=== PATIENT | female | born 1955 | race Caucasian/White ===

== ENCOUNTER 2016-11-05 04:30 | Emergency (ER) | payer OTHER ==
--- NOTE | 2016-11-05 04:35 | ED ---
General Adult HPI - General Stated complaint: Chest pain Time Seen by Provider: 11/05/16 04:30 Source: RN notes reviewed - History of Present Illness Initial comments: This is a 61-year-old female who presents to the emergency department complaining of epigastric abdominal pain. Patient states a week and she didn't feel well yesterday she didn't vomit but she woke up a few hours ago some epigastric abdominal pain. She also noted that she had chest pain when she took a deep breath only. Patient denies any shortness of breath or difficulty breathing. Patient denies any fever chills or cough. Patient states she still is nauseous. Patient denies any diarrhea. Patient denies any palpitations. Patient denies headache patient denies numbness weakness. Patient denies any lightheadedness or dizziness. Patient denies any dysuria hematuria urinary frequency. Patient denies any recent injury or trauma. Patient states she has a little bit of epigastric discomfort and currently no chest pain because she is not taking deep breaths. - Related Data Home Medications Medication Instructions Recorded Confirmed Levothyroxine Sodium [Synthroid] 112 mcg PO DAILY 09/08/15 11/05/16 Baclofen 10 mg PO TID PRN 12/20/15 11/05/16 Meloxicam [Mobic] 7.5 mg PO DAILY 01/18/16 11/05/16 Albuterol Inhaler [Ventolin Hfa 2 puff INHALATION RT-Q6H PRN 08/13/16 11/05/16 Inhaler] Budesonide/Formoterol Fumarate 2 puff INHALATION RT-BID 08/13/16 11/05/16 [Symbicort 80-4.5 Mcg Inhaler] Butalb/Acetaminophen/Caffeine 1 tab PO QID PRN 08/13/16 11/05/16 [Fioricet 50-325-40] Metoprolol Tartrate [Lopressor] 25 mg PO DAILY 08/13/16 11/05/16 Hydrochlorothiazide [Hydrodiuril] 25 mg PO DAILY 10/04/16 11/05/16 Previous Rx's Medication Instructions Recorded Ondansetron Odt [Zofran Odt] 4 mg PO Q8HR PRN #10 tab 08/13/16 Sulfamethox-Tmp 800-160Mg [Bactrim 1 each PO Q12HR #14 tab 11/05/16 DS 800-160 mg] Allergies Allergy/AdvReac Type Severity Reaction Status Date / Time azithromycin [From Zithromax] Allergy Rash/Hives Verified 11/05/16 04:46 levofloxacin [From Levaquin] Allergy caused Verified 11/05/16 04:46 abnormal EKG prochlorperazine edisylate Allergy Rash/Hives Verified 11/05/16 04:46 [From Compazine] prochlorperazine maleate Allergy Rash/Hives Verified 11/05/16 04:46 [From Compazine] sumatriptan [From Imitrex] Allergy redness Verified 11/05/16 04:46 and swelling at injection site sumatriptan succinate Allergy redness Verified 11/05/16 04:46 [From Imitrex] and swelling at injection site ketorolac tromethamine AdvReac headache Verified 11/05/16 04:46 [From Toradol] morphine AdvReac Nausea & Verified 11/05/16 04:46 Vomiting Review of Systems ROS Statement: Those systems with pertinent positive or pertinent negative responses have been documented in the HPI. ROS Other: All systems not noted in ROS Statement are negative. Past Medical History Past Medical History: Asthma, Coronary Artery Disease (CAD), Chest Pain / Angina , Heart Failure, GERD/Reflux, Hypertension, Pneumonia Additional Past Medical History / Comment(s): 2-2-16 c/o rectal bleeding, clinical impression: gi bleed non specific colitis. Other HX: migraines, bronchitis, pneumonias, cervical radiculopathy-compression fx in neck, back pain , ARTHRITIS bilateral shoulders, pancreatis 2008, pud, LBBB, uterine fibroids, post menopausal, fxs of bilateral feet and L hand, numbness tingling L hand, scoliosis, anemia. chf,currently persistent abdominal pain-mid abd to rt side History of Any Multi-Drug Resistant Organisms: None Reported, MRSA Date of last positivie culture/infection: 2008 MDRO Source:: lt axilla Past Surgical History: Appendectomy, Cholecystectomy Additional Past Surgical History / Comment(s): LEFT TEMPORAL ARTERY BIOPSY, colonoscopy, L breast bx benign, EGD. Past Anesthesia/Blood Transfusion Reactions: Motion Sickness Past Psychological History: Anxiety, Depression Additional Psychological History / Comment(s): Pt lives alone. She is independent. She uses no assistive device. She drives.pt stated hx of depression but current medication maintains her-denies deprssion at time of admit. Smoking Status: Never smoker Past Alcohol Use History: None Reported Past Drug Use History: None Reported - Past Family History Father Family Medical History: Cancer Additional Family Medical History / Comment(s): Father of bladder cancer at age 66yrs. Mother Family Medical History: Congestive Heart Failure (CHF), Rheumatoid Arthritis (RA ) Additional Family Medical History / Comment(s): Mother had ASHD and of this at age 68yrs. General Exam - General Exam Comments Initial Comments: GENERAL: Patient is well-developed and well-nourished. Patient is nontoxic and well- hydrated and is in mild distress. ENT: Neck is soft and supple. No significant lymphadenopathy is noted. Oropharynx is clear. Moist mucous membranes. Neck has full range of motion without eliciting any pain. EYES: The sclera were anicteric and conjunctiva were pink and moist. Extraocular movements were intact and pupils were equal round and reactive to light. Eyelids were unremarkable. PULMONARY: Unlabored respirations. Good breath sounds bilaterally. No audible rales rhonchi or wheezing was noted. CARDIOVASCULAR: There is a regular rate and rhythm without any murmurs gallops or rubs. ABDOMEN: Soft and mildly tender in the epigastric region with normal bowel sounds. No palpable organomegaly was noted. There is no palpable pulsatile mass. SKIN: Skin is clear with no lesions or rashes and otherwise unremarkable. NEUROLOGIC: Patient is alert and oriented x3. Cranial nerves II through XII are grossly intact. Motor and sensory are also intact. Normal speech, volume and content. Symmetrical smile. MUSCULOSKELETAL: Normal extremities with adequate strength and full range of motion. No lower extremity swelling or edema. No calf tenderness. LYMPHATICS: No significant lymphadenopathy is noted PSYCHIATRIC: Normal psychiatric evaluation. Normal interpersonal interactions appears functionally intact in deals appropriately with others. Course Vital Signs 11/05/16 04:41 Temperature 97.8 F Pulse Rate 122 H Respiratory 16 Rate Blood Pressure 136/81 O2 Sat by Pulse 98 Oximetry Medical Decision Making - Medical Decision Making EKG shows sinus tachycardia at 110 bpm. It was 170 QRS is 94 QT interval 362 QTC is 489. Patient's EKG shows no ST segment elevation or depression or T- wave abdomen is noted. - Lab Data Result diagrams: 11/05/16 04:48 11/05/16 04:48 Lab Results 11/05/16 11/05/16 11/05/16 Range/Units 04:48 04:48 04:48 WBC 4.9 (3.8-10.6) k/uL RBC 4.07 (3.80-5.40) m/uL Hgb 13.4 (11.4-16.0) gm/dL Hct 39.2 (34.0-46.0) % MCV 96.4 (80.0-100.0) fL MCH 32.9 (25.0-35.0) pg MCHC 34.1 (31.0-37.0) g/dL RDW 12.9 (11.5-15.5) % Plt Count 242 (150-450) k/uL Neutrophils % 51 % Lymphocytes % 32 % Monocytes % 7 % Eosinophils % 8 % Basophils % 1 % Neutrophils # 2.5 (1.3-7.7) k/uL Lymphocytes # 1.6 (1.0-4.8) k/uL Monocytes # 0.3 (0-1.0) k/uL Eosinophils # 0.4 (0-0.7) k/uL Basophils # 0.1 (0-0.2) k/uL Sodium 142 (137-145) mmol/L Potassium 3.7 (3.5-5.1) mmol/L Chloride 106 (98-107) mmol/L Carbon Dioxide 23 (22-30) mmol/L Anion Gap 13 mmol/L BUN 22 H (7-17) mg/dL Creatinine 0.90 (0.52-1.04) mg/dL Est GFR (MDRD) Af Amer >60 (>60 ml/min/1.73 sqM) Est GFR (MDRD) Non-Af >60 (>60 ml/min/1.73 sqM) Glucose 113 H (74-99) mg/dL Plasma Lactic Acid Senthil (0.7-2.0) mmol/L Calcium 9.6 (8.4-10.2) mg/dL Total Bilirubin 0.6 (0.2-1.3) mg/dL AST 25 (14-36) U/L ALT 32 (9-52) U/L Alkaline Phosphatase 109 (38-126) U/L Total Creatine Kinase 48 (30-135) U/L CK-MB (CK-2) 0.3 (0.0-2.4) ng/mL CK-MB (CK-2) Rel Index 0.6 Troponin I <0.012 (0.000-0.034) ng/mL Total Protein 7.0 (6.3-8.2) g/dL Albumin 4.4 (3.5-5.0) g/dL Amylase 55 (30-110) U/L Lipase 53 (23-300) U/L Urine Color Urine Appearance (Clear) Urine pH (5.0-8.0) Ur Specific [place] (1.001-1.035) Urine Protein (Negative) Urine Glucose (UA) (Negative) Urine Ketones (Negative) Urine Blood (Negative) Urine Nitrate (Negative) Urine Bilirubin (Negative) Urine Urobilinogen (<2.0) mg/dL Ur Leukocyte Esterase (Negative) Urine RBC (0-5) /hpf Urine WBC (0-5) /hpf Urine WBC Clumps (None) /hpf Ur Squamous Epith Cells (0-4) /hpf Urine Bacteria (None) /hpf Urine Mucus (None) /hpf 11/05/16 11/05/16 Range/Units 04:48 05:50 WBC (3.8-10.6) k/uL RBC (3.80-5.40) m/uL Hgb (11.4-16.0) gm/dL Hct (34.0-46.0) % MCV (80.0-100.0) fL MCH (25.0-35.0) pg MCHC (31.0-37.0) g/dL RDW (11.5-15.5) % Plt Count (150-450) k/uL Neutrophils % % Lymphocytes % % Monocytes % % Eosinophils % % Basophils % % Neutrophils # (1.3-7.7) k/uL Lymphocytes # (1.0-4.8) k/uL Monocytes # (0-1.0) k/uL Eosinophils # (0-0.7) k/uL Basophils # (0-0.2) k/uL Sodium (137-145) mmol/L Potassium (3.5-5.1) mmol/L Chloride (98-107) mmol/L Carbon Dioxide (22-30) mmol/L Anion Gap mmol/L BUN (7-17) mg/dL Creatinine (0.52-1.04) mg/dL Est GFR (MDRD) Af Amer (>60 ml/min/1.73 sqM) Est GFR (MDRD) Non-Af (>60 ml/min/1.73 sqM) Glucose (74-99) mg/dL Plasma Lactic Acid Senthil 1.2 (0.7-2.0) mmol/L Calcium (8.4-10.2) mg/dL Total Bilirubin (0.2-1.3) mg/dL AST (14-36) U/L ALT (9-52) U/L Alkaline Phosphatase (38-126) U/L Total Creatine Kinase (30-135) U/L CK-MB (CK-2) (0.0-2.4) ng/mL CK-MB (CK-2) Rel Index Troponin I (0.000-0.034) ng/mL Total Protein (6.3-8.2) g/dL Albumin (3.5-5.0) g/dL Amylase (30-110) U/L Lipase (23-300) U/L Urine Color Yellow Urine Appearance Turbid H (Clear) Urine pH 6.5 (5.0-8.0) Ur Specific [place] 1.018 (1.001-1.035) Urine Protein 3+ H (Negative) Urine Glucose (UA) Negative (Negative) Urine Ketones 1+ H (Negative) Urine Blood Small H (Negative) Urine Nitrate Negative (Negative) Urine Bilirubin Negative (Negative) Urine Urobilinogen 2.0 (<2.0) mg/dL Ur Leukocyte Esterase Large H (Negative) Urine RBC 77 H (0-5) /hpf Urine WBC >182 H (0-5) /hpf Urine WBC Clumps Many H (None) /hpf Ur Squamous Epith Cells 24 H (0-4) /hpf Urine Bacteria Occasional H (None) /hpf Urine Mucus Many H (None) /hpf Disposition Clinical Impression: Gastritis, Urinary tract infection Disposition: HOME SELF-CARE Condition: Good Instructions: Urinary Tract Infection in Women (ED) Prescriptions: Sulfamethox-Tmp 800-160Mg [Bactrim DS 800-160 mg] 1 each PO Q12HR #14 tab Referrals: Leonela Marcelino MD [Primary Care Provider] - 1-2 days Time of Disposition: 06:06
[2016-11-05 04:46] VITALS: BP 136/81; PULSE 122; RESP 16; TEMP 97.8
--- NOTE | 2016-11-05 05:04 | XR ---
EXAMINATION TYPE: XR chest 2V DATE OF EXAM: 11/05/2016 4:55 AM COMPARISON: 05/19/2016 HISTORY: Chest and upper abdominal pain and nausea history of CHF TECHNIQUE: Frontal and lateral views of the chest are obtained. FINDINGS: There is no focal air space opacity, pleural effusion, or pneumothorax seen. The cardiac silhouette size is within normal limits. The osseous structures are intact. IMPRESSION: No acute cardiopulmonary process. No significant interval change.
[2016-11-05 05:07] LABS: Basophils # (A) 0.1 k/uL (0-0.2); Basophils % (A) 1 %; CH 34.3; CHCM 35.8; Eosinophils # (A) 0.4 k/uL (0-0.7); Eosinophils % (A) 8 %; HCT 39.2 % (34.0-46.0); HDW 2.91; HGB 13.4 gm/dL (11.4-16.0); Luc # (Auto) 0.07; Luc % (Auto) 2; Lymphocytes # (A) 1.6 k/uL (1.0-4.8); Lymphocytes % (A) 32 %; MCH 32.9 pg (25.0-35.0); MCHC 34.1 g/dL (31.0-37.0); MCV 96.4 fL (80.0-100.0); Mean Platelet Volume 7.3; Monocytes # (A) 0.3 k/uL (0-1.0); Monocytes % (A) 7 %; Neutrophils # (A) 2.5 k/uL (1.3-7.7); Neutrophils % (A) 51 %; RBC 4.07 m/uL (3.80-5.40); RDW 12.9 % (11.5-15.5); WBC 4.9 k/uL (3.8-10.6); WBC (Perox) 4.86
[2016-11-05 05:13] LABS: ALT 32 U/L (9-52); AST 25 U/L (14-36); Alkaline Phosphatase 109 U/L (38-126); Amylase 55 U/L (30-110); Anion Gap 13 mmol/L; Blood Urea Nitrogen 22 mg/dL (7-17); Calcium 9.6 mg/dL (8.4-10.2); Carbon Dioxide 23 mmol/L (22-30); Chloride 106 mmol/L (98-107); Glucose 113 mg/dL (74-99); Non-African American GFR(MDRD) >60 (>60 ml/min/1.73 sqM); Potassium 3.7 mmol/L (3.5-5.1); Sodium 142 mmol/L (137-145); Total Bilirubin 0.6 mg/dL (0.2-1.3)
[2016-11-05 05:24] LABS: Creatine Kinase 48 U/L (30-135)
[2016-11-05 05:36] LABS: Creatine Kinase MB 0.3 ng/mL (0.0-2.4); Troponin I <0.012 ng/mL (0.000-0.034)
[2016-11-05] MEDS ORDERED: MAG HYDROX/AL HYDROX/SIMETH 30 ML, HYOSCYAMINE ELIXIR 10 ML, CIMETIDINE HCL 300 MG PO STA ×3 (05:41)
[2016-11-05] MEDS ORDERED: SODIUM CHLORIDE 0.9% 500 ML IV STA (05:42)
[2016-11-05 06:03] LABS: Appearance,Urine Turbid (Clear); Bacteria,Urine Occasional /hpf; Bilirubin,Urine Negative (Negative); Glucose,Urine (UA) Negative (Negative); Ketones,Urine 1+ (Negative); Leukocyte Esterase,Urine Large (Negative); Mucus,Urine Many /hpf; Nitrite,Urine Negative (Negative); PH, Urine 6.5 (5.0-8.0); Particle Count 121628; Protein,Urine 3+ (Negative); RBC,Urine 77 /hpf (0-5); Specific Gravity,Urine 1.018 (1.001-1.035); Squamous Epithelial Cell,Urine 24 /hpf (0-4); UA Billing (MACRO vs. MICRO) MICRO; WBC,Urine >182 /hpf (0-5)
== END 2016-11-05 06:31 | disposition home or self-care (01) ==
LOC: EC 04:30
DX: K29.70 Gastritis, unspecified, without bleeding (principal); N39.0 Urinary tract infection, site not specified; R00.0 Tachycardia, unspecified; J45.909 Unspecified asthma, uncomplicated; I25.10 Atherosclerotic heart disease of native coronary artery without angina pectoris; I11.0 Hypertensive heart disease with heart failure; I50.9 Heart failure, unspecified; K21.9 Gastro-esophageal reflux disease without esophagitis; M19.012 Primary osteoarthritis, left shoulder; M19.011 Primary osteoarthritis, right shoulder; G43.909 Migraine, unspecified, not intractable, without status migrainosus; D64.9 Anemia, unspecified; M41.9 Scoliosis, unspecified; F41.9 Anxiety disorder, unspecified; F32.9 Major depressive disorder, single episode, unspecified; Z87.01 Personal history of pneumonia (recurrent); Z87.11 Personal history of peptic ulcer disease; Z80.52 Family history of malignant neoplasm of bladder; Z82.49 Family history of ischemic heart disease and other diseases of the circulatory system; Z90.49 Acquired absence of other specified parts of digestive tract; Z88.1 Allergy status to other antibiotic agents; Z88.8 Allergy status to other drugs, medicaments and biological substances; Z88.5 Allergy status to narcotic agent; Z79.899 Other long term (current) drug therapy; Z79.1 Long term (current) use of non-steroidal anti-inflammatories (NSAID)
CPT/HCPCS: 99285 ×2; 96365 ×2; 36415; 93005; 80053; 82150; 82550; 82553; 83605; 83690; 84484; 85025; 81001; 71020; J0696

== ENCOUNTER 2016-12-27 06:35 | Emergency (ER) | payer OTHER ==
[2016-12-27] MEDS ORDERED: METOCLOPRAMIDE 5 MG/ML 2 ML VIAL IM STA (07:45)
[2016-12-27] MEDS ORDERED: ONDANSETRON ODT 4 MG TAB PO STA (07:46)
[2016-12-27] MEDS ORDERED: BUTALB/APAP/CAFF 50-325-40MG TAB PO STA (07:46)
[2016-12-27] MEDS ORDERED: diphenhydrAMINE 50 MG/ML 1 ML VIAL IM STA (07:46)
--- NOTE | 2016-12-27 07:49 | ED ---
General Adult HPI - General Chief complaint: Headache Stated complaint: Headache, Nausea, abd pain Time Seen by Provider: 12/27/16 07:00 Source: patient, RN notes reviewed Mode of arrival: ambulatory Limitations: no limitations - History of Present Illness Initial comments: This is a 61-year-old female who comes into the emergency department with past history significant for migraines. Patient comes in today stating her migraine started early in the morning about 1:00 and she had some nausea and then began vomiting his been unable to keep her meds down. Patient states that she can keep her meds down and she would feel much better. Patient denies any new symptoms with the headache. Patient states this is typical of her migraines she has frontal headache that is diffuse and she becomes nauseated. Patient states she's also sensitive to light however the bright lights are on the room and she does not appear to be bothered by them. Patient denies any fever chills patient denies any neck stiffness. Patient denies any chest pain palpitations difficulty breathing or shortness of breath. Patient denies abdominal pain. - Related Data Home Medications Medication Instructions Recorded Confirmed Levothyroxine Sodium [Synthroid] 112 mcg PO DAILY 09/08/15 12/27/16 Baclofen 10 mg PO TID PRN 12/20/15 12/27/16 Meloxicam [Mobic] 7.5 mg PO DAILY 01/18/16 12/27/16 Albuterol Inhaler [Ventolin Hfa 2 puff INHALATION RT-Q6H PRN 08/13/16 12/27/16 Inhaler] Budesonide/Formoterol Fumarate 2 puff INHALATION RT-BID 08/13/16 12/27/16 [Symbicort 80-4.5 Mcg Inhaler] Butalb/Acetaminophen/Caffeine 1 tab PO QID PRN 08/13/16 12/27/16 [Fioricet 50-325-40] Metoprolol Tartrate [Lopressor] 25 mg PO DAILY 08/13/16 12/27/16 Hydrochlorothiazide [Hydrodiuril] 25 mg PO DAILY 10/04/16 12/27/16 Previous Rx's Medication Instructions Recorded Ondansetron Odt [Zofran Odt] 4 mg PO Q8HR PRN #10 tab 08/13/16 Allergies Allergy/AdvReac Type Severity Reaction Status Date / Time azithromycin [From Zithromax] Allergy Rash/Hives Verified 12/27/16 06:43 levofloxacin [From Levaquin] Allergy caused Verified 12/27/16 06:43 abnormal EKG prochlorperazine edisylate Allergy Rash/Hives Verified 12/27/16 06:43 [From Compazine] prochlorperazine maleate Allergy Rash/Hives Verified 12/27/16 06:43 [From Compazine] sumatriptan [From Imitrex] Allergy redness Verified 12/27/16 06:43 and swelling at injection site sumatriptan succinate Allergy redness Verified 12/27/16 06:43 [From Imitrex] and swelling at injection site ketorolac tromethamine AdvReac headache Verified 12/27/16 06:43 [From Toradol] morphine AdvReac Nausea & Verified 12/27/16 06:43 Vomiting Review of Systems ROS Statement: Those systems with pertinent positive or pertinent negative responses have been documented in the HPI. ROS Other: All systems not noted in ROS Statement are negative. Past Medical History Past Medical History: Asthma, Coronary Artery Disease (CAD), Chest Pain / Angina , Heart Failure, GERD/Reflux, Hypertension, Pneumonia Additional Past Medical History / Comment(s): 2-2-16 c/o rectal bleeding, clinical impression: gi bleed non specific colitis. Other HX: migraines, bronchitis, pneumonias, cervical radiculopathy-compression fx in neck, back pain , ARTHRITIS bilateral shoulders, pancreatis 2008, pud, LBBB, uterine fibroids, post menopausal, fxs of bilateral feet and L hand, numbness tingling L hand, scoliosis, anemia. chf,currently persistent abdominal pain-mid abd to rt side History of Any Multi-Drug Resistant Organisms: None Reported, MRSA Date of last positivie culture/infection: 2008 MDRO Source:: lt axilla Past Surgical History: Appendectomy, Cholecystectomy Additional Past Surgical History / Comment(s): LEFT TEMPORAL ARTERY BIOPSY, colonoscopy, L breast bx benign, EGD. Past Anesthesia/Blood Transfusion Reactions: Motion Sickness Past Psychological History: Anxiety, Depression Additional Psychological History / Comment(s): Pt lives alone. She is independent. She uses no assistive device. She drives.pt stated hx of depression but current medication maintains her-denies deprssion at time of admit. Smoking Status: Never smoker Past Alcohol Use History: None Reported Past Drug Use History: None Reported - Past Family History Father Family Medical History: Cancer Additional Family Medical History / Comment(s): Father of bladder cancer at age 66yrs. Mother Family Medical History: Congestive Heart Failure (CHF), Rheumatoid Arthritis (RA ) Additional Family Medical History / Comment(s): Mother had ASHD and of this at age 68yrs. General Exam - General Exam Comments Initial Comments: GENERAL: Patient is well-developed and well-nourished. Patient is nontoxic and well- hydrated and is in mild distress. ENT: Neck is soft and supple. No significant lymphadenopathy is noted. Oropharynx is clear. Moist mucous membranes. Neck has full range of motion without eliciting any pain. EYES: The sclera were anicteric and conjunctiva were pink and moist. Extraocular movements were intact and pupils were equal round and reactive to light. Eyelids were unremarkable. Patient does not seem to have any photophobia PULMONARY: Unlabored respirations. Good breath sounds bilaterally. No audible rales rhonchi or wheezing was noted. CARDIOVASCULAR: There is a regular rate and rhythm without any murmurs gallops or rubs. ABDOMEN: Soft and nontender with normal bowel sounds. No palpable organomegaly was noted. There is no palpable pulsatile mass. SKIN: Skin is clear with no lesions or rashes and otherwise unremarkable. NEUROLOGIC: Patient is alert and oriented x3. Cranial nerves II through XII are grossly intact. Motor and sensory are also intact. Normal speech, volume and content. Symmetrical smile. MUSCULOSKELETAL: Normal extremities with adequate strength and full range of motion. LYMPHATICS: No significant lymphadenopathy is noted PSYCHIATRIC: Normal psychiatric evaluation. Normal interpersonal interactions appears functionally intact in deals appropriately with others. No signs of depression. No signs of anxiety. Limitations: no limitations Course Vital Signs 12/27/16 06:39 Temperature 97.7 F Pulse Rate 100 Respiratory 20 Rate Blood Pressure 94/51 O2 Sat by Pulse 97 Oximetry Medical Decision Making - Medical Decision Making Patient told me she has never followed up with a neurologist. Disposition Clinical Impression: Migraine, Migraine Disposition: HOME SELF-CARE Condition: Good Instructions: Migraine Headache (ED) Additional Instructions: Patient is to follow-up with a neurologist. Referrals: Leonela Marcelino MD [Primary Care Provider] - 1-2 days Time of Disposition: 07:49
[2016-12-27] MEDS ORDERED: ONDANSETRON 4 MG ODT STARTER PACK 2 TAB BTL PO STA (07:56)
[2016-12-27 08:52] VITALS: BP 90/53; PULSE 84; RESP 16; TEMP 97.5
== END 2016-12-27 08:49 | disposition home or self-care (01) ==
LOC: EC 06:35
DX: G43.909 Migraine, unspecified, not intractable, without status migrainosus (principal); J45.909 Unspecified asthma, uncomplicated; I25.10 Atherosclerotic heart disease of native coronary artery without angina pectoris; I11.0 Hypertensive heart disease with heart failure; I50.9 Heart failure, unspecified; K21.9 Gastro-esophageal reflux disease without esophagitis; M13.812 Other specified arthritis, left shoulder; M13.811 Other specified arthritis, right shoulder; M41.9 Scoliosis, unspecified; Z79.51 Long term (current) use of inhaled steroids; Z79.52 Long term (current) use of systemic steroids; Z79.899 Other long term (current) drug therapy; Z88.1 Allergy status to other antibiotic agents; Z88.5 Allergy status to narcotic agent; Z88.6 Allergy status to analgesic agent; Z88.8 Allergy status to other drugs, medicaments and biological substances
CPT/HCPCS: 99283; 96372 ×2; J1200; J2765; S0119

== ENCOUNTER 2017-02-07 05:15 | Emergency (ER) | payer OTHER ==
[2017-02-07] MEDS ORDERED: SODIUM CHLORIDE 0.9% 500 ML IV STA (05:30)
[2017-02-07 05:40] VITALS: TEMP 98.1
--- NOTE | 2017-02-07 05:43 | ED ---
Abdominal Pain HPI - General Chief Complaint: Abdominal Pain Stated Complaint: nvd, abd pain Time Seen by Provider: 02/07/17 05:29 Source: patient Mode of arrival: ambulatory Limitations: no limitations - History of Present Illness MD Complaint: abdominal pain Onset/Timin -: week(s) Location: LUQ, RUQ, epigastric Radiation: none Severity: moderate Quality: aching Consistency: constant Improves With: nothing Worsens With: nothing Associated Symptoms: nausea, vomiting - Related Data Home Medications Medication Instructions Recorded Confirmed Baclofen 10 mg PO TID 12/20/15 02/07/17 Meloxicam [Mobic] 7.5 mg PO BID 01/18/16 02/07/17 Albuterol Inhaler [Ventolin Hfa 2 puff INHALATION RT-BID 08/13/16 02/07/17 Inhaler] Budesonide/Formoterol Fumarate 1 puff INHALATION RT-DAILY 08/13/16 02/07/17 [Symbicort 80-4.5 Mcg Inhaler] Metoprolol Tartrate [Lopressor] 25 mg PO BID 08/13/16 02/07/17 Hydrochlorothiazide [Hydrodiuril] 25 mg PO DAILY 10/04/16 02/07/17 Butalb/Acetaminophen/Caffeine 1 - 2 cap PO Q4HR PRN 12/27/16 02/07/17 [Fioricet 50-300-40 mg Capsule] Levothyroxine Sodium [Synthroid] 125 mcg PO DAILY 12/27/16 02/07/17 Omeprazole [PriLOSEC] 20 mg PO BID 12/27/16 02/07/17 Desvenlafaxine [Pristiq ER] 100 mg PO DAILY 02/07/17 02/07/17 Previous Rx's Medication Instructions Recorded Famotidine [Pepcid] 20 mg PO BID #14 tablet 02/07/17 Nitrofurantoin Monohyd/M-Cryst 100 mg PO Q12HR #6 cap 02/07/17 [Macrobid] Allergies Allergy/AdvReac Type Severity Reaction Status Date / Time azithromycin [From Zithromax] Allergy Rash/Hives Verified 02/07/17 07:39 prochlorperazine edisylate Allergy Rash/Hives Verified 02/07/17 07:39 [From Compazine] prochlorperazine maleate Allergy Rash/Hives Verified 02/07/17 07:39 [From Compazine] sumatriptan [From Imitrex] Allergy redness Verified 02/07/17 07:39 and swelling at injection site sumatriptan succinate Allergy redness Verified 02/07/17 07:39 [From Imitrex] and swelling at injection site ketorolac tromethamine AdvReac headache Verified 02/07/17 07:39 [From Toradol] levofloxacin [From Levaquin] AdvReac caused Verified 02/07/17 07:39 abnormal EKG morphine AdvReac Nausea & Verified 02/07/17 07:39 Vomiting Review of Systems ROS Statement: Those systems with pertinent positive or pertinent negative responses have been documented in the HPI. ROS Other: All systems not noted in ROS Statement are negative. Constitutional: Denies: fever, chills Respiratory: Denies: cough, dyspnea, wheezes Cardiovascular: Denies: chest pain, palpitations, orthopnea, edema, syncope Gastrointestinal: Reports: abdominal pain, nausea, vomiting. Denies: diarrhea, melena, hematochezia Genitourinary: Denies: dysuria, hematuria Musculoskeletal: Denies: back pain Skin: Denies: rash Neurological: Denies: headache, weakness, numbness Past Medical History Past Medical History: Asthma, Coronary Artery Disease (CAD), Chest Pain / Angina , Heart Failure, GERD/Reflux, Hypertension, Pneumonia Additional Past Medical History / Comment(s): 2-16 c/o rectal bleeding, clinical impression: gi bleed non specific colitis. Other HX: migraines, bronchitis, pneumonias, cervical radiculopathy-compression fx in neck, back pain , ARTHRITIS bilateral shoulders, pancreatis 2008, pud, LBBB, uterine fibroids, post menopausal, fxs of bilateral feet and L hand, numbness tingling L hand, scoliosis, anemia. chf,currently persistent abdominal pain-mid abd to rt side History of Any Multi-Drug Resistant Organisms: None Reported, MRSA Date of last positivie culture/infection: 2008 MDRO Source:: lt axilla Past Surgical History: Appendectomy, Cholecystectomy Additional Past Surgical History / Comment(s): LEFT TEMPORAL ARTERY BIOPSY, colonoscopy, L breast bx benign, EGD. Past Anesthesia/Blood Transfusion Reactions: Motion Sickness Past Psychological History: Anxiety, Depression Additional Psychological History / Comment(s): Pt lives alone. She is independent. She uses no assistive device. She drives.pt stated hx of depression but current medication maintains her-denies deprssion at time of admit. Smoking Status: Never smoker Past Alcohol Use History: None Reported Past Drug Use History: None Reported - Past Family History Father Family Medical History: Cancer Additional Family Medical History / Comment(s): Father of bladder cancer at age 66yrs. Mother Family Medical History: Congestive Heart Failure (CHF), Rheumatoid Arthritis (RA ) Additional Family Medical History / Comment(s): Mother had ASHD and of this at age 68yrs. General Exam Limitations: no limitations General appearance: alert Head exam: Present: atraumatic, normocephalic Eye exam: Present: normal appearance. Absent: scleral icterus, conjunctival injection ENT exam: Present: normal oropharynx Neck exam: Present: normal inspection, full ROM Respiratory exam: Present: normal lung sounds bilaterally. Absent: respiratory distress, wheezes, rales, rhonchi, stridor Cardiovascular Exam: Present: normal rhythm, tachycardia, normal heart sounds. Absent: systolic murmur, diastolic murmur, rubs, gallop GI/Abdominal exam: Present: soft, tenderness (There is mild epigastric tenderness without rebound or guarding), normal bowel sounds. Absent: distended , guarding, rebound, rigid, mass, pulsatile mass, hernia Extremities exam: Present: normal inspection, normal capillary refill. Absent: pedal edema, calf tenderness Back exam: Absent: CVA tenderness (R), CVA tenderness (L) Neurological exam: Present: alert Skin exam: Present: warm, dry, intact, normal color. Absent: rash Course Vital Signs 02/07/17 05:17 Temperature 98.1 F Pulse Rate 115 H Respiratory 20 Rate Blood Pressure 123/58 O2 Sat by Pulse 96 Oximetry Medical Decision Making - Lab Data Result diagrams: 02/07/17 05:58 02/07/17 05:58 Lab Results 02/07/17 02/07/17 02/07/17 Range/Units 05:58 05:58 05:58 WBC 6.3 (3.8-10.6) k/uL RBC 3.53 L (3.80-5.40) m/uL Hgb 11.5 (11.4-16.0) gm/dL Hct 34.1 (34.0-46.0) % MCV 96.6 (80.0-100.0) fL MCH 32.7 (25.0-35.0) pg MCHC 33.8 (31.0-37.0) g/dL RDW 13.7 (11.5-15.5) % Plt Count 250 (150-450) k/uL Neutrophils % 49 % Lymphocytes % 32 % Monocytes % 6 % Eosinophils % 10 % Basophils % 1 % Neutrophils # 3.1 (1.3-7.7) k/uL Lymphocytes # 2.0 (1.0-4.8) k/uL Monocytes # 0.4 (0-1.0) k/uL Eosinophils # 0.6 (0-0.7) k/uL Basophils # 0.1 (0-0.2) k/uL Sodium 139 (137-145) mmol/L Potassium 3.3 L (3.5-5.1) mmol/L Chloride 106 (98-107) mmol/L Carbon Dioxide 23 (22-30) mmol/L Anion Gap 10 mmol/L BUN 27 H (7-17) mg/dL Creatinine 0.98 (0.52-1.04) mg/dL Est GFR (MDRD) Af Amer >60 (>60 ml/min/1.73 sqM) Est GFR (MDRD) Non-Af 58 (>60 ml/min/1.73 sqM) Glucose 99 (74-99) mg/dL Calcium 9.7 (8.4-10.2) mg/dL Total Bilirubin 0.8 (0.2-1.3) mg/dL AST 38 H (14-36) U/L ALT 43 (9-52) U/L Alkaline Phosphatase 92 (38-126) U/L Troponin I <0.012 (0.000-0.034) ng/mL Total Protein 7.0 (6.3-8.2) g/dL Albumin 4.1 (3.5-5.0) g/dL Amylase 81 (30-110) U/L Lipase 172 (23-300) U/L Urine Color Urine Appearance (Clear) Urine pH (5.0-8.0) Ur Specific [place] (1.001-1.035) Urine Protein (Negative) Urine Glucose (UA) (Negative) Urine Ketones (Negative) Urine Blood (Negative) Urine Nitrite (Negative) Urine Bilirubin (Negative) Urine Urobilinogen (<2.0) mg/dL Ur Leukocyte Esterase (Negative) Urine WBC (0-5) /hpf Ur Squamous Epith Cells (0-4) /hpf Hyaline Casts (0-2) /lpf 02/07/17 Range/Units 06:18 WBC (3.8-10.6) k/uL RBC (3.80-5.40) m/uL Hgb (11.4-16.0) gm/dL Hct (34.0-46.0) % MCV (80.0-100.0) fL MCH (25.0-35.0) pg MCHC (31.0-37.0) g/dL RDW (11.5-15.5) % Plt Count (150-450) k/uL Neutrophils % % Lymphocytes % % Monocytes % % Eosinophils % % Basophils % % Neutrophils # (1.3-7.7) k/uL Lymphocytes # (1.0-4.8) k/uL Monocytes # (0-1.0) k/uL Eosinophils # (0-0.7) k/uL Basophils # (0-0.2) k/uL Sodium (137-145) mmol/L Potassium (3.5-5.1) mmol/L Chloride (98-107) mmol/L Carbon Dioxide (22-30) mmol/L Anion Gap mmol/L BUN (7-17) mg/dL Creatinine (0.52-1.04) mg/dL Est GFR (MDRD) Af Amer (>60 ml/min/1.73 sqM) Est GFR (MDRD) Non-Af (>60 ml/min/1.73 sqM) Glucose (74-99) mg/dL Calcium (8.4-10.2) mg/dL Total Bilirubin (0.2-1.3) mg/dL AST (14-36) U/L ALT (9-52) U/L Alkaline Phosphatase (38-126) U/L Troponin I (0.000-0.034) ng/mL Total Protein (6.3-8.2) g/dL Albumin (3.5-5.0) g/dL Amylase (30-110) U/L Lipase (23-300) U/L Urine Color Yellow Urine Appearance Clear (Clear) Urine pH 6.0 (5.0-8.0) Ur Specific [place] 1.018 (1.001-1.035) Urine Protein Negative (Negative) Urine Glucose (UA) Negative (Negative) Urine Ketones Negative (Negative) Urine Blood Negative (Negative) Urine Nitrite Negative (Negative) Urine Bilirubin Negative (Negative) Urine Urobilinogen <2.0 (<2.0) mg/dL Ur Leukocyte Esterase Moderate H (Negative) Urine WBC 11 H (0-5) /hpf Ur Squamous Epith Cells 1 (0-4) /hpf Hyaline Casts 104 H (0-2) /lpf - EKG Data -: EKG Interpreted by [facility] EKG shows normal: sinus rhythm, axis (Normal), intervals (Normal), ST-T waves ( Normal) Rate: tachycardia (Rate 103 bpm) Interpretation: other (Possible old inferior infarct.) Disposition Clinical Impression: Gastroenteritis, Abdominal pain Disposition: HOME SELF-CARE Condition: Fair Instructions: Gastroenteritis (ED) Prescriptions: Famotidine [Pepcid] 20 mg PO BID #14 tablet Nitrofurantoin Monohyd/M-Cryst [Macrobid] 100 mg PO Q12HR #6 cap Referrals: Leonela Marcelino MD [Primary Care Provider] - 1-2 days
[2017-02-07] MEDS ORDERED: ONDANSETRON 4 MG/2 ML VIAL IVP STA (06:07)
[2017-02-07 06:21] LABS: Basophils # (A) 0.1 k/uL (0-0.2); Basophils % (A) 1 %; CH 34.8; CHCM 36.2; Eosinophils # (A) 0.6 k/uL (0-0.7); Eosinophils % (A) 10 %; HCT 34.1 % (34.0-46.0); HDW 2.84; HGB 11.5 gm/dL (11.4-16.0); Luc # (Auto) 0.19; Luc % (Auto) 3; Lymphocytes % (A) 32 %; MCH 32.7 pg (25.0-35.0); MCHC 33.8 g/dL (31.0-37.0); MCV 96.6 fL (80.0-100.0); Mean Platelet Volume 6.4; Monocytes # (A) 0.4 k/uL (0-1.0); Monocytes % (A) 6 %; Neutrophils # (A) 3.1 k/uL (1.3-7.7); Neutrophils % (A) 49 %; RBC 3.53 m/uL (3.80-5.40); RDW 13.7 % (11.5-15.5); WBC 6.3 k/uL (3.8-10.6); WBC (Perox) 6.36
[2017-02-07 06:32] LABS: ALT 43 U/L (9-52); AST 38 U/L (14-36); Alkaline Phosphatase 92 U/L (38-126); Amylase 81 U/L (30-110); Anion Gap 10 mmol/L; Blood Urea Nitrogen 27 mg/dL (7-17); Calcium 9.7 mg/dL (8.4-10.2); Carbon Dioxide 23 mmol/L (22-30); Chloride 106 mmol/L (98-107); Glucose 99 mg/dL (74-99); Non-African American GFR(MDRD) 58 (>60 ml/min/1.73 sqM); Potassium 3.3 mmol/L (3.5-5.1); Sodium 139 mmol/L (137-145); Total Bilirubin 0.8 mg/dL (0.2-1.3)
[2017-02-07 06:41] LABS: Appearance,Urine Clear (Clear); Bilirubin,Urine Negative (Negative); Glucose,Urine (UA) Negative (Negative); Ketones,Urine Negative (Negative); Leukocyte Esterase,Urine Moderate (Negative); Nitrite,Urine Negative (Negative); Particle Count 1122; Protein,Urine Negative (Negative); Specific Gravity,Urine 1.018 (1.001-1.035); Squamous Epithelial Cell,Urine 1 /hpf (0-4); UA Billing (MACRO vs. MICRO) MICRO; Urobilinogen,Urine <2.0 mg/dL (<2.0); WBC,Urine 11 /hpf (0-5)
--- NOTE | 2017-02-07 07:43 | CT ---
EXAM: CT Abdomen and Pelvis Without Intravenous Contrast. CLINICAL HISTORY: Reason: Pain TECHNIQUE: Axial computed tomography images of the abdomen and pelvis without intravenous contrast. CTDI is 12.80 mGy and DLP is 682.00 mGy-cm This CT exam was performed using one or more of the following dose reduction techniques: automated exposure control, adjustment of the mA and/or kV according to patient size, and/or use of iterative reconstruction technique. COMPARISON: CT abdomen pelvis 12/19/15. FINDINGS: Lower thorax: Small right-sided Bochdalek hernia. ABDOMEN: Liver: Unremarkable. Gallbladder and bile ducts: Prior cholecystectomy. No ductal dilation. Pancreas: Unremarkable. No ductal dilation. Spleen: Unremarkable. No splenomegaly. Adrenals: Unremarkable. No mass. Kidneys and ureters: Punctate nonobstructing calyceal calculus at the left lower renal pole. No obstructive uropathy. No other renal abnormalities. Stomach and bowel: Fluid within nondistended stomach and bowel without wall thickening or surrounding inflammation is nonspecific and may be normal but can also be seen with gastroenteritis in the right clinical setting. No bowel obstruction. No appendicitis or other inflammatory changes of bowel. Scattered colonic diverticula. Appendix: See above. PELVIS: Bladder: Unremarkable. No stones. Reproductive: Unremarkable as visualized. ABDOMEN and PELVIS: Intraperitoneal space: Unremarkable. No free air. No significant fluid collection. Bones/joints: No acute fracture. No dislocation. Soft tissues: Unremarkable. Vasculature: Unremarkable. No abdominal aortic aneurysm. Lymph nodes: Unremarkable. No enlarged lymph nodes. IMPRESSION: Fluid within nondistended stomach and bowel without wall thickening or surrounding inflammation is nonspecific and may be normal but can also be seen with gastroenteritis in the right clinical setting. Punctate nonobstructing calyceal calculus at the left lower renal pole. No obstructive uropathy. No other acute or inflammatory disease or bowel obstruction.
[2017-02-07] MEDS ORDERED: HYDROcodone/APAP 5-325MG 1 EACH TAB PO STA (07:56)
[2017-02-07] MEDS ORDERED: POTASSIUM CHLORIDE ER 20 MEQ TAB.ER PO STA (07:59)
[2017-02-07 08:31] VITALS: BP 112/68; PULSE 98; RESP 18
== END 2017-02-07 08:29 | disposition home or self-care (01) ==
LOC: EC 05:15
DX: K52.9 Noninfective gastroenteritis and colitis, unspecified (principal); R11.2 Nausea with vomiting, unspecified; R00.0 Tachycardia, unspecified; J45.909 Unspecified asthma, uncomplicated; I10 Essential (primary) hypertension; K21.9 Gastro-esophageal reflux disease without esophagitis; M19.90 Unspecified osteoarthritis, unspecified site; F32.9 Major depressive disorder, single episode, unspecified; F41.9 Anxiety disorder, unspecified; Z79.1 Long term (current) use of non-steroidal anti-inflammatories (NSAID); Z79.51 Long term (current) use of inhaled steroids; Z79.899 Other long term (current) drug therapy; Z88.1 Allergy status to other antibiotic agents; Z88.5 Allergy status to narcotic agent; Z88.6 Allergy status to analgesic agent; Z88.8 Allergy status to other drugs, medicaments and biological substances; Z87.39 Personal history of other diseases of the musculoskeletal system and connective tissue; Z86.79 Personal history of other diseases of the circulatory system; Z90.49 Acquired absence of other specified parts of digestive tract
CPT/HCPCS: 99284; 96374; 96361; 36415; 93005; 80053; 82150; 83690; 84484; 85025; 81001; 74176; J2405

== ENCOUNTER → 2017-03-22 | Outpatient (CLI) | payer OTHER ==
--- NOTE | 2017-03-26 13:24 | MM ---
Reason for exam: clinical finding. History: Patient is postmenopausal. Benign excisional biopsy of the left breast, 1996. Indicated problem(s): lump or thickening in the left breast. Physical Findings: Nurse did not find any significant physical abnormalities on exam. MG Diagnostic Mammo w CAD LEXI Bilateral CC and MLO view(s) were taken. ML and spot compression MLO with magnification view(s) were taken of the left breast. There are scattered fibroglandular densities. Asymmetric density superior left breast does not persist on spot magnification view. There are some faint punctate calcifications in this area that do not quite form a cluster at this time. These results were verbally communicated with the patient and result sheet given to the patient on 03/22/17. ASSESSMENT: Incomplete: need additional imaging evaluation, BI-RAD 0 RECOMMENDATION: Ultrasound of the left breast. (Targeted to patient palpable. Nurse could not detect any abnormality at 12-4 o'clock)
--- NOTE | 2017-03-26 13:25 | USB ---
Reason for exam: additional evaluation requested from abnormal screening. History: Patient is postmenopausal. Benign excisional biopsy of the left breast, 1996. US Breast Limited LT Left breast ultrasound demonstrates a 2 x 1 x 3mm oval, too small to characterize, probably cystic lesion at 2 o'clock. These results were verbally communicated with the patient and result sheet given to the patient on 03/22/17. ASSESSMENT: Probably benign, BI-RAD 3 RECOMMENDATION: Follow-up diagnostic mammogram of the left breast in 6 months. Manage patient on a clinical basis. (Any suspicious palpable areas).
== END | disposition home or self-care (01) ==
LOC: RADMAMWWP 07:58
PROVIDERS: ATTEND Family Medicine
DX: N64.4 Mastodynia (principal)
CPT/HCPCS: 76642; G0204

== ENCOUNTER 2017-04-03 09:02 | Day surgery (SDC) | payer OTHER ==
[2017-04-02 10:10] VITALS: BMI 28.1
[~2017-04-03 09:02] MED LIST: LACTATED RINGERS 1,000 ML IV SCH; LIDOCAINE 1% 20 ML VIAL (10MG/ML) FOR IV START INTRADERMA PRN
[2017-04-03 09:57] VITALS: RESP 16; TEMP 98.3
[2017-04-03] MEDS ORDERED: PROPOFOL 10 MG/ML 20 ML VIAL IV ONE (10:11)
--- NOTE | 2017-04-03 10:26 | P.PCN ---
Date of Procedure: 04/03/17 Preoperative Diagnosis: Postoperative Diagnosis: Procedure(s) Performed: BRIEF HISTORY: Patient is a 61-year-old, pleasant, white female, scheduled for an upper endoscopy as a part of evaluation of severe epigastric pain for the last several months duration. She does have history of gastroesophageal reflux and has been on Prilosec 20 mg daily for almost 1 year duration. She does take NSAIDs a regular basis for degenerative joint disease. Has prior history of peptic ulcer disease approximately 30 years ago. In view of the symptoms she is scheduled for an upper endoscopy to evaluate further. PROCEDURE PERFORMED: Esophagogastroduodenoscopy with biopsy. PREOPERATIVE DIAGNOSIS: Severe epigastric pain of 2 months duration and chronic GERD. IV sedation per anesthesia. PROCEDURE: After informed consent was obtained, the patient was brought into the endoscopy unit. IV sedation was administered by Anesthesia under continuous monitoring. Initially the Olympus GIF-140 video endoscope was inserted into the mouth. Esophagus intubated without any difficulty. It was gradually advanced into the stomach and duodenum and carefully examined. In the bulb of the duodenum there was a duodenal stricture identified with a superficial ulceration noted but this did not did not impede the passage of the scope. The second part of the duodenum appeared normal. The scope at this time was withdrawn to the stomach, adequately insufflated with air, and upon careful examination, mucosa of the antrum had mild gastritis and biopsies were done from this area. The , body, cardia and the fundus appeared normal. The scope was then withdrawn into the esophagus. small hiatal hernia noted. The GE junction was located at 35 cm from the incisors. there was Finch's esophagus noted in the distal esophagus exceeding from 33-35 cm from the incisors and multiple biopsies were done from this area. The rest of the esophagus appeared normal. There were no erosions or ulcerations seen and the patient tolerated the procedure well. IMPRESSION: 1. Finch's esophagus. 2. Small hiatal hernia 3. Mild antral gastritis 4. 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 RECOMMENDATIONS: The findings of this examination were discussed with the patient as well as her family. She was advised to follow with the biopsy results. She was advised to avoid NSAIDs and the meantime increase the Prilosec to 20 mg twice daily to be taken half hour before breakfast and dinnertime and follow antireflux measures. If the biopsy confirms the presence of Finch's esophagus, she can have a repeat upper endoscopy as a part of surveillance every 2 years. Implants: Indications for Procedure: Operative Findings: Description of Procedure:
[2017-04-03 10:47] VITALS: BP 96/61; PULSE 88
== END 2017-04-03 11:35 | disposition home or self-care (01) ==
LOC: ORWHC2ENDO 09:02
PROVIDERS: ATTEND Internal Medicine Gastroenterology
DX: K22.70 Barrett's esophagus without dysplasia (principal); K29.50 Unspecified chronic gastritis without bleeding; K31.5 Obstruction of duodenum; K26.9 Duodenal ulcer, unspecified as acute or chronic, without hemorrhage or perforation; K44.9 Diaphragmatic hernia without obstruction or gangrene; K21.9 Gastro-esophageal reflux disease without esophagitis; I11.0 Hypertensive heart disease with heart failure; I50.9 Heart failure, unspecified; J45.909 Unspecified asthma, uncomplicated; E07.9 Disorder of thyroid, unspecified; Z79.891 Long term (current) use of opiate analgesic; Z79.51 Long term (current) use of inhaled steroids; Z79.899 Other long term (current) drug therapy; Z88.1 Allergy status to other antibiotic agents; Z88.5 Allergy status to narcotic agent; Z88.8 Allergy status to other drugs, medicaments and biological substances
CPT/HCPCS: 88305; 88342; 43239; J2704

== ENCOUNTER 2017-06-10 14:17 | Inpatient (IN) | payer OTHER ==
[2017-06-10] MEDS ORDERED: ONDANSETRON 4 MG/2 ML VIAL IVP STA (14:50)
[2017-06-10] MEDS ORDERED: SODIUM CHLORIDE 0.9% 500 ML IV STA (14:50)
[2017-06-10] MEDS ORDERED: HYDROmorphone 1 MG/ML 1 ML SYRINGE IVP STA (14:51)
--- NOTE | 2017-06-10 15:11 | ED ---
General Adult HPI - General Chief complaint: Abdominal Pain Stated complaint: Abd Pain Time Seen by Provider: 06/10/17 14:30 Source: patient, RN notes reviewed Mode of arrival: wheelchair Limitations: no limitations - History of Present Illness Initial comments: This is a 62-year-old female presents emergency Department with a past medical history significant for gastritis and duodenal ulcer and she also states she has a history of pancreatitis in the past. Patient's had a cholecystectomy and appendectomy in the past. Patient comes in today because she started having epigastric pain this morning when she woke up and became very nauseated and started vomiting. Patient states last time she vomited was around noon. Patient states remains nauseated continues to have sharp epigastric abdominal pain. Patient states the pain does not radiate anywhere. Patient denies any chest pain or shortness of breath patient denies any palpitations per patient denies any recent fever chills or cough. Patient denies any lower abdominal pain patient denies any nausea. Patient denies dysuria hematuria urinary frequency. - Related Data Home Medications Medication Instructions Recorded Confirmed Baclofen 10 mg PO TID 12/20/15 06/10/17 Meloxicam [Mobic] 7.5 mg PO BID 01/18/16 06/10/17 Albuterol Inhaler [Ventolin Hfa 2 puff INHALATION RT-BID 08/13/16 06/10/17 Inhaler] Budesonide/Formoterol Fumarate 1 puff INHALATION RT-DAILY 08/13/16 06/10/17 [Symbicort 80-4.5 Mcg Inhaler] Metoprolol Tartrate [Lopressor] 25 mg PO BID 08/13/16 06/10/17 Hydrochlorothiazide [Hydrodiuril] 25 mg PO DAILY 10/04/16 06/10/17 Butalb/Acetaminophen/Caffeine 1 - 2 cap PO Q4HR PRN 12/27/16 06/10/17 [Fioricet 50-300-40 mg Capsule] Levothyroxine Sodium [Synthroid] 125 mcg PO QAM 12/27/16 06/10/17 Omeprazole [PriLOSEC] 20 mg PO BID 12/27/16 06/10/17 Desvenlafaxine [Pristiq ER] 100 mg PO QAM 02/07/17 06/10/17 LORazepam [Ativan] 1 - 2 mg PO DAILY PRN 06/10/17 06/10/17 Montelukast [Singulair] 10 mg PO HS 06/10/17 06/10/17 QUEtiapine [SEROquel] 50 mg PO HS 06/10/17 06/10/17 traZODone HCL 50 mg PO BID 06/10/17 06/10/17 Allergies Allergy/AdvReac Type Severity Reaction Status Date / Time azithromycin [From Zithromax] Allergy Rash/Hives Verified 06/10/17 15:46 prochlorperazine edisylate Allergy Rash/Hives Verified 06/10/17 15:46 [From Compazine] prochlorperazine maleate Allergy Rash/Hives Verified 06/10/17 15:46 [From Compazine] sumatriptan [From Imitrex] Allergy redness Verified 06/10/17 15:46 and swelling at injection site sumatriptan succinate Allergy redness Verified 06/10/17 15:46 [From Imitrex] and swelling at injection site ketorolac tromethamine AdvReac headache Verified 06/10/17 15:46 [From Toradol] levofloxacin [From Levaquin] AdvReac caused Verified 06/10/17 15:46 abnormal EKG morphine AdvReac Nausea & Verified 06/10/17 15:46 Vomiting Review of Systems ROS Statement: Those systems with pertinent positive or pertinent negative responses have been documented in the HPI. ROS Other: All systems not noted in ROS Statement are negative. Past Medical History Past Medical History: Asthma, Coronary Artery Disease (CAD), Chest Pain / Angina , Heart Failure, GERD/Reflux, Hypertension, Pneumonia Additional Past Medical History / Comment(s): 2-2-16 c/o rectal bleeding, clinical impression: gi bleed non specific colitis. Other HX: migraines, bronchitis, pneumonias, cervical radiculopathy-compression fx in neck, back pain , ARTHRITIS bilateral shoulders, pancreatis 2008, pud, LBBB, uterine fibroids, post menopausal, fxs of bilateral feet and L hand, numbness tingling L hand, scoliosis, anemia. ,currently persistent abdominal pain-mid abd to rt side History of Any Multi-Drug Resistant Organisms: MRSA Date of last positivie culture/infection: 2008 MDRO Source:: lt axilla Past Surgical History: Appendectomy, Cholecystectomy Additional Past Surgical History / Comment(s): LEFT TEMPORAL ARTERY BIOPSY, colonoscopy, L breast bx benign, EGD. Past Anesthesia/Blood Transfusion Reactions: Motion Sickness Additional Past Anesthesia/Blood Transfusion Reaction / Comment(s): no prior problems with blood transfusion Past Psychological History: Anxiety, Depression Smoking Status: Never smoker Past Alcohol Use History: None Reported Past Drug Use History: None Reported - Past Family History Father Family Medical History: Cancer Additional Family Medical History / Comment(s): Father of bladder cancer at age 66yrs. Mother Family Medical History: Congestive Heart Failure (CHF), Rheumatoid Arthritis (RA ) Additional Family Medical History / Comment(s): Mother had ASHD and of this at age 68yrs. General Exam - General Exam Comments Initial Comments: GENERAL: Patient is well-developed and well-nourished. Patient is nontoxic and well- hydrated and is in mild distress. ENT: Neck is soft and supple. No significant lymphadenopathy is noted. Oropharynx is clear. Moist mucous membranes. Neck has full range of motion without eliciting any pain. EYES: The sclera were anicteric and conjunctiva were pink and moist. Extraocular movements were intact and pupils were equal round and reactive to light. Eyelids were unremarkable. PULMONARY: Unlabored respirations. Good breath sounds bilaterally. No audible rales rhonchi or wheezing was noted. CARDIOVASCULAR: There is a regular rate and rhythm without any murmurs gallops or rubs. ABDOMEN: Epigastric abdominal pain. No palpable organomegaly was noted. There is no palpable pulsatile mass. SKIN: Skin is clear with no lesions or rashes and otherwise unremarkable. NEUROLOGIC: Patient is alert and oriented x3. Cranial nerves II through XII are grossly intact. Motor and sensory are also intact. Normal speech, volume and content. Symmetrical smile. MUSCULOSKELETAL: Normal extremities with adequate strength and full range of motion. No lower extremity swelling or edema. No calf tenderness. LYMPHATICS: No significant lymphadenopathy is noted PSYCHIATRIC: Normal psychiatric evaluation. Normal interpersonal interactions appears functionally intact in deals appropriately with others. No signs of depression. No signs of anxiety. Limitations: no limitations Course Vital Signs 06/10/17 06/10/17 14:32 15:05 Temperature 100.2 F H Pulse Rate 133 H Pulse Rate [ 128 H [place]er ] Respiratory 18 Rate Blood Pressure 124/59 O2 Sat by Pulse 94 L Oximetry Medical Decision Making - Medical Decision Making EKG shows sinus tachycardia 114 bpm GA interval 174 QRS is 84 QT interval 3:30 QTC is 465. Patient's EKG shows no ST segment elevation or depression or T wave abnormalities are noted. Patient appears to be dehydrated and I will give the patient some fluid. - Lab Data Result diagrams: 06/10/17 15:02 06/10/17 15:02 Lab Results 06/10/17 06/10/17 06/10/17 Range/Units 15:02 15:02 15:02 WBC 11.4 H (3.8-10.6) k/uL RBC 3.88 (3.80-5.40) m/uL Hgb 12.7 (11.4-16.0) gm/dL Hct 37.3 (34.0-46.0) % MCV 96.1 (80.0-100.0) fL MCH 32.6 (25.0-35.0) pg MCHC 34.0 (31.0-37.0) g/dL RDW 13.7 (11.5-15.5) % Plt Count 297 (150-450) k/uL Neutrophils % 75 % Lymphocytes % 15 % Monocytes % 5 % Eosinophils % 3 % Basophils % 1 % Neutrophils # 8.6 H (1.3-7.7) k/uL Lymphocytes # 1.7 (1.0-4.8) k/uL Monocytes # 0.6 (0-1.0) k/uL Eosinophils # 0.3 (0-0.7) k/uL Basophils # 0.1 (0-0.2) k/uL Sodium 140 (137-145) mmol/L Potassium 3.3 L (3.5-5.1) mmol/L Chloride 105 (98-107) mmol/L Carbon Dioxide 23 (22-30) mmol/L Anion Gap 12 mmol/L BUN 20 H (7-17) mg/dL Creatinine 0.91 (0.52-1.04) mg/dL Est GFR (MDRD) Af Amer >60 (>60 ml/min/1.73 sqM) Est GFR (MDRD) Non-Af >60 (>60 ml/min/1.73 sqM) Glucose 111 H (74-99) mg/dL Plasma Lactic Acid Senthil (0.7-2.0) mmol/L Calcium 9.0 (8.4-10.2) mg/dL Total Bilirubin 2.6 H (0.2-1.3) mg/dL AST 200 H (14-36) U/L ALT 95 H (9-52) U/L Alkaline Phosphatase 141 H (38-126) U/L Total Creatine Kinase 47 (30-135) U/L Total Protein 7.1 (6.3-8.2) g/dL Albumin 4.1 (3.5-5.0) g/dL Amylase 215 H (30-110) U/L Lipase 1486 H (23-300) U/L 06/10/17 Range/Units 15:24 WBC (3.8-10.6) k/uL RBC (3.80-5.40) m/uL Hgb (11.4-16.0) gm/dL Hct (34.0-46.0) % MCV (80.0-100.0) fL MCH (25.0-35.0) pg MCHC (31.0-37.0) g/dL RDW (11.5-15.5) % Plt Count (150-450) k/uL Neutrophils % % Lymphocytes % % Monocytes % % Eosinophils % % Basophils % % Neutrophils # (1.3-7.7) k/uL Lymphocytes # (1.0-4.8) k/uL Monocytes # (0-1.0) k/uL Eosinophils # (0-0.7) k/uL Basophils # (0-0.2) k/uL Sodium (137-145) mmol/L Potassium (3.5-5.1) mmol/L Chloride (98-107) mmol/L Carbon Dioxide (22-30) mmol/L Anion Gap mmol/L BUN (7-17) mg/dL Creatinine (0.52-1.04) mg/dL Est GFR (MDRD) Af Amer (>60 ml/min/1.73 sqM) Est GFR (MDRD) Non-Af (>60 ml/min/1.73 sqM) Glucose (74-99) mg/dL Plasma Lactic Acid Senthil 2.2 H* (0.7-2.0) mmol/L Calcium (8.4-10.2) mg/dL Total Bilirubin (0.2-1.3) mg/dL AST (14-36) U/L ALT (9-52) U/L Alkaline Phosphatase (38-126) U/L Total Creatine Kinase (30-135) U/L Total Protein (6.3-8.2) g/dL Albumin (3.5-5.0) g/dL Amylase (30-110) U/L Lipase (23-300) U/L Disposition Clinical Impression: Acute pancreatitis, Dehydration Disposition: ADMITTED IP TO THIS [facility] Referrals: Leonela Marcelino MD [Primary Care Provider] - 1-2 days Time of Disposition: 15:51
[2017-06-10] MEDS ORDERED: IBUPROFEN IV 600 MG in SODIUM CHLORIDE 0.9% 250 ML IV ONE (15:13)
[2017-06-10 15:16] LABS: Basophils # (A) 0.1 k/uL (0-0.2); Basophils % (A) 1 %; CH 34.1; CHCM 35.7; Eosinophils # (A) 0.3 k/uL (0-0.7); Eosinophils % (A) 3 %; HCT 37.3 % (34.0-46.0); HDW 2.94; HGB 12.7 gm/dL (11.4-16.0); Luc # (Auto) 0.19; Luc % (Auto) 2; Lymphocytes # (A) 1.7 k/uL (1.0-4.8); Lymphocytes % (A) 15 %; MCH 32.6 pg (25.0-35.0); MCV 96.1 fL (80.0-100.0); Mean Platelet Volume 6.8; Monocytes # (A) 0.6 k/uL (0-1.0); Monocytes % (A) 5 %; Neutrophils # (A) 8.6 k/uL (1.3-7.7); Neutrophils % (A) 75 %; RBC 3.88 m/uL (3.80-5.40); RDW 13.7 % (11.5-15.5); WBC 11.4 k/uL (3.8-10.6); WBC (Perox) 11.86
[2017-06-10] MEDS ORDERED: ACETAMINOPHEN IV (For NPO) 1,000 MG in EMPTY BAG 1 BAG IVPB ONE (15:17)
[2017-06-10 15:27] LABS: ALT 95 U/L (9-52); AST 200 U/L (14-36); Alkaline Phosphatase 141 U/L (38-126); Amylase 215 U/L (30-110); Anion Gap 12 mmol/L; Blood Urea Nitrogen 20 mg/dL (7-17); Carbon Dioxide 23 mmol/L (22-30); Chloride 105 mmol/L (98-107); Glucose 111 mg/dL (74-99); Non-African American GFR(MDRD) >60 (>60 ml/min/1.73 sqM); Potassium 3.3 mmol/L (3.5-5.1); Sodium 140 mmol/L (137-145); Total Bilirubin 2.6 mg/dL (0.2-1.3); Total Protein 7.1 g/dL (6.3-8.2)
[2017-06-10 15:35] LABS: Creatine Kinase 47 U/L (30-135)
[2017-06-10 15:48] LABS: Creatine Kinase MB 0.5 ng/mL (0.0-2.4); Troponin I <0.012 ng/mL (0.000-0.034)
[2017-06-10] MEDS ORDERED: SODIUM CHLORIDE 0.9% 1,000 ML IV ONE ×2 (15:48→15:51)
[2017-06-10 17:02] LABS: Appearance,Urine Clear (Clear); Bacteria,Urine Moderate /hpf; Bilirubin,Urine Negative (Negative); Glucose,Urine (UA) Negative (Negative); Ketones,Urine Negative (Negative); Leukocyte Esterase,Urine Small (Negative); Nitrite,Urine Positive (Negative); PH, Urine 6.5 (5.0-8.0); Particle Count 5776; Protein,Urine 1+ (Negative); Specific Gravity,Urine 1.029 (1.001-1.035); Squamous Epithelial Cell,Urine 1 /hpf (0-4); UA Billing (MACRO vs. MICRO) MICRO; WBC,Urine 2 /hpf (0-5)
--- NOTE | 2017-06-10 17:33 | US ---
EXAMINATION TYPE: US liver DATE OF EXAM: 06/10/2017 COMPARISON: US, CT CLINICAL HISTORY: Pancreatitis. Gallbladder removed; severe epigastric pain; Duodenal ulcer, Finch' s esophagus per patient EXAM MEASUREMENTS: Liver Length: 14.2 cm Gallbladder Wall: surgically removed CBD: 0.5 cm Right Kidney: 9.3 x 6.1 x 4.4 cm Pancreas: hyperechoic Liver: small left lobe; hyperechoic suggests fatty liver Gallbladder: surgically absent Evidence for sonographic Hanson's sign: No CBD: wnl Right Kidney: cortical cyst = 0.6 x 0.6 x 0.5cm lateral mid pole IMPRESSION: Cholecystectomy. No dilated ducts. No focal liver defect.
[2017-06-10] MEDS: HYDROmorphone 1 MG/ML 1 ML SYRINGE IVP PRN ×2 (18:10→22:16)
[2017-06-10] MEDS: LORazepam 2 MG/ML SYRINGE IV PRN (21:31)
[2017-06-11] MEDS: HYDROmorphone 1 MG/ML 1 ML SYRINGE IVP PRN ×6 (02:00→23:15)
[2017-06-11] MEDS: ONDANSETRON 4 MG/2 ML VIAL IVP PRN ×3 (02:05→15:51)
[2017-06-11] MEDS: LORazepam 2 MG/ML SYRINGE IV PRN ×2 (04:26→17:09)
[2017-06-11] MEDS ORDERED: RX INFO: IV CONTRAST WAS GIVEN 1 EACH MISC MISCELLANE PRN (14:03)
--- NOTE | 2017-06-11 14:03 | P.HPIM ---
History of Present Illness H&P Date: 06/11/17 Chief Complaint: abdominal pain Lacie Silva is a 62-year-old female presents emergency Department with a past medical history significant for gastritis and duodenal ulcer and she also states she has a history of pancreatitis in the past. Patient's had a cholecystectomy and appendectomy in the past. Patient presented with epigastric pain this morning when she woke up and became very nauseated and started vomiting. Patient states last time she vomited was around noon. Patient states remains nauseated continues to have sharp epigastric abdominal pain. Patient states the pain does not radiate anywhere. Patient denies any chest pain or shortness of breath patient denies any palpitations per patient denies any recent fever chills or cough. Patient denies any lower abdominal pain patient denies any nausea. Patient denies dysuria hematuria urinary frequency. Patient was evaluated in the emergency room amylase and lipase was significantly elevated she was diagnosed with acute pancreatitis is kept nothing by mouth and was admitted to medical floor, limited abdominal ultrasound did not reveal any significant abnormality. Past Medical History Past Medical History: Asthma, Coronary Artery Disease (CAD), Chest Pain / Angina , Heart Failure, GERD/Reflux, Hypertension, Pneumonia Additional Past Medical History / Comment(s): 216 c/o rectal bleeding, clinical impression: gi bleed non specific colitis. Other HX: migraines, bronchitis, pneumonias, cervical radiculopathy-compression fx in neck, back pain , ARTHRITIS bilateral shoulders, pancreatis 2008, pud, LBBB, uterine fibroids, post menopausal, fxs of bilateral feet and L hand, numbness tingling L hand, scoliosis, anemia. ,currently persistent abdominal pain-mid abd to rt side History of Any Multi-Drug Resistant Organisms: MRSA Date of last positivie culture/infection: 2008 MDRO Source:: lt axilla Past Surgical History: Appendectomy, Cholecystectomy Additional Past Surgical History / Comment(s): LEFT TEMPORAL ARTERY BIOPSY, colonoscopy, L breast bx benign, EGD. Past Anesthesia/Blood Transfusion Reactions: Motion Sickness Additional Past Anesthesia/Blood Transfusion Reaction / Comment(s): no prior problems with blood transfusion Past Psychological History: Anxiety, Depression Additional Psychological History / Comment(s): Pt lives alone. She is independent. She uses no assistive device. She drives.pt stated hx of depression but current medication maintains her-denies deprssion at time of admit. Smoking Status: Never smoker Past Alcohol Use History: None Reported Past Drug Use History: None Reported - Past Family History Father Family Medical History: Cancer Additional Family Medical History / Comment(s): Father of bladder cancer at age 66yrs. Mother Family Medical History: Congestive Heart Failure (CHF), Rheumatoid Arthritis (RA ) Additional Family Medical History / Comment(s): Mother had ASHD and of this at age 68yrs. Medications and Allergies Home Medications Medication Instructions Recorded Confirmed Type Baclofen 10 mg PO TID 12/20/15 06/10/17 History Meloxicam [Mobic] 7.5 mg PO BID 01/18/16 06/10/17 History Albuterol Inhaler [Ventolin Hfa 2 puff INHALATION RT-BID 08/13/16 06/10/17 History Inhaler] Budesonide/Formoterol Fumarate 1 puff INHALATION RT-DAILY 08/13/16 06/10/17 History [Symbicort 80-4.5 Mcg Inhaler] Metoprolol Tartrate [Lopressor] 25 mg PO BID 08/13/16 06/10/17 History Hydrochlorothiazide [Hydrodiuril] 25 mg PO DAILY 10/04/16 06/10/17 History Butalb/Acetaminophen/Caffeine 1 - 2 cap PO Q4HR PRN 12/27/16 06/10/17 History [Fioricet 50-300-40 mg Capsule] Levothyroxine Sodium [Synthroid] 125 mcg PO QAM 12/27/16 06/10/17 History Omeprazole [PriLOSEC] 20 mg PO BID 12/27/16 06/10/17 History Desvenlafaxine [Pristiq ER] 100 mg PO QAM 02/07/17 06/10/17 History LORazepam [Ativan] 1 - 2 mg PO DAILY PRN 06/10/17 06/10/17 History Montelukast [Singulair] 10 mg PO HS 06/10/17 06/10/17 History QUEtiapine [SEROquel] 50 mg PO HS 06/10/17 06/10/17 History traZODone HCL 50 mg PO BID 06/10/17 06/10/17 History Allergies Allergy/AdvReac Type Severity Reaction Status Date / Time azithromycin [From Zithromax] Allergy Rash/Hives Verified 06/10/17 15:46 prochlorperazine edisylate Allergy Rash/Hives Verified 06/10/17 15:46 [From Compazine] prochlorperazine maleate Allergy Rash/Hives Verified 06/10/17 15:46 [From Compazine] sumatriptan [From Imitrex] Allergy redness Verified 06/10/17 15:46 and swelling at injection site sumatriptan succinate Allergy redness Verified 06/10/17 15:46 [From Imitrex] and swelling at injection site ketorolac tromethamine AdvReac headache Verified 06/10/17 15:46 [From Toradol] levofloxacin [From Levaquin] AdvReac caused Verified 06/10/17 15:46 abnormal EKG morphine AdvReac Nausea & Verified 06/10/17 15:46 Vomiting Physical Exam Vitals: Vital Signs Temp Pulse Pulse Pulse Resp BP BP 06/11/17 09:41 94 102/52 06/11/17 07:37 76 81 18 06/11/17 07:00 97.8 F 84 16 89/49 06/11/17 05:21 81 18 114/63 06/11/17 01:59 86 120/62 06/11/17 00:00 76 82 16 06/10/17 22:48 97.6 F 82 16 106/75 06/10/17 22:19 76 110/70 06/10/17 16:21 98.3 F 06/10/17 16:16 124 H 20 112/66 06/10/17 15:05 128 H 06/10/17 14:32 100.2 F H 133 H 18 124/59 Pulse Ox 06/11/17 09:41 06/11/17 07:37 06/11/17 07:00 97 06/11/17 05:21 06/11/17 01:59 06/11/17 00:00 06/10/17 22:48 95 06/10/17 22:19 06/10/17 16:21 06/10/17 16:16 97 06/10/17 15:05 06/10/17 14:32 94 L Intake and Output 06/10/17 06/11/17 06/11/17 22:59 06:59 14:59 Intake Total 590 950 Balance 590 950 Intake: Intake, IV Titration 950 Amount Sodium Chloride 0.9% 1, 950 000 ml @ 150 mls/hr IV . Q6H40M ONE Rx#:[id number] Oral 590 Other: # Voids 2 4 Weight 82.554 kg In general patient is alert and oriented 3 in no apparent distress HEENT head normocephalic and atraumatic Neck is supple no JVD no goiter no lymphadenopathy Chest exam reveals a few scattered crackles no wheezing Cardiac exam reveals regular heart sounds no murmurs Abdomen is soft with moderate tenderness in the epigastric area and the right upper quadrant no organomegaly Extremity exam reveals no edema no cyanosis or clubbing Results CBC & Chem 7: 06/10/17 15:02 06/10/17 15:02 Labs: Abnormal Lab Results - Last 24 Hours (Table) 06/10/17 06/10/17 06/10/17 Range/Units 15:02 15:02 15:24 WBC 11.4 H (3.8-10.6) k/uL Neutrophils # 8.6 H (1.3-7.7) k/uL Potassium 3.3 L (3.5-5.1) mmol/L BUN 20 H (7-17) mg/dL Glucose 111 H (74-99) mg/dL Plasma Lactic Acid Senthil 2.2 H* (0.7-2.0) mmol/L Total Bilirubin 2.6 H (0.2-1.3) mg/dL AST 200 H (14-36) U/L ALT 95 H (9-52) U/L Alkaline Phosphatase 141 H (38-126) U/L Amylase 215 H (30-110) U/L Lipase 1486 H (23-300) U/L Urine Protein (Negative) Urine Nitrite (Negative) Ur Leukocyte Esterase (Negative) Urine Bacteria (None) /hpf Hyaline Casts (0-2) /lpf 06/10/17 Range/Units 16:20 WBC (3.8-10.6) k/uL Neutrophils # (1.3-7.7) k/uL Potassium (3.5-5.1) mmol/L BUN (7-17) mg/dL Glucose (74-99) mg/dL Plasma Lactic Acid Senthil (0.7-2.0) mmol/L Total Bilirubin (0.2-1.3) mg/dL AST (14-36) U/L ALT (9-52) U/L Alkaline Phosphatase (38-126) U/L Amylase (30-110) U/L Lipase (23-300) U/L Urine Protein 1+ H (Negative) Urine Nitrite Positive H (Negative) Ur Leukocyte Esterase Small H (Negative) Urine Bacteria Moderate H (None) /hpf Hyaline Casts 11 H (0-2) /lpf Thrombosis Risk Factor Assmnt - Choose All That Apply Any of the Below Risk Factors Present?: Yes Each Factor Represents 1 point: Obesity (BMI >25) Other Risk Factors: Yes Each Risk Factor Represents 2 Points: Age 61-74 years Thrombosis Risk Factor Assessment Total Risk Factor Score: 3 Thrombosis Risk Factor Assessment Level: Moderate Risk Assessment and Plan Plan: #1 acute pancreatitis, cause is unclear patient denies drinking any alcohol, will check lipid profile will check computed tomography scan of abdomen and pelvis #2 urinary tract infection Will give Rocephin, will check urine culture #3 elevated lactic acid will check blood culture and monitor closely #4 underlying history of gastritis and peptic ulcer disease #5 underlying history of hypothyroidism At this time will check computed tomography scan of abdomen and pelvis will consult gastroenterology would follow in a.m.
[2017-06-11] MEDS: IOHEXOL 350 MG/ML 25 ML BOTTLE (ORAL USE) PO PRN ×2 (14:32→15:06)
[2017-06-11 15:03] LABS: Basophils % (A) 1 %; CH 32.7; CHCM 34.2; Eosinophils # (A) 0.3 k/uL (0-0.7); Eosinophils % (A) 5 %; HCT 30.9 % (34.0-46.0); HDW 3.04; HGB 10.6 gm/dL (11.4-16.0); Luc % (Auto) 2; Lymphocytes # (A) 0.9 k/uL (1.0-4.8); Lymphocytes % (A) 18 %; MCH 33.1 pg (25.0-35.0); MCHC 34.4 g/dL (31.0-37.0); MCV 96.1 fL (80.0-100.0); Mean Platelet Volume 6.7; Monocytes # (A) 0.3 k/uL (0-1.0); Monocytes % (A) 5 %; Neutrophils # (A) 3.7 k/uL (1.3-7.7); Neutrophils % (A) 70 %; RBC 3.21 m/uL (3.80-5.40); RDW 13.5 % (11.5-15.5); WBC 5.3 k/uL (3.8-10.6); WBC (Perox) 5.55
[2017-06-11 15:10] LABS: ALT 160 U/L (9-52); AST 190 U/L (14-36); Alkaline Phosphatase 192 U/L (38-126); Amylase 163 U/L (30-110); Anion Gap 8 mmol/L; Blood Urea Nitrogen 13 mg/dL (7-17); Calcium 8.7 mg/dL (8.4-10.2); Carbon Dioxide 20 mmol/L (22-30); Chloride 113 mmol/L (98-107); Glucose 84 mg/dL (74-99); Non-African American GFR(MDRD) >60 (>60 ml/min/1.73 sqM); Sodium 141 mmol/L (137-145); Total Bilirubin 0.5 mg/dL (0.2-1.3); Total Protein 5.7 g/dL (6.3-8.2)
--- NOTE | 2017-06-11 17:25 | CT ---
EXAMINATION TYPE: CT abdomen pelvis w con DATE OF EXAM: 06/11/2017 COMPARISON: 02/07/2017 HISTORY: Pancreatitis and vomiting. CT DLP: 1113.6 mGycm Automated exposure control for dose reduction was used. TECHNIQUE: Helical acquisition of images was performed from the lung bases through the pelvis. CONTRAST: Performed with Oral Contrast and with IV Contrast, patient injected with 100 mL of Omnipaque 300. FINDINGS: There is some mild atelectasis at the right posterior lung base. There is no pleural effusion. Heart size is normal. There is some dilation of the biliary tree. There are clips from cholecystectomy. There is thickening of the wall of the duodenum. There is fatty infiltration of the pancreas. Spleen appears normal. There is no adrenal mass. Kidneys show satisfactory contrast opacification. There is no hydronephrosi s. Ureters are not dilated. There is no retroperitoneal adenopathy. There is no ascites. Bladder dist ends smoothly. There is no sign of appendicitis. I see no bony destructive process. IMPRESSION: THERE IS A DILATED BILIARY TREE THAT IS ESSENTIALLY NEW COMPARED TO OLD EXAM. THERE IS ALSO PROXIMAL DUODENAL WALL THICKENING AND EDEMA WITH PROBABLE OBSTRUCTION OF THE DISTAL COMMON BILE DUCT. THERE IS SOME FATTY INFILTRATION OF THE PANCREAS. THERE IS NO SPECIFIC SIGN OF PANCREATITIS. INFLAMMATORY MAS S OR TUMOR OF THE PROXIMAL DUODENUM SHOULD BE CONSIDERED. THIS IS A CHANGE COMPARED TO OLD EXAM. THERE IS NEW MILD ATELECTASIS AT THE RIGHT POSTERIOR LUNG BASE COMPARED TO OLD EXAM. THERE IS RIGHT S MALL POSTERIOR DIAPHRAGMATIC HERNIA THAT CONTAINS FAT.
[2017-06-12] MEDS: HYDROmorphone 1 MG/ML 1 ML SYRINGE IVP PRN ×6 (03:29→21:57)
[2017-06-12] MEDS: ONDANSETRON 4 MG/2 ML VIAL IVP PRN ×3 (03:35→17:31)
--- NOTE | 2017-06-12 09:47 | P.CONS ---
History of Present Illness - Reason for Consult Consult date: 06/12/17 pancreatitis Requesting physician: Sophie Phelan - History of Present Illness 62-year-old female patient of Dr. Marcelino with a past medical history of pancreatitis (2007), CAD, colitis (colonoscopy November 2015), GERD, peptic ulcer disease, Finch's esophagus, acalculus cholecystectomy with appendectomy 2001, migraines, cervical radiculopathy. Presents with epigastric pain nausea vomiting without fever chills hematemesis hematochezia melena x 3 days. Ultrasound of the abdomen reported no focal liver defect. No dilation biliary tree. Computed tomography scan abdomen and pelvis reported no evidence of acute pancreatitis however biliary tree was dilated compared to previous exam possible distal common bile duct obstruction. In addition CT reported proximal duodenal wall thickening and edema. No history of EtOH abuse. No changes in medications. Home medications include omeprazole 20 mg twice a day as well as Mobic 7.5 mg twice a day. 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 Admission white count 11.4. Hemoglobin 12.7. Platelet 297. Admission Lipase 1486 decreased to 787. Admission amylase 215 decreased to 163. Total bilirubin 2.6. AST 200. ALT 95. Alkaline phosphatase 141. Repeat liver enzymes yesterday total bilirubin 0.5. AST 190. ALT 160. Alkaline phosphatase 192. Urinalysis positive nitrite small leukocyte esterase moderate bacteria. Review of Systems Constitutional: Denies fever, chills, sweats, weight gain, or loss. HEENT: Negative for migraines, blurred vision or loss, earaches, drainage, tinnitus, oral mucosal lesions, dysphagia, or odynophagia. CARDIAC: CAD. Chest pain. Angina. Hypertension. Negative for chest pain, arrhythmias, or palpitation. RESPIRATORY: Asthma. Pneumonia. Negative for shortness of breath, hemoptysis, cough, or sputum production. GI: See HPI for pertinent findings. : Negative for hematuria, urgency, frequency, polyuria, or dysuria. GYNc: Denies possibility of . Negative vaginal discharge. MUSCULOSKELETAL: Negative for muscle aches, swelling, arthritis, and arthralgias. NEUROLOGIC: Negative for stroke or TIA. ENDOCRINE: Negative for thyroid problems. SKIN: Negative for rash or itching. PSYCHIATRIC: Negative history for depression and anxiety All systems: negative (See HPI) Past Medical History Past Medical History: Asthma, Coronary Artery Disease (CAD), Chest Pain / Angina , Heart Failure, GERD/Reflux, Hypertension, Pneumonia Additional Past Medical History / Comment(s): 2-2-16 c/o rectal bleeding, clinical impression: gi bleed non specific colitis. Other HX: migraines, bronchitis, pneumonias, cervical radiculopathy-compression fx in neck, back pain , ARTHRITIS bilateral shoulders, pancreatis 2008, pud, LBBB, uterine fibroids, post menopausal, fxs of bilateral feet and L hand, numbness tingling L hand, scoliosis, anemia. ,currently persistent abdominal pain-mid abd to rt side History of Any Multi-Drug Resistant Organisms: MRSA Year Discovered:: 2008 MDRO Source:: lt axilla Past Surgical History: Appendectomy, Cholecystectomy Additional Past Surgical History / Comment(s): LEFT TEMPORAL ARTERY BIOPSY, colonoscopy, L breast bx benign, EGD. Past Anesthesia/Blood Transfusion Reactions: Motion Sickness Additional Past Anesthesia/Blood Transfusion Reaction / Comm: no prior problems with blood transfusion Past Psychological History: Anxiety, Depression Additional Psychological History / Comment(s): Pt lives alone. She is independent. She uses no assistive device. She drives.pt stated hx of depression but current medication maintains her-denies deprssion at time of admit. Smoking Status: Never smoker Past Alcohol Use History: None Reported Past Drug Use History: None Reported - Past Family History Father Family Medical History: Cancer Additional Family Medical History / Comment(s): Father of bladder cancer at age 66yrs. Mother Family Medical History: Congestive Heart Failure (CHF), Rheumatoid Arthritis (RA ) Additional Family Medical History / Comment(s): Mother had ASHD and of this at age 68yrs. Medications and Allergies Home Medications Medication Instructions Recorded Confirmed Type Baclofen 10 mg PO TID 12/20/15 06/10/17 History Meloxicam [Mobic] 7.5 mg PO BID 01/18/16 06/10/17 History Albuterol Inhaler [Ventolin Hfa 2 puff INHALATION RT-BID 08/13/16 06/10/17 History Inhaler] Budesonide/Formoterol Fumarate 1 puff INHALATION RT-DAILY 08/13/16 06/10/17 History [Symbicort 80-4.5 Mcg Inhaler] Metoprolol Tartrate [Lopressor] 25 mg PO BID 08/13/16 06/10/17 History Hydrochlorothiazide [Hydrodiuril] 25 mg PO DAILY 10/04/16 06/10/17 History Butalb/Acetaminophen/Caffeine 1 - 2 cap PO Q4HR PRN 12/27/16 06/10/17 History [Fioricet 50-300-40 mg Capsule] Levothyroxine Sodium [Synthroid] 125 mcg PO QAM 12/27/16 06/10/17 History Omeprazole [PriLOSEC] 20 mg PO BID 12/27/16 06/10/17 History Desvenlafaxine [Pristiq ER] 100 mg PO QAM 02/07/17 06/10/17 History LORazepam [Ativan] 1 - 2 mg PO DAILY PRN 06/10/17 06/10/17 History Montelukast [Singulair] 10 mg PO HS 06/10/17 06/10/17 History QUEtiapine [SEROquel] 50 mg PO HS 06/10/17 06/10/17 History traZODone HCL 50 mg PO BID 06/10/17 06/10/17 History Allergies Allergy/AdvReac Type Severity Reaction Status Date / Time azithromycin [From Zithromax] Allergy Rash/Hives Verified 06/10/17 15:46 prochlorperazine edisylate Allergy Rash/Hives Verified 06/10/17 15:46 [From Compazine] prochlorperazine maleate Allergy Rash/Hives Verified 06/10/17 15:46 [From Compazine] sumatriptan [From Imitrex] Allergy redness Verified 06/10/17 15:46 and swelling at injection site sumatriptan succinate Allergy redness Verified 06/10/17 15:46 [From Imitrex] and swelling at injection site ketorolac tromethamine AdvReac headache Verified 06/10/17 15:46 [From Toradol] levofloxacin [From Levaquin] AdvReac caused Verified 06/10/17 15:46 abnormal EKG morphine AdvReac Nausea & Verified 06/10/17 15:46 Vomiting Physical Exam Vitals: Vital Signs Temp Pulse Pulse Resp BP Pulse Ox 06/12/17 07:14 76 101 H 16 06/12/17 00:00 101 H 16 06/11/17 23:13 101 H 16 120/68 96 06/11/17 20:08 96 06/11/17 20:04 98.4 F 100 16 129/67 96 06/11/17 15:14 76 97 18 06/11/17 15:00 97.7 F 97 18 105/64 93 L 06/11/17 09:41 94 102/52 Intake and Output 06/11/17 06/12/17 06/12/17 22:59 06:59 14:59 Other: # Voids 3 3 Weight 82.554 kg 83.2 kg General appearance: The patient is alert, oriented, in no acute distress. HET: Head is normocephalic and atraumatic. Pupils are equal and reactive. Oropharynx is clear without lesions. Neck: Supple without lymphadenopathy. Trachea midline. Heart: S1 S2. Regular rate and rhythm. Lungs: No crackles or wheezes are heard. Abdomen: Soft, epigastric tenderness, nondistended with bowel sounds. No peritoneal signs. No palpable organomegaly or masses. Extremities: Normal skin color and turgor. No cyanosis, rash, ulceration, clubbing, or edema. Radial and pedal pulses are 2/4 bilaterally. Neurological: No focal deficits. Strength and sensation are grossly intact. Results CBC & Chem 7: 06/11/17 14:37 06/11/17 14:37 Labs: Abnormal Lab Results - Last 24 Hours (Table) 06/11/17 06/11/17 Range/Units 14:37 14:37 RBC 3.21 L (3.80-5.40) m/uL Hgb 10.6 L (11.4-16.0) gm/dL Hct 30.9 L (34.0-46.0) % Lymphocytes # 0.9 L (1.0-4.8) k/uL Chloride 113 H (98-107) mmol/L Carbon Dioxide 20 L (22-30) mmol/L Creatinine 0.50 L (0.52-1.04) mg/dL AST 190 H (14-36) U/L ALT 160 H (9-52) U/L Alkaline Phosphatase 192 H (38-126) U/L Total Protein 5.7 L (6.3-8.2) g/dL Albumin 3.4 L (3.5-5.0) g/dL Amylase 163 H (30-110) U/L Lipase 787 H (23-300) U/L Microbiology - Last 24 Hours (Table) 06/10/17 15:24 Blood Culture - Preliminary Blood No Growth after [address] scan - abdomen: report reviewed (Dr. Simmons) US - abdomen: report reviewed (Dr. Simmons) Assessment and Plan (1) Acute pancreatitis Narrative/Plan: 62-year-old female with a history of pancreatitis, acalculus cholecystectomy, peptic ulcer disease with recent EGD March 2017 findings of duodenal stricture without obstruction and small ulceration presents with acute pancreatitis and elevated transaminases hyperbilirubinemia without radiographic evidence to suggest definitive choledocholithiasis. Acute pancreatitis could be secondary to duodenal ulcer from NSAID usage possible choledocholithiasis. Elevated liver enzymes have improved however suspect admission elevation secondary to duodenal edema and external compression on biliary tree but cannot exclude superimposed choledocholithiasis. Status: Acute (2) Elevated liver enzymes Status: Acute Plan: 1. MRCP. Liquid diet to follow. 2. IV Protonix 40 mg daily. Hold NSAIDs. 3. Check hepatitis panel. 4. Upper endoscopy consideration for evaluation of peptic ulcer disease contingent on MRI results, clinical course, and continued improvement of pancreatic enzymes. Will follow closely with you. Thank you for this kind referral and the opportunity to participate in the care of your patient. This consultation was discussed with Dr. Simmons. The impression and plan of care have been directed as dictated.
[2017-06-12] MEDS: PANTOPRAZOLE 40 MG/10 ML VIAL IVP SCH (11:42)
[2017-06-12 15:20] LABS: Hepatitis B Surface Ag Index 0.05
[2017-06-12 15:25] LABS: Hepatitis B Core IgM Index 0.01
[2017-06-12 15:37] LABS: Hepatitis C Virus IgG Ab Negative (Negative); Hepatitis C Virus IgG Index 0.02
--- NOTE | 2017-06-12 17:55 | P.PN ---
Subjective Lacie Silva is a 62-year-old female presents emergency Department with a past medical history significant for gastritis and duodenal ulcer and she also states she has a history of pancreatitis in the past. Patient's had a cholecystectomy and appendectomy in the past. Patient presented with epigastric pain this morning when she woke up and became very nauseated and started vomiting. Patient states last time she vomited was around noon. Patient states remains nauseated continues to have sharp epigastric abdominal pain. Patient states the pain does not radiate anywhere. Patient denies any chest pain or shortness of breath patient denies any palpitations per patient denies any recent fever chills or cough. Patient denies any lower abdominal pain patient denies any nausea. Patient denies dysuria hematuria urinary frequency. Patient was evaluated in the emergency room amylase and lipase was significantly elevated she was diagnosed with acute pancreatitis is kept nothing by mouth and was admitted to medical floor, limited abdominal ultrasound did not reveal any significant abnormality. On 06/12/2017 patient was seen and examined her pain and tenderness in the epigastric area and right upper quadrant has improved somewhat since yesterday she was evaluated by gastroenterology and is scheduled for MRCP tonight Objective - Vital Signs Vital signs: Vital Signs Temp 98.1 F 06/12/17 15:00 Pulse 102 H 06/12/17 15:00 Resp 16 06/12/17 15:00 BP 124/98 06/12/17 15:00 Pulse Ox 95 06/12/17 15:00 Intake & Output 06/11/17 06/12/17 06/12/17 18:59 06:59 18:59 Intake Total 300 0 Balance 300 0 Weight 82.554 kg 83.2 kg Intake: Intake, IV Titration 300 Amount Sodium Chloride 0.9% 1, 300 000 ml @ 150 mls/hr IV . Q6H40M ONE Rx#:[id number] Oral 0 Other: # Voids 4 3 - Exam In general patient is alert and oriented 3 in no apparent distress HEENT head normocephalic and atraumatic Neck is supple no JVD no goiter no lymphadenopathy Chest exam reveals a few scattered crackles no wheezing Cardiac exam reveals regular heart sounds no murmurs Abdomen is soft with moderate tenderness in the epigastric area and the right upper quadrant no organomegaly Extremity exam reveals no edema no cyanosis or clubbing - Labs CBC & Chem 7: 06/11/17 14:37 06/11/17 14:37 Labs: Microbiology - Last 24 Hours (Table) 06/10/17 15:24 Blood Culture - Preliminary Blood No Growth after 48 hours Assessment and Plan Plan: #1 acute pancreatitis, cause is unclear patient denies drinking any alcohol, will check lipid profile will check computed tomography scan of abdomen and pelvis #2 urinary tract infection Will give Rocephin, will check urine culture #3 elevated lactic acid will check blood culture and monitor closely #4 underlying history of gastritis and peptic ulcer disease #5 underlying history of hypothyroidism At this time will check computed tomography scan of abdomen and pelvis Patient was evaluated by gastroenterology Plan is to proceed with MRCP which will be done tonight Will follow in a.m.
[2017-06-12] MEDS: LORazepam 2 MG/ML SYRINGE IV PRN (18:56)
--- NOTE | 2017-06-12 22:08 | MR ---
EXAMINATION TYPE: MR pancreas / mrcp wo/w con DATE OF EXAM: 06/12/2017 COMPARISON: NONE HISTORY: Pancreatitis and vomiting CONTRAST: Standard multiplanar, multisequence MRI departmental protocol utilizing 16 mL intravenous MultiHance gadolinium contrast. FINDINGS: There is mild dilation of the intra and extrahepatic biliary tree. The common hepatic duct and the left and right hepatic duct measure up to 14 mm. The common bile duct measures 8 to 9 mm. The pancreatic duct is not dilated. I see no discrete liver mass. I see no filling defect in the bile du cts. There is annular mild thickening of the wall of the first and second part of the duodenum. This measu res up to 9 mm. There is a small amount of fluid around the marcos hepatis. Kidneys show no hydronephrosis. Spleen appears normal. There is no sign of a pancreatic mass. I see no retroperitoneal adenopathy. I see no definite pathologic enhancement. There is no adrenal ma ss. IMPRESSION: There is generally dilated biliary tree down to the distal common bile duct. There is circumferential wall thickening in the duodenum with involvement of the ampulla. This could relate to extrinsic ton a obstructing the distal common bile duct. Pancreatic duct is not dilated and there is no evidence of pancreatic duct obstruction. No evidence of pancreatic mass. This appearance could relate to some si gnificant duodenitis with secondary bile duct obstruction. I do not see evidence of choledocholithias is. Duodenal tumor is not excluded. There is minimal free fluid in the upper abdomen around the spleen and marcos hepatis.
[2017-06-13] MEDS: HYDROmorphone 1 MG/ML 1 ML SYRINGE IVP PRN ×5 (02:34→22:00)
[2017-06-13] MEDS: ONDANSETRON 4 MG/2 ML VIAL IVP PRN ×3 (05:00→22:14)
[2017-06-13] MEDS: PANTOPRAZOLE 40 MG/10 ML VIAL IVP SCH (07:32)
[2017-06-13 07:53] LABS: Chloride 110 mmol/L (98-107); Glucose 66 mg/dL (74-99); Potassium 3.7 mmol/L (3.5-5.1); Total Protein 6.3 g/dL (6.3-8.2)
[2017-06-13 07:54] LABS: ALT 107 U/L (9-52); AST 70 U/L (14-36); Alkaline Phosphatase 219 U/L (38-126); Anion Gap 13 mmol/L; Blood Urea Nitrogen 10 mg/dL (7-17); Calcium 8.9 mg/dL (8.4-10.2); Carbon Dioxide 16 mmol/L (22-30); Non-African American GFR(MDRD) >60 (>60 ml/min/1.73 sqM); Sodium 139 mmol/L (137-145); Total Bilirubin 0.6 mg/dL (0.2-1.3)
[2017-06-13] MEDS: LORazepam 2 MG/ML SYRINGE IV PRN (10:31)
[2017-06-13] MEDS ORDERED: Magnesium Replacement Protocol 1 EACH MISC MISCELLANE PRN (11:01)
[2017-06-13] MEDS ORDERED: Potassium Replacement Protocol 1 EACH MISC MISCELLANE PRN (11:01)
--- NOTE | 2017-06-13 11:24 | P.PN ---
Subjective Principal diagnosis: Pancreatitis Admitted with acute pancreatitis upper abdominal pain elevated transaminases and bilirubin. MRI pancreas/MRCP reported dilated biliary tree down to the distal common bile duct with circumferential wall thickening of the duodenum with involvement of the ampulla possibly related to extrinsic edema obstructing the distal common bile duct. No evidence of pancreatic duct obstruction or pancreatic mass. Possible significant duodenitis with secondary bile duct obstruction no evidence of choledocholithiasis. Duodenal tumor not excluded. Pancreatic enzymes improved. Transaminases improving. Bilirubin normal. Afebrile. Pain still present slightly improved. Hepatitis panel negative. Objective - Vital Signs Vital signs: Vital Signs Temp 98.7 F 06/13/17 07:00 Pulse 110 H 06/13/17 07:00 Resp 18 06/13/17 07:00 BP 99/75 06/13/17 07:00 Pulse Ox 96 06/13/17 07:00 Intake & Output 06/12/17 06/13/17 06/13/17 18:59 06:59 18:59 Intake Total 0 Balance 0 Intake: Oral 0 Other: # Voids 2 - Exam General appearance: The patient is alert, oriented, in no acute distress. HET: Head is normocephalic and atraumatic. Pupils are equal and reactive. Oropharynx is clear without lesions. Neck: Supple without lymphadenopathy. Trachea midline. Heart: S1 S2. Regular rate and rhythm. Lungs: No crackles or wheezes are heard. Abdomen: Soft, midepigastric tenderness, nondistended with bowel sounds. No peritoneal signs. No palpable organomegaly or masses. Extremities: Normal skin color and turgor. No cyanosis, rash, ulceration, clubbing, or edema. Radial and pedal pulses are 2/4 bilaterally. Neurological: No focal deficits. Strength and sensation are grossly intact. - Labs CBC & Chem 7: 06/11/17 14:37 06/13/17 07:07 Labs: Abnormal Lab Results - Last 24 Hours (Table) 06/13/17 Range/Units 07:07 Chloride 110 H (98-107) mmol/L Carbon Dioxide 16 L (22-30) mmol/L Glucose 66 L (74-99) mg/dL AST 70 H (14-36) U/L ALT 107 H (9-52) U/L Alkaline Phosphatase 219 H (38-126) U/L Microbiology - Last 24 Hours (Table) 06/10/17 15:24 Blood Culture - Preliminary Blood No Growth after 48 hours Assessment and Plan (1) Acute pancreatitis Narrative/Plan: 62-year-old female with a history of pancreatitis, acalculus cholecystectomy, peptic ulcer disease with recent EGD March 2017 findings of duodenal stricture without obstruction and small ulceration presents with acute pancreatitis and elevated transaminases hyperbilirubinemia without radiographic evidence to suggest definitive choledocholithiasis. Acute pancreatitis could be secondary to duodenal ulcer from NSAID usage possible choledocholithiasis. Elevated liver enzymes have improved however suspect admission elevation secondary to duodenal edema and external compression on biliary tree but cannot exclude superimposed choledocholithiasis. MRI pancreas MRCP reviewed consistent with duodenal thickening edema compression without definitive choledocholithiasis. Status: Acute (2) Elevated liver enzymes Status: Acute Plan: 1. EGD evaluation. 2. IV Protonix 40 mg daily. Hold NSAIDs. The claims service adjustor has discussed the risks, benefits and alternative therapies for the above-mentioned procedure and for both sedation/analgesia as well as necessary blood product administration, if indicated, as they pertain to this patient. The patient has indicated understanding and acceptance of the risks and procedures discussed. Assessment and plan a care discussed with Dr. Simmons
[2017-06-13] MEDS ORDERED: LIDOCAINE 1% INJ 10MG/ML (20 ML MDV) ONE (12:14)
[2017-06-13] MEDS ORDERED: PROPOFOL 10 MG/ML 20 ML VIAL IV ONE (12:14)
--- NOTE | 2017-06-13 12:30 | P.PCN ---
Date of Procedure: 06/13/17 Preoperative Diagnosis: Postoperative Diagnosis: Procedure(s) Performed: BRIEF HISTORY: Patient is a 62-year-old, pleasant, white female, scheduled for an upper endoscopy as a part of evaluation of severe epigastric pain for the last several months duration. She was admitted to the hospital with worsening symptoms and was noted to have acute pancreatic titers and elevated amylase and lipase as well as elevated serum transaminases in the range of 200s. CT of abdomen showed thickening of the duodenal wall. Also slightly dilated CBD was noted. She has underwent an MRCP that showed a dilated CBD but no CBD stones. No pancreatic mass seen but there was thickening of the duodenal wall and hence she is scheduled for an EGD to evaluate further. The patient did have an upper endoscopy done in March 2017 as a part of evaluation of epigastric pain and was noted to have a duodenal ulcer along the duodenal stricture. PROCEDURE PERFORMED: Esophagogastroduodenoscopy with biopsy. PREOPERATIVE DIAGNOSIS: Severe epigastric pain and CAT scan showing thickened duodenum. IV sedation per anesthesia. PROCEDURE: After informed consent was obtained, the patient was brought into the endoscopy unit. IV sedation was administered by Anesthesia under continuous monitoring. Initially the Olympus GIF-140 video endoscope was inserted into the mouth. Esophagus intubated without any difficulty. It was gradually advanced into the stomach and duodenum and carefully examined. The bulb appeared inflamed but there was a tight stricture noted in the duodenal sweep along with a circumferential ulceration. With gentle manipulation I was able to advance the scope into the second part of the duodenum that appeared normal. Biopsies were done from the duodenal ulceration. The scope at this time was withdrawn to the stomach, adequately insufflated with air, and upon careful examination, mucosa of the antrum, had mild gastritis and biopsies were done from this area. The body, cardia and the fundus appeared normal. The scope was then withdrawn into the esophagus. The GE junction was located at 32 cm from the incisors. Moderate size hiatal hernia noted. There was long segment of Finch's esophagus extending from 32-34 cm from the incisors. The rest of the esophagus appeared normal. There were no erosions or ulcerations seen and the patient tolerated the procedure well. IMPRESSION: 1. Duodenal stricture with duodenal bulbar ulceration. 2. Moderate size hiatal hernia and Finch's esophagus. 3. Mild antral gastritis RECOMMENDATIONS: The findings of this examination were discussed with the patient as well as her family. She'll be continued on Protonix 40 mg twice daily and at this time will await the biopsy results. She was advised to avoid NSAIDs. If she can days of persistent epigastric pain and progressive weight loss she may benefit from surgical evaluation. Implants: Indications for Procedure: Operative Findings: Description of Procedure:
--- NOTE | 2017-06-13 13:52 | P.PN ---
Subjective Lacie Silva is a 62-year-old female presents emergency Department with a past medical history significant for gastritis and duodenal ulcer and she also states she has a history of pancreatitis in the past. Patient's had a cholecystectomy and appendectomy in the past. Patient presented with epigastric pain this morning when she woke up and became very nauseated and started vomiting. Patient states last time she vomited was around noon. Patient states remains nauseated continues to have sharp epigastric abdominal pain. Patient states the pain does not radiate anywhere. 06/13/2017 patient being treated for an acute pancreatitis. Still having epigastric abdominal pain. Asking for increase in pain medication. GI service is following closely and patient is scheduled for EGD tomorrow. Her nausea is improving. She's had no further episodes of vomiting. Diarrhea resolved. Objective - Vital Signs Vital signs: Vital Signs Temp 99.5 F 06/13/17 12:52 Pulse 101 H 06/13/17 12:52 Resp 18 06/13/17 12:52 BP 128/86 06/13/17 12:52 Pulse Ox 96 06/13/17 12:52 Intake & Output 06/12/17 06/13/17 06/13/17 18:59 06:59 18:59 Intake Total 0 Balance 0 Intake: Oral 0 Other: # Voids 2 2 - Exam Head normocephalic Neck supple Lungs clear to auscultation bilaterally no wheezing or crackles Heart regular rate and rhythm S1-S2, no rub or gallop Abdomen is soft epigastric tenderness Extremities no edema Neuro alert and orientated to 3 - Labs CBC & Chem 7: 06/11/17 14:37 06/13/17 07:07 Labs: Abnormal Lab Results - Last 24 Hours (Table) 06/13/17 Range/Units 07:07 Chloride 110 H (98-107) mmol/L Carbon Dioxide 16 L (22-30) mmol/L Glucose 66 L (74-99) mg/dL AST 70 H (14-36) U/L ALT 107 H (9-52) U/L Alkaline Phosphatase 219 H (38-126) U/L Microbiology - Last 24 Hours (Table) 06/10/17 15:24 Blood Culture - Preliminary Blood No Growth after 48 hours Assessment and Plan Plan: 1. Acute pancreatitis: Patient has had computed tomography scan of the abdomen and MRCP results showing generally dilated biliary tree down to distal common bile duct. There is circumferential wall thickening in the duodenum with involvement of the ampulla. This could relate to extrinsic edema obstructing the distal common bile duct. Pancreatic duct is not dilated is no evidence of pancreatic duct obstruction. No evidence of pancreatic mass. This appearance could relate to some significant duodenitis with secondary bile duct obstruction no evidence of choledocholithiasis. Duodenal tumor is not excluded. GI service is following closely. They have scheduled EGD for tomorrow. We'll increase IV pain medication to 1 mg IV every 4 hours. Lipase has normalized. LFTs are trending down. 2. UTI continue Rocephin. Send urine for culture 3. Elevated lactic acid level on admission now resolved 4. History of peptic ulcer disease and gastritis 5. Hypothyroidism: Due to patient's nothing by mouth status will change her Synthroid to IV 6. Essential hypertension: Patient had lower blood pressures this morning. Afternoon blood pressure is improved at 128/86. Continue to monitor. DVT prophylaxis subcu heparin I performed an examination of the patient and discussed their management with the physician Waste Duster. I have reviewed the Physician Waste Duster's notes and agree with the documented findings and plan of care
[2017-06-13] MEDS: LEVOTHYROXINE IVP 100 MCG/5 ML VIAL IV SCH (16:43)
[2017-06-13] MEDS: SODIUM CHLORIDE 0.9% 1,000 ML IV SCH (16:56)
[2017-06-13] MEDS: HEPARIN SODIUM,PORCINE 5,000 UNIT/ML 1 ML VIAL SQ SCH (22:00)
[2017-06-14] MEDS: LORazepam 2 MG/ML SYRINGE IV PRN (02:34)
[2017-06-14] MEDS: HYDROmorphone 1 MG/ML 1 ML SYRINGE IVP PRN ×3 (04:30→16:33)
[2017-06-14 07:30] LABS: ALT 90 U/L (9-52); AST 45 U/L (14-36); Alkaline Phosphatase 205 U/L (38-126); Anion Gap 12 mmol/L; Blood Urea Nitrogen 10 mg/dL (7-17); Calcium 9.2 mg/dL (8.4-10.2); Carbon Dioxide 18 mmol/L (22-30); Chloride 110 mmol/L (98-107); Glucose 91 mg/dL (74-99); Magnesium 1.8 mg/dL (1.6-2.3); Non-African American GFR(MDRD) >60 (>60 ml/min/1.73 sqM); Potassium 3.6 mmol/L (3.5-5.1); Sodium 140 mmol/L (137-145); Total Bilirubin 0.4 mg/dL (0.2-1.3); Total Protein 6.5 g/dL (6.3-8.2)
[2017-06-14 07:54] LABS: Basophils % (A) 1 %; CH 32.9; CHCM 34.2; Eosinophils # (A) 0.3 k/uL (0-0.7); Eosinophils % (A) 4 %; HCT 36.3 % (34.0-46.0); HDW 2.95; HGB 12.5 gm/dL (11.4-16.0); Luc # (Auto) 0.21; Luc % (Auto) 3; Lymphocytes # (A) 1.9 k/uL (1.0-4.8); Lymphocytes % (A) 25 %; MCH 33.2 pg (25.0-35.0); MCHC 34.4 g/dL (31.0-37.0); MCV 96.7 fL (80.0-100.0); Mean Platelet Volume 6.6; Monocytes # (A) 0.5 k/uL (0-1.0); Monocytes % (A) 7 %; Neutrophils # (A) 4.8 k/uL (1.3-7.7); Neutrophils % (A) 61 %; RBC 3.76 m/uL (3.80-5.40); RDW 13.5 % (11.5-15.5); WBC 7.8 k/uL (3.8-10.6); WBC (Perox) 7.72
[2017-06-14] MEDS: PANTOPRAZOLE 40 MG/10 ML VIAL IVP SCH (08:44)
[2017-06-14] MEDS: HEPARIN SODIUM,PORCINE 5,000 UNIT/ML 1 ML VIAL SQ SCH ×2 (08:44→21:26)
[2017-06-14] MEDS: LEVOTHYROXINE IVP 100 MCG/5 ML VIAL IV SCH (08:44)
[2017-06-14] MEDS ORDERED: LORazepam 1 MG TAB PO PRN (09:57)
[2017-06-14] MEDS ORDERED: BACLOFEN 10 MG TAB PO PRN (09:57)
[2017-06-14] MEDS ORDERED: BUTALB/APAP/CAFF 50-325-40MG TAB PO PRN (09:57)
[2017-06-14] MEDS: ONDANSETRON 4 MG/2 ML VIAL IVP PRN ×2 (10:06→16:29)
[2017-06-14] MEDS: SODIUM CHLORIDE 0.9% 1,000 ML IV SCH (10:08)
--- NOTE | 2017-06-14 10:15 | P.PN ---
Subjective Lacie Silva is a 62-year-old female presents emergency Department with a past medical history significant for gastritis and duodenal ulcer and she also states she has a history of pancreatitis in the past. Patient's had a cholecystectomy and appendectomy in the past. Patient presented with epigastric pain this morning when she woke up and became very nauseated and started vomiting. Patient states last time she vomited was around noon. Patient states remains nauseated continues to have sharp epigastric abdominal pain. Patient states the pain does not radiate anywhere. 06/13/2017 patient being treated for an acute pancreatitis. Still having epigastric abdominal pain. Asking for increase in pain medication. GI service is following closely and patient is scheduled for EGD tomorrow. Her nausea is improving. She's had no further episodes of vomiting. Diarrhea resolved. 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 Biopsies taken. Continue Protonix 40 mg twice a day. Patient still having epigastric tenderness. Still requiring IV Dilaudid. She was started on full liquid diet. Her oral medications will be restarted. Patient denies any chest pain. Has occasional shortness of breath with activity which is new for her. She denies any cough. Denies any nausea or vomiting. Denies any bowel movement changes or urinary symptoms Objective - Vital Signs Vital signs: Vital Signs Temp 98.3 F 06/14/17 07:00 Pulse 90 06/14/17 07:00 Resp 16 06/14/17 07:00 BP 134/68 06/14/17 07:00 Pulse Ox 96 06/14/17 07:00 Intake & Output 06/13/17 06/14/17 06/14/17 18:59 06:59 18:59 Intake Total 1100 Balance 1100 Intake: Intake, IV Titration 600 Amount Sodium Chloride 0.9% 1, 600 000 ml @ 50 mls/hr IV . Q20H [facility], [facility]–1983 Rx#:[id number] Oral 500 Other: Voiding Method Toilet Toilet # Voids 1 2 - Exam Head normocephalic Neck supple Lungs few faint crackles in the right lower lobe Heart regular rate and rhythm S1-S2, no rub or gallop Abdomen is soft epigastric tenderness Extremities no edema Neuro alert and orientated to 3 - Labs CBC & Chem 7: 06/14/17 06:42 06/14/17 06:42 Labs: Abnormal Lab Results - Last 24 Hours (Table) 06/14/17 06/14/17 Range/Units 06:42 06:42 RBC 3.76 L (3.80-5.40) m/uL Chloride 110 H (98-107) mmol/L Carbon Dioxide 18 L (22-30) mmol/L AST 45 H (14-36) U/L ALT 90 H (9-52) U/L Alkaline Phosphatase 205 H (38-126) U/L Microbiology - Last 24 Hours (Table) 06/10/17 15:24 Blood Culture - Preliminary Blood No Growth after 72 hours Assessment and Plan Plan: 1. Acute pancreatitis: Patient has had computed tomography scan of the abdomen and MRCP results showing generally dilated biliary tree down to distal common bile duct. There is circumferential wall thickening in the duodenum with involvement of the ampulla. This could relate to extrinsic edema obstructing the distal common bile duct. Pancreatic duct is not dilated is no evidence of pancreatic duct obstruction. No evidence of pancreatic mass. This appearance could relate to some significant duodenitis with secondary bile duct obstruction no evidence of choledocholithiasis. Duodenal tumor is not excluded. GI service is following closely. Patient is status post EGD showing duodenal stricture with duodenal bulbar ulceration, moderate size hiatal hernia and Finch's esophagus and mild antral gastritis. Continue Protonix 40 mg twice a day. Avoid NSAIDs. If pain is persistent and progressive weight loss GI is recommending a surgical evaluation. We'll increase IV pain medication to 1 mg IV every 4 hours. Lipase has normalized. LFTs are trending down. 2. UTI continue Rocephin. Send urine for culture 3. Elevated lactic acid level on admission now resolved 4. History of peptic ulcer disease and gastritis 5. Hypothyroidism: Resume by mouth Synthroid 6. Essential hypertension: Patient's blood pressures are stable. Start patient home blood pressure medications Patient eating we'll Hep-Lock IV fluids. Encouraged patient to ambulate. DVT prophylaxis subcu heparin I performed an examination of the patient and discussed their management with the physician Informatics Developer. I have reviewed the Physician Informatics Developer's notes and agree with the documented findings and plan of care
--- NOTE | 2017-06-14 10:38 | P.PN ---
Subjective Principal diagnosis: Pancreatitis Status post EGD evaluation yesterday for epigastric pain with known duodenal stricture ulceration from previous endoscopic exam a few months ago as well as acute pancreatitis with elevated liver enzymes. Findings were duodenal bulb stricture with ulceration. This morning patient is still expressing epigastric discomfort. Pancreatic enzymes have normalized. Transaminases and improving slowly. Afebrile. Intermittent nausea. Objective - Vital Signs Vital signs: Vital Signs Temp 98.3 F 06/14/17 07:00 Pulse 90 06/14/17 07:00 Resp 16 06/14/17 07:00 BP 134/68 06/14/17 07:00 Pulse Ox 96 06/14/17 07:00 Intake & Output 06/13/17 06/14/17 06/14/17 18:59 06:59 18:59 Intake Total 1100 Balance 1100 Intake: Intake, IV Titration 600 Amount Sodium Chloride 0.9% 1, 600 000 ml @ 50 mls/hr IV . Q20H [facility] Rx#:[id number] Oral 500 Other: Voiding Method Toilet Toilet # Voids 1 2 - Exam General appearance: The patient is alert, oriented, in no acute distress. HET: Head is normocephalic and atraumatic. Pupils are equal and reactive. Oropharynx is clear without lesions. Neck: Supple without lymphadenopathy. Trachea midline. Heart: S1 S2. Regular rate and rhythm. Lungs: No crackles or wheezes are heard. Abdomen: Soft, midepigastric tenderness, nondistended with bowel sounds. No peritoneal signs. No palpable organomegaly or masses. Extremities: Normal skin color and turgor. No cyanosis, rash, ulceration, clubbing, or edema. Radial and pedal pulses are 2/4 bilaterally. Neurological: No focal deficits. Strength and sensation are grossly intact. - Labs CBC & Chem 7: 06/14/17 06:42 06/14/17 06:42 Labs: Abnormal Lab Results - Last 24 Hours (Table) 06/14/17 06/14/17 Range/Units 06:42 06:42 RBC 3.76 L (3.80-5.40) m/uL Chloride 110 H (98-107) mmol/L Carbon Dioxide 18 L (22-30) mmol/L AST 45 H (14-36) U/L ALT 90 H (9-52) U/L Alkaline Phosphatase 205 H (38-126) U/L Microbiology - Last 24 Hours (Table) 06/10/17 15:24 Blood Culture - Preliminary Blood No Growth after 72 hours Assessment and Plan (1) Acute pancreatitis Narrative/Plan: 62-year-old female with a history of pancreatitis, acalculus cholecystectomy, peptic ulcer disease with recent EGD March 2017 findings of duodenal stricture without obstruction and small ulceration presents with acute pancreatitis and elevated transaminases hyperbilirubinemia without radiographic evidence to suggest definitive choledocholithiasis. Acute pancreatitis suspect secondary to duodenal ulcerations edema from NSAID usage less likely choledocholithiasis. Elevated liver enzymes have improved suspected secondary to duodenal edema and external compression on biliary tree. MRI pancreas MRCP reviewed consistent with duodenal thickening edema compression without definitive choledocholithiasis. Status: Acute (2) Elevated liver enzymes Status: Acute Plan: 1. Light diet as tolerated. Continue with Protonix 40 mg twice daily. 2. Surgical consultation for evaluation of persistent epigastric pain and EGD findings. 3. Return to office in 2-3 weeks. We'll follow as needed. Assessment and plan a care discussed with Dr. Rios
[2017-06-14] MEDS: HYDROcodone/APAP 5-325MG 1 EACH TAB PO PRN ×2 (12:34→21:24)
[2017-06-14] MEDS: PANTOPRAZOLE 40 MG TABLET PO SCH (16:31)
[2017-06-14] MEDS: ALBUTEROL NEBULIZED 2.5 MG/3 ML INHALATION SCH (20:22)
[2017-06-14] MEDS ORDERED: MELOXICAM 7.5 MG TAB PO SCH (21:00)
[2017-06-14] MEDS: QUEtiapine 50 MG TAB PO SCH (21:25)
[2017-06-14] MEDS: traZODone HCL 50 MG TAB PO SCH (21:25)
[2017-06-14] MEDS: MONTELUKAST 10 MG TAB PO SCH (21:25)
[2017-06-14] MEDS: METOPROLOL TARTRATE 25 MG TAB PO SCH (21:26)
[2017-06-15] MEDS: LEVOTHYROXINE 125 MCG TAB PO SCH (05:52)
[2017-06-15] MEDS: HYDROmorphone 1 MG/ML 1 ML SYRINGE IVP PRN ×2 (06:01→14:13)
[2017-06-15 07:31] LABS: Basophils # (A) 0.1 k/uL (0-0.2); Basophils % (A) 1 %; CH 33.2; CHCM 34.8; Eosinophils # (A) 0.5 k/uL (0-0.7); Eosinophils % (A) 8 %; HCT 35.9 % (34.0-46.0); HDW 3.01; HGB 12.2 gm/dL (11.4-16.0); Luc # (Auto) 0.15; Luc % (Auto) 3; Lymphocytes # (A) 1.5 k/uL (1.0-4.8); Lymphocytes % (A) 25 %; MCH 32.7 pg (25.0-35.0); MCV 96.1 fL (80.0-100.0); Mean Platelet Volume 6.5; Monocytes # (A) 0.4 k/uL (0-1.0); Monocytes % (A) 7 %; Neutrophils # (A) 3.3 k/uL (1.3-7.7); Neutrophils % (A) 56 %; RBC 3.73 m/uL (3.80-5.40); RDW 13.7 % (11.5-15.5); WBC 5.9 k/uL (3.8-10.6); WBC (Perox) 6.29
[2017-06-15] MEDS: ALBUTEROL NEBULIZED 2.5 MG/3 ML INHALATION SCH ×2 (07:37→19:44)
[2017-06-15] MEDS: SYMBICORT 80-4.5 MCG INHALER INHALATION SCH (07:37)
[2017-06-15 07:45] LABS: ALT 74 U/L (9-52); AST 32 U/L (14-36); Alkaline Phosphatase 171 U/L (38-126); Anion Gap 8 mmol/L; Blood Urea Nitrogen 7 mg/dL (7-17); Calcium 9.3 mg/dL (8.4-10.2); Carbon Dioxide 25 mmol/L (22-30); Chloride 109 mmol/L (98-107); Glucose 84 mg/dL (74-99); Magnesium 1.9 mg/dL (1.6-2.3); Non-African American GFR(MDRD) >60 (>60 ml/min/1.73 sqM); Potassium 3.8 mmol/L (3.5-5.1); Sodium 142 mmol/L (137-145); Total Bilirubin 0.3 mg/dL (0.2-1.3); Total Protein 6.1 g/dL (6.3-8.2)
[2017-06-15] MEDS: HEPARIN SODIUM,PORCINE 5,000 UNIT/ML 1 ML VIAL SQ SCH ×2 (09:13→20:22)
[2017-06-15] MEDS: PANTOPRAZOLE 40 MG TABLET PO SCH ×2 (09:13→17:04)
[2017-06-15] MEDS: DESVENLAFAXINE SUCCINATE 50 MG TAB.ER.24H PO SCH (09:13)
[2017-06-15] MEDS: traZODone HCL 50 MG TAB PO SCH ×2 (09:13→20:22)
[2017-06-15] MEDS: HYDROCHLOROTHIAZIDE 25 MG TAB PO SCH (09:14)
[2017-06-15] MEDS: METOPROLOL TARTRATE 25 MG TAB PO SCH ×2 (09:14→20:22)
--- NOTE | 2017-06-15 10:48 | P.PN ---
Progress Note - Text The patient is fairly stable. Was found to have evidence of her duodenal stricture. She is tolerating a full liquid diet however. Denies any nausea or vomiting. Minimal abdominal discomfort. . On examination the patient is afebrile. Awake alert and in no distress. Vitals are stable. Abdomen is soft with minimal epigastric right upper quadrant tenderness but no guarding or rebound or rigidity. No mass or organomegaly. Impression stable duodenal stricture. No evidence of complete obstruction. Recommendation continued the full liquid to soft diet the. Nothing surgical for now unless she gets obstructed
[2017-06-15] MEDS: HYDROcodone/APAP 5-325MG 1 EACH TAB PO PRN ×2 (11:02→20:19)
--- NOTE | 2017-06-15 15:00 | P.PN ---
Subjective No issues overnight. Patient is tolerating liquid diet with no difficulty. Objective - Vital Signs Vital signs: Vital Signs Temp 98.6 F 06/15/17 11:07 Pulse 99 06/15/17 11:07 Resp 16 06/15/17 08:00 BP 140/88 06/15/17 07:00 Pulse Ox 97 06/15/17 07:00 Intake & Output 06/14/17 06/15/17 06/15/17 18:59 06:59 18:59 Intake Total 1180 360 Output Total 600 Balance 1180 -600 360 Intake: Intake, IV Titration 300 Amount Sodium Chloride 0.9% 1, 300 000 ml @ 50 mls/hr IV . Q20H [facility] Rx#:[id number] Oral 880 360 Output: Urine 600 Other: Voiding Method Toilet Toilet Toilet # Voids 3 1 3 - Exam General: The patient is awake and alert, in no distress Eye: there is normal conjunctiva bilaterally. Neck: The neck is supple, there is no JVD. Cardiovascular: Normal S1-S2, no S3-S4, no murmurs. Respiratory: Lungs clear to auscultation bilaterally Gastrointestinal: Abdomen is soft, nontender Musculoskeletal: There is no pedal edema. Neurological:. Speech is normal. Skin: Skin is warm and dry - Labs CBC & Chem 7: 06/15/17 07:13 06/15/17 07:13 Labs: Abnormal Lab Results - Last 24 Hours (Table) 06/15/17 06/15/17 Range/Units 07:13 07:13 RBC 3.73 L (3.80-5.40) m/uL Chloride 109 H (98-107) mmol/L ALT 74 H (9-52) U/L Alkaline Phosphatase 171 H (38-126) U/L Total Protein 6.1 L (6.3-8.2) g/dL Microbiology - Last 24 Hours (Table) 06/10/17 15:24 Blood Culture - Preliminary Blood No Growth after 96 hours Assessment and Plan Plan: 1. Acute pancreatitis: Patient has had computed tomography scan of the abdomen and MRCP results showing generally dilated biliary tree down to distal common bile duct. There is circumferential wall thickening in the duodenum with involvement of the ampulla. This could relate to extrinsic edema obstructing the distal common bile duct. Pancreatic duct is not dilated is no evidence of pancreatic duct obstruction. No evidence of pancreatic mass. This appearance could relate to some significant duodenitis with secondary bile duct obstruction no evidence of choledocholithiasis. Duodenal tumor is not excluded. GI service is following closely. Patient is status post EGD showing duodenal stricture with duodenal bulbar ulceration, moderate size hiatal hernia and Finch's esophagus and mild antral gastritis. Continue Protonix 40 mg twice a day. Avoid NSAIDs. Patient was seen and evaluated by general surgery. No intervention at this time. 2. UTI continue Rocephin. Send urine for culture 3. Elevated lactic acid level on admission now resolved 4. History of peptic ulcer disease and gastritis 5. Hypothyroidism: Resume by mouth Synthroid 6. Essential hypertension: Patient's blood pressures are stable. Start patient home blood pressure medications Advance diet as tolerated. Anticipate discharge home tomorrow.
[2017-06-15] MEDS: QUEtiapine 50 MG TAB PO SCH (20:22)
[2017-06-15] MEDS: MONTELUKAST 10 MG TAB PO SCH (20:23)
[2017-06-16] MEDS: LEVOTHYROXINE 125 MCG TAB PO SCH (05:47)
[2017-06-16] MEDS: HYDROmorphone 1 MG/ML 1 ML SYRINGE IVP PRN ×2 (05:57→23:41)
[2017-06-16 07:38] LABS: Basophils # (A) 0.1 k/uL (0-0.2); Basophils % (A) 1 %; CH 34.1; CHCM 34.8; Eosinophils # (A) 0.6 k/uL (0-0.7); Eosinophils % (A) 11 %; HCT 34.9 % (34.0-46.0); HDW 2.96; HGB 11.9 gm/dL (11.4-16.0); Luc # (Auto) 0.14; Luc % (Auto) 3; Lymphocytes # (A) 1.5 k/uL (1.0-4.8); Lymphocytes % (A) 29 %; MCH 33.7 pg (25.0-35.0); MCHC 34.2 g/dL (31.0-37.0); MCV 98.4 fL (80.0-100.0); Monocytes # (A) 0.4 k/uL (0-1.0); Monocytes % (A) 7 %; Neutrophils # (A) 2.7 k/uL (1.3-7.7); Neutrophils % (A) 51 %; RBC 3.55 m/uL (3.80-5.40); RDW 14.6 % (11.5-15.5); WBC 5.4 k/uL (3.8-10.6); WBC (Perox) 5.39
[2017-06-16] MEDS: METOPROLOL TARTRATE 25 MG TAB PO SCH ×2 (07:46→21:55)
[2017-06-16] MEDS: traZODone HCL 50 MG TAB PO SCH ×2 (07:46→21:55)
[2017-06-16] MEDS: HYDROCHLOROTHIAZIDE 25 MG TAB PO SCH (07:46)
[2017-06-16] MEDS: PANTOPRAZOLE 40 MG TABLET PO SCH ×2 (07:46→17:28)
[2017-06-16] MEDS: HEPARIN SODIUM,PORCINE 5,000 UNIT/ML 1 ML VIAL SQ SCH ×2 (07:47→21:55)
[2017-06-16 07:57] LABS: ALT 58 U/L (9-52); AST 26 U/L (14-36); Alkaline Phosphatase 148 U/L (38-126); Anion Gap 10 mmol/L; Blood Urea Nitrogen 8 mg/dL (7-17); Calcium 9.3 mg/dL (8.4-10.2); Carbon Dioxide 23 mmol/L (22-30); Chloride 105 mmol/L (98-107); Glucose 89 mg/dL (74-99); Magnesium 1.6 mg/dL (1.6-2.3); Non-African American GFR(MDRD) >60 (>60 ml/min/1.73 sqM); Potassium 3.5 mmol/L (3.5-5.1); Sodium 138 mmol/L (137-145); Total Bilirubin 0.3 mg/dL (0.2-1.3); Total Protein 5.9 g/dL (6.3-8.2)
[2017-06-16] MEDS: ALBUTEROL NEBULIZED 2.5 MG/3 ML INHALATION SCH ×2 (08:08→20:57)
[2017-06-16] MEDS: SYMBICORT 80-4.5 MCG INHALER INHALATION SCH (08:08)
[2017-06-16] MEDS: HYDROcodone/APAP 5-325MG 1 EACH TAB PO PRN ×2 (12:07→20:16)
--- NOTE | 2017-06-16 15:58 | P.PN ---
Subjective Patient is doing well today. No events overnight. Objective - Vital Signs Vital signs: Vital Signs Temp 98.5 F 06/16/17 15:00 Pulse 68 06/16/17 15:00 Resp 18 06/16/17 15:00 BP 98/57 06/16/17 15:00 Pulse Ox 95 06/16/17 15:00 Intake & Output 06/15/17 06/16/17 06/16/17 18:59 06:59 18:59 Intake Total 360 100 360 Balance 360 100 360 Intake: Oral 360 100 360 Other: Voiding Method Toilet Toilet Toilet # Voids 3 1 4 - Exam General: The patient is awake and alert, in no distress Eye: there is normal conjunctiva bilaterally. Neck: The neck is supple, there is no JVD. Cardiovascular: Normal S1-S2, no S3-S4, no murmurs. Respiratory: Lungs clear to auscultation bilaterally Gastrointestinal: Abdomen is soft, nontender Musculoskeletal: There is no pedal edema. Neurological:. Speech is normal. Skin: Skin is warm and dry - Labs CBC & Chem 7: 06/16/17 07:13 06/16/17 07:13 Labs: Abnormal Lab Results - Last 24 Hours (Table) 06/16/17 06/16/17 Range/Units 07:13 07:13 RBC 3.55 L (3.80-5.40) m/uL ALT 58 H (9-52) U/L Alkaline Phosphatase 148 H (38-126) U/L Total Protein 5.9 L (6.3-8.2) g/dL Microbiology - Last 24 Hours (Table) 06/15/17 06:00 Urine Culture - Preliminary Urine,Voided Gram Neg Bacilli 06/10/17 15:24 Blood Culture - Preliminary Blood No Growth after 120 hours Assessment and Plan Plan: 1. Acute pancreatitis: Patient has had computed tomography scan of the abdomen and MRCP results showing generally dilated biliary tree down to distal common bile duct. There is circumferential wall thickening in the duodenum with involvement of the ampulla. This could relate to extrinsic edema obstructing the distal common bile duct. Pancreatic duct is not dilated is no evidence of pancreatic duct obstruction. No evidence of pancreatic mass. This appearance could relate to some significant duodenitis with secondary bile duct obstruction no evidence of choledocholithiasis. Duodenal tumor is not excluded. GI service is following closely. Patient is status post EGD showing duodenal stricture with duodenal bulbar ulceration, moderate size hiatal hernia and Finch's esophagus and mild antral gastritis. Continue Protonix 40 mg twice a day. Avoid NSAIDs. Patient was seen and evaluated by general surgery. No intervention at this time. 2. UTI continue Rocephin. Send urine for culture 3. Elevated lactic acid level on admission now resolved 4. History of peptic ulcer disease and gastritis 5. Hypothyroidism: Resume by mouth Synthroid 6. Essential hypertension: Patient's blood pressures are stable. Start patient home blood pressure medications Advance diet as tolerated. Anticipate discharge home tomorrow.
[2017-06-16 21:37] VITALS: RESP 16
[2017-06-16] MEDS: QUEtiapine 50 MG TAB PO SCH (21:55)
[2017-06-16] MEDS: MONTELUKAST 10 MG TAB PO SCH (21:55)
[2017-06-17] MEDS: LEVOTHYROXINE 125 MCG TAB PO SCH (06:09)
[2017-06-17 07:33] LABS: Basophils # (A) 0.1 k/uL (0-0.2); Basophils % (A) 1 %; CHCM 35.1; Eosinophils # (A) 0.5 k/uL (0-0.7); Eosinophils % (A) 9 %; HCT 36.3 % (34.0-46.0); HDW 2.97; HGB 12.5 gm/dL (11.4-16.0); Luc % (Auto) 3; Lymphocytes % (A) 34 %; MCH 33.6 pg (25.0-35.0); MCHC 34.4 g/dL (31.0-37.0); MCV 97.5 fL (80.0-100.0); Mean Platelet Volume 6.8; Monocytes # (A) 0.4 k/uL (0-1.0); Monocytes % (A) 7 %; Neutrophils # (A) 2.8 k/uL (1.3-7.7); Neutrophils % (A) 46 %; RBC 3.72 m/uL (3.80-5.40); RDW 14.4 % (11.5-15.5); WBC 5.9 k/uL (3.8-10.6); WBC (Perox) 6.18
[2017-06-17 07:40] VITALS: TEMP 98.3
[2017-06-17] MEDS: HYDROCHLOROTHIAZIDE 25 MG TAB PO SCH (07:48)
[2017-06-17] MEDS: METOPROLOL TARTRATE 25 MG TAB PO SCH (07:48)
[2017-06-17] MEDS: DESVENLAFAXINE SUCCINATE 50 MG TAB.ER.24H PO SCH (07:48)
[2017-06-17] MEDS: PANTOPRAZOLE 40 MG TABLET PO SCH (07:48)
[2017-06-17] MEDS: traZODone HCL 50 MG TAB PO SCH (07:48)
[2017-06-17] MEDS: HYDROmorphone 1 MG/ML 1 ML SYRINGE IVP PRN (07:49)
[2017-06-17] MEDS: HEPARIN SODIUM,PORCINE 5,000 UNIT/ML 1 ML VIAL SQ SCH (07:49)
[2017-06-17 08:05] LABS: ALT 50 U/L (9-52); AST 25 U/L (14-36); Alkaline Phosphatase 135 U/L (38-126); Anion Gap 9 mmol/L; Blood Urea Nitrogen 12 mg/dL (7-17); Calcium 9.5 mg/dL (8.4-10.2); Carbon Dioxide 26 mmol/L (22-30); Chloride 104 mmol/L (98-107); Glucose 82 mg/dL (74-99); Magnesium 1.7 mg/dL (1.6-2.3); Non-African American GFR(MDRD) >60 (>60 ml/min/1.73 sqM); Potassium 3.9 mmol/L (3.5-5.1); Sodium 139 mmol/L (137-145); Total Bilirubin 0.4 mg/dL (0.2-1.3); Total Protein 6.1 g/dL (6.3-8.2)
[2017-06-17] MEDS: ALBUTEROL NEBULIZED 2.5 MG/3 ML INHALATION SCH (08:20)
[2017-06-17] MEDS: SYMBICORT 80-4.5 MCG INHALER INHALATION SCH (08:21)
[2017-06-17 11:02] VITALS: BP 92/56; PULSE 84
[2017-06-17] MEDS: HYDROcodone/APAP 5-325MG 1 EACH TAB PO PRN (12:40)
[2017-06-17] MEDS ORDERED: CEFUROXIME 250 MG TAB PO SCH (13:00)
--- NOTE | 2017-06-17 13:55 | P.DS ---
Providers Date of admission: 06/10/17 15:51 Expected date of discharge: 06/17/17 Attending physician: Sophie Phelan Consults: 06/14/17 11:15 Consult Physician Routine Consulting Provider: Enrique Baldwin Consult Reason/Comments: duodenal stricture and duodenal bulb ulceration Do you want consulting provider notified?: Yes Dr. Igancio Simmons [facility] Course: Discharge diagnosis 1. Acute pancreatitis: Secondary to duodenal ulceration and edema from NSAID use. Elevated liver enzymes have improved suspected secondary to duodenal edema and external compression on biliary tree. Patient has had computed tomography scan of the abdomen and MRCP results showing generally dilated biliary tree down to distal common bile duct. There is circumferential wall thickening in the duodenum with involvement of the ampulla. This could relate to extrinsic edema obstructing the distal common bile duct. Pancreatic duct is not dilated is no evidence of pancreatic duct obstruction. No evidence of pancreatic mass. This appearance could relate to some significant duodenitis with secondary bile duct obstruction no evidence of choledocholithiasis. Duodenal tumor is not excluded. GI service is following closely. Patient is status post EGD showing duodenal stricture with duodenal bulbar ulceration, moderate size hiatal hernia and Finch's esophagus and mild antral gastritis. Continue Protonix 40 mg twice a day. Avoid NSAIDs. Patient was seen and evaluated by general surgery. No intervention at this time. 2. UTI with urine culture growing Citrobacter fundi. Continue Ceftin 500 mg twice a day for 7 days 3. Elevated lactic acid level on admission now resolved 4. History of peptic ulcer disease and gastritis 5. Hypothyroidism: Resume by mouth Synthroid 6. Essential hypertension: Patient's blood pressures are stable. Start patient home blood pressure medications Hospital course Lacie Silva is a 62-year-old female presents emergency Department with a past medical history significant for gastritis and duodenal ulcer and she also states she has a history of pancreatitis in the past. Patient's had a cholecystectomy and appendectomy in the past. Patient presented to the hospital with epigastric pain with nausea and vomiting. She was found have evidence of acute pancreatitis with elevation in her amylase and lipase. Computed tomography scan of the abdomen and pelvis completed showing dilated biliary tree that is essentially new compared to old exam. There is also proximal duodenal wall thickening and edema with probable obstruction of the distal common bile duct. There is some fatty infiltration of the pancreas. There is no specific sign of pancreatitis. Inflammatory mass or tumor of the proximal duodenal should be considered. Therefore, GI service ordered an MRCP. It showed generally add dilated biliary tree down to the distal common bile duct. Patient then underwent EGD showing a duodenal stricture with duodenal bulbar ulceration, moderate size hiatal hernia and Finch's esophagus and mild antral gastritis. GI recommends to Continue Protonix 40 mg twice a day. Avoid NSAIDs. Patient was seen and evaluated by general surgery. And they recommended no surgical intervention. Patient's symptoms are tolerable. She is tolerating a soft diet. GI service and surgical service has cleared her. Surgery recommends intervention only if patient gets obstructed. Patient is eager for discharge home. She'll be discharged home with [place] 7.5 every 4 hours as needed for pain. Blood pressures have also been a little lower during this admission. Could be related to the IV Dilaudid as well as a muscle relaxer. Muscle relaxer dose was decreased and changed to as needed. IV Dilaudid will has been discontinued. And the hydrochlorothiazide will be discontinued. Recommend that patient follows up with her PCP in 3 days. Reevaluate blood pressures. She'll following up with GI service in 3 weeks. Patient is medical stable for discharge please refer to chart for any further details. Patient Condition at Discharge: Stable Plan - Discharge Summary New Discharge Prescriptions: New Cefuroxime [Ceftin] 500 mg PO BID #14 tab HYDROcodone/APAP 7.5-325MG [[place] 7.5-325] 1 tab PO Q4H PRN #40 tab PRN Reason: Pain Pantoprazole [Protonix] 40 mg PO AC-BID #60 tab Continue Metoprolol Tartrate [Lopressor] 25 mg PO BID Albuterol Inhaler [Ventolin Hfa Inhaler] 2 puff INHALATION RT-BID Budesonide/Formoterol Fumarate [Symbicort 80-4.5 Mcg Inhaler] 1 puff INHALATION RT-DAILY Levothyroxine Sodium [Synthroid] 125 mcg PO QAM Butalb/Acetaminophen/Caffeine [Fioricet 50-300-40 mg Capsule] 1 - 2 cap PO Q4HR PRN PRN Reason: Migraine Headache Desvenlafaxine [Pristiq ER] 100 mg PO QAM traZODone HCL 50 mg PO BID QUEtiapine [SEROquel] 50 mg PO HS Montelukast [Singulair] 10 mg PO HS LORazepam [Ativan] 1 - 2 mg PO DAILY PRN PRN Reason: Anxiety Changed Baclofen 10 mg PO BID PRN #0 PRN Reason: Muscle Spasm Discontinued Meloxicam [Mobic] 7.5 mg PO BID Hydrochlorothiazide [Hydrodiuril] 25 mg PO DAILY Omeprazole [PriLOSEC] 20 mg PO BID Discharge Medication List Albuterol Inhaler [Ventolin Hfa Inhaler] 2 puff INHALATION RT-BID 08/13/16 [ History] Budesonide/Formoterol Fumarate [Symbicort 80-4.5 Mcg Inhaler] 1 puff INHALATION RT-DAILY 08/13/16 [History] Metoprolol Tartrate [Lopressor] 25 mg PO BID 08/13/16 [History] Butalb/Acetaminophen/Caffeine [Fioricet 50-300-40 mg Capsule] 1 - 2 cap PO Q4HR PRN 12/27/16 [History] Levothyroxine Sodium [Synthroid] 125 mcg PO QAM 12/27/16 [History] Desvenlafaxine [Pristiq ER] 100 mg PO QAM 02/07/17 [History] LORazepam [Ativan] 1 - 2 mg PO DAILY PRN 06/10/17 [History] Montelukast [Singulair] 10 mg PO HS 06/10/17 [History] QUEtiapine [SEROquel] 50 mg PO HS 06/10/17 [History] traZODone HCL 50 mg PO BID 06/10/17 [History] Baclofen 10 mg PO BID PRN #0 06/17/17 [Rx] Cefuroxime [Ceftin] 500 mg PO BID #14 tab 06/17/17 [Rx] HYDROcodone/APAP 7.5-325MG [[place] 7.5-325] 1 tab PO Q4H PRN #40 tab 06/17/17 [Rx ] Pantoprazole [Protonix] 40 mg PO AC-BID #60 tab 06/17/17 [Rx] Follow up Appointment(s)/Referral(s): Tammi Simmons MD [STAFF PHYSICIAN] - 3 Weeks Leonela Marcelino MD [Primary Care Provider] - 3 Days Activity/Diet/Wound Care/Special Instructions: Diet: soft Activity: as tolerated Discharge Disposition: HOME SELF-CARE
[2017-06-17 15:49] VITALS: BMI 28.7
== END 2017-06-17 15:55 | disposition home or self-care (01) | DRG 439 ==
LOC: EC 14:17 → 5MS5E 15:51
PROVIDERS: ADMIT Internal Medicine; ATTEND Internal Medicine
PROC: 0DB78ZX Excision of Stomach, Pylorus, Via Natural or Artificial Opening Endoscopic, Diagnostic (ICD-10-PCS; 2017-06-13)
PROC: 0DB98ZX Excision of Duodenum, Via Natural or Artificial Opening Endoscopic, Diagnostic (ICD-10-PCS; principal; 2017-06-13 07:30)
DX: K85.30 Drug induced acute pancreatitis without necrosis or infection (principal); K31.5 Obstruction of duodenum; I11.0 Hypertensive heart disease with heart failure; I50.9 Heart failure, unspecified; K26.9 Duodenal ulcer, unspecified as acute or chronic, without hemorrhage or perforation; M41.9 Scoliosis, unspecified; N39.0 Urinary tract infection, site not specified; K22.70 Barrett's esophagus without dysplasia; K29.60 Other gastritis without bleeding; K44.9 Diaphragmatic hernia without obstruction or gangrene; K29.80 Duodenitis without bleeding; T39.395A Adverse effect of other nonsteroidal anti-inflammatory drugs [NSAID], initial encounter; E86.0 Dehydration; B96.89 Other specified bacterial agents as the cause of diseases classified elsewhere; K21.9 Gastro-esophageal reflux disease without esophagitis; I25.10 Atherosclerotic heart disease of native coronary artery without angina pectoris; R74.0 Nonspecific elevation of levels of transaminase and lactic acid dehydrogenase [LDH]; M19.011 Primary osteoarthritis, right shoulder; M54.12 Radiculopathy, cervical region; M19.012 Primary osteoarthritis, left shoulder; E03.9 Hypothyroidism, unspecified; F41.9 Anxiety disorder, unspecified; R00.0 Tachycardia, unspecified; G43.909 Migraine, unspecified, not intractable, without status migrainosus; J45.909 Unspecified asthma, uncomplicated; R74.8 Abnormal levels of other serum enzymes; F32.9 Major depressive disorder, single episode, unspecified; Z87.19 Personal history of other diseases of the digestive system; Z78.0 Asymptomatic menopausal state; Z87.11 Personal history of peptic ulcer disease; Z79.899 Other long term (current) drug therapy; Z82.49 Family history of ischemic heart disease and other diseases of the circulatory system; Z80.52 Family history of malignant neoplasm of bladder; Z71.3 Dietary counseling and surveillance; Z86.14 Personal history of Methicillin resistant Staphylococcus aureus infection; Z87.01 Personal history of pneumonia (recurrent); Z88.1 Allergy status to other antibiotic agents; Z88.5 Allergy status to narcotic agent; Z88.8 Allergy status to other drugs, medicaments and biological substances; Z87.81 Personal history of (healed) traumatic fracture; Z86.19 Personal history of other infectious and parasitic diseases; Z90.49 Acquired absence of other specified parts of digestive tract; Z87.42 Personal history of other diseases of the female genital tract; Z87.09 Personal history of other diseases of the respiratory system; Z79.1 Long term (current) use of non-steroidal anti-inflammatories (NSAID); Z79.891 Long term (current) use of opiate analgesic; Z79.51 Long term (current) use of inhaled steroids; Z86.79 Personal history of other diseases of the circulatory system
CPT/HCPCS: 36415; 43239; 74177; 74183; 76705; 80053; 80074; 81001; 82150; 82550; 82553; 83605; 83690; 83735; 84484; 85025; 87040; 87077; 87086; 87186; 88305; 88342; 93005; 94640; 94760; 96374; 96375; 99285

== ENCOUNTER 2018-04-12 05:20 | Emergency (ER) | payer OTHER ==
[2018-04-12 05:36] VITALS: TEMP 99.3
[2018-04-12] MEDS ORDERED: SODIUM CHLORIDE 0.9% 500 ML IV STA (05:44)
[2018-04-12] MEDS ORDERED: ONDANSETRON 4 MG/2 ML VIAL IVP STA (05:47)
--- NOTE | 2018-04-12 05:47 | ED ---
General Adult HPI - General Source: patient, RN notes reviewed Mode of arrival: wheelchair Limitations: no limitations <Foster Burks - Last Filed: 04/12/18 06:57> <Rupert Rea - Last Filed: 04/12/18 09:35> - General Chief complaint: Headache Stated complaint: headache Time Seen by Provider: 04/12/18 05:30 - History of Present Illness Initial comments: This is a 62-year-old female who presents emergency department with past medical history significant for headaches. Patient states she's had a headache for the last 8 hours. Patient states is more the right than the left. Patient also complains of bilateral blurred vision. Patient states she has been little bit nauseated has vomited times one. Patient denies any numbness or weakness. Patient denies any discoordination. Patient denies any chest pain palpitations difficulty breathing shortness of breath. Patient denies any abdominal pain. Patient denies any recent fever chills or cough. (Foster Burks) - Related Data Home Medications Medication Instructions Recorded Confirmed Albuterol Inhaler [Ventolin Hfa 2 puff INHALATION RT-BID 08/13/16 11/23/17 Inhaler] Budesonide/Formoterol Fumarate 1 puff INHALATION RT-DAILY 08/13/16 11/23/17 [Symbicort 80-4.5 Mcg Inhaler] Metoprolol Tartrate [Lopressor] 25 mg PO BID 08/13/16 11/23/17 Butalb/Acetaminophen/Caffeine 1 - 2 cap PO Q4HR PRN 12/27/16 11/23/17 [Fioricet 50-300-40 mg Capsule] Levothyroxine Sodium [Synthroid] 125 mcg PO QAM 12/27/16 11/23/17 Desvenlafaxine [Pristiq ER] 100 mg PO DAILY 02/07/17 11/23/17 Montelukast [Singulair] 10 mg PO HS 06/10/17 11/23/17 QUEtiapine [SEROquel] 50 mg PO HS 06/10/17 11/23/17 traZODone HCL 50 mg PO HS 06/10/17 11/23/17 Baclofen 10 mg PO TID PRN 10/03/17 11/23/17 Lisinopril [Zestril] 2.5 mg PO HS 10/03/17 11/23/17 Pantoprazole [Protonix] 40 mg PO DAILY 10/03/17 11/23/17 Previous Rx's Medication Instructions Recorded ALPRAZolam [Xanax] 0.25 mg PO Q6HR tab 11/27/17 Sucralfate [Carafate] 1 gm PO AC-TID tab 11/27/17 Allergies Allergy/AdvReac Type Severity Reaction Status Date / Time azithromycin [From Zithromax] Allergy Rash/Hives Verified 04/12/18 05:36 prochlorperazine edisylate Allergy Rash/Hives Verified 04/12/18 05:36 [From Compazine] prochlorperazine maleate Allergy Rash/Hives Verified 04/12/18 05:36 [From Compazine] sumatriptan [From Imitrex] Allergy redness Verified 04/12/18 05:36 and swelling at injection site sumatriptan succinate Allergy redness Verified 04/12/18 05:36 [From Imitrex] and swelling at injection site ketorolac tromethamine AdvReac headache Verified 04/12/18 05:36 [From Toradol] levofloxacin [From Levaquin] AdvReac caused Verified 04/12/18 05:36 abnormal EKG morphine AdvReac Nausea & Verified 04/12/18 05:36 Vomiting Review of Systems ROS Other: All systems not noted in ROS Statement are negative. <Foster Burks - Last Filed: 04/12/18 06:57> ROS Other: All systems not noted in ROS Statement are negative. <Rupert Rea - Last Filed: 04/12/18 09:35> ROS Statement: Those systems with pertinent positive or pertinent negative responses have been documented in the HPI. Past Medical History Past Medical History: Asthma, Blood Disorder, Coronary Artery Disease (CAD), Chest Pain / Angina, Heart Failure, GERD/Reflux, Hypertension, Osteoarthritis ( OA), Pneumonia Additional Past Medical History / Comment(s): rectal bleeding, migraines, bronchitis, cervical radiculopathy-compression fx in neck, back pain, pancreatitis , pud, LBBB, uterine fibroids, fxs of bilateral feet and L hand, scoliosis, anemia, hiatal hernia, acute gastritis History of Any Multi-Drug Resistant Organisms: MRSA Date of last positivie culture/infection: 2008 MDRO Source:: lt axilla Past Surgical History: Appendectomy, Cholecystectomy Additional Past Surgical History / Comment(s): LEFT TEMPORAL ARTERY BIOPSY, colonoscopy, L breast bx benign, EGD. Past Anesthesia/Blood Transfusion Reactions: Motion Sickness Additional Past Anesthesia/Blood Transfusion Reaction / Comment(s): no prior problems with blood transfusion Past Psychological History: Anxiety, Depression Smoking Status: Never smoker Past Alcohol Use History: None Reported Past Drug Use History: None Reported - Past Family History Father Family Medical History: Cancer Additional Family Medical History / Comment(s): Father of bladder cancer at age 66yrs. Mother Family Medical History: Congestive Heart Failure (CHF), Rheumatoid Arthritis (RA ) Additional Family Medical History / Comment(s): Mother had ASHD and of this at age 68yrs. <Foster Burks - Last Filed: 04/12/18 06:57> General Exam Limitations: no limitations <Foster Burks - Last Filed: 04/12/18 06:57> <Rupert Rea - Last Filed: 04/12/18 09:35> - General Exam Comments Initial Comments: GENERAL: Patient is well-developed and well-nourished. Patient is nontoxic and well- hydrated and is in no acute distress. ENT: Neck is soft and supple. No significant lymphadenopathy is noted. Oropharynx is clear. Moist mucous membranes. Neck has full range of motion without eliciting any pain. EYES: The sclera were anicteric and conjunctiva were pink and moist. Extraocular movements were intact and pupils were equal round and reactive to light. Eyelids were unremarkable. PULMONARY: Unlabored respirations. Good breath sounds bilaterally. No audible rales rhonchi or wheezing was noted. CARDIOVASCULAR: There is a regular rate and rhythm without any murmurs gallops or rubs. ABDOMEN: Soft and nontender with normal bowel sounds. No palpable organomegaly was noted. There is no palpable pulsatile mass. SKIN: Skin is clear with no lesions or rashes and otherwise unremarkable. NEUROLOGIC: Patient is alert and oriented x3. Cranial nerves II through XII are grossly intact. Motor and sensory are also intact. Normal speech, volume and content. Symmetrical smile. Cerebellar exam grossly intact. MUSCULOSKELETAL: Normal extremities with adequate strength and full range of motion. No lower extremity swelling or edema. No calf tenderness. LYMPHATICS: No significant lymphadenopathy is noted PSYCHIATRIC: Normal psychiatric evaluation. (Foster Burks) Course <Foster Burks - Last Filed: 04/12/18 06:57> <Rueprt Rea - Last Filed: 04/12/18 09:35> Vital Signs 04/12/18 04/12/18 04/12/18 05:31 06:56 07:33 Temperature 99.3 F Pulse Rate 110 H 90 85 Respiratory 20 18 18 Rate Blood Pressure 96/63 109/56 109/56 O2 Sat by Pulse 97 98 96 Oximetry 04/12/18 09:28 Temperature Pulse Rate 61 Respiratory 18 Rate Blood Pressure 115/68 O2 Sat by Pulse 96 Oximetry - Reevaluation(s) Reevaluation #1: 04/12/18 09:31 On reevaluation, patient is feeling better, headache significantly improved, no vomiting while in the emergency department. (Rupert Rea) Medical Decision Making <Foster Burks - Last Filed: 04/12/18 06:57> - Lab Data Result diagrams: 04/12/18 06:15 04/12/18 06:15 <Rupert Rea - Last Filed: 04/12/18 09:35> - Medical Decision Making EKG shows normal sinus rhythm at 89 bpm MN interval is 160 QRS is 82 QT interval 358 QTC is 435. Patient's EKG shows no ST segment elevation or depression or T wave abnormalities are noted. Dr. Rea be taking over the care of this patient at 7 AM (Foster Burks) Patient's care is signed out at shift change awaiting symptomatic treatment of headache. Patient has history of migraine headache, states that this headache is similar in character to her typical headache although more severe in nature. She had some associated nausea and blurry vision. Workup was obtained prior to sign out including head CT, chest x-ray, and laboratory studies. Laboratory studies reveal normal white blood cell count, stable hemoglobin, normal electrolytes. Head CT shows no acute findings, chest x-ray is negative for any acute pathology. Patient was given Zofran, Reglan, [place] and Benadryl, on reevaluation she still had some headache. She did have a morphine ALLERGY although she stated this was localized reaction and she is ALLERGIC to Toradol, morphine was given IV with no reaction. On reevaluation patient was feeling better. 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 Reevaluation patient's neuro exam was nonfocal, pupils were equal round reactive to light. No corneal clouding, globes are soft bilaterally. Extraocular motions intact. Patient will be discharged home with outpatient follow-up. (Rupert Rea) - Lab Data Lab Results 04/12/18 04/12/18 04/12/18 Range/Units 06:15 06:15 06:15 WBC 5.4 (3.8-10.6) k/uL RBC 3.72 L (3.80-5.40) m/uL Hgb 11.6 (11.4-16.0) gm/dL Hct 34.9 (34.0-46.0) % MCV 93.8 (80.0-100.0) fL MCH 31.2 (25.0-35.0) pg MCHC 33.2 (31.0-37.0) g/dL RDW 13.6 (11.5-15.5) % Plt Count 233 (150-450) k/uL Neutrophils % 40 % Lymphocytes % 35 % Monocytes % 9 % Eosinophils % 12 % Basophils % 1 % Neutrophils # 2.2 (1.3-7.7) k/uL Lymphocytes # 1.9 (1.0-4.8) k/uL Monocytes # 0.5 (0-1.0) k/uL Eosinophils # 0.7 (0-0.7) k/uL Basophils # 0.1 (0-0.2) k/uL PT (9.0-12.0) sec INR (<1.2) APTT (22.0-30.0) sec Sodium 140 (137-145) mmol/L Potassium 4.4 (3.5-5.1) mmol/L Chloride 109 H (98-107) mmol/L Carbon Dioxide 23 (22-30) mmol/L Anion Gap 8 mmol/L BUN 31 H (7-17) mg/dL Creatinine 0.81 (0.52-1.04) mg/dL Est GFR (CKD-EPI)AfAm >90 (>60 ml/min/1.73 sqM) Est GFR (CKD-EPI)NonAf 79 (>60 ml/min/1.73 sqM) Glucose 89 (74-99) mg/dL Calcium 9.1 (8.4-10.2) mg/dL Total Bilirubin 0.1 L (0.2-1.3) mg/dL AST 42 H (14-36) U/L ALT 39 (9-52) U/L Alkaline Phosphatase 71 (38-126) U/L Total Creatine Kinase 39 (30-135) U/L CK-MB (CK-2) 0.2 (0.0-2.4) ng/mL CK-MB (CK-2) Rel Index 0.5 Troponin I <0.012 (0.000-0.034) ng/mL Total Protein 5.9 L (6.3-8.2) g/dL Albumin 3.7 (3.5-5.0) g/dL 04/12/18 Range/Units 06:15 WBC (3.8-10.6) k/uL RBC (3.80-5.40) m/uL Hgb (11.4-16.0) gm/dL Hct (34.0-46.0) % MCV (80.0-100.0) fL MCH (25.0-35.0) pg MCHC (31.0-37.0) g/dL RDW (11.5-15.5) % Plt Count (150-450) k/uL Neutrophils % % Lymphocytes % % Monocytes % % Eosinophils % % Basophils % % Neutrophils # (1.3-7.7) k/uL Lymphocytes # (1.0-4.8) k/uL Monocytes # (0-1.0) k/uL Eosinophils # (0-0.7) k/uL Basophils # (0-0.2) k/uL PT 9.3 (9.0-12.0) sec INR 0.9 (<1.2) APTT 21.9 L (22.0-30.0) sec Sodium (137-145) mmol/L Potassium (3.5-5.1) mmol/L Chloride (98-107) mmol/L Carbon Dioxide (22-30) mmol/L Anion Gap mmol/L BUN (7-17) mg/dL Creatinine (0.52-1.04) mg/dL Est GFR (CKD-EPI)AfAm (>60 ml/min/1.73 sqM) Est GFR (CKD-EPI)NonAf (>60 ml/min/1.73 sqM) Glucose (74-99) mg/dL Calcium (8.4-10.2) mg/dL Total Bilirubin (0.2-1.3) mg/dL AST (14-36) U/L ALT (9-52) U/L Alkaline Phosphatase (38-126) U/L Total Creatine Kinase (30-135) U/L CK-MB (CK-2) (0.0-2.4) ng/mL CK-MB (CK-2) Rel Index Troponin I (0.000-0.034) ng/mL Total Protein (6.3-8.2) g/dL Albumin (3.5-5.0) g/dL Disposition <Foster Burks - Last Filed: 04/12/18 06:57> Is patient prescribed a controlled substance at d/c from ED?: No Time of Disposition: 09:34 <Rupert Rea - Last Filed: 04/12/18 09:35> Clinical Impression: Migraine Disposition: HOME SELF-CARE Condition: Fair Instructions: Acute Headache (ED), Migraine Headache (ED) Additional Instructions: Please follow up with her primary care physician and ophthalmology. Referrals: Leonela Marcelino MD [Primary Care Provider] - 1-2 days
--- NOTE | 2018-04-12 06:50 | CT ---
EXAMINATION: CT brain wo con DATE AND TIME: 04/12/2018 6:43 AM ORDERING PROVIDER: Foster Burks MD CLINICAL INDICATION: Neuro Deficits, headache TECHNIQUE: Standard departmental protocol. DLP 995.50 mGy-cm. COMPARISON: 08/13/2016 DESCRIPTION: The calvarium is intact. There is no intracranial hemorrhage. There is no mass or mass e ffect. There is no definite new attenuation defect. However there is bilateral scattered and some low attenuation within the adam radiata and centrum semiovale, a subtle and nonspecific finding which usually reflect small vessel change. Remainder of the intra-axial and extra-axial compartment examina tion is unremarkable. The paranasal sinuses, middle ear cavities, and mastoid sinus air cells are jesus ar. The orbits are intact. IMPRESSION: NO DEFINITE ACUTE PROCESS.
[2018-04-12 06:52] LABS: ALT 39 U/L (9-52); AST 42 U/L (14-36); Albumin 3.7 g/dL (3.5-5.0); Alkaline Phosphatase 71 U/L (38-126); Anion Gap 8 mmol/L; Blood Urea Nitrogen 31 mg/dL (7-17); Calcium 9.1 mg/dL (8.4-10.2); Carbon Dioxide 23 mmol/L (22-30); Chloride 109 mmol/L (98-107); Glucose 89 mg/dL (74-99); Potassium 4.4 mmol/L (3.5-5.1); Sodium 140 mmol/L (137-145); Total Bilirubin 0.1 mg/dL (0.2-1.3); Total Protein 5.9 g/dL (6.3-8.2)
[2018-04-12 06:57] VITALS: RESP 18
--- NOTE | 2018-04-12 07:02 | XR ---
EXAMINATION: XR chest 2V DATE AND TIME: 04/12/2018 6:52 AM ORDERING PROVIDER: Foster Burks CLINICAL INDICATION: altered mental status TECHNIQUE: PA and lateral COMPARISON: 10/03/2017 DESCRIPTION: The lungs are clear. The pleural spaces are negative. The cardiac silhouette is not enlarged. The mediastinal and pleural silhouettes are unremarkable. The skeletal structures are stable, without acute findings. The soft tissues are unremarkable. IMPRESSION: NO ACUTE PROCESS.
[2018-04-12 07:03] LABS: INR 0.9 (<1.2); Prothrombin Time 9.3 sec (9.0-12.0)
[2018-04-12 07:07] LABS: Basophils # (A) 0.1 k/uL (0-0.2); Basophils % (A) 1 %; Eosinophils # (A) 0.7 k/uL (0-0.7); Eosinophils % (A) 12 %; HCT 34.9 % (34.0-46.0); HGB 11.6 gm/dL (11.4-16.0); Lymphocytes # (A) 1.9 k/uL (1.0-4.8); Lymphocytes % (A) 35 %; MCH 31.2 pg (25.0-35.0); MCHC 33.2 g/dL (31.0-37.0); MCV 93.8 fL (80.0-100.0); Mean Platelet Volume 6.3; Monocytes # (A) 0.5 k/uL (0-1.0); Monocytes % (A) 9 %; Neutrophils # (A) 2.2 k/uL (1.3-7.7); Neutrophils % (A) 40 %; Platelet Count 233 k/uL (150-450); RBC 3.72 m/uL (3.80-5.40); RDW 13.6 % (11.5-15.5); WBC 5.4 k/uL (3.8-10.6)
[2018-04-12 07:15] LABS: Creatine Kinase 39 U/L (30-135)
[2018-04-12 07:16] LABS: Partial Thromboplastin Time 21.9 sec (22.0-30.0)
[2018-04-12 07:28] LABS: Creatine Kinase MB 0.2 ng/mL (0.0-2.4); Troponin I <0.012 ng/mL (0.000-0.034)
[2018-04-12] MEDS ORDERED: METOCLOPRAMIDE 5 MG/ML 2 ML VIAL IVP STA (07:34)
[2018-04-12] MEDS ORDERED: diphenhydrAMINE 50 MG/ML 1 ML VIAL IVP STA (07:34)
[2018-04-12] MEDS ORDERED: HYDROcodone/APAP 5-325MG 1 EACH TAB PO STA (07:40)
[2018-04-12] MEDS ORDERED: MORPHINE SULFATE 2 MG/ML SYRINGE IVP STA (09:09)
[2018-04-12 09:29] VITALS: BP 115/68; PULSE 61
== END 2018-04-12 09:47 | disposition home or self-care (01) ==
LOC: EC 05:20
DX: G43.909 Migraine, unspecified, not intractable, without status migrainosus (principal); I25.10 Atherosclerotic heart disease of native coronary artery without angina pectoris; I11.0 Hypertensive heart disease with heart failure; I50.9 Heart failure, unspecified; K21.9 Gastro-esophageal reflux disease without esophagitis; J45.909 Unspecified asthma, uncomplicated; F41.9 Anxiety disorder, unspecified; F32.9 Major depressive disorder, single episode, unspecified; Z86.14 Personal history of Methicillin resistant Staphylococcus aureus infection; Z79.51 Long term (current) use of inhaled steroids; Z79.899 Other long term (current) drug therapy; Z88.1 Allergy status to other antibiotic agents; Z88.8 Allergy status to other drugs, medicaments and biological substances; Z88.6 Allergy status to analgesic agent; Z88.5 Allergy status to narcotic agent
CPT/HCPCS: 36415; 93005; 80053; 82550; 82553; 84484; 85025; 85610; 85730; 71046; 70450; 99284; 96374; 96375 ×3; 96361; J1200; J2765; J2405; J2270

== ENCOUNTER 2018-10-31 05:56 | Inpatient (IN) | payer OTHER ==
[2018-10-31] MEDS ORDERED: SODIUM CHLORIDE 0.9% 2,000 ML IV STA (05:59)
[2018-10-31] MEDS ORDERED: ONDANSETRON 4 MG/2 ML VIAL IVP STA (05:59)
--- NOTE | 2018-10-31 06:03 | ED ---
Abdominal Pain HPI - General Stated Complaint: abd pain,SOB Source: patient Mode of arrival: EMS Limitations: no limitations - History of Present Illness Initial Comments: 30 is a 63-year-old female who presents to the emergency department today via EMS for evaluation of epigastric abdominal pain. Patient reports she has a history of chronic gastritis as well as intermittent pancreatitis. Patient reports she's been having burning epigastric abdominal pain associated with decreased appetite, decreased by mouth intake and nausea for approximately a week. She reports that today the pain became unbearable and she became concerned she may have a recurrent episode of pancreatitis that she call 911 bring her to the hospital. Patient describes the pain as a burning epigastric discomfort is been constant in nature, not improved with her oral medications at home including Carafate and Protonix. Patient reports she's had pancreatitis multiple times in the past with no known cause. She has no history of gallstones or gallbladder pathology. She had her gallbladder taken out during an exploratory laparoscopy muscle years ago. She does not drink alcohol. Patient reports she follows with Dr. Simmons gastroenterology for her chronic gastritis. - Related Data Home Medications Medication Instructions Recorded Confirmed Albuterol Inhaler [Ventolin Hfa 2 puff INHALATION RT-BID 08/13/16 11/23/17 Inhaler] Budesonide/Formoterol Fumarate 1 puff INHALATION RT-DAILY 08/13/16 11/23/17 [Symbicort 80-4.5 Mcg Inhaler] Metoprolol Tartrate [Lopressor] 25 mg PO BID 08/13/16 11/23/17 Butalb/Acetaminophen/Caffeine 1 - 2 cap PO Q4HR PRN 12/27/16 11/23/17 [Fioricet 50-300-40 mg Capsule] Levothyroxine Sodium [Synthroid] 125 mcg PO QAM 12/27/16 11/23/17 Desvenlafaxine [Pristiq ER] 100 mg PO DAILY 02/07/17 11/23/17 Montelukast [Singulair] 10 mg PO HS 06/10/17 11/23/17 QUEtiapine [SEROquel] 50 mg PO HS 06/10/17 11/23/17 traZODone HCL 50 mg PO HS 06/10/17 11/23/17 Baclofen 10 mg PO TID PRN 10/03/17 11/23/17 Lisinopril [Zestril] 2.5 mg PO HS 10/03/17 11/23/17 Pantoprazole [Protonix] 40 mg PO DAILY 10/03/17 11/23/17 Previous Rx's Medication Instructions Recorded ALPRAZolam [Xanax] 0.25 mg PO Q6HR tab 11/27/17 Sucralfate [Carafate] 1 gm PO AC-TID tab 11/27/17 Allergies Allergy/AdvReac Type Severity Reaction Status Date / Time azithromycin [From Zithromax] Allergy Rash/Hives Verified 10/31/18 06:03 prochlorperazine edisylate Allergy Rash/Hives Verified 10/31/18 06:03 [From Compazine] prochlorperazine maleate Allergy Rash/Hives Verified 10/31/18 06:03 [From Compazine] sumatriptan [From Imitrex] Allergy redness Verified 10/31/18 06:03 and swelling at injection site sumatriptan succinate Allergy redness Verified 10/31/18 06:03 [From Imitrex] and swelling at injection site ketorolac tromethamine AdvReac headache Verified 10/31/18 06:03 [From Toradol] levofloxacin [From Levaquin] AdvReac caused Verified 10/31/18 06:03 abnormal EKG morphine AdvReac Nausea & Verified 10/31/18 06:03 Vomiting Review of Systems ROS Statement: Those systems with pertinent positive or pertinent negative responses have been documented in the HPI. ROS Other: All systems not noted in ROS Statement are negative. Past Medical History Past Medical History: Asthma, Blood Disorder, Coronary Artery Disease (CAD), Chest Pain / Angina, Heart Failure, GERD/Reflux, Hypertension, Osteoarthritis ( OA), Pneumonia Additional Past Medical History / Comment(s): rectal bleeding, migraines, bronchitis, cervical radiculopathy-compression fx in neck, back pain, pancreatitis , pud, LBBB, uterine fibroids, fxs of bilateral feet and L hand, scoliosis, anemia, hiatal hernia, acute gastritis History of Any Multi-Drug Resistant Organisms: MRSA Date of last positivie culture/infection: 2008 MDRO Source:: lt axilla Past Surgical History: Appendectomy, Cholecystectomy Additional Past Surgical History / Comment(s): LEFT TEMPORAL ARTERY BIOPSY, colonoscopy, L breast bx benign, EGD. Past Anesthesia/Blood Transfusion Reactions: Motion Sickness Additional Past Anesthesia/Blood Transfusion Reaction / Comment(s): no prior problems with blood transfusion Past Psychological History: Anxiety, Depression Smoking Status: Never smoker Past Alcohol Use History: None Reported Past Drug Use History: None Reported - Past Family History Father Family Medical History: Cancer Additional Family Medical History / Comment(s): Father of bladder cancer at age 66yrs. Mother Family Medical History: Congestive Heart Failure (CHF), Rheumatoid Arthritis (RA ) Additional Family Medical History / Comment(s): Mother had ASHD and of this at age 68yrs. General Exam - General Exam Comments Initial Comments: Physical Exam GENERAL: Patient is well-developed and well-nourished. Dehydrated appearance HENT: Normocephalic, Atraumatic. EYES: PERRL, EOMI PULMONARY: Unlabored respirations. No audible rales rhonchi or wheezing was noted. CARDIOVASCULAR: Tachycardic, regular ABDOMEN: Tenderness to palpation in the epigastrium Soft, nondistended, normal active bowel sounds SKIN: Skin is clear with no lesions or rashes and otherwise unremarkable. : Deferred NEUROLOGIC: Patient is alert and oriented x3. Moving all extremities spontaneously MUSCULOSKELETAL: Normal extremities with adequate strength and full range of motion. No lower extremity swelling or edema. No calf tenderness. PSYCHIATRIC: Normal psychiatric evaluation. Limitations: no limitations Limitations: no limitations Course Vital Signs 10/31/18 10/31/18 05:59 06:13 Temperature 98.2 F Pulse Rate 114 H Pulse Rate [ 117 H Agency Service Representative ] Respiratory 24 Rate Blood Pressure 147/72 O2 Sat by Pulse 94 L Oximetry Medical Decision Making - Medical Decision Making The patient was seen and evaluated, history is obtained from the patient, review of medical records Labs and imaging were ordered, IV fluids were ordered As a no significant abnormalities x-ray suggestive of the small bowel obstruction Pain medication, NG tube and computed tomography scan were ordered patient was updated on findings Patient care was discussed with Dr. Phelan who accepts the admission with a consult to general surgery Dr. Mantilla. Admission and consult orders were placed. - Lab Data Result diagrams: 10/31/18 06:08 10/31/18 06:08 Lab Results 10/31/18 10/31/18 10/31/18 Range/Units 06:08 06:08 06:08 WBC 7.0 (3.8-10.6) k/uL RBC 3.90 (3.80-5.40) m/uL Hgb 12.1 (11.4-16.0) gm/dL Hct 36.9 (34.0-46.0) % MCV 94.5 (80.0-100.0) fL MCH 31.0 (25.0-35.0) pg MCHC 32.8 (31.0-37.0) g/dL RDW 13.5 (11.5-15.5) % Plt Count 234 (150-450) k/uL Neutrophils % 52 % Lymphocytes % 32 % Monocytes % 5 % Eosinophils % 8 % Basophils % 1 % Neutrophils # 3.6 (1.3-7.7) k/uL Lymphocytes # 2.2 (1.0-4.8) k/uL Monocytes # 0.3 (0-1.0) k/uL Eosinophils # 0.5 (0-0.7) k/uL Basophils # 0.1 (0-0.2) k/uL Sodium 138 (137-145) mmol/L Potassium 3.5 (3.5-5.1) mmol/L Chloride 107 (98-107) mmol/L Carbon Dioxide 22 (22-30) mmol/L Anion Gap 9 mmol/L BUN 22 H (7-17) mg/dL Creatinine 0.92 (0.52-1.04) mg/dL Est GFR (CKD-EPI)AfAm 77 (>60 ml/min/1.73 sqM) Est GFR (CKD-EPI)NonAf 67 (>60 ml/min/1.73 sqM) Glucose 131 H (74-99) mg/dL Plasma Lactic Acid Senthil (0.7-2.0) mmol/L Calcium 9.5 (8.4-10.2) mg/dL Total Bilirubin 0.4 (0.2-1.3) mg/dL AST 30 (14-36) U/L ALT 23 (9-52) U/L Alkaline Phosphatase 80 (38-126) U/L Total Creatine Kinase 59 (30-135) U/L CK-MB (CK-2) 0.5 (0.0-2.4) ng/mL CK-MB (CK-2) Rel Index 0.8 Troponin I <0.012 (0.000-0.034) ng/mL Total Protein 6.9 (6.3-8.2) g/dL Albumin 4.1 (3.5-5.0) g/dL Amylase 62 (30-110) U/L Lipase 69 (23-300) U/L Urine Color Urine Appearance (Clear) Urine pH (5.0-8.0) Ur Specific Bishop (1.001-1.035) Urine Protein (Negative) Urine Glucose (UA) (Negative) Urine Ketones (Negative) Urine Blood (Negative) Urine Nitrite (Negative) Urine Bilirubin (Negative) Urine Urobilinogen (<2.0) mg/dL Ur Leukocyte Esterase (Negative) Urine RBC (0-5) /hpf Urine WBC (0-5) /hpf Ur Squamous Epith Cells (0-4) /hpf Hyaline Casts (0-2) /lpf Urine Mucus (None) /hpf 10/31/18 10/31/18 Range/Units 06:08 06:44 WBC (3.8-10.6) k/uL RBC (3.80-5.40) m/uL Hgb (11.4-16.0) gm/dL Hct (34.0-46.0) % MCV (80.0-100.0) fL MCH (25.0-35.0) pg MCHC (31.0-37.0) g/dL RDW (11.5-15.5) % Plt Count (150-450) k/uL Neutrophils % % Lymphocytes % % Monocytes % % Eosinophils % % Basophils % % Neutrophils # (1.3-7.7) k/uL Lymphocytes # (1.0-4.8) k/uL Monocytes # (0-1.0) k/uL Eosinophils # (0-0.7) k/uL Basophils # (0-0.2) k/uL Sodium (137-145) mmol/L Potassium (3.5-5.1) mmol/L Chloride (98-107) mmol/L Carbon Dioxide (22-30) mmol/L Anion Gap mmol/L BUN (7-17) mg/dL Creatinine (0.52-1.04) mg/dL Est GFR (CKD-EPI)AfAm (>60 ml/min/1.73 sqM) Est GFR (CKD-EPI)NonAf (>60 ml/min/1.73 sqM) Glucose (74-99) mg/dL Plasma Lactic Acid Senthil 2.0 (0.7-2.0) mmol/L Calcium (8.4-10.2) mg/dL Total Bilirubin (0.2-1.3) mg/dL AST (14-36) U/L ALT (9-52) U/L Alkaline Phosphatase (38-126) U/L Total Creatine Kinase (30-135) U/L CK-MB (CK-2) (0.0-2.4) ng/mL CK-MB (CK-2) Rel Index Troponin I (0.000-0.034) ng/mL Total Protein (6.3-8.2) g/dL Albumin (3.5-5.0) g/dL Amylase (30-110) U/L Lipase (23-300) U/L Urine Color Yellow Urine Appearance Clear (Clear) Urine pH 6.5 (5.0-8.0) Ur Specific Bishop 1.018 (1.001-1.035) Urine Protein Negative (Negative) Urine Glucose (UA) Negative (Negative) Urine Ketones Negative (Negative) Urine Blood Negative (Negative) Urine Nitrite Negative (Negative) Urine Bilirubin Negative (Negative) Urine Urobilinogen <2.0 (<2.0) mg/dL Ur Leukocyte Esterase Moderate H (Negative) Urine RBC 1 (0-5) /hpf Urine WBC 27 H (0-5) /hpf Ur Squamous Epith Cells <1 (0-4) /hpf Hyaline Casts 13 H (0-2) /lpf Urine Mucus Rare H (None) /hpf Disposition Clinical Impression: Small bowel obstruction Disposition: ADMITTED IP TO THIS HOSP Referrals: Leonela Marcelino MD [Primary Care Provider] - 1-2 days
[2018-10-31 06:25] LABS: Basophils # (A) 0.1 k/uL (0-0.2); Basophils % (A) 1 %; Eosinophils # (A) 0.5 k/uL (0-0.7); Eosinophils % (A) 8 %; HCT 36.9 % (34.0-46.0); HGB 12.1 gm/dL (11.4-16.0); Lymphocytes # (A) 2.2 k/uL (1.0-4.8); Lymphocytes % (A) 32 %; MCHC 32.8 g/dL (31.0-37.0); MCV 94.5 fL (80.0-100.0); Mean Platelet Volume 6.2; Monocytes # (A) 0.3 k/uL (0-1.0); Monocytes % (A) 5 %; Neutrophils # (A) 3.6 k/uL (1.3-7.7); Neutrophils % (A) 52 %; Platelet Count 234 k/uL (150-450); RDW 13.5 % (11.5-15.5)
[2018-10-31 06:35] LABS: Albumin 4.1 g/dL (3.5-5.0); Calcium 9.5 mg/dL (8.4-10.2); Potassium 3.5 mmol/L (3.5-5.1); Total Bilirubin 0.4 mg/dL (0.2-1.3); Total Protein 6.9 g/dL (6.3-8.2)
[2018-10-31 06:45] LABS: Creatine Kinase 59 U/L (30-135)
[2018-10-31] MEDS ORDERED: MAG HYDROX/AL HYDROX/SIMETH 30 ML, HYOSCYAMINE ELIXIR 10 ML, CIMETIDINE HCL 300 MG, LID... PO STA ×4 (06:52)
[2018-10-31 06:58] LABS: Creatine Kinase MB 0.5 ng/mL (0.0-2.4); Troponin I <0.012 ng/mL (0.000-0.034)
--- NOTE | 2018-10-31 06:58 | XR ---
EXAM: XR Abdomen, 1 View CLINICAL HISTORY: ITS.REASON XR Reason: abdominal pain TECHNIQUE: Frontal supine view of the abdomen/pelvis. COMPARISON: No relevant prior studies available. FINDINGS: Intraperitoneal space: No free air. Gastrointestinal tract: Fluid levels in the small bowel with possible dilatation. Large amount of stool in the right lower quadrant/right hemipelvis. Bones/joints: Unremarkable. IMPRESSION: 1. Large amount of stool in the right lower quadrant/right hemipelvis. 2. Fluid levels in the small bowel with possible dilatation. Cannot exclude obstruction.
[2018-10-31 07:01] LABS: Appearance,Urine Clear (Clear); Bilirubin,Urine Negative (Negative); Blood,Urine Negative (Negative); Color,Urine Yellow; Glucose,Urine (UA) Negative (Negative); Hyaline Casts,Urine 13 /lpf (0-2); Ketones,Urine Negative (Negative); Leukocyte Esterase,Urine Moderate (Negative); Mucus,Urine Rare /hpf; Nitrite,Urine Negative (Negative); PH, Urine 6.5 (5.0-8.0); Protein,Urine Negative (Negative); RBC,Urine 1 /hpf (0-5); Specific Gravity,Urine 1.018 (1.001-1.035); Squamous Epithelial Cell,Urine <1 /hpf (0-4); Urobilinogen,Urine <2.0 mg/dL (<2.0); WBC,Urine 27 /hpf (0-5)
[2018-10-31] MEDS ORDERED: NITROFURANTOIN MONOHYD/M-CRYST 100 MG CAP PO STA (07:12)
[2018-10-31] MEDS ORDERED: HYDROmorphone 1 MG/ML 1 ML SYRINGE IVP STA (07:38)
[2018-10-31] MEDS ORDERED: NALOXONE 0.4 MG/ML 1 ML VIAL IV PRN (07:44)
[2018-10-31] MEDS ORDERED: HYDROmorphone 0.5 MG/0.5 ML SYRINGE IVP STA (07:57)
--- NOTE | 2018-10-31 08:54 | CT ---
EXAMINATION TYPE: CT abdomen pelvis w con DATE OF EXAM: 10/31/2018 COMPARISON: 06/11/2017 INDICATION: SBO on KUB DLP: 849.2 mGycm, Automated exposure control for dose reduction was used. CONTRAST: 100 ml mL of Isovue 300. Study performed without Oral Contrast TECHNIQUE: Axial images were obtained from above the diaphragm to the pubic rami in the axial plane a t 5 mm thick sections. Reconstructed images are reviewed on the computer in the coronal plane. FINDINGS: Limited CT sections are obtained the lung bases. The lung bases are clear. CT ABDOMEN: Liver: Normal Spleen: Normal Pancreas: Normal Adrenal glands: The adrenal glands are normal. Gallbladder: Surgically absent. Kidneys: No masses are evident. No hydronephrosis is present. No cysts are present. Delayed images were obtained through the kidneys, which remain unremarkable. Aorta: Vascular calcification is within the aorta. Inferior vena cava: Normal. CT PELVIS: There are multiple dilated proximal small bowel loops. Scattered air-fluid levels are present. There appears to be a zone of transition within the mid pelvis. Series 201 image 60. Distal ileum has a nor mal caliber. Air and fecal debris is within the colon. The descending colon is decompressed. There ar e scattered diverticuli within the distal sigmoid colon. Appendix: Not identified. No suspicious tubular structures or inflammatory changes are evident. Urinary bladder: Normal as visualized. Genitourinary structures: Vaginal cuff region appears normal. Uterus is not identified. Adnexal regio ns appear within normal limits. Osseous structures: No suspicious lytic or sclerotic lesions. IMPRESSIONS: 1. Findings compatible with partial small bowel obstruction. The transition appears to be within the mid pelvis. Etiology for obstruction is not identified. 2. Diverticulosis without acute diverticulitis.
[2018-10-31] MEDS: HYDROmorphone 0.5 MG/0.5 ML SYRINGE IVP PRN ×4 (10:00→20:05)
[2018-10-31] MEDS: SODIUM CHLORIDE 0.9% 1,000 ML IV SCH ×2 (10:00→15:27)
[2018-10-31] MEDS ORDERED: BUTALB PO PRN (11:06)
[2018-10-31] MEDS ORDERED: ALPRAZolam 0.25 MG TAB PO PRN (11:06)
[2018-10-31] MEDS ORDERED: [UNRECOGNIZED DRUG - OTHER] PO PRN (11:06)
[2018-10-31] MEDS ORDERED: CAFFEINE PO PRN (11:06)
[2018-10-31] MEDS ORDERED: ALBUTEROL NEBULIZED 2.5 MG/3 ML INHALATION PRN (11:06)
[2018-10-31] MEDS ORDERED: ACETAMINOPHEN PO PRN (11:06)
[2018-10-31] MEDS ORDERED: BACLOFEN 10 MG TAB PO PRN (11:06)
[2018-10-31] MEDS ORDERED: METOPROLOL TARTRATE 25 MG TAB PO STA (11:42)
[2018-10-31] MEDS: ONDANSETRON 4 MG/2 ML VIAL IVP PRN ×2 (11:43→20:05)
--- NOTE | 2018-10-31 12:28 | P.HPIM ---
History of Present Illness H&P Date: 10/31/18 This is a 62-year-old female patient of Dr. Marcelino. Patient presented with complaints of abdominal pain. Patient states that for the past week she's had increased abdominal pain with nausea and decreased appetite. Patient does have a known past medical history of chronic gastritis as well as intermittent pancreatitis. Additional medical history includes asthma, coronary artery disease, chest pain, heart failure, GERD, hypertension, osteoarthritis, pneumonia, rectal bleeding, migraines, bronchitis, cervical radiculopathy, back pain, pancreatitis, peptic ulcer disease, uterine fibroids and cholecystectomy. Abdominal x-ray completed showing large amount of stool in the right lower quadrant right hemipelvis. Fluid levels in the small bowel with possible dilation cannot exclude obstruction. CT of abdomen and pelvis completed showing findings compatible with partial small bowel obstruction. The transition appears to be within the mid pelvis. Etiology for obstruction is not identified. Diverticulosis without acute diverticulitis. Dr. Baldwin has been consulted for surgical services. EKG completed showing sinus tachycardia with possible left atrial enlargement, axis deviation, inferior infarct age undetermined possible anterior lateral infarct. Patient does take metoprolol. Discussed with nursing staff will check a surgical services okay for patient to have pills. Will resume home meds. At this time patient is still complaining of some abdominal discomfort. Patient did report small round BMs a.m. patient denies chest pain or shortness of breath. Awaiting surgical consult Review of Systems please refer to HPI otherwise unremarkable Past Medical History Past Medical History: Asthma, Blood Disorder, Coronary Artery Disease (CAD), Chest Pain / Angina, Heart Failure, GERD/Reflux, Hypertension, Osteoarthritis ( OA), Pneumonia, Thyroid Disorder Additional Past Medical History / Comment(s): Chronic gastritis, intermittent recurrent pancreatisi, duodenal stricture, short segment of Finch's esophagus , PUD, hiatal hernia, colitis, lower GI bleed, anemia, bronchitis, seasonal allergies, LBBB, arthritis multiple joints, cervical radiculopathy/cervical compression fractures, chronic back pain, scoliosis, past bilateral foot fractures and L hand fracures, uterine fibroids, UTI, hypothyroid History of Any Multi-Drug Resistant Organisms: MRSA Date of last positivie culture/infection: 2008 MDRO Source:: lt axilla Past Surgical History: Appendectomy, Breast Surgery, Cholecystectomy, Tonsillectomy Additional Past Surgical History / Comment(s): Exploratory lap with cholecystectomy, LEFT TEMPORAL ARTERY BIOPSY, EGD/colonoscopy, L breast bx benign, Past Anesthesia/Blood Transfusion Reactions: Motion Sickness Additional Past Anesthesia/Blood Transfusion Reaction / Comment(s): no prior problems with blood transfusion Smoking Status: Never smoker - Past Family History Father Family Medical History: Cancer Additional Family Medical History / Comment(s): Father of bladder cancer at age 66yrs. Mother Family Medical History: Congestive Heart Failure (CHF), Rheumatoid Arthritis (RA ) Additional Family Medical History / Comment(s): Mother had ASHD and of this at age 68yrs. Medications and Allergies Home Medications Medication Instructions Recorded Confirmed Type Albuterol Inhaler [Ventolin Hfa 2 puff INHALATION RT-QID PRN 08/13/16 10/31/18 History Inhaler] Budesonide/Formoterol Fumarate 1 puff INHALATION RT-DAILY PRN 08/13/16 10/31/18 History [Symbicort 80-4.5 Mcg Inhaler] Metoprolol Tartrate [Lopressor] 25 mg PO BID 08/13/16 10/31/18 History Butalb/Acetaminophen/Caffeine 1 - 2 cap PO Q4HR PRN 12/27/16 10/31/18 History [Fioricet 50-300-40 mg Capsule] Levothyroxine Sodium [Synthroid] 125 mcg PO QAM 12/27/16 10/31/18 History Montelukast [Singulair] 10 mg PO HS 06/10/17 10/31/18 History traZODone HCL 100 mg PO HS 06/10/17 10/31/18 History Baclofen 10 mg PO TID PRN 10/03/17 10/31/18 History Lisinopril [Zestril] 2.5 mg PO HS 10/03/17 10/31/18 History Pantoprazole [Protonix] 40 mg PO DAILY 10/03/17 10/31/18 History ALPRAZolam [Xanax] 0.25 mg PO Q6HR PRN 10/31/18 10/31/18 History DULoxetine HCL [Cymbalta] 20 mg PO DAILY 10/31/18 10/31/18 History Hydrochlorothiazide [Hydrodiuril] 25 mg PO DAILY 10/31/18 10/31/18 History Meloxicam [Mobic] 7.5 mg PO DAILY 10/31/18 10/31/18 History Allergies Allergy/AdvReac Type Severity Reaction Status Date / Time azithromycin [From Zithromax] Allergy Rash/Hives Verified 10/31/18 07:56 prochlorperazine edisylate Allergy Rash/Hives Verified 10/31/18 07:56 [From Compazine] prochlorperazine maleate Allergy Rash/Hives Verified 10/31/18 07:56 [From Compazine] sumatriptan [From Imitrex] Allergy redness Verified 10/31/18 07:56 and swelling at injection site sumatriptan succinate Allergy redness Verified 10/31/18 07:56 [From Imitrex] and swelling at injection site ketorolac tromethamine AdvReac headache Verified 10/31/18 07:56 [From Toradol] levofloxacin [From Levaquin] AdvReac caused Verified 10/31/18 07:56 abnormal EKG morphine AdvReac Nausea & Verified 10/31/18 07:56 Vomiting Physical Exam Vitals: Vital Signs Temp Pulse Pulse Resp BP Pulse Ox 10/31/18 09:00 98.0 F 107 H 20 132/86 98 10/31/18 08:30 107 H 18 120/78 98 10/31/18 08:00 110 H 20 118/62 98 10/31/18 07:30 108 H 20 101/45 97 10/31/18 07:00 118 H 20 108/92 10/31/18 06:13 117 H 10/31/18 06:00 96 10/31/18 05:59 98.2 F 114 H 24 147/72 94 L Intake and Output 10/30/18 10/31/18 10/31/18 22:59 06:59 14:59 Other: Voiding Method Toilet # Voids 0 Weight 78.471 kg Head normocephalic Neck supple Lungs clear to auscultation bilaterally no wheezing or crackles Heart regular rate and rhythm S1-S2, no rub or gallop Abdomen is soft slightly tender to palpation to lower abdomen Extremities no edema Neuro alert and orientated to 3 Results CBC & Chem 7: 10/31/18 06:08 10/31/18 06:08 Labs: Abnormal Lab Results - Last 24 Hours (Table) 10/31/18 10/31/18 Range/Units 06:08 06:44 BUN 22 H (7-17) mg/dL Glucose 131 H (74-99) mg/dL Ur Leukocyte Esterase Moderate H (Negative) Urine WBC 27 H (0-5) /hpf Hyaline Casts 13 H (0-2) /lpf Urine Mucus Rare H (None) /hpf Thrombosis Risk Factor Assmnt - Choose All That Apply Any of the Below Risk Factors Present?: Yes Each Factor Represents 1 point: Obesity (BMI >25) Other Risk Factors: Yes Each Risk Factor Represents 2 Points: Age 61-74 years Other congenital or acquired thrombophilia - If yes, enter type in comment: No Thrombosis Risk Factor Assessment Total Risk Factor Score: 3 Thrombosis Risk Factor Assessment Level: Moderate Risk Assessment and Plan Assessment: 1. Abdominal pain with Small bowel obstruction. KUB x-ray completed showing large amount of stool in the right lower quadrant/right hemipelvis. Fluid levels in small bowel with possible dilation. Cannot exclude obstruction. CT of abdomen and pelvis completed showing findings compatible with partial small bowel obstruction. The transition appears to be within the mid pelvis. Etiology for obstruction is not identified. Diverticulosis without acute diverticulitis. Surgical services have been consulted. NG was placed but did get pulled out accidentally. Per nursing staff discussed with surgical services Dr. Seals. Okay for NG tube to be DC'd. Also okay for patient to take by mouth pills 2. Urinary tract infection. Culture ordered. Patient started on Rocephin 3. Sinus Tachycardia. EKG completed showing sinus tachycardia. Possible left atrial enlargement. Left axis deviation. Inferior infarct, age undetermined. Possible anterior lateral infarct, age undetermined. Lopressor resumed 4. Hypothyroidism. Synthroid resumed TSH ordered 5. History of pancreatitis 6. Chronic gastritis 7. Peptic ulcer disease 8. History of colitis 9. History of anxiety and depression 10. History of asthma. Home meds resumed 11. History of essential hypertension. home Meds resumed DVT prophylaxis SCDs until seen by surgery. GI prophylaxis Protonix Time with Patient: Greater than 30 (Greater than 60% of the total time spent in counseling and coordination of care. I performed an examination of the patient and discussed their management with the Nurse Practitioner. I have reviewed the Nurse Practitioner's notes and agree with the documented findings and plan of care)
[2018-10-31 15:14] VITALS: BMI 27.1
--- NOTE | 2018-10-31 18:42 | P.GSCN ---
History of Present Illness Consult date: 10/31/18 Reason for Consult: Small bowel obstruction History of present illness: This is a 63-year-old female who was admitted through the emergency room. Patient complaints of abdominal pain she is worked up found have evidence of a partial small bowel structure. Per the nursing staff patient had her NG tube removed this afternoon. She denies any nausea or abdominal pain. She had limited output through her NG tube. Past Medical History Past Medical History: Asthma, Blood Disorder, Coronary Artery Disease (CAD), Chest Pain / Angina, Heart Failure, GERD/Reflux, Hypertension, Osteoarthritis ( OA), Pneumonia, Thyroid Disorder Additional Past Medical History / Comment(s): Chronic gastritis, intermittent recurrent pancreatisi, duodenal stricture, short segment of Finch's esophagus , PUD, hiatal hernia, colitis, lower GI bleed, anemia, bronchitis, seasonal allergies, LBBB, arthritis multiple joints, cervical radiculopathy/cervical compression fractures, chronic back pain, scoliosis, past bilateral foot fractures and L hand fracures, uterine fibroids, UTI, hypothyroid History of Any Multi-Drug Resistant Organisms: MRSA Year Discovered:: 2008 MDRO Source:: lt axilla Past Surgical History: Appendectomy, Breast Surgery, Cholecystectomy, Tonsillectomy Additional Past Surgical History / Comment(s): Exploratory lap with cholecystectomy, LEFT TEMPORAL ARTERY BIOPSY, EGD/colonoscopy, L breast bx benign, Past Anesthesia/Blood Transfusion Reactions: Motion Sickness Additional Past Anesthesia/Blood Transfusion Reaction / Comm: no prior problems with blood transfusion Smoking Status: Never smoker - Past Family History Father Family Medical History: Cancer Additional Family Medical History / Comment(s): Father of bladder cancer at age 66yrs. Mother Family Medical History: Congestive Heart Failure (CHF), Rheumatoid Arthritis (RA ) Additional Family Medical History / Comment(s): Mother had ASHD and of this at age 68yrs. Medications and Allergies Home Medications Medication Instructions Recorded Confirmed Type Albuterol Inhaler [Ventolin Hfa 2 puff INHALATION RT-QID PRN 08/13/16 10/31/18 History Inhaler] Budesonide/Formoterol Fumarate 1 puff INHALATION RT-DAILY PRN 08/13/16 10/31/18 History [Symbicort 80-4.5 Mcg Inhaler] Metoprolol Tartrate [Lopressor] 25 mg PO BID 08/13/16 10/31/18 History Butalb/Acetaminophen/Caffeine 1 - 2 cap PO Q4HR PRN 12/27/16 10/31/18 History [Fioricet 50-300-40 mg Capsule] Levothyroxine Sodium [Synthroid] 125 mcg PO QAM 12/27/16 10/31/18 History Montelukast [Singulair] 10 mg PO HS 06/10/17 10/31/18 History traZODone HCL 100 mg PO HS 06/10/17 10/31/18 History Baclofen 10 mg PO TID PRN 10/03/17 10/31/18 History Lisinopril [Zestril] 2.5 mg PO HS 10/03/17 10/31/18 History Pantoprazole [Protonix] 40 mg PO DAILY 10/03/17 10/31/18 History ALPRAZolam [Xanax] 0.25 mg PO Q6HR PRN 10/31/18 10/31/18 History DULoxetine HCL [Cymbalta] 20 mg PO DAILY 10/31/18 10/31/18 History Hydrochlorothiazide [Hydrodiuril] 25 mg PO DAILY 10/31/18 10/31/18 History Meloxicam [Mobic] 7.5 mg PO DAILY 10/31/18 10/31/18 History Allergies Allergy/AdvReac Type Severity Reaction Status Date / Time azithromycin [From Zithromax] Allergy Rash/Hives Verified 10/31/18 07:56 prochlorperazine edisylate Allergy Rash/Hives Verified 10/31/18 07:56 [From Compazine] prochlorperazine maleate Allergy Rash/Hives Verified 10/31/18 07:56 [From Compazine] sumatriptan [From Imitrex] Allergy redness Verified 10/31/18 07:56 and swelling at injection site sumatriptan succinate Allergy redness Verified 10/31/18 07:56 [From Imitrex] and swelling at injection site ketorolac tromethamine AdvReac headache Verified 10/31/18 07:56 [From Toradol] levofloxacin [From Levaquin] AdvReac caused Verified 10/31/18 07:56 abnormal EKG morphine AdvReac Nausea & Verified 10/31/18 07:56 Vomiting Surgical - Exam Vital Signs Temp Pulse Resp BP Pulse Ox 98.2 F 114 H 24 147/72 94 L 10/31/18 05:59 10/31/18 05:59 10/31/18 05:59 10/31/18 05:59 10/31/18 05:59 - General well developed, no distress - Eyes PERRL - ENT normal pinna - Neck no masses - Respiratory normal expansion - Cardiovascular Rhythm: regular - Abdomen Abdomen: soft, non tender Results - Labs 10/31/18 06:08 10/31/18 06:08 Abnormal Lab Results - Last 24 Hours (Table) 10/31/18 10/31/18 Range/Units 06:08 06:44 BUN 22 H (7-17) mg/dL Glucose 131 H (74-99) mg/dL Ur Leukocyte Esterase Moderate H (Negative) Urine WBC 27 H (0-5) /hpf Hyaline Casts 13 H (0-2) /lpf Urine Mucus Rare H (None) /hpf Microbiology - Last 24 Hours (Table) 10/31/18 06:44 Urine Culture - Preliminary Urine,Clean Catch Diabetes panel 10/31/18 Range/Units 06:08 Sodium 138 (137-145) mmol/L Potassium 3.5 (3.5-5.1) mmol/L Chloride 107 (98-107) mmol/L Carbon Dioxide 22 (22-30) mmol/L BUN 22 H (7-17) mg/dL Creatinine 0.92 (0.52-1.04) mg/dL Glucose 131 H (74-99) mg/dL Calcium 9.5 (8.4-10.2) mg/dL AST 30 (14-36) U/L ALT 23 (9-52) U/L Alkaline Phosphatase 80 (38-126) U/L Total Protein 6.9 (6.3-8.2) g/dL Albumin 4.1 (3.5-5.0) g/dL Calcium panel 10/31/18 Range/Units 06:08 Calcium 9.5 (8.4-10.2) mg/dL Albumin 4.1 (3.5-5.0) g/dL Pituitary panel 10/31/18 Range/Units 06:08 Sodium 138 (137-145) mmol/L Potassium 3.5 (3.5-5.1) mmol/L Chloride 107 (98-107) mmol/L Carbon Dioxide 22 (22-30) mmol/L BUN 22 H (7-17) mg/dL Creatinine 0.92 (0.52-1.04) mg/dL Glucose 131 H (74-99) mg/dL Calcium 9.5 (8.4-10.2) mg/dL Adrenal panel 10/31/18 Range/Units 06:08 Sodium 138 (137-145) mmol/L Potassium 3.5 (3.5-5.1) mmol/L Chloride 107 (98-107) mmol/L Carbon Dioxide 22 (22-30) mmol/L BUN 22 H (7-17) mg/dL Creatinine 0.92 (0.52-1.04) mg/dL Glucose 131 H (74-99) mg/dL Calcium 9.5 (8.4-10.2) mg/dL Total Bilirubin 0.4 (0.2-1.3) mg/dL AST 30 (14-36) U/L ALT 23 (9-52) U/L Alkaline Phosphatase 80 (38-126) U/L Total Protein 6.9 (6.3-8.2) g/dL Albumin 4.1 (3.5-5.0) g/dL Assessment and Plan Assessment: The patient appears to be asymptomatic. Her abdomen is soft. We will start her on clear liquid diet.
[2018-10-31] MEDS: MONTELUKAST 10 MG TAB PO SCH (21:47)
[2018-10-31] MEDS: LISINOPRIL 2.5 MG TAB PO SCH (21:47)
[2018-10-31] MEDS: METOPROLOL TARTRATE 25 MG TAB PO SCH (21:47)
[2018-10-31] MEDS: traZODone HCL 100 MG TAB PO SCH (21:47)
[2018-11-01] MEDS: HYDROmorphone 0.5 MG/0.5 ML SYRINGE IVP PRN ×7 (00:43→21:49)
[2018-11-01] MEDS: SODIUM CHLORIDE 0.9% 1,000 ML IV SCH ×2 (06:36→12:35)
[2018-11-01] MEDS: LEVOTHYROXINE 125 MCG TAB PO SCH (06:37)
[2018-11-01] MEDS: SYMBICORT 80-4.5 MCG INHALER INHALATION SCH (07:23)
[2018-11-01] MEDS: HYDROCHLOROTHIAZIDE 25 MG TAB PO SCH (08:13)
[2018-11-01] MEDS: METOPROLOL TARTRATE 25 MG TAB PO SCH ×2 (08:13→21:43)
[2018-11-01] MEDS: DULoxetine HCL 20 MG CAPSULE.DR PO SCH (08:13)
[2018-11-01] MEDS: PANTOPRAZOLE 40 MG TABLET PO SCH (08:13)
[2018-11-01 12:04] LABS: Basophils # (A) 0.1 k/uL (0-0.2); Basophils % (A) 1 %; Eosinophils # (A) 0.4 k/uL (0-0.7); Eosinophils % (A) 7 %; HCT 32.6 % (34.0-46.0); HGB 10.6 gm/dL (11.4-16.0); Lymphocytes # (A) 0.9 k/uL (1.0-4.8); Lymphocytes % (A) 16 %; MCHC 32.6 g/dL (31.0-37.0); MCV 98.2 fL (80.0-100.0); Mean Platelet Volume 6.5; Monocytes # (A) 0.4 k/uL (0-1.0); Monocytes % (A) 7 %; Neutrophils # (A) 3.7 k/uL (1.3-7.7); Neutrophils % (A) 68 %; Platelet Count 189 k/uL (150-450); RBC 3.32 m/uL (3.80-5.40); RDW 13.7 % (11.5-15.5); WBC 5.5 k/uL (3.8-10.6)
[2018-11-01 12:18] LABS: ALT 32 U/L (9-52); AST 39 U/L (14-36); Albumin 3.5 g/dL (3.5-5.0); Alkaline Phosphatase 79 U/L (38-126); Anion Gap 7 mmol/L; Blood Urea Nitrogen 20 mg/dL (7-17); Calcium 8.8 mg/dL (8.4-10.2); Carbon Dioxide 21 mmol/L (22-30); Chloride 114 mmol/L (98-107); Glucose 86 mg/dL (74-99); Potassium 3.9 mmol/L (3.5-5.1); Sodium 142 mmol/L (137-145); Total Bilirubin 0.5 mg/dL (0.2-1.3); Total Protein 5.9 g/dL (6.3-8.2)
--- NOTE | 2018-11-01 12:47 | P.PN ---
Progress Note - Text Progress Note Date: 11/01/18 The patient's complaints of nausea. She had some pain with clear liquids. On exam her vital signs are stable. Her abdomen soft. Patient will continue clear liquids. If she has continued nausea and abdominal pain we'll repeat her CAT scan.
--- NOTE | 2018-11-01 12:51 | P.PN ---
Subjective Progress Note Date: 11/01/18 This is a 62-year-old female patient of Dr. Marcelino. Patient presented with complaints of abdominal pain. Patient states that for the past week she's had increased abdominal pain with nausea and decreased appetite. Patient does have a known past medical history of chronic gastritis as well as intermittent pancreatitis. Additional medical history includes asthma, coronary artery disease, chest pain, heart failure, GERD, hypertension, osteoarthritis, pneumonia, rectal bleeding, migraines, bronchitis, cervical radiculopathy, back pain, pancreatitis, peptic ulcer disease, uterine fibroids and cholecystectomy. Abdominal x-ray completed showing large amount of stool in the right lower quadrant right hemipelvis. Fluid levels in the small bowel with possible dilation cannot exclude obstruction. CT of abdomen and pelvis completed showing findings compatible with partial small bowel obstruction. The transition appears to be within the mid pelvis. Etiology for obstruction is not identified. Diverticulosis without acute diverticulitis. Dr. Baldwin has been consulted for surgical services. EKG completed showing sinus tachycardia with possible left atrial enlargement, axis deviation, inferior infarct age undetermined possible anterior lateral infarct. Patient does take metoprolol. Discussed with nursing staff will check a surgical services okay for patient to have pills. Will resume home meds. At this time patient is still complaining of some abdominal discomfort. Patient did report small round BMs a.m. patient denies chest pain or shortness of breath. Awaiting surgical consult On 11/01/2018 patient was seen and examined on the medical floor she is still complaining of severe pain in the epigastric area otherwise she denies any complaints there is no fever or chills no headache or dizziness no chest pain no shortness of breath no cough no nausea or vomiting no diarrhea .and no urinary symptoms Objective - Vital Signs Vital signs: Vital Signs Temp 98.3 F 11/01/18 06:16 Pulse 79 11/01/18 06:16 Resp 17 11/01/18 06:16 BP 94/55 11/01/18 06:16 Pulse Ox 97 11/01/18 06:16 Intake & Output 10/31/18 11/01/18 11/01/18 18:59 06:59 18:59 Intake Total 850 Balance 850 Weight 78.471 kg Intake: IV 850 Sodium Chloride 0.9% 1, 800 000 ml @ 100 mls/hr IV . Q10H HAILY Rx#:[id number] cefTRIAXone 1,000 mg In 50 Sodium Chloride 0.9% 50 ml @ 100 mls/hr IVPB Q24H HAILY Rx#:[id number] Other: Voiding Method Toilet Toilet # Voids 0 1 1 - Exam Head normocephalic and atraumatic Neck supple no JVD no goiter Lungs clear to auscultation bilaterally no wheezing or crackles Heart regular rate and rhythm S1-S2, no rub or gallop Abdomen is soft slightly tender to palpation to lower abdomen Extremities no edema no cyanosis or clubbing Neuro alert and orientated to 3 - Labs CBC & Chem 7: 11/01/18 11:15 11/01/18 11:15 Labs: Abnormal Lab Results - Last 24 Hours (Table) 11/01/18 11/01/18 Range/Units 11:15 11:15 RBC 3.32 L (3.80-5.40) m/uL Hgb 10.6 L (11.4-16.0) gm/dL Hct 32.6 L (34.0-46.0) % Lymphocytes # 0.9 L (1.0-4.8) k/uL Chloride 114 H (98-107) mmol/L Carbon Dioxide 21 L (22-30) mmol/L BUN 20 H (7-17) mg/dL AST 39 H (14-36) U/L Total Protein 5.9 L (6.3-8.2) g/dL TSH 19.100 H (0.465-4.680) mIU/L Microbiology - Last 24 Hours (Table) 10/31/18 06:44 Urine Culture - Preliminary Urine,Clean Catch Assessment and Plan Plan: 1. Abdominal pain with Small bowel obstruction. KUB x-ray completed showing large amount of stool in the right lower quadrant/right hemipelvis. Fluid levels in small bowel with possible dilation. Cannot exclude obstruction. CT of abdomen and pelvis completed showing findings compatible with partial small bowel obstruction. The transition appears to be within the mid pelvis. Etiology for obstruction is not identified. Diverticulosis without acute diverticulitis. Surgical services have been consulted. NG was placed but did get pulled out accidentally. Per nursing staff discussed with surgical services Dr. Seals. [place] for NG tube to be DC'd. Also okay for patient to take by mouth pills 2. Urinary tract infection. Culture ordered. Patient started on Rocephin 3. Sinus Tachycardia. EKG completed showing sinus tachycardia. Possible left atrial enlargement. Left axis deviation. Inferior infarct, age undetermined. Possible anterior lateral infarct, age undetermined. Lopressor resumed 4. Hypothyroidism. Synthroid resumed TSH ordered 5. History of pancreatitis 6. Chronic gastritis 7. Peptic ulcer disease 8. History of colitis 9. History of anxiety and depression 10. History of asthma. Home meds resumed 11. History of essential hypertension. home Meds resumed DVT prophylaxis SCDs until seen by surgery. GI prophylaxis Protonix Patient was evaluated by surgery again on 11/01/2018 plan is to repeat computed tomography scan of the abdomen and pelvis to reassess possible need for surgery
[2018-11-01] MEDS: MONTELUKAST 10 MG TAB PO SCH (21:43)
[2018-11-01] MEDS: traZODone HCL 100 MG TAB PO SCH (21:43)
[2018-11-01] MEDS: LISINOPRIL 2.5 MG TAB PO SCH (21:43)
[2018-11-02] MEDS: SODIUM CHLORIDE 0.9% 1,000 ML IV SCH ×3 (02:52→20:44)
[2018-11-02] MEDS: HYDROmorphone 0.5 MG/0.5 ML SYRINGE IVP PRN ×5 (02:53→19:30)
[2018-11-02] MEDS: LEVOTHYROXINE 125 MCG TAB PO SCH (06:50)
[2018-11-02] MEDS: SYMBICORT 80-4.5 MCG INHALER INHALATION SCH ×2 (06:59→07:00)
[2018-11-02] MEDS: METOPROLOL TARTRATE 25 MG TAB PO SCH ×2 (07:21→20:44)
[2018-11-02] MEDS: DULoxetine HCL 20 MG CAPSULE.DR PO SCH (07:53)
[2018-11-02] MEDS: PANTOPRAZOLE 40 MG TABLET PO SCH (07:53)
[2018-11-02] MEDS: HYDROCHLOROTHIAZIDE 25 MG TAB PO SCH (07:53)
[2018-11-02] MEDS: ONDANSETRON 4 MG/2 ML VIAL IVP PRN ×2 (07:57→15:30)
[2018-11-02 11:25] LABS: Basophils % (A) 1 %; Eosinophils # (A) 0.3 k/uL (0-0.7); Eosinophils % (A) 7 %; HCT 31.8 % (34.0-46.0); HGB 10.8 gm/dL (11.4-16.0); Lymphocytes # (A) 1.1 k/uL (1.0-4.8); Lymphocytes % (A) 23 %; MCH 32.7 pg (25.0-35.0); MCHC 34.2 g/dL (31.0-37.0); MCV 95.7 fL (80.0-100.0); Mean Platelet Volume 6.4; Monocytes # (A) 0.3 k/uL (0-1.0); Monocytes % (A) 6 %; Neutrophils # (A) 2.9 k/uL (1.3-7.7); Neutrophils % (A) 61 %; Platelet Count 179 k/uL (150-450); RBC 3.32 m/uL (3.80-5.40); RDW 13.6 % (11.5-15.5); WBC 4.7 k/uL (3.8-10.6)
--- NOTE | 2018-11-02 11:25 | P.PN ---
Subjective Progress Note Date: 11/02/18 This is a 62-year-old female patient of Dr. Marcelino. Patient presented with complaints of abdominal pain. Patient states that for the past week she's had increased abdominal pain with nausea and decreased appetite. Patient does have a known past medical history of chronic gastritis as well as intermittent pancreatitis. Additional medical history includes asthma, coronary artery disease, chest pain, heart failure, GERD, hypertension, osteoarthritis, pneumonia, rectal bleeding, migraines, bronchitis, cervical radiculopathy, back pain, pancreatitis, peptic ulcer disease, uterine fibroids and cholecystectomy. Abdominal x-ray completed showing large amount of stool in the right lower quadrant right hemipelvis. Fluid levels in the small bowel with possible dilation cannot exclude obstruction. CT of abdomen and pelvis completed showing findings compatible with partial small bowel obstruction. The transition appears to be within the mid pelvis. Etiology for obstruction is not identified. Diverticulosis without acute diverticulitis. Dr. Baldwin has been consulted for surgical services. EKG completed showing sinus tachycardia with possible left atrial enlargement, axis deviation, inferior infarct age undetermined possible anterior lateral infarct. Patient does take metoprolol. Discussed with nursing staff will check a surgical services okay for patient to have pills. Will resume home meds. At this time patient is still complaining of some abdominal discomfort. Patient did report small round BMs a.m. patient denies chest pain or shortness of breath. Awaiting surgical consult On 11/01/2018 patient was seen and examined on the medical floor she is still complaining of severe pain in the epigastric area otherwise she denies any complaints there is no fever or chills no headache or dizziness no chest pain no shortness of breath no cough no nausea or vomiting no diarrhea .and no urinary symptoms. On 11/02/2018 patient was seen and examined on the medical floor she is still complaining of abdominal pain in the periumbilical area and epigastric area and complaining of nausea there is no fever or chills no headache or dizziness no chest pain no shortness of breath no cough no vomiting no diarrhea and no urinary symptoms. TSH level was elevated at 19.1 hemoglobin is down to 10.6 Objective - Vital Signs Vital signs: Vital Signs Temp 98.3 F 11/02/18 06:05 Pulse 73 11/02/18 06:05 Resp 17 11/02/18 06:05 BP 97/59 11/02/18 06:05 Pulse Ox 92 L 11/02/18 06:05 Intake & Output 11/01/18 11/02/18 11/02/18 18:59 06:59 18:59 Intake Total 850 Balance 850 Intake: IV 850 Sodium Chloride 0.9% 1, 800 000 ml @ 100 mls/hr IV . Q10H [facility] Rx#:[id number] cefTRIAXone 1,000 mg In 50 Sodium Chloride 0.9% 50 ml @ 100 mls/hr IVPB Q24H [facility] Rx#:[id number] Other: Voiding Method Toilet # Voids 1 1 1 - Exam Head normocephalic and atraumatic Neck supple no JVD no goiter Lungs clear to auscultation bilaterally no wheezing or crackles Heart regular rate and rhythm S1-S2, no rub or gallop Abdomen is soft slightly tender to palpation to lower abdomen Extremities no edema no cyanosis or clubbing Neuro alert and orientated to 3 - Labs CBC & Chem 7: 11/01/18 11:15 11/01/18 11:15 Labs: Abnormal Lab Results - Last 24 Hours (Table) 11/01/18 11/01/18 Range/Units 11:15 11:15 RBC 3.32 L (3.80-5.40) m/uL Hgb 10.6 L (11.4-16.0) gm/dL Hct 32.6 L (34.0-46.0) % Lymphocytes # 0.9 L (1.0-4.8) k/uL Chloride 114 H (98-107) mmol/L Carbon Dioxide 21 L (22-30) mmol/L BUN 20 H (7-17) mg/dL AST 39 H (14-36) U/L Total Protein 5.9 L (6.3-8.2) g/dL TSH 19.100 H (0.465-4.680) mIU/L Microbiology - Last 24 Hours (Table) 10/31/18 06:44 Urine Culture - Final Urine,Clean Catch Staphylococcus aureus Assessment and Plan Plan: 1. Abdominal pain with Small bowel obstruction. KUB x-ray completed showing large amount of stool in the right lower quadrant/right hemipelvis. Fluid levels in small bowel with possible dilation. Cannot exclude obstruction. CT of abdomen and pelvis completed showing findings compatible with partial small bowel obstruction. The transition appears to be within the mid pelvis. Etiology for obstruction is not identified. Diverticulosis without acute diverticulitis. Surgical services have been consulted. NG was placed but did get pulled out accidentally. Per nursing staff discussed with surgical services Dr. Seals. Anders for NG tube to be DC'd. Also okay for patient to take by mouth pills 2. Urinary tract infection. Culture ordered. Patient started on Rocephin 3. Sinus Tachycardia. EKG completed showing sinus tachycardia. Possible left atrial enlargement. Left axis deviation. Inferior infarct, age undetermined. Possible anterior lateral infarct, age undetermined. Lopressor resumed 4. Hypothyroidism. Synthroid resumed TSH elevated at 19.1 will increase Synthroid dose to 150 mcg daily 5. History of pancreatitis 6. Chronic gastritis 7. Peptic ulcer disease 8. History of colitis 9. History of anxiety and depression 10. History of asthma. Home meds resumed 11. History of essential hypertension. home Meds resumed DVT prophylaxis SCDs until seen by surgery. GI prophylaxis Protonix Patient was evaluated by surgery again on 11/01/2018 plan is to repeat computed tomography scan of the abdomen and pelvis to reassess possible need for surgery
[2018-11-02 11:47] LABS: ALT 33 U/L (9-52); AST 51 U/L (14-36); Albumin 3.1 g/dL (3.5-5.0); Alkaline Phosphatase 86 U/L (38-126); Anion Gap 5 mmol/L; Blood Urea Nitrogen 9 mg/dL (7-17); Calcium 8.4 mg/dL (8.4-10.2); Carbon Dioxide 23 mmol/L (22-30); Chloride 106 mmol/L (98-107); Glucose 97 mg/dL (74-99); Potassium 3.5 mmol/L (3.5-5.1); Sodium 134 mmol/L (137-145); Total Bilirubin 0.3 mg/dL (0.2-1.3); Total Protein 5.5 g/dL (6.3-8.2)
--- NOTE | 2018-11-02 12:58 | P.PN ---
Progress Note - Text Progress Note Date: 11/02/18 The patient has complaints of crampy abdominal pain. She also has nausea. She has been on clear liquids. On exam her vital signs appear stable. Her abdomen soft. There is some minimal distention. Patient will undergo computed tomography scan of the abdomen pelvis to evaluate her partial small bowel obstruction.
[2018-11-02] MEDS: IOPAMIDOL-300 CONTRAST 30 ML VIAL (ORAL USE) PO PRN ×2 (13:17→14:17)
--- NOTE | 2018-11-02 15:13 | CT ---
EXAMINATION TYPE: CT abdomen pelvis wo con DATE OF EXAM: 11/02/2018 COMPARISON: 10/31/2018 HISTORY: Small bowel obstruction abdominal pain CT DLP: 623.4 mGycm Automated exposure control for dose reduction was used. TECHNIQUE: Helical acquisition of images was performed from the lung bases through the pelvis. FINDINGS: There is some patchy atelectasis at the lung bases. Heart size is normal. There is no pericardial eff usion. The stomach is large. There is oral contrast in the small bowel and also in the transverse col on and right colon. I see no evidence of a small bowel obstruction. Liver shows no focal defect. Ther e is mild ectasia of the biliary tree. Spleen appears normal. There is no evidence of pancreatic mass . There are clips from cholecystectomy. There is no adrenal mass. Kidneys have normal size and contou r. There is no hydronephrosis. There is no retroperitoneal adenopathy. There are diverticula in the descending colon and sigmoid colon. Bladder distends smoothly. There is no inguinal hernia. There is no free fluid in the pelvis. I see no intestinal wall thickening. There is some fatty infiltration of the pancreas. There is very minimal fat stranding around the pancreas. Appendix is not seen. There is no sign of appendicitis. Lumbar spine is intact. There is anterior wed ging of T10 and T9 vertebra up to 40%. IMPRESSION: COMPARED TO RECENT EXAM OF 10/31/2018 THERE IS CLEARING OF THE DILATED MULTIPLE LOOPS OF FLUID-FILLED S MALL BOWEL. I DO NOT SEE EVIDENCE OF A SMALL BOWEL OBSTRUCTION. MILD COLONIC DIVERTICULOSIS. STABLE M INIMAL ATELECTASIS AT THE LUNG BASES. There is new mild fat stranding around the pancreas compared to recent exam that is suggestive of acu te pancreatitis. There is stable mild ectasia of the biliary tree.
[2018-11-02] MEDS: LISINOPRIL 2.5 MG TAB PO SCH (20:44)
[2018-11-02] MEDS: traZODone HCL 100 MG TAB PO SCH (20:44)
[2018-11-02] MEDS: MONTELUKAST 10 MG TAB PO SCH (20:44)
[2018-11-03] MEDS: HYDROmorphone 0.5 MG/0.5 ML SYRINGE IVP PRN ×6 (00:37→21:54)
[2018-11-03] MEDS: ONDANSETRON 4 MG/2 ML VIAL IVP PRN ×3 (00:38→21:54)
[2018-11-03] MEDS: SODIUM CHLORIDE 0.9% 1,000 ML IV SCH ×2 (05:46→11:14)
[2018-11-03] MEDS: LEVOTHYROXINE 75 MCG TAB PO SCH (05:47)
[2018-11-03] MEDS: SYMBICORT 80-4.5 MCG INHALER INHALATION SCH (07:04)
[2018-11-03] MEDS: DULoxetine HCL 20 MG CAPSULE.DR PO SCH (07:41)
[2018-11-03] MEDS: HYDROCHLOROTHIAZIDE 25 MG TAB PO SCH (07:41)
[2018-11-03] MEDS: METOPROLOL TARTRATE 25 MG TAB PO SCH ×2 (07:41→20:13)
[2018-11-03] MEDS: PANTOPRAZOLE 40 MG TABLET PO SCH (07:41)
[2018-11-03 10:18] LABS: Basophils % (A) 1 %; Eosinophils # (A) 0.2 k/uL (0-0.7); Eosinophils % (A) 4 %; HCT 33.2 % (34.0-46.0); HGB 10.4 gm/dL (11.4-16.0); Lymphocytes # (A) 0.8 k/uL (1.0-4.8); Lymphocytes % (A) 18 %; MCH 30.2 pg (25.0-35.0); MCHC 31.5 g/dL (31.0-37.0); Mean Platelet Volume 6.4; Monocytes # (A) 0.3 k/uL (0-1.0); Monocytes % (A) 6 %; Neutrophils # (A) 3.2 k/uL (1.3-7.7); Neutrophils % (A) 70 %; Platelet Count 194 k/uL (150-450); RBC 3.45 m/uL (3.80-5.40); RDW 13.7 % (11.5-15.5); WBC 4.6 k/uL (3.8-10.6)
[2018-11-03 10:19] LABS: ALT 31 U/L (9-52); AST 40 U/L (14-36); Albumin 3.4 g/dL (3.5-5.0); Alkaline Phosphatase 86 U/L (38-126); Anion Gap 5 mmol/L; Blood Urea Nitrogen 6 mg/dL (7-17); Calcium 8.7 mg/dL (8.4-10.2); Carbon Dioxide 27 mmol/L (22-30); Chloride 106 mmol/L (98-107); Glucose 95 mg/dL (74-99); Potassium 3.7 mmol/L (3.5-5.1); Sodium 138 mmol/L (137-145); Total Bilirubin 0.5 mg/dL (0.2-1.3); Total Protein 5.8 g/dL (6.3-8.2)
--- NOTE | 2018-11-03 10:32 | CONS ---
CONSULTATION Mrs. Silva is a 63-year-old female who is seen for cardiac evaluation. The patient has abnormal EKG. This patient is primarily admitted with abdominal pain with some nausea. The patient denied any fever or chills. This patient has a past history of coronary artery disease, history of asthma, hypertension, pneumonia, migraines. The patient's abdominal x-ray was suggestive of possible ileus or small bowel obstruction. EKG showed evidence of sinus tachycardia with possible old inferior wall myocardial infarction. The patient denies any history suggestive of prior myocardial infarction. At present he is not having any chest pain. PAST MEDICAL HISTORY: Includes appendicectomy, breast surgery, cholecystectomy, tonsillectomy and left temporal artery biopsy. HOME MEDICATIONS: Include Singulair, Celexa, Protonix, Zantac, Cymbalta, Mobic and Toprol. PHYSICAL EXAMINATION: At present reveals a 63-year-old female who does not appear to be in any acute distress. She is having mild epigastric discomfort. The heart rate is 100 per minute, blood pressure is 140/70. HEENT exam is negative. Neck is supple. There is no increase in jugular venous pressure. Both the carotid pulses are felt. There is no bruit. Chest is symmetrical. Heart, the PMI is not felt. First and second heart sounds are heard. Lungs are clinically clear to auscultation and percussion. Abdomen is soft and it is mildly distended. Bowel sounds are hypoactive. Extremities: Peripheral pulses are 2+. EKG shows sinus tachycardia with old inferior wall myocardial infarction cannot be entirely excluded. The patient's first troponin is normal. FINAL IMPRESSION: This patient is primarily admitted with abdominal pain, possibly secondary to small bowel ileus, rule out mechanical obstruction. The patient clinically at present is comfortable and overall picture is not suggestive of acute coronary syndrome. Echo and Doppler study will be obtained to rule out any significant wall motion abnormality. MMODL / IJN: [id number] /
--- NOTE | 2018-11-03 12:36 | P.PN ---
Subjective Progress Note Date: 11/03/18 This is a 62-year-old female patient of Dr. Mareclino. Patient presented with complaints of abdominal pain. Patient states that for the past week she's had increased abdominal pain with nausea and decreased appetite. Patient does have a known past medical history of chronic gastritis as well as intermittent pancreatitis. Additional medical history includes asthma, coronary artery disease, chest pain, heart failure, GERD, hypertension, osteoarthritis, pneumonia, rectal bleeding, migraines, bronchitis, cervical radiculopathy, back pain, pancreatitis, peptic ulcer disease, uterine fibroids and cholecystectomy. Abdominal x-ray completed showing large amount of stool in the right lower quadrant right hemipelvis. Fluid levels in the small bowel with possible dilation cannot exclude obstruction. CT of abdomen and pelvis completed showing findings compatible with partial small bowel obstruction. The transition appears to be within the mid pelvis. Etiology for obstruction is not identified. Diverticulosis without acute diverticulitis. Dr. Baldwin has been consulted for surgical services. EKG completed showing sinus tachycardia with possible left atrial enlargement, axis deviation, inferior infarct age undetermined possible anterior lateral infarct. Patient does take metoprolol. Discussed with nursing staff will check a surgical services okay for patient to have pills. Will resume home meds. At this time patient is still complaining of some abdominal discomfort. Patient did report small round BMs a.m. patient denies chest pain or shortness of breath. Awaiting surgical consult On 11/01/2018 patient was seen and examined on the medical floor she is still complaining of severe pain in the epigastric area otherwise she denies any complaints there is no fever or chills no headache or dizziness no chest pain no shortness of breath no cough no nausea or vomiting no diarrhea .and no urinary symptoms. On 11/02/2018 patient was seen and examined on the medical floor she is still complaining of abdominal pain in the periumbilical area and epigastric area and complaining of nausea there is no fever or chills no headache or dizziness no chest pain no shortness of breath no cough no vomiting no diarrhea and no urinary symptoms. TSH level was elevated at 19.1 hemoglobin is down to 10.6 On 11/03/2018 patient still complaining of some abdominal discomfort and nausea post eating. Will order repeat amylase and lipase. At this time patient denies chest pain or shortness of breath. Patient denies any urinary burning or frequency. Objective - Vital Signs Vital signs: Vital Signs Temp 97.4 F L 11/03/18 07:00 Pulse 79 11/03/18 07:00 Resp 16 11/03/18 07:00 BP 114/63 11/03/18 07:00 Pulse Ox 91 L 11/03/18 07:00 Intake & Output 11/02/18 11/03/18 11/03/18 18:59 06:59 18:59 Intake Total 50 Balance 50 Weight 78.471 kg Intake: IV 50 cefTRIAXone 1,000 mg In 50 Sodium Chloride 0.9% 50 ml @ 100 mls/hr IVPB Q24H [facility] TO [facility] Rx#:[id number] Other: Voiding Method Toilet # Voids 1 1 2 - Exam Head normocephalic Neck supple Lungs clear to auscultation bilaterally no wheezing or crackles Heart regular rate and rhythm S1-S2, no rub or gallop Abdomen is soft nontender nondistended positive bowel sounds no hepatosplenomegaly Extremities no edema Neuro alert and orientated to 3 - Labs CBC & Chem 7: 11/03/18 09:09 11/03/18 09:09 Labs: Abnormal Lab Results - Last 24 Hours (Table) 11/03/18 11/03/18 Range/Units 09:09 09:09 RBC 3.45 L (3.80-5.40) m/uL Hgb 10.4 L (11.4-16.0) gm/dL Hct 33.2 L (34.0-46.0) % Lymphocytes # 0.8 L (1.0-4.8) k/uL BUN 6 L (7-17) mg/dL AST 40 H (14-36) U/L Total Protein 5.8 L (6.3-8.2) g/dL Albumin 3.4 L (3.5-5.0) g/dL Microbiology - Last 24 Hours (Table) 10/31/18 06:44 Urine Culture - Final Urine,Clean Catch Staphylococcus aureus Assessment and Plan Assessment: 1. Abdominal pain with Small bowel obstruction. KUB x-ray completed showing large amount of stool in the right lower quadrant/right hemipelvis. Fluid levels in small bowel with possible dilation. Cannot exclude obstruction. CT of abdomen and pelvis completed showing findings compatible with partial small bowel obstruction. The transition appears to be within the mid pelvis. Etiology for obstruction is not identified. Diverticulosis without acute diverticulitis. Repeat CT of abdomen and pelvis completed showing compared to recent exam there is clearing of the dilated multiple loops of fluid-filled small bowel. I do not see evidence of a small bowel obstruction. Mild colonic diverticulosis. Stable minimal atelectasis at the lung bases. Patient remains a clear liquid diet. Will reorder amylase and lipase due to continued nausea 2. Urinary tract infection. Patient started on Rocephin. Urine culture currently going Staphylococcus aureus. 3. Sinus Tachycardia. EKG completed showing sinus tachycardia. Possible left atrial enlargement. Left axis deviation. Inferior infarct, age undetermined. Possible anterior lateral infarct, age undetermined. Lopressor resumed. 2-D echo ordered 4. Hypothyroidism. TSH elevated at 19.1 and 30 increased to 150 5. History of pancreatitis 6. Chronic gastritis 7. Peptic ulcer disease 8. History of colitis 9. History of anxiety and depression 10. History of asthma. Home meds resumed 11. History of essential hypertension. home Meds resumed DVT prophylaxis Lovenox. GI prophylaxis Protonix I performed an examination of the patient and discussed their management with the Nurse Practitioner. I have reviewed the Nurse Practitioner's notes and agree with the documented findings and plan of care
[2018-11-03 13:05] LABS: Amylase 76 U/L (30-110); Lipase 403 U/L (23-300)
--- NOTE | 2018-11-03 15:10 | P.PN ---
Progress Note - Text Progress Note Date: 11/03/18 The patient feels slightly better today. She is tolerating clear liquid diet. Her CAT scan from yesterday shows resolution of her partial small bowel obstruction. There is no signs of any inflammatory or infectious bowel disease. On exam her vital signs are stable. Her abdomen soft. Resolved partial small bowel charge. Patient will have her diet advanced
[2018-11-03] MEDS: MONTELUKAST 10 MG TAB PO SCH (20:13)
[2018-11-03] MEDS: LISINOPRIL 2.5 MG TAB PO SCH (20:13)
[2018-11-03] MEDS: traZODone HCL 100 MG TAB PO SCH (20:14)
[2018-11-04] MEDS: HYDROmorphone 0.5 MG/0.5 ML SYRINGE IVP PRN ×7 (01:14→22:01)
[2018-11-04] MEDS: SODIUM CHLORIDE 0.9% 1,000 ML IV SCH ×3 (04:53→20:51)
[2018-11-04] MEDS: LEVOTHYROXINE 75 MCG TAB PO SCH (06:30)
[2018-11-04] MEDS: SYMBICORT 80-4.5 MCG INHALER INHALATION SCH (07:13)
[2018-11-04] MEDS: PANTOPRAZOLE 40 MG TABLET PO SCH ×2 (08:05→20:48)
[2018-11-04] MEDS: DULoxetine HCL 20 MG CAPSULE.DR PO SCH (08:05)
[2018-11-04] MEDS: HYDROCHLOROTHIAZIDE 25 MG TAB PO SCH (08:05)
[2018-11-04] MEDS: METOPROLOL TARTRATE 25 MG TAB PO SCH ×2 (08:05→20:48)
[2018-11-04] MEDS: ENOXAPARIN 40 MG/0.4 ML SYRINGE SQ SCH (08:05)
[2018-11-04 09:55] LABS: Basophils % (A) 1 %; Eosinophils # (A) 0.5 k/uL (0-0.7); Eosinophils % (A) 8 %; HCT 32.8 % (34.0-46.0); Lymphocytes # (A) 1.3 k/uL (1.0-4.8); Lymphocytes % (A) 22 %; MCH 32.3 pg (25.0-35.0); MCHC 33.5 g/dL (31.0-37.0); MCV 96.5 fL (80.0-100.0); Mean Platelet Volume 6.8; Monocytes # (A) 0.3 k/uL (0-1.0); Monocytes % (A) 6 %; Neutrophils # (A) 3.6 k/uL (1.3-7.7); Neutrophils % (A) 62 %; Platelet Count 191 k/uL (150-450); RDW 13.7 % (11.5-15.5); WBC 5.8 k/uL (3.8-10.6)
[2018-11-04 10:17] LABS: ALT 33 U/L (9-52); AST 36 U/L (14-36); Albumin 3.3 g/dL (3.5-5.0); Alkaline Phosphatase 92 U/L (38-126); Amylase 79 U/L (30-110); Anion Gap 5 mmol/L; Blood Urea Nitrogen 9 mg/dL (7-17); Calcium 8.5 mg/dL (8.4-10.2); Carbon Dioxide 28 mmol/L (22-30); Chloride 105 mmol/L (98-107); Glucose 104 mg/dL (74-99); Lipase 359 U/L (23-300); Potassium 3.1 mmol/L (3.5-5.1); Sodium 138 mmol/L (137-145); Total Bilirubin 0.4 mg/dL (0.2-1.3); Total Protein 5.6 g/dL (6.3-8.2)
[2018-11-04] MEDS: ONDANSETRON 4 MG/2 ML VIAL IVP PRN (11:28)
[2018-11-04] MEDS: POTASSIUM CHLORIDE ER 20 MEQ TAB.ER PO SCH ×2 (11:43→13:08)
[2018-11-04] MEDS ORDERED: Potassium Replacement Protocol 1 EACH MISC MISCELLANE PRN (12:00)
[2018-11-04] MEDS ORDERED: POTASSIUM CHLORIDE ER 20 MEQ TAB.ER PO SCH (12:00)
--- NOTE | 2018-11-04 12:03 | P.PN ---
Subjective Progress Note Date: 11/04/18 This is a 62-year-old female patient of Dr. Marcelino. Patient presented with complaints of abdominal pain. Patient states that for the past week she's had increased abdominal pain with nausea and decreased appetite. Patient does have a known past medical history of chronic gastritis as well as intermittent pancreatitis. Additional medical history includes asthma, coronary artery disease, chest pain, heart failure, GERD, hypertension, osteoarthritis, pneumonia, rectal bleeding, migraines, bronchitis, cervical radiculopathy, back pain, pancreatitis, peptic ulcer disease, uterine fibroids and cholecystectomy. Abdominal x-ray completed showing large amount of stool in the right lower quadrant right hemipelvis. Fluid levels in the small bowel with possible dilation cannot exclude obstruction. CT of abdomen and pelvis completed showing findings compatible with partial small bowel obstruction. The transition appears to be within the mid pelvis. Etiology for obstruction is not identified. Diverticulosis without acute diverticulitis. Dr. Baldwin has been consulted for surgical services. EKG completed showing sinus tachycardia with possible left atrial enlargement, axis deviation, inferior infarct age undetermined possible anterior lateral infarct. Patient does take metoprolol. Discussed with nursing staff will check a surgical services okay for patient to have pills. Will resume home meds. At this time patient is still complaining of some abdominal discomfort. Patient did report small round BMs a.m. patient denies chest pain or shortness of breath. Awaiting surgical consult On 11/01/2018 patient was seen and examined on the medical floor she is still complaining of severe pain in the epigastric area otherwise she denies any complaints there is no fever or chills no headache or dizziness no chest pain no shortness of breath no cough no nausea or vomiting no diarrhea .and no urinary symptoms. On 11/02/2018 patient was seen and examined on the medical floor she is still complaining of abdominal pain in the periumbilical area and epigastric area and complaining of nausea there is no fever or chills no headache or dizziness no chest pain no shortness of breath no cough no vomiting no diarrhea and no urinary symptoms. TSH level was elevated at 19.1 hemoglobin is down to 10.6 On 11/03/2018 patient still complaining of some abdominal discomfort and nausea post eating. Will order repeat amylase and lipase. At this time patient denies chest pain or shortness of breath. Patient denies any urinary burning or frequency. On 11/04/2018 patient is alert and oriented 3 resting in bed. Patient still complaining of epigastric pain that she feels like is similar to the pain she dances when she has her acute pancreatitis flareups. GI services were consulted yesterday. Lipase is trending down to 359 and amylase 79. At this time patient denies chest pain or shortness of breath. Patient denies nausea vomiting or diarrhea. Potassium low at 3.1. Will order replacement per protocol. Objective - Vital Signs Vital signs: Vital Signs Temp 97.9 F 11/04/18 07:20 Pulse 16 L 11/04/18 07:20 Resp 16 11/04/18 08:05 BP 85/45 11/04/18 07:20 Pulse Ox 90 L 11/04/18 07:20 Intake & Output 11/03/18 11/04/18 11/04/18 18:59 06:59 18:59 Intake Total 100 Balance 100 Weight 78.471 kg Intake: Oral 100 Other: Voiding Method Toilet Toilet # Voids 2 1 # Bowel Movements 1 - Exam Head normocephalic Neck supple Lungs clear to auscultation bilaterally no wheezing or crackles Heart regular rate and rhythm S1-S2, no rub or gallop Abdomen is soft nontender nondistended positive bowel sounds no hepatosplenomegaly Extremities no edema Neuro alert and orientated to 3 - Labs CBC & Chem 7: 11/04/18 08:26 11/04/18 08:26 Labs: Abnormal Lab Results - Last 24 Hours (Table) 11/03/18 11/04/18 11/04/18 Range/Units 09:09 08:26 08:26 RBC 3.40 L (3.80-5.40) m/uL Hgb 11.0 L (11.4-16.0) gm/dL Hct 32.8 L (34.0-46.0) % Potassium 3.1 L (3.5-5.1) mmol/L Glucose 104 H (74-99) mg/dL Total Protein 5.6 L (6.3-8.2) g/dL Albumin 3.3 L (3.5-5.0) g/dL Lipase 403 H 359 H (23-300) U/L Assessment and Plan Assessment: 1. Abdominal pain with Small bowel obstruction. KUB x-ray completed showing large amount of stool in the right lower quadrant/right hemipelvis. Fluid levels in small bowel with possible dilation. Cannot exclude obstruction. CT of abdomen and pelvis completed showing findings compatible with partial small bowel obstruction. The transition appears to be within the mid pelvis. Etiology for obstruction is not identified. Diverticulosis without acute diverticulitis. Repeat CT of abdomen and pelvis completed showing compared to recent exam there is clearing of the dilated multiple loops of fluid-filled small bowel. I do not see evidence of a small bowel obstruction. Mild colonic diverticulosis. Stable minimal atelectasis at the lung bases. Patient remains a clear liquid diet. Lipase 359 and amylase 79. GI services have been consulted. 2. Urinary tract infection. Patient started on Rocephin. Urine culture currently going Staphylococcus aureus. 3. Sinus Tachycardia. EKG completed showing sinus tachycardia. Possible left atrial enlargement. Left axis deviation. Inferior infarct, age undetermined. Possible anterior lateral infarct, age undetermined. Lopressor resumed. 2-D echo ordered 4. Hypothyroidism. TSH elevated at 19.1 and 30 increased to 150 5. History of pancreatitis 6. Chronic gastritis 7. Peptic ulcer disease 8. History of colitis 9. History of anxiety and depression 10. History of asthma. Home meds resumed 11. History of essential hypertension. home Meds resumed 12. Hypokalemia. Potassium 3.1 will order additional replacement DVT prophylaxis Lovenox. GI prophylaxis Protonix I performed an examination of the patient and discussed their management with the Nurse Practitioner. I have reviewed the Nurse Practitioner's notes and agree with the documented findings and plan of care
--- NOTE | 2018-11-04 13:22 | P.CONS ---
History of Present Illness - Reason for Consult Consult date: 11/04/18 abdominal pain Requesting physician: Sophie Phelan - Chief Complaint abdominal pain - History of Present Illness 63-year-old female with a history of idiopathic pancreatitis 2017 and 2016, hiatal hernia, GERD, Finch's esophagus, duodenal stricture, presents with acute abdominal pain CT imaging compatible with partial small bowel obstruction. Patient is now passing flatus and stool obstruction has resolved. She is tolerating small amounts of her diet. Consultation requested for chronic pain and mild elevation of lipase. Pancreatic enzymes normal on admission. Yesterday lipase increased to 403. Amylase normal. Today lipase is improved 359. Amylase 79. LFTs within normal limits. Reports a nagging dull discomfort in the midepigastrium without emesis fever chills or hematemesis hematochezia or melena. EGD October 2017 identified short segment of Finch's and duodenal stricture along the sweep. Review of Systems Constitutional: Denies fever, chills, sweats, weight gain, or loss. HEENT: Negative for migraines, blurred vision or loss, earaches, drainage, tinnitus, oral mucosal lesions, dysphagia, or odynophagia. CARDIAC: Negative for chest pain, arrhythmias, or palpitation. RESPIRATORY: Negative for shortness of breath, hemoptysis, cough, or sputum production. GI: See HPI for pertinent findings. : Negative for hematuria, urgency, frequency, polyuria, or dysuria. GYNc: Denies possibility of . Negative vaginal discharge. MUSCULOSKELETAL: Negative for muscle aches, swelling, arthritis, and arthralgias. NEUROLOGIC: Negative for stroke or TIA. ENDOCRINE: Negative for thyroid problems. SKIN: Negative for rash or itching. PSYCHIATRIC: Negative history for depression and anxiety Past Medical History Past Medical History: Asthma, Blood Disorder, Coronary Artery Disease (CAD), Chest Pain / Angina, Heart Failure, GERD/Reflux, Hypertension, Osteoarthritis ( OA), Pneumonia, Thyroid Disorder Additional Past Medical History / Comment(s): Chronic gastritis, intermittent recurrent pancreatisi, duodenal stricture, short segment of Finch's esophagus , PUD, hiatal hernia, colitis, lower GI bleed, anemia, bronchitis, seasonal allergies, LBBB, arthritis multiple joints, cervical radiculopathy/cervical compression fractures, chronic back pain, scoliosis, past bilateral foot fractures and L hand fracures, uterine fibroids, UTI, hypothyroid History of Any Multi-Drug Resistant Organisms: MRSA Year Discovered:: 2008 MDRO Source:: lt axilla Past Surgical History: Appendectomy, Breast Surgery, Cholecystectomy, Tonsillectomy Additional Past Surgical History / Comment(s): Exploratory lap with cholecystectomy, LEFT TEMPORAL ARTERY BIOPSY, EGD/colonoscopy, L breast bx benign, Past Anesthesia/Blood Transfusion Reactions: Motion Sickness Additional Past Anesthesia/Blood Transfusion Reaction / Comm: no prior problems with blood transfusion Smoking Status: Never smoker - Past Family History Father Family Medical History: Cancer Additional Family Medical History / Comment(s): Father of bladder cancer at age 66yrs. Mother Family Medical History: Congestive Heart Failure (CHF), Rheumatoid Arthritis (RA ) Additional Family Medical History / Comment(s): Mother had ASHD and of this at age 68yrs. Medications and Allergies Home Medications Medication Instructions Recorded Confirmed Type Albuterol Inhaler [Ventolin Hfa 2 puff INHALATION RT-QID PRN 08/13/16 10/31/18 History Inhaler] Budesonide/Formoterol Fumarate 1 puff INHALATION RT-DAILY PRN 08/13/16 10/31/18 History [Symbicort 80-4.5 Mcg Inhaler] Metoprolol Tartrate [Lopressor] 25 mg PO BID 08/13/16 10/31/18 History Butalb/Acetaminophen/Caffeine 1 - 2 cap PO Q4HR PRN 12/27/16 10/31/18 History [Fioricet 50-300-40 mg Capsule] Levothyroxine Sodium [Synthroid] 125 mcg PO QAM 12/27/16 10/31/18 History Montelukast [Singulair] 10 mg PO HS 06/10/17 10/31/18 History traZODone HCL 100 mg PO HS 06/10/17 10/31/18 History Baclofen 10 mg PO TID PRN 10/03/17 10/31/18 History Lisinopril [Zestril] 2.5 mg PO HS 10/03/17 10/31/18 History Pantoprazole [Protonix] 40 mg PO DAILY 10/03/17 10/31/18 History ALPRAZolam [Xanax] 0.25 mg PO Q6HR PRN 10/31/18 10/31/18 History DULoxetine HCL [Cymbalta] 20 mg PO DAILY 10/31/18 10/31/18 History Hydrochlorothiazide [Hydrodiuril] 25 mg PO DAILY 10/31/18 10/31/18 History Meloxicam [Mobic] 7.5 mg PO DAILY 10/31/18 10/31/18 History Allergies Allergy/AdvReac Type Severity Reaction Status Date / Time azithromycin [From Zithromax] Allergy Rash/Hives Verified 10/31/18 07:56 prochlorperazine edisylate Allergy Rash/Hives Verified 10/31/18 07:56 [From Compazine] prochlorperazine maleate Allergy Rash/Hives Verified 10/31/18 07:56 [From Compazine] sumatriptan [From Imitrex] Allergy redness Verified 10/31/18 07:56 and swelling at injection site sumatriptan succinate Allergy redness Verified 10/31/18 07:56 [From Imitrex] and swelling at injection site ketorolac tromethamine AdvReac headache Verified 10/31/18 07:56 [From Toradol] levofloxacin [From Levaquin] AdvReac caused Verified 10/31/18 07:56 abnormal EKG morphine AdvReac Nausea & Verified 10/31/18 07:56 Vomiting Physical Exam Vitals: Vital Signs Temp Pulse Resp BP Pulse Ox 11/04/18 08:05 16 11/04/18 07:20 97.9 F 16 L 16 85/45 90 L 11/03/18 22:21 98.2 F 71 17 90/49 99 11/03/18 14:37 97.7 F 61 16 91/48 93 L Intake and Output 11/03/18 11/04/18 11/04/18 22:59 06:59 14:59 Intake Total 100 Balance 100 Intake: Oral 100 Other: Voiding Method Toilet Toilet # Voids 2 1 # Bowel Movements 1 General appearance: The patient is alert, oriented, in no acute distress. HET: Head is normocephalic and atraumatic. Pupils are equal and reactive. Oropharynx is clear without lesions. Neck: Supple without lymphadenopathy. Trachea midline. Heart: S1 S2. Regular rate and rhythm. Lungs: No crackles or wheezes are heard. Abdomen: Soft, mild tenderness soreness in the midepigastrium, nondistended with bowel sounds. No peritoneal signs. No palpable organomegaly or masses. Extremities: Normal skin color and turgor. No cyanosis, rash, ulceration, clubbing, or edema. Radial and pedal pulses are 2/4 bilaterally. Neurological: No focal deficits. Strength and sensation are grossly intact. Results CBC & Chem 7: 11/04/18 08:26 11/04/18 08:26 Labs: Abnormal Lab Results - Last 24 Hours (Table) 11/04/18 11/04/18 Range/Units 08:26 08:26 RBC 3.40 L (3.80-5.40) m/uL Hgb 11.0 L (11.4-16.0) gm/dL Hct 32.8 L (34.0-46.0) % Potassium 3.1 L (3.5-5.1) mmol/L Glucose 104 H (74-99) mg/dL Total Protein 5.6 L (6.3-8.2) g/dL Albumin 3.3 L (3.5-5.0) g/dL Lipase 359 H (23-300) U/L CT scan - abdomen: report reviewed (Dr. Davis) Assessment and Plan (1) Abdominal pain Narrative/Plan: 63-year-old female with a history of Finch's duodenal stricture idiopathic pancreatitis admitted with a partial small bowel obstruction resolved with conservative measures. Continues to have persistent midepigastric discomfort without fever chills vomiting hematemesis hematochezia melena. Suspect underlying GERD exacerbation. Nonspecific elevation of lipase with normal amylase could be physiologically reflective of partial small bowel obstruction with biochemical improvement. No clinical evidence at this time to suggest acute pancreatitis. . Current Visit: No Status: Acute Code(s): R10.9 - UNSPECIFIED ABDOMINAL PAIN SNOMED Code(s): 87941467 (2) Small bowel obstruction Current Visit: Yes Status: Acute Code(s): K56.609 - UNSP INTESTNL OBST, UNSP TO PARTIAL VERSUS COMPLETE OBST SNOMED Code(s): 314919509 Plan: 1. Protonix 40 mg times twice daily recommend this dosage on discharge. Return to office in 7-[address] Simmons for reevaluation and resurveillance of Finch's esophagus with outpatient EGD recommendations. 2. Diet as tolerate. We'll follow with you. Thank you for this kind referral and the opportunity to participate in the care of your patient. This consultation was discussed with Dr. Davis. The impression and plan of care have been directed as dictated.
--- NOTE | 2018-11-04 13:24 | ECHOF ---
Referral Reason:abnormal ekg MEASUREMENTS -------- HEIGHT: 170.2 cm WEIGHT: 78.5 kg BP: 113/71 RVIDd: 3.0 cm (< 3.3) IVSd: 1.3 cm (0.6 - 1.1) LVIDd: 4.1 cm (3.9 - 5.3) LVPWd: 1.3 cm (0.6 - 1.1) IVSs: 1.4 cm LVIDs: 2.6 cm LVPWs: 1.4 cm LAESV Index (A-L): 18.41 ml/m Ao Diam: 3.4 cm (2.0 - 3.7) AV Cusp: 2.1 cm (1.5 - 2.6) LA Diam: 4.1 cm (2.7 - 3.8) MV E Say: 0.98 m/s MV DecT: 225 ms MV A Say: 0.78 m/s MV E/A Ratio: 1.25 RAP: 5.00 mmHg RVSP: 23.43 mmHg FINDINGS -------- Sinus rhythm. This was a technically adequate study. The left ventricular size is normal. There is mild concentric left ventricular hypertrophy. Overa ll left ventricular systolic function is normal with, an EF between 55 - 60 %. The right ventricle is normal in size and function. Normal LA size by volume 22+/-6 ml/m2. The right atrium is normal in size. Aortic valve is trileaflet and is mildly thickened. There is no evidence of aortic regurgitation. There is no evidence of aortic stenosis. The mitral valve leaflets are mildly thickened. There is trace to mild mitral regurgitation. Trace tricuspid regurgitation present. Right ventricular systolic pressure is normal at < 35 mmHg. There is no evidence of pulmonary hypertension. Trace/mild (physiologic) pulmonic regurgitation. The aortic root size is normal. Normal inferior vena cava with normal inspiratory collapse consistent with estimated right atrial pre ssure of 5 mmHg. There is no pericardial effusion. CONCLUSIONS -------- 1. Sinus rhythm. 2. This was a technically adequate study. 3. The left ventricular size is normal. 4. There is mild concentric left ventricular hypertrophy. 5. Overall left ventricular systolic function is normal with, an EF between 55 - 60 %. 6. Normal LA size by volume 22+/-6 ml/m2. 7. Aortic valve is trileaflet and is mildly thickened. 8. The mitral valve leaflets are mildly thickened. 9. There is trace to mild mitral regurgitation. 10. Trace tricuspid regurgitation present. 11. Right ventricular systolic pressure is normal at < 35 mmHg. 12. There is no evidence of pulmonary hypertension. 13. Trace/mild (physiologic) pulmonic regurgitation. 14. The aortic root size is normal. 15. There is no pericardial effusion. [employer] DRAFTSPERSON: Walter Draper RDCS
[2018-11-04] MEDS: LISINOPRIL 2.5 MG TAB PO SCH (20:48)
[2018-11-04] MEDS: MONTELUKAST 10 MG TAB PO SCH (20:48)
[2018-11-04] MEDS: traZODone HCL 100 MG TAB PO SCH (20:48)
[2018-11-05] MEDS ORDERED: HYDROmorphone 0.5 MG/0.5 ML SYRINGE ONE (02:40)
[2018-11-05] MEDS ORDERED: ONDANSETRON 4 MG/2 ML VIAL ONE (02:40)
[2018-11-05] MEDS: LEVOTHYROXINE 75 MCG TAB PO SCH (06:07)
[2018-11-05] MEDS: SYMBICORT 80-4.5 MCG INHALER INHALATION SCH (07:32)
[2018-11-05] MEDS: HYDROmorphone 0.5 MG/0.5 ML SYRINGE IVP PRN ×2 (08:37→12:29)
[2018-11-05] MEDS: SODIUM CHLORIDE 0.9% 1,000 ML IV SCH (08:38)
[2018-11-05] MEDS ORDERED: PROPOFOL 10 MG/ML 20 ML VIAL IV ONE (10:54)
[2018-11-05] MEDS ORDERED: IV FLUID CONTINUATION 1,000 ML IV ONE (10:54)
[2018-11-05] MEDS: DULoxetine HCL 20 MG CAPSULE.DR PO SCH (12:20)
[2018-11-05] MEDS: ENOXAPARIN 40 MG/0.4 ML SYRINGE SQ SCH (12:20)
[2018-11-05] MEDS: METOPROLOL TARTRATE 25 MG TAB PO SCH (12:21)
[2018-11-05] MEDS: PANTOPRAZOLE 40 MG TABLET PO SCH (12:21)
[2018-11-05] MEDS: HYDROCHLOROTHIAZIDE 25 MG TAB PO SCH (12:21)
[2018-11-05 14:07] LABS: Basophils % (A) 1 %; Eosinophils # (A) 0.5 k/uL (0-0.7); Eosinophils % (A) 10 %; HGB 11.4 gm/dL (11.4-16.0); Lymphocytes # (A) 1.3 k/uL (1.0-4.8); Lymphocytes % (A) 25 %; MCH 32.7 pg (25.0-35.0); MCHC 33.6 g/dL (31.0-37.0); MCV 97.3 fL (80.0-100.0); Mean Platelet Volume 6.6; Monocytes # (A) 0.3 k/uL (0-1.0); Monocytes % (A) 6 %; Neutrophils % (A) 57 %; Platelet Count 191 k/uL (150-450); RDW 13.9 % (11.5-15.5); WBC 5.4 k/uL (3.8-10.6)
[2018-11-05 14:20] LABS: ALT 30 U/L (9-52); AST 28 U/L (14-36); Albumin 3.6 g/dL (3.5-5.0); Alkaline Phosphatase 78 U/L (38-126); Amylase 95 U/L (30-110); Anion Gap 4 mmol/L; Blood Urea Nitrogen 7 mg/dL (7-17); Carbon Dioxide 29 mmol/L (22-30); Chloride 105 mmol/L (98-107); Glucose 99 mg/dL (74-99); Lipase 555 U/L (23-300); Potassium 3.5 mmol/L (3.5-5.1); Sodium 138 mmol/L (137-145); Total Bilirubin 0.4 mg/dL (0.2-1.3)
--- NOTE | 2018-11-05 14:38 | P.PCN ---
Date of Procedure: 11/05/18 Description of Procedure: BRIEF HISTORY: 63-year-old female with a history of idiopathic pancreatitis 2018 and 2016, hiatal hernia, GERD, Finch's esophagus, duodenal stricture, presents with acute abdominal pain CT imaging compatible with partial small bowel obstruction. Patient is now passing flatus and stool obstruction has resolved. She is tolerating small amounts of her diet. Consultation requested for chronic pain and mild elevation of lipase. Pancreatic enzymes normal on admission. Yesterday lipase increased to 403. Amylase normal. Today lipase is improved 359. Amylase 79. LFTs within normal limits. Reports a nagging dull discomfort in the midepigastrium without emesis fever chills or hematemesis hematochezia or melena. EGD October 2017 identified short segment of Finch's and duodenal stricture along the sweep.. PROCEDURE PERFORMED: Esophagogastroduodenoscopy with biopsy. PREOPERATIVE DIAGNOSIS: Abdominal pain, history of Finch's. ESTIMATED BLOOD LOSS: Minimal. IV sedation per anesthesia. PROCEDURE: After informed consent was obtained, the patient was brought into the endoscopy unit. IV sedation was administered by Anesthesia under continuous monitoring. Initially the Olympus GIF-190 video endoscope was inserted into the mouth. Esophagus intubated without any difficulty. It was gradually advanced into the stomach and duodenum and carefully examined. The bulb and the second part of the duodenum appeared normal. The scope at this time was withdrawn to the stomach, adequately insufflated with air, and upon careful examination, mucosa of the antrum, body, cardia and the fundus appeared normal, except for mild scattered erythema in the antrum and body which was biopsied. The scope was then withdrawn into the esophagus. The GE junction was located at 37 cm from the incisors. Long segment Finch's was noted, consistent with the patient's prior history, with multiple biopsies taken of the Finch's in the distal esophagus. IMPRESSION: 1. Mild gastritis, biopsied. 2. Long segment Finch's in the distal esophagus, biopsied. RECOMMENDATIONS: The findings of this examination were discussed with the patient. Okay to resume diet. Patient should continue on PPI therapy. Await pathology from pathology. Follow up with Dr. Simmons in the outpatient setting as previously scheduled.
[2018-11-05 14:53] VITALS: BP 115/70; PULSE 85; TEMP 98.7
--- NOTE | 2018-11-05 15:47 | P.DS ---
Providers Date of admission: 10/31/18 07:44 Expected date of discharge: 11/05/18 Attending physician: Sophie Phelan Consults: 10/31/18 07:45 Consult Physician Urgent Consulting Provider: Enrique Baldwin Consult Reason/Comments: sbo Do you want consulting provider notified?: Yes 10/31/18 15:19 Consult Physician Routine Consulting Provider: Lenora Tian Consult Reason/Comments: Abnormal EKG and sinus tachycardia Do you want consulting provider notified?: Yes [facility]: Discharge diagnosis 1. Abdominal pain with Small bowel obstruction. KUB x-ray completed showing large amount of stool in the right lower quadrant/right hemipelvis. Fluid levels in small bowel with possible dilation. Cannot exclude obstruction. CT of abdomen and pelvis completed showing findings compatible with partial small bowel obstruction. The transition appears to be within the mid pelvis. Etiology for obstruction is not identified. Diverticulosis without acute diverticulitis. Repeat CT of abdomen and pelvis completed showing compared to recent exam there is clearing of the dilated multiple loops of fluid-filled small bowel. I do not see evidence of a small bowel obstruction. Mild colonic diverticulosis. Stable minimal atelectasis at the lung bases. EGD completed showing mild gastritis and long segment Finch's in the distal esophagus biopsies obtained. Amylase level 555. Will order repeat in 2 days outpatient. Symptoms have resolved. Patient will follow-up closely with PCP and GI services. PPI increased to twice a day 2. Urinary tract infection. Patient started on Rocephin. Urine culture currently going Staphylococcus aureus. Patient will be DC'd on Ceftin for 5 more days 3. Sinus Tachycardia. EKG completed showing sinus tachycardia. Possible left atrial enlargement. Left axis deviation. Inferior infarct, age undetermined. Possible anterior lateral infarct, age undetermined. Lopressor resumed. 2-D echo completed showing an EF of 55-60%. Per cardiology services Faiza is no evidence of acute coronary syndrome. 4. Hypothyroidism. TSH elevated at 19.1. synthroid increased to 150 5. History of pancreatitis 6. Chronic gastritis 7. Peptic ulcer disease 8. History of colitis 9. History of anxiety and depression 10. History of asthma. Home meds resumed 11. History of essential hypertension. home Meds resumed 12. Hypokalemia. Potassium 3.1 will order additional replacement. Resolved. Repeat CMP ordered for 2 days Hospital course This is a 62-year-old female patient of Dr. Marcelino. Patient presented with complaints of abdominal pain. Patient states that for the past week she's had increased abdominal pain with nausea and decreased appetite. Patient does have a known past medical history of chronic gastritis as well as intermittent pancreatitis. Additional medical history includes asthma, coronary artery disease, chest pain, heart failure, GERD, hypertension, osteoarthritis, pneumonia, rectal bleeding, migraines, bronchitis, cervical radiculopathy, back pain, pancreatitis, peptic ulcer disease, uterine fibroids and cholecystectomy. Abdominal x-ray completed showing large amount of stool in the right lower quadrant right hemipelvis. Fluid levels in the small bowel with possible dilation cannot exclude obstruction. CT of abdomen and pelvis completed showing findings compatible with partial small bowel obstruction. The transition appears to be within the mid pelvis. Etiology for obstruction is not identified. Diverticulosis without acute diverticulitis. Dr. Baldwin has been consulted for surgical services. EKG completed showing sinus tachycardia with possible left atrial enlargement, axis deviation, inferior infarct age undetermined possible anterior lateral infarct. Patient does take metoprolol. Discussed with nursing staff will check a surgical services okay for patient to have pills. Will resume home meds. At this time patient is still complaining of some abdominal discomfort. Patient did report small round BMs a.m. patient denies chest pain or shortness of breath. Awaiting surgical consult On 11/01/2018 patient was seen and examined on the medical floor she is still complaining of severe pain in the epigastric area otherwise she denies any complaints there is no fever or chills no headache or dizziness no chest pain no shortness of breath no cough no nausea or vomiting no diarrhea .and no urinary symptoms. On 11/02/2018 patient was seen and examined on the medical floor she is still complaining of abdominal pain in the periumbilical area and epigastric area and complaining of nausea there is no fever or chills no headache or dizziness no chest pain no shortness of breath no cough no vomiting no diarrhea and no urinary symptoms. TSH level was elevated at 19.1 hemoglobin is down to 10.6 On 11/03/2018 patient still complaining of some abdominal discomfort and nausea post eating. Will order repeat amylase and lipase. At this time patient denies chest pain or shortness of breath. Patient denies any urinary burning or frequency. On 11/04/2018 patient is alert and oriented 3 resting in bed. Patient still complaining of epigastric pain that she feels like is similar to the pain she dances when she has her acute pancreatitis flareups. GI services were consulted yesterday. Lipase is trending down to 359 and amylase 79. At this time patient denies chest pain or shortness of breath. Patient denies nausea vomiting or diarrhea. Potassium low at 3.1. Will order replacement per protocol. On 11/05/2018 patient is alert and oriented 3. Patient does state improvement with nausea and abdominal pain. Patient is currently status post EGD with Dr. Davis per GI services. EKG completed showing mild gastritis and long segment Finch's in the distal esophagus biopsies obtained. Discussed case with GI services. Will increase PPI to twice a day and patient to follow-up outpatient with GI services. Also made aware that amylase level did increase. Will order repeat in 2 days and follow up with PCP and GI services. At this time patient denies nausea or vomiting. Patient denies chest pain or shortness of breath. Patient will also be discharged on Ceftin for 5 more days to treat UTI I performed an examination of the patient and discussed their management with the Nurse Practitioner. I have reviewed the Nurse Practitioner's notes and agree with the documented findings and plan of care Patient Condition at Discharge: Stable Plan - Discharge Summary Discharge Rx Participant: No New Discharge Prescriptions: New Cefuroxime Axetil [Ceftin] 500 mg PO BID 5 Days #10 tab Levothyroxine Sodium [Synthroid] 150 mcg PO DAILY@0630 #30 tab Pantoprazole [Protonix] 40 mg PO BID 30 Days #60 tablet. Continue Metoprolol Tartrate [Lopressor] 25 mg PO BID Albuterol Inhaler [Ventolin Hfa Inhaler] 2 puff INHALATION RT-QID PRN PRN Reason: Shortness Of Breath Budesonide/Formoterol Fumarate [Symbicort 80-4.5 Mcg Inhaler] 1 puff INHALATION RT-DAILY PRN PRN Reason: COPD Butalb/Acetaminophen/Caffeine [Fioricet 50-300-40 mg Capsule] 1 - 2 cap PO Q4HR PRN PRN Reason: Migraine Headache traZODone HCL 100 mg PO HS Montelukast [Singulair] 10 mg PO HS Lisinopril [Zestril] 2.5 mg PO HS Baclofen 10 mg PO TID PRN PRN Reason: Muscle Spasm Meloxicam [Mobic] 7.5 mg PO DAILY Hydrochlorothiazide [Hydrodiuril] 25 mg PO DAILY DULoxetine HCL [Cymbalta] 20 mg PO DAILY ALPRAZolam [Xanax] 0.25 mg PO Q6HR PRN PRN Reason: Anxiety Discontinued Levothyroxine Sodium [Synthroid] 125 mcg PO QAM Pantoprazole [Protonix] 40 mg PO DAILY Discharge Medication List Albuterol Inhaler [Ventolin Hfa Inhaler] 2 puff INHALATION RT-QID PRN 08/13/16 [ History] Budesonide/Formoterol Fumarate [Symbicort 80-4.5 Mcg Inhaler] 1 puff INHALATION RT-DAILY PRN 08/13/16 [History] Metoprolol Tartrate [Lopressor] 25 mg PO BID 08/13/16 [History] Butalb/Acetaminophen/Caffeine [Fioricet 50-300-40 mg Capsule] 1 - 2 cap PO Q4HR PRN 12/27/16 [History] Montelukast [Singulair] 10 mg PO HS 06/10/17 [History] traZODone HCL 100 mg PO HS 06/10/17 [History] Baclofen 10 mg PO TID PRN 10/03/17 [History] Lisinopril [Zestril] 2.5 mg PO HS 10/03/17 [History] ALPRAZolam [Xanax] 0.25 mg PO Q6HR PRN 10/31/18 [History] DULoxetine HCL [Cymbalta] 20 mg PO DAILY 10/31/18 [History] Hydrochlorothiazide [Hydrodiuril] 25 mg PO DAILY 10/31/18 [History] Meloxicam [Mobic] 7.5 mg PO DAILY 10/31/18 [History] Cefuroxime Axetil [Ceftin] 500 mg PO BID 5 Days #10 tab 11/05/18 [Rx] Levothyroxine Sodium [Synthroid] 150 mcg PO DAILY@0630 #30 tab 11/05/18 [Rx] Pantoprazole [Protonix] 40 mg PO BID 30 Days #60 tablet. 11/05/18 [Rx] Follow up Appointment(s)/Referral(s): Tammi Simmons MD [STAFF PHYSICIAN] - 11/12/18 3:15 pm Leonela Marcelino MD [Primary Care Provider] - 1-2 days Ambulatory/Diagnostic Orders: Amylase [LAB.AMB] Time Frame: 2 Days, Location: None Selected Comprehensive Metabolic Panel [LAB.AMB] Time Frame: 2 Days, Location: None Selected Lipase [LAB.AMB] Time Frame: 2 Days, Location: None Selected Patient Instructions/Handouts: Acute Abdominal Pain (DC) Activity/Diet/Wound Care/Special Instructions: Activity as tolerated Diet regular Repeat labs have been ordered. Patient to follow up closely with GI services and PCP Discharge Disposition: HOME SELF-CARE
[2018-11-05 17:16] VITALS: RESP 16
== END 2018-11-05 17:00 | disposition home or self-care (01) | DRG 389 ==
LOC: EC 05:56 → 4MS4W 07:44
PROVIDERS: ADMIT Internal Medicine; ATTEND Internal Medicine
PROC: 0DB78ZX Excision of Stomach, Pylorus, Via Natural or Artificial Opening Endoscopic, Diagnostic (ICD-10-PCS; 2018-11-05)
PROC: 0DB58ZX Excision of Esophagus, Via Natural or Artificial Opening Endoscopic, Diagnostic (ICD-10-PCS; principal; 2018-11-05 07:30)
DX: K56.609 Unspecified intestinal obstruction, unspecified as to partial versus complete obstruction (principal); N39.0 Urinary tract infection, site not specified; E03.9 Hypothyroidism, unspecified; E87.6 Hypokalemia; G89.29 Other chronic pain; I11.0 Hypertensive heart disease with heart failure; I25.10 Atherosclerotic heart disease of native coronary artery without angina pectoris; I25.2 Old myocardial infarction; I50.9 Heart failure, unspecified; J45.909 Unspecified asthma, uncomplicated; K21.9 Gastro-esophageal reflux disease without esophagitis; K22.70 Barrett's esophagus without dysplasia; Z87.11 Personal history of peptic ulcer disease; K29.50 Unspecified chronic gastritis without bleeding; K57.30 Diverticulosis of large intestine without perforation or abscess without bleeding; M41.9 Scoliosis, unspecified; Z79.51 Long term (current) use of inhaled steroids; Z79.890 Hormone replacement therapy; Z79.899 Other long term (current) drug therapy; Z80.52 Family history of malignant neoplasm of bladder; Z82.49 Family history of ischemic heart disease and other diseases of the circulatory system; M15.9 Polyosteoarthritis, unspecified; M54.12 Radiculopathy, cervical region; Z87.01 Personal history of pneumonia (recurrent); Z87.440 Personal history of urinary (tract) infections; R00.0 Tachycardia, unspecified; F32.9 Major depressive disorder, single episode, unspecified; Z86.14 Personal history of Methicillin resistant Staphylococcus aureus infection
CPT/HCPCS: 36415; 43239; 74018; 74176; 74177; 80053; 81001; 82150; 82550; 82553; 83605; 83690; 83735; 84132; 84439; 84443; 84484; 85025; 87077; 87086; 87186; 88305; 93005; 93306; 94640; 96361; 96374; 96375; 99285

== ENCOUNTER 2021-05-14 21:38 | Emergency (ER) | payer MEDICARE, OTHER ==
[2021-05-14] MEDS ORDERED: SODIUM CHLORIDE 0.9% 1,000 ML IV STA (21:50)
--- NOTE | 2021-05-14 21:51 | ED ---
Abdominal Pain HPI - General Stated Complaint: Abdominal Pain Time Seen by Provider: 05/14/21 21:39 Source: RN notes reviewed, old records reviewed Mode of arrival: ambulatory Limitations: no limitations - History of Present Illness Initial Comments: This is a 66-year-old female DF for evaluation patient presented today for evaluation regards to abdominal pain severe anterior epigastric abdominal pain with nausea and vomiting. Patient states she has history of similar pain in the past which she relates to pancreatitis. Patient states she is unsure of cause of pancreatitis. But does have history of chronic pancreatitis as well as been 2 years since she had a prior attack. No active vomiting patient currently feels nauseous. No recent fevers or other complaints MD Complaint: abdominal pain -: days(s) Location: diffuse, epigastric Radiation: epigastric, back Migration to: bilateral flank Severity: severe Severity scale (1-10): 9 Quality: stabbing Consistency: constant Improves With: nothing Worsens With: nothing Context: other (History of prior pancreatitis) Associated Symptoms: nausea, vomiting Treatments Prior to Arrival: other (none) - Related Data Home Medications Medication Instructions Recorded Confirmed Albuterol Inhaler (Mhu) [Ventolin 2 puff INHALATION RT-DAILY 08/13/16 01/16/19 Hfa Inhaler (Mhu)] Budesonide/Formoterol Fumarate 1 puff INHALATION RT-DAILY PRN 08/13/16 01/16/19 [Symbicort 80-4.5 Mcg Inhaler] Metoprolol Tartrate [Lopressor] 25 mg PO BID 08/13/16 01/16/19 Montelukast [Singulair] 10 mg PO HS 06/10/17 01/16/19 traZODone HCL 100 mg PO HS 06/10/17 01/16/19 Baclofen 10 mg PO TID PRN 10/03/17 01/16/19 ALPRAZolam [Xanax] 0.25 mg PO Q6HR PRN 10/31/18 01/16/19 DULoxetine HCL [Cymbalta] 20 mg PO DAILY 10/31/18 01/16/19 Meloxicam [Mobic] 7.5 mg PO DAILY 10/31/18 01/16/19 Melatonin 20 mg PO HS 01/16/19 01/16/19 Valerian Root 100 mg PO HS 01/16/19 01/16/19 Previous Rx's Medication Instructions Recorded Pantoprazole [Protonix] 40 mg PO BID 30 Days #60 tablet. 11/05/18 Docusate [Colace] 100 mg PO BID #60 cap 01/19/19 Levothyroxine Sodium [Synthroid] 176 mcg PO DAILY@0630 #30 tab 01/19/19 oxyCODONE-APAP 5-325MG [Percocet 1 each PO Q4HR PRN #18 tab 01/19/19 5-325 mg] polyethylene glycoL 3350 [Miralax] 17 gm PO HS #30 powd.pack 01/19/19 Sulfamethox-Tmp 800-160Mg [Bactrim 1 tab PO Q12HR #10 tab 05/15/21 DS 800-160 mg] Allergies Allergy/AdvReac Type Severity Reaction Status Date / Time azithromycin [From Zithromax] Allergy Rash/Hives Verified 01/16/19 08:02 prochlorperazine edisylate Allergy Rash/Hives Verified 01/16/19 08:02 [From Compazine] prochlorperazine maleate Allergy Rash/Hives Verified 01/16/19 08:02 [From Compazine] sumatriptan [From Imitrex] Allergy redness Verified 01/16/19 08:02 and swelling at injection site sumatriptan succinate Allergy redness Verified 01/16/19 08:02 [From Imitrex] and swelling at injection site ketorolac tromethamine AdvReac headache Verified 01/16/19 08:02 [From Toradol] levofloxacin [From Levaquin] AdvReac caused Verified 01/16/19 08:02 abnormal EKG morphine AdvReac Nausea & Verified 01/16/19 08:02 Vomiting Review of Systems ROS Statement: Those systems with pertinent positive or pertinent negative responses have been documented in the HPI. ROS Other: All systems not noted in ROS Statement are negative. Past Medical History Past Medical History: Asthma, Blood Disorder, Coronary Artery Disease (CAD), Chest Pain / Angina, Heart Failure, GERD/Reflux, Hypertension, Osteoarthritis (OA), Pneumonia, Thyroid Disorder Additional Past Medical History / Comment(s): Chronic gastritis, intermittent recurrent pancreatisi, duodenal stricture, short segment of Finch's esophagus, PUD, hiatal hernia, colitis, lower GI bleed, anemia, bronchitis, seasonal allergies, LBBB, arthritis multiple joints, cervical radiculopathy/cervical comp ression fractures, chronic back pain, scoliosis, past bilateral foot fractures and L hand fracures, uterine fibroids, UTI, hypothyroid History of Any Multi-Drug Resistant Organisms: MRSA Date of last positivie culture/infection: 2008 MDRO Source:: lt axilla Past Surgical History: Appendectomy, Breast Surgery, Cholecystectomy, Tonsillectomy Additional Past Surgical History / Comment(s): Exploratory lap with cholecystectomy, LEFT TEMPORAL ARTERY BIOPSY, EGD/colonoscopy, L breast bx benign, Past Anesthesia/Blood Transfusion Reactions: Motion Sickness Additional Past Anesthesia/Blood Transfusion Reaction / Comment(s): no prior problems with blood transfusion Past Psychological History: Anxiety, Depression Additional Psychological History / Comment(s): Pt lives alone. She is independent. She uses no assistive device. She drives but does no own a car. Pt stated hx of depression but current medication maintains her-denies depression at time of admit. States she has had 12 suicide attempts in the years past with OD and once cut her L wrist while hospitalized at [facility]. Pt denies any current or recent thoughts/plans of suicide. Past Alcohol Use History: None Reported Past Drug Use History: Marijuana Additional Drug Use History / Comment(s): Pt states she smoked alittle marijuana in the 1970s. She denies any hx of PDA - Past Family History Father Family Medical History: Cancer Additional Family Medical History / Comment(s): Father of bladder cancer at age 66yrs. Mother Family Medical History: Congestive Heart Failure (CHF), Rheumatoid Arthritis (RA) Additional Family Medical History / Comment(s): Mother had ASHD and of this at age 68yrs. General Exam General appearance: alert, in no apparent distress, anxious Head exam: Present: atraumatic, normocephalic, normal inspection Eye exam: Present: normal appearance, PERRL, EOMI. Absent: scleral icterus, conjunctival injection, periorbital swelling ENT exam: Present: normal exam, mucous membranes moist Neck exam: Present: normal inspection. Absent: tenderness, meningismus, lymphadenopathy Respiratory exam: Present: normal lung sounds bilaterally. Absent: respiratory distress, wheezes, rales, rhonchi, stridor Cardiovascular Exam: Present: normal rhythm, tachycardia, normal heart sounds. Absent: systolic murmur, diastolic murmur, rubs, gallop, clicks GI/Abdominal exam: Present: soft, normal bowel sounds. Absent: distended, tenderness, guarding, rebound, rigid Extremities exam: Present: normal inspection, full ROM, normal capillary refill. Absent: tenderness, pedal edema, joint swelling, calf tenderness Back exam: Present: normal inspection Neurological exam: Present: alert, oriented X3, CN II-XII intact Psychiatric exam: Present: normal affect, normal mood Skin exam: Present: warm, dry, intact, normal color. Absent: rash Course Vital Signs 05/14/21 05/14/21 05/15/21 21:40 23:30 00:53 Temperature 98 F Pulse Rate 102 H 116 H 116 H Respiratory 20 18 70 H Rate Blood Pressure 113/78 103/98 90/87 O2 Sat by Pulse 95 99 99 Oximetry 05/15/21 01:25 Temperature 98.2 F Pulse Rate 67 Respiratory 18 Rate Blood Pressure 117/62 O2 Sat by Pulse 97 Oximetry - Reevaluation(s) Reevaluation #1: 05/14/21 Medical record is reviewed Patient symptoms are improved here in the emergency department Patient informed of results and questions answered Patient is in no acute distress patient feels good for discharge home Medical Decision Making - Medical Decision Making 66 female for ER of recurrent pancreatitis. Pain is well-controlled here in the ER she is able tolerate oral intake, patient will be also treated for urinary tract infection can be discharged home - Lab Data Result diagrams: 05/14/21 22:18 05/14/21 22:18 Lab Results 05/14/21 05/14/21 05/14/21 Range/Units 22:18 22:18 22:18 WBC 7.9 (3.8-10.6) k/uL RBC 4.12 (3.80-5.40) m/uL Hgb 13.5 (11.4-16.0) gm/dL Hct 38.7 (34.0-46.0) % MCV 93.8 (80.0-100.0) fL MCH 32.7 (25.0-35.0) pg MCHC 34.9 (31.0-37.0) g/dL RDW 13.4 (11.5-15.5) % Plt Count 359 (150-450) k/uL MPV 6.5 Neutrophils % 66 % Lymphocytes % 20 % Monocytes % 5 % Eosinophils % 6 % Basophils % 1 % Neutrophils # 5.3 (1.3-7.7) k/uL Lymphocytes # 1.6 (1.0-4.8) k/uL Monocytes # 0.4 (0-1.0) k/uL Eosinophils # 0.5 (0-0.7) k/uL Basophils # 0.1 (0-0.2) k/uL Sodium 138 (137-145) mmol/L Potassium 4.3 (3.5-5.1) mmol/L Chloride 108 H (98-107) mmol/L Carbon Dioxide 21 L (22-30) mmol/L Anion Gap 9 mmol/L BUN 13 (7-17) mg/dL Creatinine 0.77 (0.52-1.04) mg/dL Est GFR (CKD-EPI)AfAm >90 (>60 ml/min/1.73 sqM) Est GFR (CKD-EPI)NonAf 81 (>60 ml/min/1.73 sqM) Glucose 102 H (74-99) mg/dL Plasma Lactic Acid Senthil (0.7-2.0) mmol/L Calcium 9.5 (8.4-10.2) mg/dL Total Bilirubin 0.3 (0.2-1.3) mg/dL AST 28 (14-36) U/L ALT 14 (4-34) U/L Alkaline Phosphatase 113 (38-126) U/L Creatine Kinase 70 (30-135) U/L Troponin I (0.000-0.034) ng/mL Total Protein 7.1 (6.3-8.2) g/dL Albumin 4.5 (3.5-5.0) g/dL Amylase 70 (30-110) U/L Lipase 39 (23-300) U/L Urine Color Yellow Urine Appearance Cloudy H (Clear) Urine pH 6.0 (5.0-8.0) Ur Specific [place] 1.022 (1.001-1.035) Urine Protein Trace H (Negative) Urine Glucose (UA) Negative (Negative) Urine Ketones Negative (Negative) Urine Blood Negative (Negative) Urine Nitrite Positive H (Negative) Urine Bilirubin Negative (Negative) Urine Urobilinogen <2.0 (<2.0) mg/dL Ur Leukocyte Esterase Large H (Negative) Urine RBC 2 (0-5) /hpf Urine WBC 60 H (0-5) /hpf Ur Squamous Epith Cells 1 (0-4) /hpf Urine Bacteria Many H (None) /hpf Urine Mucus Rare H (None) /hpf 05/14/21 05/14/21 Range/Units 22:18 22:18 WBC (3.8-10.6) k/uL RBC (3.80-5.40) m/uL Hgb (11.4-16.0) gm/dL Hct (34.0-46.0) % MCV (80.0-100.0) fL MCH (25.0-35.0) pg MCHC (31.0-37.0) g/dL RDW (11.5-15.5) % Plt Count (150-450) k/uL MPV Neutrophils % % Lymphocytes % % Monocytes % % Eosinophils % % Basophils % % Neutrophils # (1.3-7.7) k/uL Lymphocytes # (1.0-4.8) k/uL Monocytes # (0-1.0) k/uL Eosinophils # (0-0.7) k/uL Basophils # (0-0.2) k/uL Sodium (137-145) mmol/L Potassium (3.5-5.1) mmol/L Chloride (98-107) mmol/L Carbon Dioxide (22-30) mmol/L Anion Gap mmol/L BUN (7-17) mg/dL Creatinine (0.52-1.04) mg/dL Est GFR (CKD-EPI)AfAm (>60 ml/min/1.73 sqM) Est GFR (CKD-EPI)NonAf (>60 ml/min/1.73 sqM) Glucose (74-99) mg/dL Plasma Lactic Acid Senthil 1.1 (0.7-2.0) mmol/L Calcium (8.4-10.2) mg/dL Total Bilirubin (0.2-1.3) mg/dL AST (14-36) U/L ALT (4-34) U/L Alkaline Phosphatase (38-126) U/L Creatine Kinase (30-135) U/L Troponin I <0.012 (0.000-0.034) ng/mL Total Protein (6.3-8.2) g/dL Albumin (3.5-5.0) g/dL Amylase (30-110) U/L Lipase (23-300) U/L Urine Color Urine Appearance (Clear) Urine pH (5.0-8.0) Ur Specific [place] (1.001-1.035) Urine Protein (Negative) Urine Glucose (UA) (Negative) Urine Ketones (Negative) Urine Blood (Negative) Urine Nitrite (Negative) Urine Bilirubin (Negative) Urine Urobilinogen (<2.0) mg/dL Ur Leukocyte Esterase (Negative) Urine RBC (0-5) /hpf Urine WBC (0-5) /hpf Ur Squamous Epith Cells (0-4) /hpf Urine Bacteria (None) /hpf Urine Mucus (None) /hpf Disposition Clinical Impression: UTI (urinary tract infection), Chronic pancreatitis Disposition: HOME SELF-CARE Condition: Good Prescriptions: Sulfamethox-Tmp 800-160Mg [Bactrim DS 800-160 mg] 1 tab PO Q12HR #10 tab Is patient prescribed a controlled substance at d/c from ED?: No Referrals: Leonela Marcelino MD [Primary Care Provider] - 1-2 days
[2021-05-14 22:39] LABS: Basophils # (A) 0.1 k/uL (0-0.2); Basophils % (A) 1 %; Eosinophils # (A) 0.5 k/uL (0-0.7); Eosinophils % (A) 6 %; HCT 38.7 % (34.0-46.0); HGB 13.5 gm/dL (11.4-16.0); Lymphocytes # (A) 1.6 k/uL (1.0-4.8); Lymphocytes % (A) 20 %; MCH 32.7 pg (25.0-35.0); MCHC 34.9 g/dL (31.0-37.0); MCV 93.8 fL (80.0-100.0); Mean Platelet Volume 6.5; Monocytes # (A) 0.4 k/uL (0-1.0); Monocytes % (A) 5 %; Neutrophils # (A) 5.3 k/uL (1.3-7.7); Neutrophils % (A) 66 %; Platelet Count 359 k/uL (150-450); RBC 4.12 m/uL (3.80-5.40); RDW 13.4 % (11.5-15.5); WBC 7.9 k/uL (3.8-10.6)
[2021-05-14 22:52] LABS: ALT 14 U/L (4-34); AST 28 U/L (14-36); African American GFR (CKD) >90 (>60 ml/min/1.73 sqM); Albumin 4.5 g/dL (3.5-5.0); Alkaline Phosphatase 113 U/L (38-126); Amylase 70 U/L (30-110); Anion Gap 9 mmol/L; Blood Urea Nitrogen 13 mg/dL (7-17); Calcium 9.5 mg/dL (8.4-10.2); Carbon Dioxide 21 mmol/L (22-30); Chloride 108 mmol/L (98-107); Creatine Kinase 70 U/L (30-135); Glucose 102 mg/dL (74-99); Lipase 39 U/L (23-300); Non-African American GFR(CKD) 81 (>60 ml/min/1.73 sqM); Potassium 4.3 mmol/L (3.5-5.1); Sodium 138 mmol/L (137-145); Total Bilirubin 0.3 mg/dL (0.2-1.3); Total Protein 7.1 g/dL (6.3-8.2)
[2021-05-14 22:53] LABS: Appearance,Urine Cloudy (Clear); Bacteria,Urine Many /hpf; Bilirubin,Urine Negative (Negative); Blood,Urine Negative (Negative); Color,Urine Yellow; Glucose,Urine (UA) Negative (Negative); Ketones,Urine Negative (Negative); Leukocyte Esterase,Urine Large (Negative); Mucus,Urine Rare /hpf; Nitrite,Urine Positive (Negative); Protein,Urine Trace (Negative); RBC,Urine 2 /hpf (0-5); Specific Gravity,Urine 1.022 (1.001-1.035); Squamous Epithelial Cell,Urine 1 /hpf (0-4); Urobilinogen,Urine <2.0 mg/dL (<2.0); WBC,Urine 60 /hpf (0-5)
[2021-05-14] MEDS ORDERED: ONDANSETRON 4 MG/2 ML VIAL IVP STA (23:40)
[2021-05-14] MEDS ORDERED: diphenhydrAMINE 50 MG/ML 1 ML VIAL IVP STA (23:40)
[2021-05-14] MEDS ORDERED: HYDROmorphone 1 MG/ML 1 ML SYRINGE IVP STA (23:40)
[2021-05-14] MEDS ORDERED: ONDANSETRON 4 MG/2 ML VIAL IVP PRN (23:40)
[2021-05-14] MEDS ORDERED: diphenhydrAMINE 50 MG/ML 1 ML VIAL IVP PRN (23:40)
[2021-05-14] MEDS ORDERED: HYDROmorphone 1 MG/ML 1 ML SYRINGE IVP PRN (23:40)
[2021-05-15] MEDS ORDERED: ACET/COD 300 MG/30 MG STARTER PACK 6 TAB BTL PO STA (00:26)
[2021-05-15] MEDS ORDERED: cefTRIAXone IN SWFI 1,000 MG/10 ML SYRINGE IVP STA (00:26)
[2021-05-15 01:42] VITALS: BP 117/62; PULSE 67; RESP 18; TEMP 98.2
== END 2021-05-15 01:25 | disposition home or self-care (01) ==
LOC: EC 21:38
DX: K86.1 Other chronic pancreatitis (principal); N39.0 Urinary tract infection, site not specified; I11.0 Hypertensive heart disease with heart failure; I50.9 Heart failure, unspecified; I25.10 Atherosclerotic heart disease of native coronary artery without angina pectoris; J45.909 Unspecified asthma, uncomplicated; K21.9 Gastro-esophageal reflux disease without esophagitis; F32.9 Major depressive disorder, single episode, unspecified; F41.9 Anxiety disorder, unspecified; E03.9 Hypothyroidism, unspecified; M19.90 Unspecified osteoarthritis, unspecified site; F12.90 Cannabis use, unspecified, uncomplicated; Z79.1 Long term (current) use of non-steroidal anti-inflammatories (NSAID); Z79.51 Long term (current) use of inhaled steroids; Z79.890 Hormone replacement therapy; Z79.899 Other long term (current) drug therapy; Z82.49 Family history of ischemic heart disease and other diseases of the circulatory system; Z87.19 Personal history of other diseases of the digestive system; Z87.11 Personal history of peptic ulcer disease; Z88.1 Allergy status to other antibiotic agents; Z88.5 Allergy status to narcotic agent; Z88.8 Allergy status to other drugs, medicaments and biological substances; Z90.49 Acquired absence of other specified parts of digestive tract
CPT/HCPCS: 36415; 80053; 82150; 82550; 83605; 83690; 84484; 85025; 81001; 87086; 96374; 96375 ×3; 96361; 99284; J1200; J2405; J0696; J1170

== ENCOUNTER 2021-07-04 16:12 | Emergency (ER) | payer MEDICARE, OTHER ==
[2021-07-04 17:13] VITALS: BP 139/84; PULSE 99; RESP 18; TEMP 98.6
[2021-07-04] MEDS ORDERED: HYDROmorphone 0.5 MG/0.5 ML SYRINGE IM STA (17:52)
--- NOTE | 2021-07-04 18:21 | ED ---
Back Pain HPI - General Chief Complaint: Back Pain/Injury Stated Complaint: Back Pain Time Seen by Provider: 07/04/21 17:38 Source: patient Limitations: no limitations - History of Present Illness Initial Comments: Patient is a 66-year-old female presenting to the emergency Department with complaints of left-sided low back pain increasing over the past 3 days. Patient states she has a history of a compression fracture of L1 back in 2019 after she fell. She states at their initial few days she has been recovering very well, very limited pain. She occasionally takes Aleve for her discomfort. She states on Saturday she lifted a heavy bag of keaton litter in her house and felt a sharp muscle spasm and pain in the left lower back. She states the pain has been getting worse over the past year he days. The Aleve is not helping. She describes some different sensation feeling of her right upper leg that is not normally there. She is able to ambulate. She denies any saddle paresthesia, no bowel or bladder incontinence. She denies any fevers or chills, no abdominal pain, no nausea or vomiting. She denies any chest pain or shortness of breath. She has no further complaints at this time. - Related Data Home Medications Medication Instructions Recorded Confirmed Albuterol Inhaler (Mhu) [Ventolin 2 puff INHALATION RT-DAILY 08/13/16 01/16/19 Hfa Inhaler (Mhu)] Budesonide/Formoterol Fumarate 1 puff INHALATION RT-DAILY PRN 08/13/16 01/16/19 [Symbicort 80-4.5 Mcg Inhaler] Metoprolol Tartrate [Lopressor] 25 mg PO BID 08/13/16 01/16/19 Montelukast [Singulair] 10 mg PO HS 06/10/17 01/16/19 traZODone HCL 100 mg PO HS 06/10/17 01/16/19 Baclofen 10 mg PO TID PRN 10/03/17 01/16/19 ALPRAZolam [Xanax] 0.25 mg PO Q6HR PRN 10/31/18 01/16/19 DULoxetine HCL [Cymbalta] 20 mg PO DAILY 10/31/18 01/16/19 Meloxicam [Mobic] 7.5 mg PO DAILY 01/04/19 03/22/19 Melatonin 20 mg PO HS 01/16/19 01/16/19 Valerian Root 100 mg PO HS 01/16/19 01/16/19 Previous Rx's Medication Instructions Recorded Pantoprazole [Protonix] 40 mg PO BID 30 Days #60 tablet. 11/05/18 Docusate [Colace] 100 mg PO BID #60 cap 01/19/19 Levothyroxine Sodium [Synthroid] 176 mcg PO DAILY@0630 #30 tab 01/19/19 oxyCODONE-APAP 5-325MG [Percocet 1 each PO Q4HR PRN #18 tab 01/19/19 5-325 mg] polyethylene glycoL 3350 [Miralax] 17 gm PO HS #30 powd.pack 01/19/19 Sulfamethox-Tmp 800-160Mg [Bactrim 1 tab PO Q12HR #10 tab 05/15/21 DS 800-160 mg] Cyclobenzaprine [Flexeril] 5 mg PO TID PRN #15 tablet 07/04/21 HYDROcodone/APAP 5-325MG [[place] 1 tab PO Q6HR PRN 3 Days #12 tab 07/04/21 5-325] Ondansetron Odt [Zofran Odt] 4 mg PO Q8HR PRN #10 tab 07/04/21 Allergies Allergy/AdvReac Type Severity Reaction Status Date / Time azithromycin [From Zithromax] Allergy Rash/Hives Verified 07/04/21 17:12 prochlorperazine edisylate Allergy Rash/Hives Verified 07/04/21 17:12 [From Compazine] prochlorperazine maleate Allergy Rash/Hives Verified 07/04/21 17:12 [From Compazine] sumatriptan [From Imitrex] Allergy redness Verified 07/04/21 17:12 and swelling at injection site sumatriptan succinate Allergy redness Verified 07/04/21 17:12 [From Imitrex] and swelling at injection site ketorolac tromethamine AdvReac headache Verified 07/04/21 17:12 [From Toradol] levofloxacin [From Levaquin] AdvReac caused Verified 07/04/21 17:12 abnormal EKG morphine AdvReac Nausea & Verified 07/04/21 17:12 Vomiting Review of Systems ROS Statement: Those systems with pertinent positive or pertinent negative responses have been documented in the HPI. ROS Other: All systems not noted in ROS Statement are negative. Past Medical History Past Medical History: Asthma, Blood Disorder, Coronary Artery Disease (CAD), Chest Pain / Angina, Heart Failure, GERD/Reflux, Hypertension, Osteoarthritis (OA), Pneumonia, Thyroid Disorder Additional Past Medical History / Comment(s): Chronic gastritis, intermittent recurrent pancreatisi, duodenal stricture, short segment of Finch's esophagus, PUD, hiatal hernia, colitis, lower GI bleed, anemia, bronchitis, seasonal allergies, LBBB, arthritis multiple joints, cervical radiculopathy/cervical compression fractures, chronic back pain, scoliosis, past bilateral foot fractures and L hand fracures, uterine fibroids, UTI, hypothyroid History of Any Multi-Drug Resistant Organisms: MRSA Date of last positivie culture/infection: 2008 MDRO Source:: lt axilla Past Surgical History: Appendectomy, Breast Surgery, Cholecystectomy, Tonsillectomy Additional Past Surgical History / Comment(s): Exploratory lap with cholecystectomy, LEFT TEMPORAL ARTERY BIOPSY, EGD/colonoscopy, L breast bx benign, Past Anesthesia/Blood Transfusion Reactions: Motion Sickness Additional Past Anesthesia/Blood Transfusion Reaction / Comment(s): no prior problems with blood transfusion Past Psychological History: Anxiety, Depression Smoking Status: Never smoker Past Alcohol Use History: None Reported Past Drug Use History: Marijuana - Past Family History Father Family Medical History: Cancer Additional Family Medical History / Comment(s): Father of bladder cancer at age 66yrs. Mother Family Medical History: Congestive Heart Failure (CHF), Rheumatoid Arthritis (RA) Additional Family Medical History / Comment(s): Mother had ASHD and of this at age 68yrs. General Exam - General Exam Comments Initial Comments: GENERAL: Patient is well-developed and well-nourished. Patient is nontoxic and in mild distress. HEAD: Atraumatic, normocephalic. EYES: Pupils equal round and reactive to light, extraocular movements intact, sclera anicteric, conjunctiva are normal. Eyelids were unremarkable. ENT: Moist mucous membranes. NECK: Normal range of motion, supple without lymphadenopathy or JVD. LUNGS: Unlabored respirations. Breath sounds clear to auscultation bilaterally and equal. No wheezes rales or rhonchi. HEART: Regular rate and rhythm without murmurs, rubs or gallops. ABDOMEN: Soft, nontender, normoactive bowel sounds. No guarding, no rebound. No masses appreciated. : Deferred MUSCULOSKELETAL: Normal extremities with adequate strength and normal range of motion, no pitting or edema. No clubbing or cyanosis. Patient has some mild pain with palpation of the left low back, paraspinal region. Full trunk range of motion. Neurovascular intact bilateral lower extremities, sensation is equal and bilateral as well. NEUROLOGICAL: Patient is alert and oriented x 3. Motor and sensory are also intact. Cranial nerves II through XII grossly intact. Symmetrical smile. Normal speech, normal gait. PSYCH: Normal mood, normal affect. SKIN: Warm, Dry, normal turgor, no rashes or lesions noted. Limitations: no limitations Course Vital Signs 07/04/21 17:07 Temperature 98.6 F Pulse Rate 99 Respiratory 18 Rate Blood Pressure 139/84 O2 Sat by Pulse 95 Oximetry Medical Decision Making - Medical Decision Making Patient is a 66-year-old female, with history of L1 compression fracture in 2019, presenting with severe muscle spasm and pain of the left lower back after lifting a heavy bag of keaton litter 3 days ago. No saddle paresthesia, no bowel or bladder incontinence, no alarming findings on exam. No deficits. X-ray of the lumbar spine today shows a chronic L1 compression fracture with interval moderate height loss, also chronic appearing mild L2 compression fracture, this is new compared to the prior study. I discussed these findings with the patient. Patient did receive a shot of Dilaudid today for pain, she does report improvement in her symptoms. I will have her follow-up with Dr. Jackman, as she has seen him in the past for her back. I will send her home with a few days of a muscle relaxer, pain reliever and Zofran. She will follow up with orthopedics. She is agreeable to this plan of care and is stable for discharge. Case discussed with Dr. Rea. Disposition Clinical Impression: Low back pain Disposition: HOME SELF-CARE Condition: Stable Instructions (If sedation given, give patient instructions): Acute Low Back Pain (ED) Additional Instructions: Please return to the Emergency Department if symptoms worsen or any other concerns. Take medications as prescribed, as needed for pain. Continue with heat and/or ice to the low back. Recommend following up with Dr. Jackman as discussed. Prescriptions: Cyclobenzaprine [Flexeril] 5 mg PO TID PRN #15 tablet PRN Reason: Muscle Spasm HYDROcodone/APAP 5-325MG [[place] 5-325] 1 tab PO Q6HR PRN 3 Days #12 tab PRN Reason: Pain Ondansetron Odt [Zofran Odt] 4 mg PO Q8HR PRN #10 tab PRN Reason: Nausea Is patient prescribed a controlled substance at d/c from ED?: Yes When asked, does pt state using other controlled substances?: No If prescribed controlled substance>3 days was MAPS reviewed?: Prescribed <3 Days If opioid is for acute pain is fill amount 7 days or less?: Yes If Rx opioid, was Start Talking consent form obtained?: Yes Referrals: Leonela Marcelino MD [Primary Care Provider] - 1-2 days Wander Jackman DO [Doctor of Osteopathic Medicine] - 1-2 days Time of Disposition: 18:41
--- NOTE | 2021-07-04 18:28 | XR ---
Result: History: Pain. Comparison: 01/16/2019. Technique: 3 views of the lumbar spine. Findings: The bone mineralization is osteopenic. Images of the lumbar spine demonstrate 5 lumbar-type vertebrae. There is no acute fracture. There is L1 vertebral plana, progressed compared to the prior study. There is also mild L2 compression deform ity. There is resulting mild kyphosis. There is moderate disc height narrowing at L3-L4. Impression: Chronic L1 compression fracture/vertebral plana with interval moderate height loss. Also chronic appearing mild L2 compression fracture, new compared to the prior study. Resultant mild kyphosis.
== END 2021-07-04 18:54 | disposition home or self-care (01) ==
LOC: EC 16:12
DX: M54.5 Low back pain (principal); J45.909 Unspecified asthma, uncomplicated; I25.10 Atherosclerotic heart disease of native coronary artery without angina pectoris; I50.9 Heart failure, unspecified; I11.0 Hypertensive heart disease with heart failure; M19.90 Unspecified osteoarthritis, unspecified site; E07.9 Disorder of thyroid, unspecified; F41.9 Anxiety disorder, unspecified; F32.9 Major depressive disorder, single episode, unspecified; F12.90 Cannabis use, unspecified, uncomplicated; Z87.440 Personal history of urinary (tract) infections; Z88.1 Allergy status to other antibiotic agents; Z88.5 Allergy status to narcotic agent; Z90.49 Acquired absence of other specified parts of digestive tract; Z90.89 Acquired absence of other organs
CPT/HCPCS: 99283; 96372; 72100; J1170

== ENCOUNTER 2021-10-17 06:49 | Emergency (ER) | payer MEDICARE, OTHER ==
[2021-10-17] MEDS ORDERED: SODIUM CHLORIDE 0.9% 1,000 ML IV STA (07:10)
[2021-10-17 07:29] VITALS: TEMP 98.9
--- NOTE | 2021-10-17 07:29 | ED ---
General Adult HPI - General Chief complaint: Abdominal Pain Stated complaint: Chest Pain, Abdominal Pain Time Seen by Provider: 10/17/21 06:54 Source: patient, EMS, RN notes reviewed Mode of arrival: EMS Limitations: no limitations - History of Present Illness Initial comments: 66-year-old female with a complicated past medical history presents to the e mergency room for a chief complaint of abdominal pain. Patient has a history of pancreatitis. States that for the past few days it feels like her pancreas is flaring. The epigastric area. States she has also had some nausea vomiting. Patient also feels as though her heart is fluttering. She denies chest pain. She was given aspirin and Zofran in transport.Patient has no other complaints at this time including shortness of breath, chest pain, abdominal pain, nausea or vomiting, headache, or visual changes. - Related Data Home Medications Medication Instructions Recorded Confirmed Cyclobenzaprine [Flexeril] 10 mg PO HS PRN 10/17/21 10/17/21 DULoxetine HCL [Cymbalta] 60 mg PO DAILY 10/17/21 10/17/21 Ergocalciferol [Vitamin D2 (1250 1,250 mcg PO MO 10/17/21 10/17/21 Mcg = 34661 Iu)] Levothyroxine Sodium [Synthroid] 112 mcg PO DAILY 10/17/21 10/17/21 Meloxicam [Mobic] 7.5 mg PO DAILY PRN 10/17/21 10/17/21 Metoprolol Tartrate [Lopressor] 25 mg PO BID 10/17/21 10/17/21 Montelukast [Singulair] 10 mg PO HS 10/17/21 10/17/21 Ondansetron Odt [Zofran Odt] 4 mg PO Q8HR PRN 10/17/21 10/17/21 QUEtiapine [SEROquel] 50 mg PO HS 10/17/21 10/17/21 hydroCHLOROthiazide [Hydrodiuril] 25 mg PO DAILY PRN 10/17/21 10/17/21 Previous Rx's Medication Instructions Recorded Cephalexin [Keflex] 500 mg PO Q8HR 7 Days #21 cap 10/17/21 Allergies Allergy/AdvReac Type Severity Reaction Status Date / Time azithromycin [From Zithromax] Allergy Rash/Hives Verified 10/17/21 10:57 ketorolac tromethamine Allergy Rash/Hives Verified 10/17/21 10:57 [From Toradol] morphine Allergy Rash/Hives Verified 10/17/21 10:57 prochlorperazine edisylate Allergy Rash/Hives Verified 10/17/21 10:57 [From Compazine] prochlorperazine maleate Allergy Rash/Hives Verified 10/17/21 10:57 [From Compazine] sumatriptan [From Imitrex] Allergy Rash/Hives Verified 10/17/21 10:57 sumatriptan succinate Allergy Rash/Hives Verified 10/17/21 10:57 [From Imitrex] levofloxacin [From Levaquin] AdvReac caused Verified 10/17/21 10:57 abnormal EKG Review of Systems ROS Statement: Those systems with pertinent positive or pertinent negative responses have been documented in the HPI. ROS Other: All systems not noted in ROS Statement are negative. Past Medical History Past Medical History: Asthma, Blood Disorder, Coronary Artery Disease (CAD), Chest Pain / Angina, Heart Failure, GERD/Reflux, Hypertension, Osteoarthritis (OA), Pneumonia, Thyroid Disorder Additional Past Medical History / Comment(s): Chronic gastritis, intermittent recurrent pancreatisi, duodenal stricture, short segment of Finch's esophagus, PUD, hiatal hernia, colitis, lower GI bleed, anemia, bronchitis, seasonal allergies, LBBB, arthritis multiple joints, cervical radiculopathy/cervical compression fractures, chronic back pain, scoliosis, past bilateral foot fractures and L hand fracures, uterine fibroids, UTI, hypothyroid History of Any Multi-Drug Resistant Organisms: MRSA Date of last positivie culture/infection: 2008 MDRO Source:: lt axilla Past Surgical History: Appendectomy, Breast Surgery, Cholecystectomy, Tonsillectomy Additional Past Surgical History / Comment(s): Exploratory lap with cholecystectomy, LEFT TEMPORAL ARTERY BIOPSY, EGD/colonoscopy, L breast bx benign, Past Anesthesia/Blood Transfusion Reactions: Motion Sickness Additional Past Anesthesia/Blood Transfusion Reaction / Comment(s): no prior problems with blood transfusion Past Psychological History: Anxiety, Depression Smoking Status: Never smoker Past Alcohol Use History: None Reported Past Drug Use History: Marijuana - Past Family History Father Family Medical History: Cancer Additional Family Medical History / Comment(s): Father of bladder cancer at age 66yrs. Mother Family Medical History: Congestive Heart Failure (CHF), Rheumatoid Arthritis (RA) Additional Family Medical History / Comment(s): Mother had ASHD and of this at age 68yrs. General Exam Limitations: no limitations General appearance: alert, in no apparent distress Head exam: Present: atraumatic Eye exam: Present: normal appearance, PERRL, EOMI. Absent: scleral icterus, conjunctival injection ENT exam: Present: normal exam, mucous membranes moist Neck exam: Present: normal inspection, full ROM. Absent: tenderness Respiratory exam: Present: normal lung sounds bilaterally. Absent: respiratory distress, wheezes Cardiovascular Exam: Present: regular rate, normal rhythm, normal heart sounds GI/Abdominal exam: Present: soft, tenderness (minimal epigastric tenderness), normal bowel sounds. Absent: distended, guarding, rebound, rigid Course Vital Signs 10/17/21 10/17/21 10/17/21 06:53 08:03 10:18 Temperature 98.9 F Pulse Rate 109 H 94 96 Respiratory 18 16 15 Rate Blood Pressure 132/81 131/92 131/80 O2 Sat by Pulse 97 97 97 Oximetry EKG Findings - EKG Comments: EKG Findings:: Normal sinus rhythm, ventricular rate 99, MS interval 158, QTC 469 Medical Decision Making - Medical Decision Making Other stable. CBC and CMP are unremarkable. Urinalysis does reveal evidence of infection. Patient given IV Rocephin. EKG reveals a normal sinus rhythm. Troponin is negative. D-dimer however was elevated. CTA shows no DVT. We did obtain a CT abdomen and pelvis with contrast as well. This revealed a cystitis as well as a severe compression fracture. I discussed this with patient and she states this happened 2 years ago and she is aware. She is not having any bladder or bowel changes, saddle anesthesia, weakness of the legs. At this time we can treat patient for urinary tract infection and have her follow-up with orthopedics. She will return here for any worsening symptoms. - Lab Data Result diagrams: 10/17/21 08:03 10/17/21 08:03 Lab Results 10/17/21 10/17/21 10/17/21 Range/Units 08:03 08:03 08:03 WBC 8.2 (3.8-10.6) k/uL RBC 3.72 L (3.80-5.40) m/uL Hgb 12.6 (11.4-16.0) gm/dL Hct 37.4 (34.0-46.0) % MCV 100.6 H (80.0-100.0) fL MCH 33.8 (25.0-35.0) pg MCHC 33.6 (31.0-37.0) g/dL RDW 12.8 (11.5-15.5) % Plt Count 350 (150-450) k/uL MPV 6.9 Neutrophils % 69 % Lymphocytes % 16 % Monocytes % 4 % Eosinophils % 8 % Basophils % 1 % Neutrophils # 5.7 (1.3-7.7) k/uL Lymphocytes # 1.3 (1.0-4.8) k/uL Monocytes # 0.4 (0-1.0) k/uL Eosinophils # 0.7 (0-0.7) k/uL Basophils # 0.1 (0-0.2) k/uL PT 9.7 (9.0-12.0) sec INR 0.9 (<1.2) APTT 23.0 (22.0-30.0) sec D-Dimer 1.11 H (<0.60) mg/L FEU Sodium 139 (137-145) mmol/L Potassium 4.1 (3.5-5.1) mmol/L Chloride 110 H (98-107) mmol/L Carbon Dioxide 20 L (22-30) mmol/L Anion Gap 9 mmol/L BUN 15 (7-17) mg/dL Creatinine 0.83 (0.52-1.04) mg/dL Est GFR (CKD-EPI)AfAm 85 (>60 ml/min/1.73 sqM) Est GFR (CKD-EPI)NonAf 74 (>60 ml/min/1.73 sqM) Glucose 111 H (74-99) mg/dL Calcium 9.0 (8.4-10.2) mg/dL Total Bilirubin 0.4 (0.2-1.3) mg/dL AST 39 H (14-36) U/L ALT 23 (4-34) U/L Alkaline Phosphatase 109 (38-126) U/L Troponin I (0.000-0.034) ng/mL Total Protein 7.2 (6.3-8.2) g/dL Albumin 4.2 (3.5-5.0) g/dL Amylase 76 (30-110) U/L Lipase 61 (23-300) U/L Urine Color Urine Appearance (Clear) Urine pH (5.0-8.0) Ur Specific [place] (1.001-1.035) Urine Protein (Negative) Urine Glucose (UA) (Negative) Urine Ketones (Negative) Urine Blood (Negative) Urine Nitrite (Negative) Urine Bilirubin (Negative) Urine Urobilinogen (<2.0) mg/dL Ur Leukocyte Esterase (Negative) Urine RBC (0-5) /hpf Urine WBC (0-5) /hpf Ur Squamous Epith Cells (0-4) /hpf Urine Bacteria (None) /hpf Hyaline Casts (0-2) /lpf Urine Mucus (None) /hpf 10/17/21 10/17/21 Range/Units 08:03 09:01 WBC (3.8-10.6) k/uL RBC (3.80-5.40) m/uL Hgb (11.4-16.0) gm/dL Hct (34.0-46.0) % MCV (80.0-100.0) fL MCH (25.0-35.0) pg MCHC (31.0-37.0) g/dL RDW (11.5-15.5) % Plt Count (150-450) k/uL MPV Neutrophils % % Lymphocytes % % Monocytes % % Eosinophils % % Basophils % % Neutrophils # (1.3-7.7) k/uL Lymphocytes # (1.0-4.8) k/uL Monocytes # (0-1.0) k/uL Eosinophils # (0-0.7) k/uL Basophils # (0-0.2) k/uL PT (9.0-12.0) sec INR (<1.2) APTT (22.0-30.0) sec D-Dimer (<0.60) mg/L FEU Sodium (137-145) mmol/L Potassium (3.5-5.1) mmol/L Chloride (98-107) mmol/L Carbon Dioxide (22-30) mmol/L Anion Gap mmol/L BUN (7-17) mg/dL Creatinine (0.52-1.04) mg/dL Est GFR (CKD-EPI)AfAm (>60 ml/min/1.73 sqM) Est GFR (CKD-EPI)NonAf (>60 ml/min/1.73 sqM) Glucose (74-99) mg/dL Calcium (8.4-10.2) mg/dL Total Bilirubin (0.2-1.3) mg/dL AST (14-36) U/L ALT (4-34) U/L Alkaline Phosphatase (38-126) U/L Troponin I <0.012 (0.000-0.034) ng/mL Total Protein (6.3-8.2) g/dL Albumin (3.5-5.0) g/dL Amylase (30-110) U/L Lipase (23-300) U/L Urine Color Yellow Urine Appearance Cloudy H (Clear) Urine pH 6.5 (5.0-8.0) Ur Specific [place] 1.022 (1.001-1.035) Urine Protein 1+ H (Negative) Urine Glucose (UA) Negative (Negative) Urine Ketones Trace H (Negative) Urine Blood Negative (Negative) Urine Nitrite Positive H (Negative) Urine Bilirubin Negative (Negative) Urine Urobilinogen <2.0 (<2.0) mg/dL Ur Leukocyte Esterase Large H (Negative) Urine RBC 2 (0-5) /hpf Urine WBC 79 H (0-5) /hpf Ur Squamous Epith Cells 1 (0-4) /hpf Urine Bacteria Moderate H (None) /hpf Hyaline Casts 1 (0-2) /lpf Urine Mucus Many H (None) /hpf Disposition Clinical Impression: UTI (urinary tract infection), Compression fracture Disposition: HOME SELF-CARE Condition: Good Instructions (If sedation given, give patient instructions): Urinary Tract Infection in Women (ED) Additional Instructions: Take antibiotic as directed. Follow-up with your doctor in one to 2 days as well as orthopedics for compression fracture. Return to the emergency room for any worsening symptoms. Prescriptions: Cephalexin [Keflex] 500 mg PO Q8HR 7 Days #21 cap Is patient prescribed a controlled substance at d/c from ED?: No Referrals: Leonela Marcelino MD [Primary Care Provider] - 1-2 days Wander Jackman DO [Doctor of Osteopathic Medicine] - 1-2 days Time of Disposition: 11:25
[2021-10-17 08:10] LABS: Basophils # (A) 0.1 k/uL (0-0.2); Basophils % (A) 1 %; Eosinophils # (A) 0.7 k/uL (0-0.7); Eosinophils % (A) 8 %; HCT 37.4 % (34.0-46.0); HGB 12.6 gm/dL (11.4-16.0); Lymphocytes # (A) 1.3 k/uL (1.0-4.8); Lymphocytes % (A) 16 %; MCH 33.8 pg (25.0-35.0); MCHC 33.6 g/dL (31.0-37.0); MCV 100.6 fL (80.0-100.0); Mean Platelet Volume 6.9; Monocytes # (A) 0.4 k/uL (0-1.0); Monocytes % (A) 4 %; Neutrophils # (A) 5.7 k/uL (1.3-7.7); Neutrophils % (A) 69 %; Platelet Count 350 k/uL (150-450); RBC 3.72 m/uL (3.80-5.40); RDW 12.8 % (11.5-15.5); WBC 8.2 k/uL (3.8-10.6)
[2021-10-17] MEDS ORDERED: HYDROmorphone 0.5 MG/0.5 ML SYRINGE IVP STA ×2 (08:12→11:24)
--- NOTE | 2021-10-17 08:12 | XR ---
EXAMINATION TYPE: XR chest 2V DATE OF EXAM: 10/17/2021 COMPARISON: Chest x-ray January 16, 2019 HISTORY: CHF. TECHNIQUE: Frontal and lateral views of the chest are obtained. FINDINGS: There is no suspicious new focal air space opacity, pleural effusion, or pneumothorax seen . The cardiac silhouette size is stable and within normal limits. The osseous structures are demin eralized. Cholecystectomy clips are noted. Overlying EKG leads are seen. IMPRESSION: No acute cardiopulmonary process.
[2021-10-17 08:26] LABS: Albumin 4.2 g/dL (3.5-5.0); Potassium 4.1 mmol/L (3.5-5.1); Total Bilirubin 0.4 mg/dL (0.2-1.3); Total Protein 7.2 g/dL (6.3-8.2)
[2021-10-17 08:30] LABS: INR 0.9 (<1.2); Prothrombin Time 9.7 sec (9.0-12.0)
--- NOTE | 2021-10-17 09:48 | CT ---
EXAMINATION TYPE: CT chest angio for PE DATE OF EXAM: 10/17/2021 COMPARISON: NONE HISTORY: Tachycardia, shortness of breath. CT DLP: 297.8 mGycm. Automated Exposure Control for Dose Reduction was Utilized. CONTRAST: CTA scan of the thorax is performed with IV Contrast, patient injected with 100 mL of Isovue 370, tac hycardia and shortness of breath. MIP Images are created on CT scanner and reviewed. FINDINGS: LUNGS: There is small posterior fat-containing basilar right-sided diaphragmatic hernia seen best on coronal image 137. No pleural effusion or pneumothorax seen bilaterally. No suspicious focal consolid ation. MEDIASTINUM: There is satisfactory enhancement of the pulmonary artery and its branches, there is no CT evidence for pulmonary embolism. Satisfactory enhancement of the thoracic aorta without aneurysm o r dissection. There are no greater than 1 cm hilar or mediastinal lymph nodes. No cardiomegaly or pericardial effusion is seen. OTHER: Moderate to severe chronic compression fracture deformities at T7 and T9 level identified. No linear lucency to suggest acute fracture. Osseous structures are demineralized. Overlying right-sided metallic nipple ornament. Please refer to same day CT abdomen and pelvis were performed for complete details on the upper abdom en. IMPRESSION: No CT evidence for acute pulmonary embolism. No suspicious acute pulmonary process.
[2021-10-17 09:57] LABS: Appearance,Urine Cloudy (Clear); Bacteria,Urine Moderate /hpf; Bilirubin,Urine Negative (Negative); Blood,Urine Negative (Negative); Color,Urine Yellow; Glucose,Urine (UA) Negative (Negative); Hyaline Casts,Urine 1 /lpf (0-2); Ketones,Urine Trace (Negative); Leukocyte Esterase,Urine Large (Negative); Mucus,Urine Many /hpf; Nitrite,Urine Positive (Negative); PH, Urine 6.5 (5.0-8.0); Protein,Urine 1+ (Negative); RBC,Urine 2 /hpf (0-5); Specific Gravity,Urine 1.022 (1.001-1.035); Squamous Epithelial Cell,Urine 1 /hpf (0-4); Urobilinogen,Urine <2.0 mg/dL (<2.0); WBC,Urine 79 /hpf (0-5)
--- NOTE | 2021-10-17 10:00 | CT ---
EXAMINATION TYPE: CT abdomen pelvis w con DATE OF EXAM: 10/17/2021 HISTORY: Pelvic cramping and upper abdominal pain. CT DLP: 987.9mGycm Automated Exposure Control for Dose Reduction was Utilized. CONTRAST: CT scan of the abdomen and pelvis is performed without oral but with IV Contrast, patient injected wi th 100 mL of Isovue 300. COMPARISON: CT abdomen and pelvis November 02, 2018 and October 31, 2018 and older studies. FINDINGS: LUNG BASES: Please refer to same-day CTA thorax report for complete details. LIVER/GB: Cholecystectomy clips are redemonstrated. Slightly more prominent mild central intrahepatic and extrahepatic biliary prominence up to 10 mm which is upper limits of normal. No obstructing dist al mass or calculus is clearly seen PANCREAS: Mild fat replaced atrophy redemonstrated. No ductal dilatation. No new surrounding fat stra nding SPLEEN: Subcentimeter low dense lesion axial image 14 stable presumed benign. ADRENALS: No significant abnormality is seen. KIDNEYS: Symmetric cortical uptake and excretion without hydronephrosis seen bilaterally. Bladder is poorly distended without intraluminal mass. Moderate concentric wall thickening and wall irregularity on current study. BOWEL: Suboptimal evaluation without enteric contrast. No suspicious small or large bowel dilatation. There is [id number] wall thickening throughout colonic loops with some diverticula in the left colon. No CT evidence for acute diverticulitis. UTERUS/ADNEXA: Anteverted uterus projects to right of midline. Normal-size ovaries in the bilateral a dnexa. LYMPH NODES: No greater than 1cm abdominal or pelvic lymph nodes are appreciated. OSSEOUS STRUCTURES: Osseous structures are demineralized. Moderate height loss involving L2 vertebra is new from prior study. Severe height loss with sclerosis and some adjacent lucency at the L1 verteb ra. Cannot exclude a subacute injury at this level. Slight posterior retropulsion superior L1 level a nd to lesser degree inferior L2 level at the anterior sagittal image 70 for reference. [id number] disc space narrowing L3-L4 and L5-S1 levels redemonstrated. OTHER: Mild calcified plaque of the aorta extends into branch vessels. Dystrophic calcifications in the posterior subcutaneous gluteal tissue are redemonstrated. IMPRESSION: 1. New moderate concentric wall thickening and wall irregularities and poorly distended bladder. Live elate clinically and with lab values for acute bladder infection or cystitis. 2. Demineralization with several compression type fracture deformity throughout the thoracolumbar spi ne. Subacute severe compression fracture at L1 level may be present. Slight posterior retropulsion in to the anterior spinal canal noted. 3. Slightly more prominent central intrahepatic and extra hepatic biliary prominence perhaps minimall y dilated. Correlate clinically and with liver lab values to determine if follow-up is needed.
[2021-10-17] MEDS ORDERED: cefTRIAXone IN SWFI 1,000 MG/10 ML SYRINGE IVP STA (11:05)
[2021-10-17 11:39] VITALS: BP 122/77; PULSE 103; RESP 16
== END 2021-10-17 11:52 | disposition home or self-care (01) ==
LOC: EC 06:49
DX: N39.0 Urinary tract infection, site not specified (principal); M48.52XA Collapsed vertebra, not elsewhere classified, cervical region, initial encounter for fracture; I11.0 Hypertensive heart disease with heart failure; I50.9 Heart failure, unspecified; I25.10 Atherosclerotic heart disease of native coronary artery without angina pectoris; K21.9 Gastro-esophageal reflux disease without esophagitis; J45.909 Unspecified asthma, uncomplicated; M19.90 Unspecified osteoarthritis, unspecified site; E07.9 Disorder of thyroid, unspecified; F41.9 Anxiety disorder, unspecified; F32.A Depression, unspecified; F12.90 Cannabis use, unspecified, uncomplicated; Z88.1 Allergy status to other antibiotic agents; Z88.2 Allergy status to sulfonamides; Z87.440 Personal history of urinary (tract) infections; Z90.49 Acquired absence of other specified parts of digestive tract
CPT/HCPCS: 99285; 96374; 96375; 96376; 96361; 36415; 85379; 80053; 82150; 83690; 84484; 85025; 85610; 85730; 81001; 87086; 71046; 71275; 74177; J0696; J1170; Q9967; 87077; 87186; 93005

== ENCOUNTER 2021-12-21 12:13 | Emergency (ER) | payer MEDICARE, OTHER ==
[2021-12-21] MEDS ORDERED: HYDROmorphone 1 MG/ML 1 ML SYRINGE IVP STA (12:22)
--- NOTE | 2021-12-21 12:24 | ED ---
General Adult HPI - General Chief complaint: Fall Stated complaint: Fall Time Seen by Provider: 12/21/21 12:15 Source: patient, EMS, RN notes reviewed Mode of arrival: EMS Limitations: no limitations - History of Present Illness Initial comments: Patient is a pleasant 66-year-old female presenting to the emergency department with complaints of lower back discomfort. Patient went to the restroom around [address] back to bed she fell sitting down on the side of the bed. Patient struck her lower back. Patient has discomfort in that area since that time. Discomfort has been persistent. Discomfort is somewhat near previous L1 compression fracture. No incontinence or retention of bowel or bladder. No weakness. Patient is able to get up and move. Patient denies any other area of injury or concern. No head injury or loss of consciousness. - Related Data Home Medications Medication Instructions Recorded Confirmed Cyclobenzaprine [Flexeril] 10 mg PO HS PRN 10/17/21 10/17/21 DULoxetine HCL [Cymbalta] 60 mg PO DAILY 10/17/21 10/17/21 Ergocalciferol [Vitamin D2 (1250 1,250 mcg PO MO 10/17/21 10/17/21 Mcg = 99156 Iu)] Levothyroxine Sodium [Synthroid] 112 mcg PO DAILY 10/17/21 10/17/21 Meloxicam [Mobic] 7.5 mg PO DAILY PRN 10/17/21 10/17/21 Metoprolol Tartrate [Lopressor] 25 mg PO BID 10/17/21 10/17/21 Montelukast [Singulair] 10 mg PO HS 10/17/21 10/17/21 Ondansetron Odt [Zofran Odt] 4 mg PO Q8HR PRN 10/17/21 10/17/21 QUEtiapine [SEROquel] 50 mg PO HS 10/17/21 10/17/21 hydroCHLOROthiazide [Hydrodiuril] 25 mg PO DAILY PRN 10/17/21 10/17/21 Previous Rx's Medication Instructions Recorded Cephalexin [Keflex] 500 mg PO Q8HR 7 Days #21 cap 10/17/21 Allergies Allergy/AdvReac Type Severity Reaction Status Date / Time azithromycin [From Zithromax] Allergy Rash/Hives Verified 10/17/21 10:57 ketorolac tromethamine Allergy Rash/Hives Verified 10/17/21 10:57 [From Toradol] morphine Allergy Rash/Hives Verified 10/17/21 10:57 prochlorperazine edisylate Allergy Rash/Hives Verified 10/17/21 10:57 [From Compazine] prochlorperazine maleate Allergy Rash/Hives Verified 10/17/21 10:57 [From Compazine] sumatriptan [From Imitrex] Allergy Rash/Hives Verified 10/17/21 10:57 sumatriptan succinate Allergy Rash/Hives Verified 10/17/21 10:57 [From Imitrex] levofloxacin [From Levaquin] AdvReac caused Verified 10/17/21 10:57 abnormal EKG Review of Systems ROS Statement: Those systems with pertinent positive or pertinent negative responses have been documented in the HPI. ROS Other: All systems not noted in ROS Statement are negative. Constitutional: Denies: fever Eyes: Denies: eye pain ENT: Denies: ear pain Respiratory: Denies: cough, dyspnea Cardiovascular: Denies: chest pain Endocrine: Denies: fatigue Gastrointestinal: Denies: abdominal pain Genitourinary: Denies: dysuria Musculoskeletal: Reports: as per HPI, back pain Skin: Denies: rash Neurological: Denies: weakness, numbness, paresthesias Past Medical History Past Medical History: Asthma, Blood Disorder, Coronary Artery Disease (CAD), Chest Pain / Angina, Heart Failure, GERD/Reflux, Hypertension, Osteoarthritis (OA), Pneumonia, Thyroid Disorder Additional Past Medical History / Comment(s): Chronic gastritis, intermittent recurrent pancreatisi, duodenal stricture, short segment of Finch's esophagus, PUD, hiatal hernia, colitis, lower GI bleed, anemia, bronchitis, seasonal allergies, LBBB, arthritis multiple joints, cervical radiculopathy/cervical compression fractures, chronic back pain, scoliosis, past bilateral foot fractures and L hand fracures, uterine fibroids, UTI, hypothyroid History of Any Multi-Drug Resistant Organisms: MRSA Date of last positivie culture/infection: 2008 MDRO Source:: lt axilla Past Surgical History: Appendectomy, Breast Surgery, Cholecystectomy, Tonsillectomy Additional Past Surgical History / Comment(s): Exploratory lap with cholecystectomy, LEFT TEMPORAL ARTERY BIOPSY, EGD/colonoscopy, L breast bx benign, Past Anesthesia/Blood Transfusion Reactions: Motion Sickness Additional Past Anesthesia/Blood Transfusion Reaction / Comment(s): no prior problems with blood transfusion Past Psychological History: Anxiety, Depression Smoking Status: Never smoker Past Alcohol Use History: None Reported Past Drug Use History: Marijuana - Past Family History Father Family Medical History: Cancer Additional Family Medical History / Comment(s): Father of bladder cancer at age 66yrs. Mother Family Medical History: Congestive Heart Failure (CHF), Rheumatoid Arthritis (RA) Additional Family Medical History / Comment(s): Mother had ASHD and of this at age 68yrs. General Exam Limitations: no limitations General appearance: alert, in no apparent distress Head exam: Present: normocephalic Eye exam: Present: normal appearance Neck exam: Present: normal inspection. Absent: tenderness Respiratory exam: Absent: normal lung sounds bilaterally Cardiovascular Exam: Present: regular rate, normal rhythm GI/Abdominal exam: Present: soft. Absent: tenderness, pulsatile mass Extremities exam: Present: normal inspection, full ROM. Absent: tenderness Back exam: Present: tenderness (Mild tenderness L2-L3 region) Neurological exam: Absent: motor sensory deficit Expanded Sensory exam: Lower Extremity Light Touch: Normal Motor strength exam: RLE: 5, LLE: 5 Psychiatric exam: Present: normal affect, normal mood Skin exam: Present: normal color Course Vital Signs 12/21/21 12/21/21 12:16 12:48 Temperature 98.3 F Pulse Rate 102 H Pulse Rate [ 68 Pulse Oximetery ] Respiratory 16 Rate Blood Pressure 109/69 O2 Sat by Pulse 96 Oximetry Medical Decision Making - Medical Decision Making Patient reevaluated and updated - Radiology Data Radiology results: image reviewed (reDemonstrate compression fracture) Disposition Clinical Impression: Fall, Back contusion Disposition: HOME SELF-CARE Condition: Stable Instructions (If sedation given, give patient instructions): Fall Prevention (ED), Back Pain (ED) Additional Instructions: Please do follow-up with primary care physician in the next day or 2 for recheck. Return for increased pain, weakness, loss of control of bowel or bladder, worsening symptoms or other concerns. Is patient prescribed a controlled substance at d/c from ED?: No Referrals: Leonela Marcelino MD [Primary Care Provider] - 1-2 days Time of Disposition: 13:21
--- NOTE | 2021-12-21 12:46 | XR ---
EXAMINATION TYPE: XR lumbosacral spine 5 views DATE OF EXAM: 12/21/2021 Comparison: 07/04/2021 Clinical History: 66-year-old female fall Findings: Median sternotomy wires. Osteopenia. Leftward truncal shift likely positional. Facet arthropathy thro ughout. Moderate degenerative disc disease L3-L4 and mild throughout the remainder of the lumbar spin e. Redemonstrated vertebral compression collapse of L1 with mild retropulsion into the ventral spinal canal. Moderate vertebral compression collapse of L2 appears relatively similar compared to 10/17/20 21. Suspect some superimposition artifact relating to the density projecting over the anterior aspect of L4. T9 endplate deformities appears to have been present on 10/17/2021 as well. Impression: 1. Previous L1 vertebral compression collapse with mild retropulsion into the ventral spinal canal, u nchanged from 07/04/2021. 2. Moderate vertebral compression deformity of L2 is unchanged from 10/17/2021. 3. T9 endplate deformities present on 10/17/2021 as well. 4. Facet arthropathy throughout. Moderate degenerative disc disease L3-L4.
[2021-12-21] MEDS ORDERED: HYDROmorphone 0.5 MG/0.5 ML SYRINGE IM STA (13:17)
[2021-12-21] MEDS ORDERED: ACET/COD 300 MG/30 MG STARTER PACK 6 TAB BTL PO STA (13:18)
[2021-12-21 13:52] VITALS: BP 108/59; PULSE 92; RESP 18; TEMP 97.9
== END 2021-12-21 13:45 | disposition home or self-care (01) ==
LOC: EC 12:13
DX: S30.0XXA Contusion of lower back and pelvis, initial encounter (principal); I11.0 Hypertensive heart disease with heart failure; I50.9 Heart failure, unspecified; K21.9 Gastro-esophageal reflux disease without esophagitis; M19.90 Unspecified osteoarthritis, unspecified site; J45.909 Unspecified asthma, uncomplicated; I25.10 Atherosclerotic heart disease of native coronary artery without angina pectoris; E07.9 Disorder of thyroid, unspecified; F41.9 Anxiety disorder, unspecified; F32.A Depression, unspecified; F12.90 Cannabis use, unspecified, uncomplicated; Z88.1 Allergy status to other antibiotic agents; Z88.5 Allergy status to narcotic agent; Z87.440 Personal history of urinary (tract) infections; Z90.49 Acquired absence of other specified parts of digestive tract; W18.30XA Fall on same level, unspecified, initial encounter
CPT/HCPCS: 99283; 96372; 72110; J1170

== ENCOUNTER 2022-01-07 12:16 | Emergency (ER) | payer MEDICARE, OTHER ==
[2022-01-07 12:40] VITALS: RESP 16; TEMP 98.2
[2022-01-07] MEDS ORDERED: ONDANSETRON 4 MG/2 ML VIAL IVP STA (12:49)
[2022-01-07] MEDS ORDERED: SODIUM CHLORIDE 0.9% 500 ML 500 ML IV STA (12:49)
[2022-01-07] MEDS ORDERED: HYDROmorphone 0.5 MG/0.5 ML SYRINGE IVP STA (12:49)
[2022-01-07] MEDS ORDERED: SODIUM CHLORIDE 0.9% 1,000 ML IV STA (12:49)
--- NOTE | 2022-01-07 13:09 | ED ---
Nausea/Vomiting/Diarrhea HPI - General Chief complaint: Nausea/Vomiting/Diarrhea Stated complaint: Weakness Source: patient, EMS Mode of arrival: EMS - History of Present Illness Initial comments: This 66-year-old female presents with the complaint of a fall. She states that she vomited yesterday approximately 4 times. She was feeling somewhat weak and fell to the ground upon walking today. She states that she is had problems with falling once 3 years ago and once again this past fall. She states that she obtained a compression fracture and both times. She does complain of some mild paresthesias to her left lower extremity. She denies any other injuries. She denies any diarrhea or fever. She has some mild generalized weakness which seems worse in her legs. She was able to ambulate slightly afterwards with a walker but states that it was more difficult than normal. She denies any abd ominal pain. No head trauma or upper back pain. No other modifying factors. - Related Data Home Medications Medication Instructions Recorded Confirmed Cyclobenzaprine [Flexeril] 10 mg PO HS PRN 10/17/21 10/17/21 DULoxetine HCL [Cymbalta] 60 mg PO DAILY 10/17/21 10/17/21 Ergocalciferol [Vitamin D2 (1250 1,250 mcg PO MO 10/17/21 10/17/21 Mcg = 52143 Iu)] Levothyroxine Sodium [Synthroid] 112 mcg PO DAILY 10/17/21 10/17/21 Meloxicam [Mobic] 7.5 mg PO DAILY PRN 10/17/21 10/17/21 Metoprolol Tartrate [Lopressor] 25 mg PO BID 10/17/21 10/17/21 Montelukast [Singulair] 10 mg PO HS 10/17/21 10/17/21 Ondansetron Odt [Zofran Odt] 4 mg PO Q8HR PRN 10/17/21 10/17/21 QUEtiapine [SEROquel] 50 mg PO HS 10/17/21 10/17/21 hydroCHLOROthiazide [Hydrodiuril] 25 mg PO DAILY PRN 10/17/21 10/17/21 Previous Rx's Medication Instructions Recorded Cephalexin [Keflex] 500 mg PO Q8HR 7 Days #21 cap 10/17/21 HYDROcodone/APAP 5-325MG [[place] 1 - 2 tab PO Q6HR PRN 3 Days #15 01/07/22 5-325] tab Ondansetron [Zofran] 8 mg PO Q8HR PRN #12 tab 01/07/22 Allergies Allergy/AdvReac Type Severity Reaction Status Date / Time azithromycin [From Zithromax] Allergy Rash/Hives Verified 01/07/22 12:40 ketorolac tromethamine Allergy Rash/Hives Verified 01/07/22 12:40 [From Toradol] morphine Allergy Rash/Hives Verified 01/07/22 12:40 prochlorperazine edisylate Allergy Rash/Hives Verified 01/07/22 12:40 [From Compazine] prochlorperazine maleate Allergy Rash/Hives Verified 01/07/22 12:40 [From Compazine] sumatriptan [From Imitrex] Allergy Rash/Hives Verified 01/07/22 12:40 sumatriptan succinate Allergy Rash/Hives Verified 01/07/22 12:40 [From Imitrex] levofloxacin [From Levaquin] AdvReac caused Verified 01/07/22 12:40 abnormal EKG Review of Systems ROS Statement: Those systems with pertinent positive or pertinent negative responses have been documented in the HPI. ROS Other: All systems not noted in ROS Statement are negative. Past Medical History Past Medical History: Asthma, Blood Disorder, Coronary Artery Disease (CAD), Chest Pain / Angina, Heart Failure, GERD/Reflux, Hypertension, Osteoarthritis (OA), Pneumonia, Thyroid Disorder Additional Past Medical History / Comment(s): Chronic gastritis, intermittent recurrent pancreatitis, duodenal stricture, short segment of Finch's esopha merlin, PUD, hiatal hernia, colitis, lower GI bleed, anemia, bronchitis, seasonal allergies, LBBB, arthritis multiple joints, cervical radiculopathy/cervical compression fractures, chronic back pain, scoliosis, past bilateral foot fractures and L hand fracures, uterine fibroids, UTI, hypothyroid History of Any Multi-Drug Resistant Organisms: MRSA Date of last positivie culture/infection: 2008 MDRO Source:: lt axilla Past Surgical History: Appendectomy, Breast Surgery, Cholecystectomy, Tonsillectomy Additional Past Surgical History / Comment(s): Exploratory lap with cholec ystectomy, LEFT TEMPORAL ARTERY BIOPSY, EGD/colonoscopy, L breast bx benign, Past Anesthesia/Blood Transfusion Reactions: Motion Sickness Additional Past Anesthesia/Blood Transfusion Reaction / Comment(s): no prior problems with blood transfusion Past Psychological History: Anxiety, Depression Smoking Status: Never smoker Past Alcohol Use History: None Reported Past Drug Use History: Marijuana - Past Family History Father Family Medical History: Cancer Additional Family Medical History / Comment(s): Father of bladder cancer at age 66yrs. Mother Family Medical History: Congestive Heart Failure (CHF), Rheumatoid Arthritis (RA) Additional Family Medical History / Comment(s): Mother had ASHD and of this at age 68yrs. General Exam - General Exam Comments Initial Comments: GENERAL: The patient is well nourished and well hydrated. VITAL SIGNS: Heart rate, blood pressure, respiratory rate reviewed as recorded i n nurse's notes. EYES: Pupils are round and reactive. Extraocular movements are intact. No conjunctival / lid redness or swelling. ENT: No external evidence of injury, swelling, or ecchymosis. Airway is patent. Throat is clear. NECK: Nontender. No swelling or evidence of injury. No subcutaneous emphysema. Trachea is midline. No thyroid mass. HEART: Regular rate and rhythm. Good peripheral pulses. LUNGS/CHEST: Breath sounds clear and equal bilaterally. No rales, rhonchi, or wheezes. No ecchymosis, subcutaneous emphysema, or tenderness. ABDOMEN: Abdomen soft without tenderness. No palpable masses or organomegaly. No peritoneal signs. No abdominal wall swelling or ecchymosis. EXTREMITIES: No extremity tenderness. Normal muscle tone and function. Strength is intact to upper and lower extremities. Back: There is tenderness noted to the lumbar spine diffusely. NEUROLOGIC: Sensation is grossly intact. Cranial nerve exam reveals face is symmetrical, tongue is midline, speech is clear. SKIN: No abrasions or ecchymosis is noted. No induration or masses noted. PSYCHIATRIC: Alert and oriented. Appropriate behavior and judgment. Course Vital Signs 01/07/22 01/07/22 12:31 15:01 Temperature 98.2 F Pulse Rate 90 90 Respiratory 16 16 Rate Blood Pressure 105/65 109/88 O2 Sat by Pulse 95 96 Oximetry Medical Decision Making - Medical Decision Making The patient is seen and examined. All diagnostics are reviewed. An IV is established and patient is hydrated. She also received 0.5 mg of Dilaudid IV and 4 mg of Zofran. The laboratories reviewed and overall is fairly unremarkable. The CO2 is down to 20 indicating possible mild dehydration. The patient also had a x-ray of the lumbar spine which is consistent with x-ray done 1 month ago. It shows a severe compression fracture with retropulsion of L1. There is also moderate compression fracture of L2. She still states that her pain is fairly significant and is given 1 mg of Dilaudid IV. Morphine and Toradol is avoided due to ALLERGIES. She relates that she has followed up with Dr. Jackman from orthopedic spine surgery in the past but apparently cannot go to him anymore due to insurance reasons and is looking for another orthopedic spine surgeon. Ambulation trial was completed and patient is able to and relate to the bathroom without any significant difficulties. It is felt as though she stable for discharge and will be referred to Dr. Forman. [place] and Zofran prescriptions will be provided. - Lab Data Result diagrams: 01/07/22 13:14 01/07/22 13:14 Lab Results 01/07/22 01/07/22 Range/Units 13:14 13:14 WBC 7.5 (3.8-10.6) k/uL RBC 3.93 (3.80-5.40) m/uL Hgb 12.6 (11.4-16.0) gm/dL Hct 38.0 (34.0-46.0) % MCV 96.5 (80.0-100.0) fL MCH 31.9 (25.0-35.0) pg MCHC 33.1 (31.0-37.0) g/dL RDW 13.8 (11.5-15.5) % Plt Count 273 (150-450) k/uL MPV 6.5 Neutrophils % 70 % Lymphocytes % 15 % Monocytes % 6 % Eosinophils % 8 % Basophils % 1 % Neutrophils # 5.2 (1.3-7.7) k/uL Lymphocytes # 1.1 (1.0-4.8) k/uL Monocytes # 0.4 (0-1.0) k/uL Eosinophils # 0.6 (0-0.7) k/uL Basophils # 0.1 (0-0.2) k/uL Sodium 136 L (137-145) mmol/L Potassium 4.1 (3.5-5.1) mmol/L Chloride 105 (98-107) mmol/L Carbon Dioxide 26 (22-30) mmol/L Anion Gap 5 mmol/L BUN 20 H (7-17) mg/dL Creatinine 0.83 (0.52-1.04) mg/dL Est GFR (CKD-EPI)AfAm 85 (>60 ml/min/1.73 sqM) Est GFR (CKD-EPI)NonAf 74 (>60 ml/min/1.73 sqM) Glucose 106 H (74-99) mg/dL Calcium 8.8 (8.4-10.2) mg/dL Total Bilirubin 0.3 (0.2-1.3) mg/dL AST 27 (14-36) U/L ALT 12 (4-34) U/L Alkaline Phosphatase 83 (38-126) U/L Total Protein 6.8 (6.3-8.2) g/dL Albumin 4.0 (3.5-5.0) g/dL Lipase 80 (23-300) U/L Disposition Clinical Impression: Fall, Acute low back pain, Nausea and vomiting, History of compression fracture of spine, Chronic back pain Disposition: HOME SELF-CARE Condition: Good Instructions (If sedation given, give patient instructions): Acute Nausea and Vomiting (ED), Low Back Strain (ED) Prescriptions: HYDROcodone/APAP 5-325MG [[place] 5-325] 1 - 2 tab PO Q6HR PRN 3 Days #15 tab PRN Reason: Pain Ondansetron [Zofran] 8 mg PO Q8HR PRN #12 tab PRN Reason: Nausea And Vomiting Is patient prescribed a controlled substance at d/c from ED?: Yes When asked, does pt state using other controlled substances?: No If prescribed controlled substance>3 days was MAPS reviewed?: Prescribed <3 Days Referrals: Leonela Marcelino MD [Primary Care Provider] - 1-2 days Seven Forman DO [Doctor of Osteopathic Medicine] - 01/12/22 Time of Disposition: 16:08
[2022-01-07 13:37] LABS: Basophils # (A) 0.1 k/uL (0-0.2); Basophils % (A) 1 %; Eosinophils # (A) 0.6 k/uL (0-0.7); Eosinophils % (A) 8 %; HGB 12.6 gm/dL (11.4-16.0); Lymphocytes # (A) 1.1 k/uL (1.0-4.8); Lymphocytes % (A) 15 %; MCH 31.9 pg (25.0-35.0); MCHC 33.1 g/dL (31.0-37.0); MCV 96.5 fL (80.0-100.0); Mean Platelet Volume 6.5; Monocytes # (A) 0.4 k/uL (0-1.0); Monocytes % (A) 6 %; Neutrophils # (A) 5.2 k/uL (1.3-7.7); Neutrophils % (A) 70 %; Platelet Count 273 k/uL (150-450); RBC 3.93 m/uL (3.80-5.40); RDW 13.8 % (11.5-15.5); WBC 7.5 k/uL (3.8-10.6)
[2022-01-07 13:45] LABS: Calcium 8.8 mg/dL (8.4-10.2); Potassium 4.1 mmol/L (3.5-5.1); Total Bilirubin 0.3 mg/dL (0.2-1.3); Total Protein 6.8 g/dL (6.3-8.2)
--- NOTE | 2022-01-07 14:01 | XR ---
Lumbar spine HISTORY: Fracture. COMPARISON: 12/21/2021 and 01/16/2019 TECHNIQUE: 3 views lumbar spine were obtained. There is a moderate compression fracture of L2 which was present on the prior study dated 01/16/2019 a nd the prior study dated 12/21/2021. There is a severe compression fracture of L1 which was present on 12/21/2021 but not present on the study of 01/16/2019. There is mild to moderate retropulsion secondary to the L1 fracture. There is moderate to marked degenerative disease at the L3-4 level. The sacrum and SI joints appear normal. IMPRESSION: 1. Severe compression fracture of L1 with mild to moderate retropulsion and moderate compression frac ture of L2 both unchanged compared to the prior study dated 12/21/2021.
[2022-01-07] MEDS ORDERED: HYDROmorphone 1 MG/ML 1 ML SYRINGE IVP STA (14:37)
[2022-01-07 16:33] VITALS: BP 124/62; PULSE 83
== END 2022-01-07 16:44 | disposition home or self-care (01) ==
LOC: EC 12:16
DX: R11.2 Nausea with vomiting, unspecified (principal); M54.59 Other low back pain; G89.29 Other chronic pain; I25.10 Atherosclerotic heart disease of native coronary artery without angina pectoris; I11.0 Hypertensive heart disease with heart failure; I50.9 Heart failure, unspecified; K21.9 Gastro-esophageal reflux disease without esophagitis; J45.909 Unspecified asthma, uncomplicated; M19.90 Unspecified osteoarthritis, unspecified site; E07.9 Disorder of thyroid, unspecified; F41.9 Anxiety disorder, unspecified; F32.A Depression, unspecified; F12.90 Cannabis use, unspecified, uncomplicated; Z87.81 Personal history of (healed) traumatic fracture; Z88.1 Allergy status to other antibiotic agents; Z88.5 Allergy status to narcotic agent; Z87.440 Personal history of urinary (tract) infections; Z90.49 Acquired absence of other specified parts of digestive tract
CPT/HCPCS: 99285; 96374; 96375; 96376; 96361 ×3; 36415; 80053; 83690; 85025; 72100; J2405; J1170 ×2

== ENCOUNTER 2022-02-10 13:34 | Emergency (ER) | payer MEDICARE, OTHER ==
[2022-02-10 13:44] VITALS: RESP 18; TEMP 97.9
[2022-02-10] MEDS ORDERED: ORPHENADRINE 30 MG/ML 2 ML VIAL IM STA (13:44)
[2022-02-10] MEDS ORDERED: traMADol 50 MG TAB PO STA (13:44)
--- NOTE | 2022-02-10 13:47 | ED ---
General Adult HPI - General Chief complaint: Fall Stated complaint: Fall Time Seen by Provider: 02/10/22 13:34 Source: patient, EMS, RN notes reviewed, old records reviewed Mode of arrival: EMS - History of Present Illness Initial comments: This is a 66-year-old female who comes in stating she fell backwards and her buttocks and she has soreness on the lower back and mid back she describes on both sides of her spine but not in the center of his spine. Patient denies any numbness or weakness. Patient denies any head trauma or neck pain. Patient denies any other problems at this time. - Related Data Home Medications Medication Instructions Recorded Confirmed Cyclobenzaprine [Flexeril] 10 mg PO DAILY 10/17/21 02/10/22 DULoxetine HCL [Cymbalta] 60 mg PO DAILY 10/17/21 02/10/22 Levothyroxine Sodium [Synthroid] 112 mcg PO DAILY 10/17/21 02/10/22 QUEtiapine [SEROquel] 50 mg PO HS 10/17/21 02/10/22 hydroCHLOROthiazide [Hydrodiuril] 25 mg PO DAILY 10/17/21 02/10/22 Butalb/APAP/Caff 50-325-40Mg 1 tab PO Q4H PRN 02/10/22 02/10/22 [Fioricet 50-325-40] Metoprolol Tartrate [Lopressor] 25 mg PO BID 02/10/22 02/10/22 diphenhydrAMINE [Benadryl] 50 mg PO HS PRN 02/10/22 02/10/22 traZODone HCL [Desyrel] 50 mg PO HS 02/10/22 02/10/22 Allergies Allergy/AdvReac Type Severity Reaction Status Date / Time azithromycin [From Zithromax] Allergy Rash/Hives Verified 02/10/22 14:24 ketorolac tromethamine Allergy Rash/Hives Verified 02/10/22 14:24 [From Toradol] morphine Allergy Rash/Hives Verified 02/10/22 14:24 prochlorperazine edisylate Allergy Rash/Hives Verified 02/10/22 14:24 [From Compazine] prochlorperazine maleate Allergy Rash/Hives Verified 02/10/22 14:24 [From Compazine] sumatriptan [From Imitrex] Allergy Rash/Hives Verified 02/10/22 14:24 sumatriptan succinate Allergy Rash/Hives Verified 02/10/22 14:24 [From Imitrex] levofloxacin [From Levaquin] AdvReac caused Verified 02/10/22 14:24 abnormal EKG Review of Systems ROS Statement: Those systems with pertinent positive or pertinent negative responses have been documented in the HPI. ROS Other: All systems not noted in ROS Statement are negative. Past Medical History Past Medical History: Asthma, Blood Disorder, Coronary Artery Disease (CAD), Chest Pain / Angina, Heart Failure, GERD/Reflux, Hypertension, Osteoarthritis (OA), Pneumonia, Thyroid Disorder Additional Past Medical History / Comment(s): Chronic gastritis, intermittent recurrent pancreatitis, duodenal stricture, short segment of Finch's esophagus, PUD, hiatal hernia, colitis, lower GI bleed, anemia, bronchitis, seasonal allergies, LBBB, arthritis multiple joints, cervical radiculopathy/cervical compression fractures, chronic back pain, scoliosis, past bilateral foot fractures and L hand fracures, uterine fibroids, UTI, hypothyroid History of Any Multi-Drug Resistant Organisms: MRSA Date of last positivie culture/infection: 2008 MDRO Source:: lt axilla Past Surgical History: Appendectomy, Breast Surgery, Cholecystectomy, Tonsillectomy Additional Past Surgical History / Comment(s): Exploratory lap with cholecystectomy, LEFT TEMPORAL ARTERY BIOPSY, EGD/colonoscopy, L breast bx benign, Past Anesthesia/Blood Transfusion Reactions: Motion Sickness Additional Past Anesthesia/Blood Transfusion Reaction / Comment(s): no prior problems with blood transfusion Past Psychological History: Anxiety, Depression Smoking Status: Never smoker Past Alcohol Use History: None Reported Past Drug Use History: Marijuana - Past Family History Father Family Medical History: Cancer Additional Family Medical History / Comment(s): Father of bladder cancer at age 66yrs. Mother Family Medical History: Congestive Heart Failure (CHF), Rheumatoid Arthritis (RA) Additional Family Medical History / Comment(s): Mother had ASHD and of this at age 68yrs. General Exam - General Exam Comments Initial Comments: GENERAL: Patient is well-developed and well-nourished. Patient is nontoxic and well- hydrated and is in mild distress. ENT: Neck is soft and supple. No significant lymphadenopathy is noted. Oropharynx is clear. Moist mucous membranes. Neck has full range of motion without eliciting any pain. EYES: The sclera were anicteric and conjunctiva were pink and moist. Extraocular movements were intact and pupils were equal round and reactive to light. Eyelids were unremarkable. PULMONARY: Unlabored respirations. Good breath sounds bilaterally. No audible rales rhon chi or wheezing was noted. CARDIOVASCULAR: There is a regular rate and rhythm without any murmurs gallops or rubs. ABDOMEN: Soft and nontender with normal bowel sounds. SKIN: Skin is clear with no lesions or rashes and otherwise unremarkable. NEUROLOGIC: Patient is alert and oriented x3. Cranial nerves II through XII are grossly intact. Motor and sensory are also intact. Normal speech, volume and content. Symmetrical smile. Cerebellar exam grossly intact. MUSCULOSKELETAL: Normal extremities with adequate strength and full range of motion. Patient is paraspinal muscle tenderness bilaterally in the distal thoracic and proximal lumbar region LYMPHATICS: No significant lymphadenopathy is noted PSYCHIATRIC: Normal psychiatric evaluation. Course Vital Signs 02/10/22 02/10/22 13:36 15:46 Temperature 97.9 F Pulse Rate 94 83 Respiratory 18 18 Rate Blood Pressure 122/75 101/69 O2 Sat by Pulse 98 97 Oximetry Medical Decision Making - Medical Decision Making Lumbosacral spine showed no acute abnormality showed L1-L2 compression fractures which were unchanged from her previous x-ray. Patient was able to ambulate without problem. Patient was given Norflex for the pain. Every time I offered the patient pain medication she would say she is ALLERGIC to it and didn't want. She Asking for Dilaudid by name. Patient is able to get out of bed seemingly without problem but then she said she was very painful to walk. Patient was then able to turn get back up in bed and swing her legs onto the bed without problem Disposition Clinical Impression: Fall, Chronic lower back pain Disposition: HOME SELF-CARE Instructions (If sedation given, give patient instructions): Fall Prevention for Older Adults (ED), Low Back Strain (ED) Is patient prescribed a controlled substance at d/c from ED?: No Referrals: Leonela Marcelino MD [Primary Care Provider] - 1-2 days Time of Disposition: 14:46
--- NOTE | 2022-02-10 14:16 | XR ---
EXAMINATION TYPE: XR lumbosacral spine min 4V DATE OF EXAM: 02/10/2022 COMPARISON: 01/07/2022 HISTORY: Fall. Back pain TECHNIQUE: 5 views FINDINGS: There is compression fractures of L1 and L2 with up to 50% loss of height. Normal alignment. There is a minimal posterior subluxation of L1. The sacroiliac joints are intact. T here are clips from cholecystectomy. There is osteopenia. There is narrowing and vacuum disc at L3-4. IMPRESSION: Old compression fractures of L1 and L2 without change. No acute fracture seen.
[2022-02-10] MEDS ORDERED: IBUPROFEN 600 MG TAB PO STA (14:58)
[2022-02-10 15:48] VITALS: BP 101/69; PULSE 83
== END 2022-02-10 15:48 | disposition home or self-care (01) ==
LOC: EC 13:34
DX: G89.29 Other chronic pain (principal); M54.50 Low back pain, unspecified; J45.909 Unspecified asthma, uncomplicated; I11.0 Hypertensive heart disease with heart failure; I50.9 Heart failure, unspecified; E03.9 Hypothyroidism, unspecified; I25.10 Atherosclerotic heart disease of native coronary artery without angina pectoris; M19.90 Unspecified osteoarthritis, unspecified site; Z88.1 Allergy status to other antibiotic agents; Z88.8 Allergy status to other drugs, medicaments and biological substances; Z88.6 Allergy status to analgesic agent; Z88.5 Allergy status to narcotic agent; Z79.899 Other long term (current) drug therapy; Z79.890 Hormone replacement therapy; W19.XXXA Unspecified fall, initial encounter
CPT/HCPCS: 72110; 99283; 96372; J2360

== ENCOUNTER 2022-02-10 20:35 | Observation (INO) | payer MEDICARE, OTHER ==
[2022-02-10] MEDS ORDERED: SODIUM CHLORIDE 0.9% 500 ML 500 ML IV STA (21:05)
[2022-02-10] MEDS ORDERED: fentaNYL (PF) 50 MCG/ML 2 ML AMP IVP STA (21:20)
--- NOTE | 2022-02-10 21:54 | ED ---
General Adult HPI - General Chief complaint: Weakness Stated complaint: Weakness Source: patient, EMS, RN notes reviewed, old records reviewed Mode of arrival: EMS - History of Present Illness Initial comments: 66-year-old female presents for reevaluation of increased weakness. Patient was seen in the emergency department earlier with fall onto her tailbone. She states this was mechanical in nature but she has had a difficult time ambulating. She had called paramedics after returning to home for reevaluation. She denies chest pain. Denies fever. Denies abdominal pain. Denies numbness or tingling to the legs. She does report pain in her tailbone from the fall. There was no head injury. - Related Data Home Medications Medication Instructions Recorded Confirmed Cyclobenzaprine [Flexeril] 10 mg PO DAILY 10/17/21 02/10/22 DULoxetine HCL [Cymbalta] 60 mg PO DAILY 10/17/21 02/10/22 Levothyroxine Sodium [Synthroid] 112 mcg PO DAILY 10/17/21 02/10/22 QUEtiapine [SEROquel] 50 mg PO HS 10/17/21 02/10/22 hydroCHLOROthiazide [Hydrodiuril] 25 mg PO DAILY 10/17/21 02/10/22 Butalb/APAP/Caff 50-325-40Mg 1 tab PO Q4H PRN 02/10/22 02/10/22 [Fioricet 50-325-40] Metoprolol Tartrate [Lopressor] 25 mg PO BID 02/10/22 02/10/22 diphenhydrAMINE [Benadryl] 50 mg PO HS PRN 02/10/22 02/10/22 traZODone HCL [Desyrel] 50 mg PO HS 02/10/22 02/10/22 Allergies Allergy/AdvReac Type Severity Reaction Status Date / Time azithromycin [From Zithromax] Allergy Rash/Hives Verified 02/10/22 20:56 ketorolac tromethamine Allergy Rash/Hives Verified 02/10/22 20:56 [From Toradol] morphine Allergy Rash/Hives Verified 02/10/22 20:56 prochlorperazine edisylate Allergy Rash/Hives Verified 02/10/22 20:56 [From Compazine] prochlorperazine maleate Allergy Rash/Hives Verified 02/10/22 20:56 [From Compazine] sumatriptan [From Imitrex] Allergy Rash/Hives Verified 02/10/22 20:56 sumatriptan succinate Allergy Rash/Hives Verified 02/10/22 20:56 [From Imitrex] levofloxacin [From Levaquin] AdvReac caused Verified 02/10/22 20:56 abnormal EKG Review of Systems ROS Statement: Those systems with pertinent positive or pertinent negative responses have been documented in the HPI. ROS Other: All systems not noted in ROS Statement are negative. Past Medical History Past Medical History: Asthma, Blood Disorder, Coronary Artery Disease (CAD), Chest Pain / Angina, Heart Failure, GERD/Reflux, Hypertension, Osteoarthritis (OA), Pneumonia, Thyroid Disorder Additional Past Medical History / Comment(s): Chronic gastritis, intermittent recurrent pancreatitis, duodenal stricture, short segment of Finch's esophagus, PUD, hiatal hernia, colitis, lower GI bleed, anemia, bronchitis, seasonal allergies, LBBB, arthritis multiple joints, cervical r adiculopathy/cervical compression fractures, chronic back pain, scoliosis, past bilateral foot fractures and L hand fracures, uterine fibroids, UTI, hypothyroid History of Any Multi-Drug Resistant Organisms: MRSA Date of last positivie culture/infection: 2008 MDRO Source:: lt axilla Past Surgical History: Appendectomy, Breast Surgery, Cholecystectomy, Tonsillectomy Additional Past Surgical History / Comment(s): Exploratory lap with cholecystectomy, LEFT TEMPORAL ARTERY BIOPSY, EGD/colonoscopy, L breast bx benign, Past Anesthesia/Blood Transfusion Reactions: Motion Sickness Additional Past Anesthesia/Blood Transfusion Reaction / Comment(s): no prior problems with blood transfusion Past Psychological History: Anxiety, Depression Smoking Status: Never smoker Past Alcohol Use History: None Reported Past Drug Use History: Marijuana - Past Family History Father Family Medical History: Cancer Additional Family Medical History / Comment(s): Father of bladder cancer at age 66yrs. Mother Family Medical History: Congestive Heart Failure (CHF), Rheumatoid Arthritis (RA) Additional Family Medical History / Comment(s): Mother had ASHD and of this at age 68yrs. General Exam General appearance: alert, in no apparent distress Head exam: Present: atraumatic, normocephalic Eye exam: Present: normal appearance, PERRL ENT exam: Present: normal exam Neck exam: Present: normal inspection Respiratory exam: Present: normal lung sounds bilaterally. Absent: respiratory distress, wheezes Cardiovascular Exam: Present: regular rate, normal rhythm GI/Abdominal exam: Present: soft. Absent: distended, tenderness, guarding Extremities exam: Present: normal inspection, normal capillary refill. Absent: pedal edema Neurological exam: Present: alert, oriented X3, CN II-XII intact. Absent: motor sensory deficit Psychiatric exam: Present: normal affect, normal mood Skin exam: Present: warm, dry, intact. Absent: cyanosis, diaphoretic Course Vital Signs 02/10/22 02/10/22 20:38 22:53 Temperature 98.4 F Pulse Rate 89 88 Respiratory 18 18 Rate Blood Pressure 103/61 90/61 O2 Sat by Pulse 98 99 Oximetry EKG Findings - EKG Comments: EKG Findings:: EKG: Sinus rhythm rate of 88, MS interval 174, QRS duration 88, QTC 409, no ST segment elevation. Medical Decision Making - Medical Decision Making 66-year-old female presenting for evaluation of increased shows weakness, frequent falls. There has been a 3200 filed on this patient for her current living situation. Patient denies chest pain. Denies abdominal pain. She has a tailbone pain and was seen in the emergency department with x-rays performed just prior to my evaluation. Laboratory studies reveal mild anemia, mild hyponatremia. Urinalysis is pending. Chest x-ray is clear. She will be admitted to internal medicine for dehydration, generalized weakness. - Lab Data Result diagrams: 02/10/22 21:19 02/10/22 21:19 Lab Results 02/10/22 02/10/22 02/10/22 Range/Units 21:19 21:19 21:19 WBC 7.3 (3.8-10.6) k/uL RBC 3.51 L (3.80-5.40) m/uL Hgb 11.2 L (11.4-16.0) gm/dL Hct 33.9 L (34.0-46.0) % MCV 96.6 (80.0-100.0) fL MCH 31.9 (25.0-35.0) pg MCHC 33.0 (31.0-37.0) g/dL RDW 13.5 (11.5-15.5) % Plt Count 236 (150-450) k/uL MPV 7.2 Neutrophils % 64 % Lymphocytes % 18 % Monocytes % 7 % Eosinophils % 8 % Basophils % 2 % Neutrophils # 4.7 (1.3-7.7) k/uL Lymphocytes # 1.3 (1.0-4.8) k/uL Monocytes # 0.5 (0-1.0) k/uL Eosinophils # 0.6 (0-0.7) k/uL Basophils # 0.1 (0-0.2) k/uL PT 9.9 (9.0-12.0) sec INR 0.9 (<1.2) APTT 23.0 (22.0-30.0) sec Sodium 135 L (137-145) mmol/L Potassium 4.9 (3.5-5.1) mmol/L Chloride 108 H (98-107) mmol/L Carbon Dioxide 21 L (22-30) mmol/L Anion Gap 6 mmol/L BUN 24 H (7-17) mg/dL Creatinine 0.91 (0.52-1.04) mg/dL Est GFR (CKD-EPI)AfAm 76 (>60 ml/min/1.73 sqM) Est GFR (CKD-EPI)NonAf 66 (>60 ml/min/1.73 sqM) Glucose 97 (74-99) mg/dL Plasma Lactic Acid Senthil (0.7-2.0) mmol/L Calcium 8.7 (8.4-10.2) mg/dL Magnesium 1.9 (1.6-2.3) mg/dL Total Bilirubin 0.8 (0.2-1.3) mg/dL AST 40 H (14-36) U/L ALT 13 (4-34) U/L Alkaline Phosphatase 66 (38-126) U/L Troponin I (0.000-0.034) ng/mL Total Protein 6.7 (6.3-8.2) g/dL Albumin 3.8 (3.5-5.0) g/dL 02/10/22 02/10/22 Range/Units 21:19 21:19 WBC (3.8-10.6) k/uL RBC (3.80-5.40) m/uL Hgb (11.4-16.0) gm/dL Hct (34.0-46.0) % MCV (80.0-100.0) fL MCH (25.0-35.0) pg MCHC (31.0-37.0) g/dL RDW (11.5-15.5) % Plt Count (150-450) k/uL MPV Neutrophils % % Lymphocytes % % Monocytes % % Eosinophils % % Basophils % % Neutrophils # (1.3-7.7) k/uL Lymphocytes # (1.0-4.8) k/uL Monocytes # (0-1.0) k/uL Eosinophils # (0-0.7) k/uL Basophils # (0-0.2) k/uL PT (9.0-12.0) sec INR (<1.2) APTT (22.0-30.0) sec Sodium (137-145) mmol/L Potassium (3.5-5.1) mmol/L Chloride (98-107) mmol/L Carbon Dioxide (22-30) mmol/L Anion Gap mmol/L BUN (7-17) mg/dL Creatinine (0.52-1.04) mg/dL Est GFR (CKD-EPI)AfAm (>60 ml/min/1.73 sqM) Est GFR (CKD-EPI)NonAf (>60 ml/min/1.73 sqM) Glucose (74-99) mg/dL Plasma Lactic Acid Senthil 0.7 (0.7-2.0) mmol/L Calcium (8.4-10.2) mg/dL Magnesium (1.6-2.3) mg/dL Total Bilirubin (0.2-1.3) mg/dL AST (14-36) U/L ALT (4-34) U/L Alkaline Phosphatase (38-126) U/L Troponin I <0.012 (0.000-0.034) ng/mL Total Protein (6.3-8.2) g/dL Albumin (3.5-5.0) g/dL Disposition Clinical Impression: Fall, Compression fracture of L1 lumbar vertebra, Anemia, Intractable low back pain Disposition: ADMITTED IP TO THIS [facility] Condition: Stable Referrals: Leonela Marcelino MD [Primary Care Provider] - 1-2 days Time of Disposition: 23:27
[2022-02-10 22:03] LABS: Basophils # (A) 0.1 k/uL (0-0.2); Basophils % (A) 2 %; Eosinophils # (A) 0.6 k/uL (0-0.7); Eosinophils % (A) 8 %; HCT 33.9 % (34.0-46.0); HGB 11.2 gm/dL (11.4-16.0); Lymphocytes # (A) 1.3 k/uL (1.0-4.8); Lymphocytes % (A) 18 %; MCH 31.9 pg (25.0-35.0); MCV 96.6 fL (80.0-100.0); Mean Platelet Volume 7.2; Monocytes # (A) 0.5 k/uL (0-1.0); Monocytes % (A) 7 %; Neutrophils # (A) 4.7 k/uL (1.3-7.7); Neutrophils % (A) 64 %; Platelet Count 236 k/uL (150-450); RBC 3.51 m/uL (3.80-5.40); RDW 13.5 % (11.5-15.5); WBC 7.3 k/uL (3.8-10.6)
--- NOTE | 2022-02-10 22:16 | XR ---
EXAMINATION TYPE: XR chest 2V DATE OF EXAM: 02/10/2022 COMPARISON: NONE HISTORY: Fall. Pain TECHNIQUE: 2 views FINDINGS: The heart and mediastinum are normal. Lungs are clear. Diaphragm is normal. Bony thorax serafin ears normal. IMPRESSION: Normal chest.
[2022-02-10 22:18] LABS: INR 0.9 (<1.2); Prothrombin Time 9.9 sec (9.0-12.0)
[2022-02-10 22:20] LABS: Albumin 3.8 g/dL (3.5-5.0); Calcium 8.7 mg/dL (8.4-10.2); Magnesium 1.9 mg/dL (1.6-2.3); Potassium 4.9 mmol/L (3.5-5.1); Total Bilirubin 0.8 mg/dL (0.2-1.3); Total Protein 6.7 g/dL (6.3-8.2)
[2022-02-10] MEDS ORDERED: NALOXONE 0.4 MG/ML 1 ML VIAL IV PRN (23:24)
[2022-02-10] MEDS ORDERED: ACETAMINOPHEN TAB 325 MG TAB PO PRN (23:24)
[2022-02-11] MEDS: SODIUM CHLORIDE 0.9% 1,000 ML IV SCH ×2 (00:56→18:49)
[2022-02-11] MEDS: HYDROmorphone 0.5 MG/0.5 ML SYRINGE IVP PRN ×6 (00:57→20:45)
[2022-02-11 01:25] LABS: Amorphous Sediment,Urine Rare /hpf; Appearance,Urine Cloudy (Clear); Bacteria,Urine Rare /hpf; Bilirubin,Urine Negative (Negative); Blood,Urine Negative (Negative); Color,Urine Yellow; Glucose,Urine (UA) Negative (Negative); Hyaline Casts,Urine 12 /lpf (0-2); Ketones,Urine Negative (Negative); Leukocyte Esterase,Urine Large (Negative); Mucus,Urine Few /hpf; Nitrite,Urine Negative (Negative); PH, Urine 5.5 (5.0-8.0); Protein,Urine Negative (Negative); RBC,Urine 1 /hpf (0-5); Specific Gravity,Urine 1.027 (1.001-1.035); Squamous Epithelial Cell,Urine 3 /hpf (0-4); Urobilinogen,Urine <2.0 mg/dL (<2.0); WBC,Urine 50 /hpf (0-5)
[2022-02-11] MEDS ORDERED: BUTALB/APAP/CAFF 50-325-40MG TAB PO PRN (12:25)
[2022-02-11] MEDS ORDERED: diphenhydrAMINE 50 MG CAP PO PRN (12:25)
--- NOTE | 2022-02-11 12:53 | XR ---
EXAMINATION TYPE: XR knee complete RT DATE OF EXAM: 02/11/2022 CLINICAL HISTORY: pain TECHNIQUE: Three views of the right knee are obtained. COMPARISON: None. FINDINGS: There is no acute fracture/dislocation. The tri-compartment joint spaces appear within no rmal limits. The overlying soft tissue appears unremarkable. IMPRESSION: There is no acute fracture or dislocation.ICD 10 NO FRACTURE, INITIAL EVALUATION
--- NOTE | 2022-02-11 13:56 | P.CNOR ---
History of Present Illness - [facility] Consult date: 02/11/22 Requesting physician: Akbar Harmon Consult reason: other (Inability ambulate and sacral pain status post fall) History of present illness: Patient is a very pleasant 66-year-old female who is known to our service who is seen and examined at the bedside for further evaluation of her lumbosacral spine status post fall. Patient states yesterday, 02/10/2022, she was in her home when she fell for no known reason. She states she was not dizzy and did not trip. She states she fell on her buttocks. Since the fall she has had significant sacral pain which is exacerbated with mobilization. She is not currently expressing any lumbar pain. She was having difficulty with m obilization and increased sacral pain and presented to [facility] for further evaluation. Lumbar x-ray imaging was taken at that time which showed evidence of chronic compression fracture deformities of L1 and L2. Per my review, these compression fracture deformities appear to be present on previous abdomen and pelvis CT imaging taken on 10/17/2021. Patient states she is known to have these lumbar compression fracture deformities. She has been seen in outpatient setting by Dr. Jackman and states she was fitted with an LSO brace for these compression fracture deformities approximately 3 years ago. Following evaluation in the emergency department yesterday, she was discharged home and states she is continuing has significant difficulty with mobility since that time. She states she was crawling around her home and she called EMS to transfer her back to [facility] for further evaluation. She has been admitted to medicine with us on consultation. She does have sacral pain. She states her pain is significant while trying to stand and she has difficulty ambulating due to her sacral pain. She is not experiencing any specific pain at her hips bilaterally. She is not experiencing any groin pain bilaterally. She is not experiencing specific radiculopathy in her bilateral lower extremities but states she does have some numbness just in the toes of the right foot following her fall. She does admit to increased sacral pain with trying to lift her lower extremities. She denies any other injuries at the time of the fall. Her other medical diagnoses include coronary artery disease, heart failure, hypertension, asthma, and thyroid disorder. X-rays of the right knee were taken as well without any significant findings. She is not currently c omplaining of right knee pain at the bedside. Past Medical History Past Medical History: Asthma, Blood Disorder, Coronary Artery Disease (CAD), Chest Pain / Angina, Heart Failure, GERD/Reflux, Hypertension, Osteoarthritis (OA), Pneumonia, Thyroid Disorder Additional Past Medical History / Comment(s): Chronic gastritis, intermittent recurrent pancreatitis, duodenal stricture, short segment of Finch's esophagus, PUD, hiatal hernia, colitis, lower GI bleed, anemia, bronchitis, seasonal allergies, LBBB, arthritis multiple joints, cervical radiculopathy/cervical compression fractures, chronic back pain, scoliosis, past bilateral foot fractures and L hand fracures, uterine fibroids, UTI, hypothyroid History of Any Multi-Drug Resistant Organisms: MRSA Year Discovered:: 2008 MDRO Source:: lt axilla Past Surgical History: Appendectomy, Breast Surgery, Cholecystectomy, Tonsillectomy Additional Past Surgical History / Comment(s): Exploratory lap with cholecystectomy, LEFT TEMPORAL ARTERY BIOPSY, EGD/colonoscopy, L breast bx benign, Past Anesthesia/Blood Transfusion Reactions: Motion Sickness Additional Past Anesthesia/Blood Transfusion Reaction / Comm: no prior problems with blood transfusion Past Psychological History: Anxiety, Depression Additional Psychological History / Comment(s): Pt lives alone. She is independent. She uses roller walker last [address] years[address] but does no own a car. Pt stated hx of depression but current medication maintains her-denies depression at time of admit. States she has had 12 suicide attempts in the years past with OD and once cut her L wrist while hospitalized at [facility]. Pt denies any current or recent thoughts/plans of suicide. Smoking Status: Never smoker Past Alcohol Use History: None Reported Past Drug Use History: Marijuana Additional Drug Use History / Comment(s): Pt states she smoked alittle marijuana in the 1970s. She denies any hx of PDA - Past Family History Father Family Medical History: Cancer Additional Family Medical History / Comment(s): Father of bladder cancer at age 66yrs. Mother Family Medical History: Congestive Heart Failure (CHF), Rheumatoid Arthritis (RA) Additional Family Medical History / Comment(s): Mother had ASHD and of this at age 68yrs. Medications and Allergies Home Medications Medication Instructions Recorded Confirmed Type Cyclobenzaprine [Flexeril] 10 mg PO DAILY 10/17/21 02/10/22 History DULoxetine HCL [Cymbalta] 60 mg PO DAILY 10/17/21 02/10/22 History Levothyroxine Sodium [Synthroid] 112 mcg PO DAILY 10/17/21 02/10/22 History QUEtiapine [SEROquel] 50 mg PO HS 10/17/21 02/10/22 History hydroCHLOROthiazide [Hydrodiuril] 25 mg PO DAILY 10/17/21 02/10/22 History Butalb/APAP/Caff 50-325-40Mg 1 tab PO Q4H PRN 02/10/22 02/10/22 History [Fioricet 50-325-40] Metoprolol Tartrate [Lopressor] 25 mg PO BID 02/10/22 02/10/22 History diphenhydrAMINE [Benadryl] 50 mg PO HS PRN 02/10/22 02/10/22 History traZODone HCL [Desyrel] 50 mg PO HS 02/10/22 02/10/22 History Allergies Allergy/AdvReac Type Severity Reaction Status Date / Time azithromycin [From Zithromax] Allergy Rash/Hives Verified 02/10/22 20:56 ketorolac tromethamine Allergy Rash/Hives Verified 02/10/22 20:56 [From Toradol] morphine Allergy Rash/Hives Verified 02/10/22 20:56 prochlorperazine edisylate Allergy Rash/Hives Verified 02/10/22 20:56 [From Compazine] prochlorperazine maleate Allergy Rash/Hives Verified 02/10/22 20:56 [From Compazine] sumatriptan [From Imitrex] Allergy Rash/Hives Verified 02/10/22 20:56 sumatriptan succinate Allergy Rash/Hives Verified 02/10/22 20:56 [From Imitrex] levofloxacin [From Levaquin] AdvReac caused Verified 02/10/22 20:56 abnormal EKG Physical Examination Osteopathic Statement: *. No significant issues noted on an osteopathic structural exam other than those noted in the History and Physical/Consult. Physical exam: Patient is awake, alert, and oriented 3 Vital signs stable Good chest excursion with deep inspiration and expiration Examination of lumbar spine and sacrum reveals skin is intact with no abrasions, lacerations, or bruises; no erythema, purulence or signs of infection No pain with palpation over the lumbar spine Significant pain with palpation over the sacrum Increased sacral pain with active range of motion of the lower extremities with hip flexion and lifting legs off the bed independently Dorsiflexion, plantarflexion, and extensor hallucis longus positive sustained bilaterally Patient states she has numbness in the toes of the right foot with palpation during physical examination Patellar reflex 2+ bilaterally and Achilles reflexes 1+ bilaterally No lower extremity hyperreflexia bilaterally No signs or symptoms of DVT; no calf pain No pain with internal and external rotation of the hips bilaterally Evidence of tattoo over the right lateral ankle Results Pertinent studies: X-rays of the lumbar spine taken on 02/10/2022: L1 severe wedge compression fracture deformity with near complete height loss anteriorly; L2 wedge compression fracture deformity most significantly at the inferior endplate with approximately 50% height loss; compression fracture deformities of L1 and L2 have remained stable and unchanged as compared to previous abdomen and pelvis CT taken on 10/17/2021; L3-4 significant degenerative disc disease with endplate change; L5-S1 degenerative disc disease X-ray of the right knee taken on 02/11/2022: No fracture or dislocation at the right knee - Labs Labs: Abnormal Lab Results - Last 24 Hours (Table) 02/10/22 02/10/22 02/11/22 Range/Units 21:19 21:19 00:59 RBC 3.51 L (3.80-5.40) m/uL Hgb 11.2 L (11.4-16.0) gm/dL Hct 33.9 L (34.0-46.0) % Sodium 135 L (137-145) mmol/L Chloride 108 H (98-107) mmol/L Carbon Dioxide 21 L (22-30) mmol/L BUN 24 H (7-17) mg/dL AST 40 H (14-36) U/L Urine Appearance Cloudy H (Clear) Ur Leukocyte Esterase Large H (Negative) Urine WBC 50 H (0-5) /hpf Urine WBC Clumps Rare H (None) /hpf Amorphous Sediment Rare H (None) /hpf Urine Bacteria Rare H (None) /hpf Hyaline Casts 12 H (0-2) /lpf Urine Mucus Few H (None) /hpf Microbiology - Last 24 Hours (Table) 02/11/22 00:59 Urine Culture - Preliminary Urine,Voided H & H 02/10/22 Range/Units 21:19 Hgb 11.2 L (11.4-16.0) gm/dL Hct 33.9 L (34.0-46.0) % Coagulation 02/10/22 Range/Units 21:19 INR 0.9 (<1.2) Result Diagrams: 02/10/22 21:19 02/12/22 05:07 Assessment and Plan Assessment: Assessment: Intractable sacral pain status post fall Inability to ambulation and mobilization status post fall Status post mechanical fall L1 and L2 chronic compression fracture deformities Numbness of the right toes without specific radicular pattern status post fall L3-4 significant degenerative disc disease with endplate changes L5-S1 degenerative disc disease Coronary artery disease Heart failure Hypertension Asthma Thyroid disorder I reviewed the above-noted and I reviewed the imaging. There is no obvious fracture and computed tomography scan at the sacrum however the patient continues to have significant pain. We will consider further imaging after reevaluation and exam. (1) Difficulty in walking Current Visit: Yes Status: Acute Code(s): R26.2 - DIFFICULTY IN WALKING, NOT ELSEWHERE CLASSIFIED SNOMED Code(s): 129585943 (2) Sacral pain Current Visit: Yes Status: Acute Code(s): M53.3 - SACROCOCCYGEAL DISORDERS, NOT ELSEWHERE CLASSIFIED SNOMED Code(s): 52340535 (3) Compression fracture of L2 lumbar vertebra Current Visit: Yes Status: Acute Code(s): S32.020A - WEDGE COMPRESSION FRACTURE OF SECOND LUMBAR VERTEBRA, INIT SNOMED Code(s): 51723543461325969 (4) Numbness of right foot Current Visit: Yes Status: Acute Code(s): R20.0 - ANESTHESIA OF SKIN SNOMED Code(s): 169343633 (5) Coronary artery disease Current Visit: Yes Status: Acute Code(s): I25.10 - ATHSCL HEART DISEASE OF [place] CORONARY ARTERY W/O ANG PCTRS SNOMED Code(s): 64111117 (6) Heart failure Current Visit: Yes Status: Acute Code(s): I50.9 - HEART FAILURE, UNSPECIFIED SNOMED Code(s): 88142878 (7) Hypertension Current Visit: Yes Status: Acute Code(s): I10 - ESSENTIAL (PRIMARY) HYPERTENSION SNOMED Code(s): 46926420 (8) Asthma Current Visit: Yes Status: Acute Code(s): J45.909 - UNSPECIFIED ASTHMA, UNCOMPLICATED SNOMED Code(s): 064652870 (9) Thyroid disorder Current Visit: Yes Status: Acute Code(s): E07.9 - DISORDER OF THYROID, UNSPECIFIED SNOMED Code(s): 64974780 (10) Compression fracture of L1 lumbar vertebra Current Visit: Yes Status: Acute Code(s): S32.010A - WEDGE COMPRESSION FRACTURE OF FIRST LUMBAR VERTEBRA, INIT SNOMED Code(s): 577365362 (11) Lumbar degenerative disc disease Current Visit: No Status: Acute Code(s): M51.36 - OTHER INTERVERTEBRAL DISC DEGENERATION, LUMBAR REGION SNOMED Code(s): 25854628 (12) Status post fall Current Visit: No Status: Acute Code(s): Z91.81 - HISTORY OF FALLING S NOMED Code(s): 910188943 Plan: Plan: 1. After reviewing of imaging, physical examination the patient, and further discussion with the patient, we will currently planned to obtain a CT of the pelvis for further evaluation. Patient sustained a fall yesterday, 02/10/2022, and has had significant difficulty with ambulation mobility since that time. She states she has significant sacral pain which is exacerbated with active range of motion of the lower extremities including hip flexion and lifting her legs up. She states when weight-bearing she has significant increased sacral pain. She has been crawling around her house due to her inability to ambulation. Lumbar x-ray imaging did show evidence of degenerative changes most significant at L3-4 and L5-S1. She does have chronic compression fracture deformities of L1 and L2 which have remained stable as compared to previous CT imaging taken of the abdomen and pelvis on 10/17/2021. Patient states she has a history of these known compression fracture deformities and was previously treated in the outpatient setting. Based on her symptoms and physical exam findings, it does not appear her pain is specific to her lumbar spine with previous compression fracture deformities at L1 and L2. Given her mechanical fall onto her buttocks, inability to ambulate, and increased sacral pain, she may have sustained a sacral fracture or other fracture within her pelvis. We will plan to obtain a CT of the pelvis for further evaluation. Patient may remain in bed until following the completion and review of her pelvis CT. Patient has been discussed in detail with Dr. Abiodun Jackman who agrees with this plan. Patient feels this is a good plan of care as well. 2. Patient will continue be seen and examined by medicine for her other medical diagnoses Time with Patient: Greater than 30 (Including obtaining history, physical examination, reviewing of imaging, and dictation.)
--- NOTE | 2022-02-11 14:48 | CT ---
EXAMINATION TYPE: CT pelvis wo con DATE OF EXAM: 02/11/2022 COMPARISON: 10/17/2021 HISTORY: Sacral pain after fall yesterday. Inability to ambulate. CT DLP: 544.5 mGycm Automated exposure control for dose reduction was used. Images obtained from the iliac crests to the subtrochanteric femurs without contrast. The pelvic ring appears intact. Sacroiliac joints are intact. The proximal femurs and hip joints are intact. Hip joint spaces are fairly normal. Coccygeal segments appear intact. The coccyx is intact. No fracture line seen. There is narrowing at the L5-S1 disc space. There is also L3-4 disc space narrowing. No evidence of focal bone destruction. The bladder distends smoothly. There are sigmoid diverticula. No free fluid in the pelvis. No pelvic mass. No evidence of adenopathy. IMPRESSION: No acute abnormality of the pelvis. No fracture seen. Spondylotic changes in the lower lumbar spine. No change compared to old exam.
[2022-02-11] MEDS: LEVOTHYROXINE 112 MCG TAB PO SCH (15:08)
[2022-02-11] MEDS: HEPARIN SODIUM,PORCINE/PF 5,000 UNIT/0.5 ML SYRINGE SQ SCH ×2 (15:13→23:24)
[2022-02-11] MEDS: traZODone HCL 50 MG TAB PO SCH (18:49)
[2022-02-11] MEDS: METOPROLOL TARTRATE 25 MG TAB PO SCH (18:49)
[2022-02-11] MEDS: QUEtiapine 50 MG TAB PO SCH (19:23)
--- NOTE | 2022-02-11 22:47 | P.HPIM ---
History of Present Illness H&P Date: 02/11/22 Chief Complaint: Back pain Patient is a 66-year-old female with a known history of asthma, coronary artery disease, hypertension, osteoarthritis, hypothyroidism, chronic gastritis, history of a duodenal stricture, Finch's esophagus, cervical radiculopathy cervical compression fractures and chronic back pain and history of L1 compression fractures presents to ER with complaints of worsening back pain. Patient states that she fell at home and landed on her tailbone. Since then she has been having right lower extremity tingling sensation and generalized weakness and unable to get out of bed. Patient presented to ER by EMS. Denies any complaints of fever or chills. No complaints of chest pain or shortness of breath. Denies any head injury. Chest x-ray showed normal chest. X-ray of the lumbar spine showed old compression fractures of the L1 and L2 without change. No acute fracture seen. Laboratory data showed WBC 7.3 hemoglobin 11.2 platelets 236 Sodium 135 potassium 4.9 chloride 108 bicarb is 21 BUN 24 and creatinine 0.91 AST 40 ALT 13 alk phos 66 Urinalysis showed cloudy with large leukocyte esterase RBCs 1 WBC is 50. Urine culture was sent. Review of Systems Constitutional: Patient denies any fever or chills . Generalized weakness.. Abdomen: Patient denied nausea vomiting and diarrhea and abdominal pain. Cardiovascular: Patient denies any chest pain or short of breath no palpitations. Respiratory: patient denied any cough is from production. No shortness of breath Neurologic: Patient denied any headache. Right lower extremity tingling sensation. Musculoskeletal: Patient denies any complaints of joint swelling or deformity. Lower back pain. Skin: Negative Psychiatric: Negative Endocrine: No heat or cold intolerance. No recent weight gain. Genitourinary: No dysuria or hematuria. All other 14 point ROS negative except the above Past Medical History Past Medical History: Asthma, Blood Disorder, Coronary Artery Disease (CAD), Chest Pain / Angina, Heart Failure, GERD/Reflux, Hypertension, Osteoarthritis (OA), Pneumonia, Thyroid Disorder Additional Past Medical History / Comment(s): Chronic gastritis, intermittent recurrent pancreatitis, duodenal stricture, short segment of Finch's esophagus, PUD, hiatal hernia, colitis, lower GI bleed, anemia, bronchitis, seasonal allergies, LBBB, arthritis multiple joints, cervical radiculopathy/cervical compression fractures, chronic back pain, scoliosis, past bilateral foot fractures and L hand fracures, uterine fibroids, UTI, hypothyroid History of Any Multi-Drug Resistant Organisms: MRSA Date of last positivie culture/infection: 2008 MDRO Source:: lt axilla Past Surgical History: Appendectomy, Breast Surgery, Cholecystectomy, Tonsillectomy Additional Past Surgical History / Comment(s): Exploratory lap with cholecystectomy, LEFT TEMPORAL ARTERY BIOPSY, EGD/colonoscopy, L breast bx benign, Past Anesthesia/Blood Transfusion Reactions: Motion Sickness Additional Past Anesthesia/Blood Transfusion Reaction / Comment(s): no prior problems with blood transfusion Past Psychological History: Anxiety, Depression Additional Psychological History / Comment(s): Pt lives alone. She is independent. She uses roller walker last [address] years[address] but does no own a car. Pt stated hx of depression but current medication maintains her-denies depression at time of admit. States she has had 12 suicide attempts in the years past with OD and once cut her L wrist while hospitalized at [facility]. Pt denies any current or recent thoughts/plans of suicide. Smoking Status: Never smoker Past Alcohol Use History: None Reported Past Drug Use History: Marijuana Additional Drug Use History / Comment(s): Pt states she smoked alittle marijuana in the 1970s. She denies any hx of PDA - Past Family History Father Family Medical History: Cancer Additional Family Medical History / Comment(s): Father of bladder cancer at age 66yrs. Mother Family Medical History: Congestive Heart Failure (CHF), Rheumatoid Arthritis (RA) Additional Family Medical History / Comment(s): Mother had ASHD and of this at age 68yrs. Medications and Allergies Home Medications Medication Instructions Recorded Confirmed Type Cyclobenzaprine [Flexeril] 10 mg PO DAILY 10/17/21 02/10/22 History DULoxetine HCL [Cymbalta] 60 mg PO DAILY 10/17/21 02/10/22 History Levothyroxine Sodium [Synthroid] 112 mcg PO DAILY 10/17/21 02/10/22 History QUEtiapine [SEROquel] 50 mg PO HS 10/17/21 02/10/22 History hydroCHLOROthiazide [Hydrodiuril] 25 mg PO DAILY 10/17/21 02/10/22 History Butalb/APAP/Caff 50-325-40Mg 1 tab PO Q4H PRN 02/10/22 02/10/22 History [Fioricet 50-325-40] Metoprolol Tartrate [Lopressor] 25 mg PO BID 02/10/22 02/10/22 History diphenhydrAMINE [Benadryl] 50 mg PO HS PRN 02/10/22 02/10/22 History traZODone HCL [Desyrel] 50 mg PO HS 02/10/22 02/10/22 History Allergies Allergy/AdvReac Type Severity Reaction Status Date / Time azithromycin [From Zithromax] Allergy Rash/Hives Verified 02/10/22 20:56 ketorolac tromethamine Allergy Rash/Hives Verified 02/10/22 20:56 [From Toradol] morphine Allergy Rash/Hives Verified 02/10/22 20:56 prochlorperazine edisylate Allergy Rash/Hives Verified 02/10/22 20:56 [From Compazine] prochlorperazine maleate Allergy Rash/Hives Verified 02/10/22 20:56 [From Compazine] sumatriptan [From Imitrex] Allergy Rash/Hives Verified 02/10/22 20:56 sumatriptan succinate Allergy Rash/Hives Verified 02/10/22 20:56 [From Imitrex] levofloxacin [From Levaquin] AdvReac caused Verified 02/10/22 20:56 abnormal EKG Physical Exam Vitals: Vital Signs Temp Pulse Pulse Resp BP BP Pulse Ox 02/11/22 09:32 83 17 02/11/22 07:24 97.7 F 83 17 97/61 100 02/11/22 01:10 98.7 F 83 16 126/82 97 02/11/22 01:01 72 18 110/64 96 02/11/22 00:21 88 18 111/68 96 02/10/22 22:53 88 18 90/61 99 02/10/22 20:38 98.4 F 89 18 103/61 98 Intake and Output 02/10/22 02/11/22 02/11/22 22:59 06:59 14:59 Intake Total 300 Balance 300 Intake: Oral 300 Other: # Voids 2 Weight 81.647 kg 81.647 kg PHYSICAL EXAMINATION: Patient is lying in the bed comfortably, no acute distress, awake alert and oriented.. HEENT: Normocephalic. Neck is supple. Pupils reactive. Nostrils clear. Oral cavity is moist. Neck reveals no JVD, carotid bruits, or thyromegaly. CHEST EXAMINATION: Trachea is central. Symmetrical expansion. Lung chávez clear to auscultation and percussion. CARDIAC: Normal S1, S2 with no gallops. No murmurs ABDOMEN: Soft. Bowel sounds normal. No organomegaly. No abdominal bruits. Extremities: reveal no edema. No clubbing or cyanosis Neurologically awake, alert, oriented x3 with well-coordinated movements. No focal deficits noted Skin: No rash or skin lesions. Psychiatric: Coperative. Nonsuicidal Musculoskeletal: No joint swelling or deformity. Normal range of motion. Results CBC & Chem 7: 02/10/22 21:19 02/12/22 05:07 Labs: Abnormal Lab Results - Last 24 Hours (Table) 02/10/22 02/10/22 02/11/22 Range/Units 21:19 21:19 00:59 RBC 3.51 L (3.80-5.40) m/uL Hgb 11.2 L (11.4-16.0) gm/dL Hct 33.9 L (34.0-46.0) % Sodium 135 L (137-145) mmol/L Chloride 108 H (98-107) mmol/L Carbon Dioxide 21 L (22-30) mmol/L BUN 24 H (7-17) mg/dL AST 40 H (14-36) U/L Urine Appearance Cloudy H (Clear) Ur Leukocyte Esterase Large H (Negative) Urine WBC 50 H (0-5) /hpf Urine WBC Clumps Rare H (None) /hpf Amorphous Sediment Rare H (None) /hpf Urine Bacteria Rare H (None) /hpf Hyaline Casts 12 H (0-2) /lpf Urine Mucus Few H (None) /hpf Microbiology - Last 24 Hours (Table) 02/11/22 00:59 Urine Culture - Preliminary Urine,Voided Thrombosis Risk Factor Assmnt - DVT/VTE Prophylaxis DVT/VTE Prophylaxis: Pharmacologic Prophylaxis ordered Assessment and Plan Assessment: Acute lower back pain and sacral pain status post fall. Right lower extremity tingling sensation. Rule out lumbar radiculopathy. History of the L1 and L2 chronic compression fractures. Hypertension Aspirin Hypothyroidism Coronary disease no history of PCI. Asymptomatic bacteriuria follow-up culture report. Hypovolemic hyponatremia DVT prophylaxis with heparin subcu Plan: Patient will be continued on gentle IV hydration with normal saline and continue pain medications Dilaudid and muscle relaxants. Continue home medications including levothyroxine and Seroquel. X-ray of the knees and also CT pelvis was ordered. Orthopedic surgery has seen the patient. Patient required PT OT and possible may need rehab. Continue to follow closely. Repeat CBC and BMP tomorrow.
[2022-02-12] MEDS: HYDROmorphone 0.5 MG/0.5 ML SYRINGE IVP PRN ×6 (00:52→22:40)
[2022-02-12] MEDS: SODIUM CHLORIDE 0.9% 1,000 ML IV SCH ×2 (02:10→12:34)
[2022-02-12] MEDS: LEVOTHYROXINE 112 MCG TAB PO SCH (05:38)
[2022-02-12] MEDS: CYCLOBENZAPRINE 10 MG TAB PO SCH (07:19)
[2022-02-12] MEDS: METOPROLOL TARTRATE 25 MG TAB PO SCH ×2 (07:20→21:58)
[2022-02-12] MEDS: DULoxetine HCL 60 MG CAPSULE.DR PO SCH (07:20)
[2022-02-12] MEDS: HEPARIN SODIUM,PORCINE/PF 5,000 UNIT/0.5 ML SYRINGE SQ SCH ×2 (07:20→17:02)
[2022-02-12 09:52] LABS: African American GFR (CKD) 77.2 (60.0-200.0); Anion Gap 10.1 mmol/L (10.00-18.00); BUN/Creat Ratio 13.11 Ratio (12.00-20.00); Blood Urea Nitrogen 11.8 mg/dL (9.0-27.0); Calcium 8.3 mg/dL (8.7-10.3); Carbon Dioxide 18.9 mmol/L (20.0-27.5); Non-African American GFR(CKD) 66.6 (60.0-200.0); Potassium 4.1 mmol/L (3.5-5.5)
--- NOTE | 2022-02-12 11:26 | P.PN ---
Progress Note - Text Progress Note Date: 02/12/22 Orthopedic spine: History of present illness: Patient is a very pleasant 66-year-old female who is known to our service who is seen and examined at the bedside for follow-up evaluation of her lumbosacral spine status post fall. Patient states 02/10/2022, she was in her home when she fell for no known reason. She states she was not dizzy and did not trip. She states she fell on her buttocks. Since the fall she has had significant sacral pain which is exacerbated with mobilization. She was having difficulty with mobilization and increased sacral pain and presented to [facility] for further evaluation. Lumbar x-ray imaging was taken at that time which showed evidence of chronic compression fracture deformities of L1 and L2. Per my review, these compression fracture deformities appear to be present on previous abdomen and pelvis CT imaging taken on 10/17/2021. Patient states she is known to have these lumbar compression fracture deformities. She has been seen in outpatient setting by Dr. Jackman and states she was fitted with an LSO brace for these compression fracture deformities approximately 3 years ago. Following evaluation in the emergency department yesterday, she was discharged home and states she is continuing has significant difficulty with mobility since that time. She states she was crawling around her home and she called EMS to transfer her back to [facility] for further evaluation. She has been admitted to medicine with us on consultation. She does have significant sacral pain which is exacerbated with standing and palpation. She states her pain is significant while trying to stand and she has difficulty ambulating due to her sacral pain. She is not experiencing any specific pain at her hips bilaterally. She is not experiencing any groin pain bilaterally. She is not experiencing specific radiculopathy in her bilateral lower extremities but states she does have some numbness just in the toes of the right foot following her fall. She does admit to increased sacral pain with trying to lift her lower extremities. Today she states she is experiencing some mild lumbar pain as well but the pain is not as severe as her sacral pain. She denies any other injuries at the time of the fall. Her other medical diagnoses include coronary artery disease, heart failure, hypertension, asthma, and thyroid disorder. X-rays of the right knee were taken as well without any significant findings. She is not currently complaining of right knee pain at the bedside. Physical exam: Patient is awake, alert, and oriented 3 Vital signs stable Good chest excursion with deep inspiration and expiration Examination of lumbar spine and sacrum reveals skin is intact with no abrasions, lacerations, or bruises; no erythema, purulence or signs of infection Mild pain with palpation over the lumbar spine Significant pain with palpation over the sacrum Increased sacral pain with active range of motion of the lower extremities with hip flexion and lifting legs off the bed independently Increased sacral pain with standing Dorsiflexion, plantarflexion, and extensor hallucis longus positive sustained bilaterally Patient states she has numbness in the toes of the right foot with palpation during physical examination Patellar reflex 2+ bilaterally and Achilles reflexes 1+ bilaterally No lower extremity hyperreflexia bilaterally No signs or symptoms of DVT; no calf pain No pain with internal and external rotation of the hips bilaterally Evidence of tattoo over the right lateral ankle Pertinent studies: CT of the pelvis taken on 02/11/2022: No acute abnormality of the pelvis; no fracture seen; spondylitic change of the lower lumbar spine X-rays of the lumbar spine taken on 02/10/2022: L1 severe wedge compression fracture deformity with near complete height loss anteriorly; L2 wedge compression fracture deformity most significantly at the inferior endplate with approximately 50% height loss; compression fracture deformities of L1 and L2 have remained stable and unchanged as compared to previous abdomen and pelvis CT taken on 10/17/2021; L3-4 significant degenerative disc disease with endplate change; L5-S1 degenerative disc disease X-ray of the right knee taken on 02/11/2022: No fracture or dislocation at the right knee Assessment: Intractable sacral pain status post fall Possible sacral insufficiency fracture Inability to ambulation and mobilization status post fall Status post mechanical fall 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 Patient underwent a CT of the pelvis yesterday without evidence of acute abnormality of the pelvis. This imaging has been reviewed by myself and Dr. Abiodun Jackman. Patient feels she has had some slight improvement compared to yesterday but does continue to have significant difficulty with her mobilization. She was able to stand at the bedside today but did experience increased sacral pain at that time. She is experiencing mild lumbar pain today as well. Patient sustained a fall 02/10/2022, and has had significant difficulty with ambulation mobility since that time. She states she has significant sacral pain which is exacerbated with active range of motion of the lower extremities including hip flexion and lifting her legs up. She states when weight-bearing she has significant increased sacral pain. She has been crawling around her house due to her inability to ambulation. Lumbar x-ray imaging did show evidence of degenerative changes most significant at L3-4 and L5-S1. She does have chronic compression fracture deformities of L1 and L2 which have remained stable as compared to previous CT imaging taken of the abdomen and pelvis on 10/17/2021. Patient states she has a history of these known compression fracture deformities and was previously treated in the outpatient setting. Based on her symptoms and physical exam findings, it does not appear her pain is specific to her lumbar spine with previous compression fracture deformities at L1 and L2. Given her mechanical fall onto her buttocks, inability to ambulate, and increased sacral pain, she may have sustained a sacral fracture or other fracture within her pelvis. CT imaging of the pelvis did not show evidence of acute abnormality of the pelvis. On physical examination today and with her history, she may have sustained a sacral insufficiency fracture. We will plan to obtain an MRI of the pelvis for further evaluation and to rule out sacral insufficiency fracture or other fracture. We will plan to follow up with the patient to discuss her MRI results and further treatment options following the completion and report of her pelvis MRI. Patient may ambulate to the restroom and transferred to a bedside chair. Patient feels this is a good plan of care as well. 2. Patient will continue be seen and examined by medicine for her other medical diagnoses
[2022-02-12] MEDS ORDERED: CALCIUM CARBONATE 500 MG CHEWABLE PO PRN (11:58)
[2022-02-12 12:40] LABS: Basophils # (A) 0.07 X 10*3/uL (0.00-0.10); Basophils % (A) 1.2 %; Eosinophils % (A) 8.3 %; HCT 31.4 % (37.2-46.3); HGB 9.8 g/dL (12.0-15.0); Immature Grans, Automated 0.3 %; Lymphocytes # (A) 1.27 X 10*3/uL (0.90-5.00); Lymphocytes % (A) 21.1 %; MCH 30.8 pg (27.0-32.0); MCHC 31.2 g/dL (32.0-37.0); MCV 98.7 fL (80.0-97.0); Mean Platelet Volume 9.9 fL (9.5-12.2); Monocytes # (A) 0.54 X 10*3/uL (0.20-1.00); NRBC Per 100 WBC 0 /100 WBCS (0.0-0.0); Neutrophils # (A) 3.63 X 10*3/uL (1.80-7.70); Neutrophils % (A) 60.1 %; Platelet Count 215 X 10*3/uL (140-440); RBC 3.18 X 10*6/uL (4.10-5.20); RDW 13.8 % (11.5-14.5); WBC 6.03 X 10*3/uL (4.50-10.00)
[2022-02-12] MEDS ORDERED: LORazepam 2 MG/ML INJ IV STA (13:33)
--- NOTE | 2022-02-12 20:09 | MR ---
MR pelvis without contrast HISTORY: Trauma, difficulty with ambulation Multiplanar multisequence imaging through the pelvis, correlation to CT pelvis dated 02/11/2022 Bone marrow signal is relatively maintained, there is some mild increased signal in T2 and inversion recovery sequences at the level of the SI joint on the right. No evident sacral insufficiency fractur e. There are bilateral hip joint effusions. Fluid signal is present along the gluteus tendons, correl ate for possible tendinosis on the right greater than left, there may be some subcutaneous edema, ecc hymosis. Hamstring musculature shows no evident tear. No free fluid within the pelvis. Uterus within normal limits. Degenerative disc changes noted the lum bosacral junction. Possible granuloma in the left gluteal region, coronal image #17, axial image 1. IMPRESSION: Gluteus tendon partial tear or strain noted on the right and additional findings above
[2022-02-12] MEDS: QUEtiapine 50 MG TAB PO SCH (21:58)
[2022-02-12] MEDS: traZODone HCL 50 MG TAB PO SCH (21:58)
--- NOTE | 2022-02-12 22:58 | P.PN ---
Subjective Progress Note Date: 02/12/22 She complains of significant pain with any movement, painful at rest. States she had to crawl around her house. CT negative for acute fracture. Pelvis MRI performed and showing gluteal tendon tear. Pain is controlled with dilaudid. Objective - Vital Signs Vital signs: Vital Signs Temp 97.5 F L 02/12/22 18:23 Pulse 73 02/12/22 18:23 Resp 15 02/12/22 18:23 BP 96/62 02/12/22 18:23 Pulse Ox 95 02/12/22 18:23 Intake & Output 02/12/22 02/12/22 02/13/22 06:59 18:59 06:59 Output Total 1900 600 Balance -1900 -600 Output: Urine 1900 600 Other: Voiding Method External Catheter - Exam General: well nourished, well developed, NAD. Vitals reviewed Lungs: normal respiratory effort, no wheezes or rales CV: Regular rate and rhythm, no murmur. Peripheral pulses 2+ Abdomen: soft, nondistended, no organomegaly Skin: warm and dry. - Labs CBC & Chem 7: 02/12/22 05:07 02/12/22 05:07 Labs: Abnormal Lab Results - Last 24 Hours (Table) 02/12/22 02/12/22 Range/Units 05:07 05:07 RBC 3.18 L (4.10-5.20) X 10*6/uL Hgb 9.8 L (12.0-15.0) g/dL Hct 31.4 L (37.2-46.3) % MCV 98.7 H (80.0-97.0) fL MCHC 31.2 L (32.0-37.0) g/dL Eosinophils # 0.50 H (0.04-0.35) X 10*3/uL Carbon Dioxide 18.9 L (20.0-27.5) mmol/L Calcium 8.3 L (8.7-10.3) mg/dL Microbiology - Last 24 Hours (Table) 02/11/22 00:59 Urine Culture - Final Urine,Voided Assessment and Plan Plan: Continue with pain control, gentle mobilization. PT, OT, case management consulted. Anticipate need for DEANA
[2022-02-13] MEDS: HEPARIN SODIUM,PORCINE/PF 5,000 UNIT/0.5 ML SYRINGE SQ SCH ×2 (00:43→08:22)
[2022-02-13] MEDS: HYDROmorphone 0.5 MG/0.5 ML SYRINGE IVP PRN ×3 (02:35→08:22)
[2022-02-13] MEDS: SODIUM CHLORIDE 0.9% 1,000 ML IV SCH (05:31)
[2022-02-13] MEDS: LEVOTHYROXINE 112 MCG TAB PO SCH (05:31)
[2022-02-13 08:15] LABS: Basophils # (A) 0.1 k/uL (0-0.2); Basophils % (A) 1 %; Eosinophils # (A) 0.4 k/uL (0-0.7); Eosinophils % (A) 8 %; HCT 32.7 % (34.0-46.0); HGB 10.5 gm/dL (11.4-16.0); Hypochromasia Slight; Lymphocytes % (A) 19 %; MCV 99.9 fL (80.0-100.0); Mean Platelet Volume 7.5; Monocytes # (A) 0.3 k/uL (0-1.0); Monocytes % (A) 6 %; Neutrophils # (A) 3.4 k/uL (1.3-7.7); Neutrophils % (A) 63 %; Platelet Count 218 k/uL (150-450); RBC 3.27 m/uL (3.80-5.40); RDW 13.7 % (11.5-15.5); WBC 5.3 k/uL (3.8-10.6)
[2022-02-13] MEDS: CYCLOBENZAPRINE 10 MG TAB PO SCH (08:22)
[2022-02-13] MEDS: METOPROLOL TARTRATE 25 MG TAB PO SCH (08:22)
[2022-02-13] MEDS: DULoxetine HCL 60 MG CAPSULE.DR PO SCH (08:22)
[2022-02-13 08:27] LABS: African American GFR (CKD) >90 (>60 ml/min/1.73 sqM); Anion Gap 5 mmol/L; Blood Urea Nitrogen 11 mg/dL (7-17); Calcium 8.4 mg/dL (8.4-10.2); Carbon Dioxide 23 mmol/L (22-30); Chloride 108 mmol/L (98-107); Glucose 90 mg/dL (74-99); Non-African American GFR(CKD) 89 (>60 ml/min/1.73 sqM); Potassium 4.6 mmol/L (3.5-5.1); Sodium 136 mmol/L (137-145)
[2022-02-13 08:44] VITALS: BP 92/56; PULSE 71; RESP 17; TEMP 97.9
--- NOTE | 2022-02-13 09:10 | P.PN ---
Progress Note - Text Progress Note Date: 02/13/22 Orthopedic spine: History of present illness: Patient is a very pleasant 66-year-old female who is known to our service who is seen and examined at the bedside for follow-up evaluation of her lumbosacral spine status post fall. Patient states 02/10/2022, she was in her home when she fell for no known reason. She states she was not dizzy and did not trip. She states she fell on her buttocks. Since the fall she has had significant sacral pain which is exacerbated with mobilization. She was having difficulty with mobilization and increased sacral pain and presented to [facility] for further evaluation. Lumbar x-ray imaging was taken at that time which showed evidence of chronic compression fracture deformities of L1 and L2. Per my review, these compression fracture deformities appear to be present on previous abdomen and pelvis CT imaging taken on 10/17/2021. Patient states she is known to have these lumbar compression fracture deformities. She has been seen in outpatient setting by Dr. Jackman and states she was fitted with an LSO brace for these compression fracture deformities approximately 3 years ago. Following evaluation in the emergency department yesterday, she was discharged home and states she is continuing has significant difficulty with mobility since that time. She states she was crawling around her home and she called EMS to transfer her back to [facility] for further evaluation. She has been admitted to medicine with us on consultation. She does have significant sacral pain which is exacerbated with standing and palpation. She states her pain is significant while trying to stand and she has difficulty ambulating due to her sacral pain. She is not experiencing any specific pain at her hips bilaterally. She is not experiencing any groin pain bilaterally. She is not experiencing specific radiculopathy in her bilateral lower extremities but states she does have some numbness just in the toes of the right foot following her fall and continues to be present. She does admit to increased sacral pain with trying to lift her lower extremities. She denies any other injuries at the time of the fall. She has had some improvement of her sacral pain, which is more significant on the right, today as compared to yesterday. Previous pelvis CT imaging was negative for fracture. She underwent MRI of the pelvis yesterday which did not show evidence of sacral insufficiency fracture. The MRI of the pelvis did show gluteus tendon partial tear or strain noted on the right. Patient is discussed at the bedside with medicine who is planning for the patien t to work with physical therapy today. Patient could possibly discharge tomorrow depending on her progress. Physical exam: Patient is awake, alert, and oriented 3 Vital signs stable Good chest excursion with deep inspiration and expiration Mild pain with palpation over the lumbar spine Significant pain with palpation over the sacrum Increased sacral pain with active range of motion of the lower extremities with hip flexion and lifting legs off the bed independently Increased sacral pain with standing Dorsiflexion, plantarflexion, and extensor hallucis longus positive sustained bilaterally Patient states she has numbness in the toes of the right foot with palpation during physical examination Patellar reflex 2+ bilaterally and Achilles reflexes 1+ bilaterally No lower extremity hyperreflexia bilaterally No signs or symptoms of DVT; no calf pain No pain with internal and external rotation of the hips bilaterally Evidence of tattoo over the right lateral ankle Pertinent studies: MRI of the pelvis taken on 02/12/2022: Gluteus tendon partial tear or strain noted on the right; no evidence of sacral insufficiency fracture; bilateral hip joint effusion CT of the pelvis taken on 02/11/2022: No acute abnormality of the pelvis; no fracture seen; spondylitic change of the lower lumbar spine X-rays of the lumbar spine taken on 02/10/2022: L1 severe wedge compression fracture deformity with near complete height loss anteriorly; L2 wedge compression fracture deformity most significantly at the inferior endplate with approximately 50% height loss; compression fracture deformities of L1 and L2 have remained stable and unchanged as compared to previous abdomen and pelvis CT taken on 10/17/2021; L3-4 significant degenerative disc disease with endplate change; L5-S1 degenerative disc disease X-ray of the right knee taken on 02/11/2022: No fracture or dislocation at the right knee Assessment: Intractable sacral pain status post fall Right gluteal tendon partial tear or strain Inability to ambulation and mobilization status post fall Status post mechanical fall 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 Patient sustained a fall 02/10/2022, and has had significant difficulty with ambulation mobility since that time. She states she has significant sacral pain which is exacerbated with active range of motion of the lower extremities including hip flexion and lifting her legs up. She states when weight-bearing she has significant increased sacral pain. She has been crawling around her house due to her inability to ambulation. Lumbar x-ray imaging did show evidence of degenerative changes most significant at L3-4 and L5-S1. She does have chronic compression fracture deformities of L1 and L2 which have remained stable as compared to previous CT imaging taken of the abdomen and pelvis on 10/17/2021. Patient states she has a history of these known compression fracture deformities and was previously treated in the out patient setting. Based on her symptoms and physical exam findings, it does not appear her pain is specific to her lumbar spine with previous compression fracture deformities at L1 and L2. Given her mechanical fall onto her buttocks, inability to ambulate, and increased sacral pain, we obtained further imaging with CT and MRI of the pelvis to rule out fracture. Patient underwent a CT of the pelvis Saturday without evidence of acute abnormality of the pelvis. She underwent pelvis MRI imaging yesterday to rule out sacral insufficiency fracture and the MRI did not show evidence of fracture. The pelvis MRI did show evidence of a right gluteal tendon partial tear or strain. This could also correlate with the patient's symptoms. She does continue have some difficulty with ambulation mobilization feels her pain is better controlled today. We did discuss her MRI results and CT results in detail. We did not see evidence of acute fracture following MRI and CT imaging of the pelvis. We did discuss at this time she may weight-bear as tolerated on the bilateral lower extremities. She is encouraged to work in physical therapy to increase her mobility and ambulation. Patient has been discussed in detail with medicine who is planning for the patient to work with physical therapy today. Patient feels this is a good plan of care as well. We did discuss patient is clear for discharge from an orthopedic spine standpoint. We will plan to have the patient follow-up with Christiano Roberson PA-C or Dr. Abiodun Jackman at [facility] in 2-3 weeks following discharge. 2. Patient will continue be seen and examined by medicine for her other medical diagnoses 3. Continue pain control medications as prescribed
[2022-02-13] MEDS ORDERED: HYDROcodone/APAP 5-325MG 1 EACH TAB PO PRN (12:59)
--- NOTE | 2022-02-13 12:59 | P.DS ---
Providers Date of admission: 02/10/22 23:24 Expected date of discharge: 02/13/22 Attending physician: Darian Canales MD Consults: 02/11/22 12:28 Consult Physician Routine Consulting Provider: Wander Jackman Consult Reason/Comments: Back pain and right lower extremity tingling sensation. Do you want consulting provider notified?: Yes Primary care physician: [facility] Course: Final diagnoses Right gluteal tendon repair, status post fall with residual intractable sacral pain L1 and L2 chronic compression fracture deformities Degenerative disc disease CAD Hypothyroidism This is 66-year-old female admitted status post fall with with significant back pain exacerbated with any movement, painful at rest;reported she had to crawl around her house.CT negative for acute fracture. Pelvis MRI performed and reported right gluteal tendon tear. Pain management converted to [place] and continues on Flexeril. Evaluated by orthopedic spine recommending conservative management. Patient will be discharged to [facility] subacute rehab today in a stable condition with guarded prognosis. - Exam General: well nourished, well developed, NAD. Vitals reviewed Lungs: normal respiratory effort, no wheezes or rales CV: Regular rate and rhythm, no murmur. Peripheral pulses 2+ Abdomen: soft, nondistended, no organomegaly Skin: warm and dry. The impression and plan of care has been dictated as directed. : I performed a history and examination of this patient, discussed the same with the dictator. I agree with the dictator's note ,documented as a scribe. Any additional findings or plans will be noted. Patient Condition at Discharge: Stable Plan - Discharge Summary Discharge Rx Participant: No New Discharge Prescriptions: New Acetaminophen Tab [Tylenol] 650 mg PO Q6HR PRN tab PRN Reason: Mild Pain Or Fever > 100.5 HYDROcodone/APAP 5-325MG [[place] 5-325] 1 tab PO Q6HR PRN 3 Days #12 tab PRN Reason: Pain Continue diphenhydrAMINE [Benadryl] 50 mg PO HS PRN PRN Reason: Itching Butalb/APAP/Caff 50-325-40Mg [Fioricet 50-325-40] 1 tab PO Q4H PRN #12 tab PRN Reason: Migraine Headache QUEtiapine [SEROquel] 50 mg PO HS Levothyroxine Sodium [Synthroid] 112 mcg PO DAILY DULoxetine HCL [Cymbalta] 60 mg PO DAILY Cyclobenzaprine [Flexeril] 10 mg PO DAILY traZODone HCL [Desyrel] 50 mg PO HS Metoprolol Tartrate [Lopressor] 25 mg PO BID Discontinued hydroCHLOROthiazide [Hydrodiuril] 25 mg PO DAILY Discharge Medication List Cyclobenzaprine [Flexeril] 10 mg PO DAILY 10/17/21 [History] DULoxetine HCL [Cymbalta] 60 mg PO DAILY 10/17/21 [History] Levothyroxine Sodium [Synthroid] 112 mcg PO DAILY 10/17/21 [History] QUEtiapine [SEROquel] 50 mg PO HS 10/17/21 [History] Metoprolol Tartrate [Lopressor] 25 mg PO BID 02/10/22 [History] diphenhydrAMINE [Benadryl] 50 mg PO HS PRN 02/10/22 [History] traZODone HCL [Desyrel] 50 mg PO HS 02/10/22 [History] Acetaminophen Tab [Tylenol] 650 mg PO Q6HR PRN tab 02/13/22 [Rx] Butalb/APAP/Caff 50-325-40Mg [Fioricet 50-325-40] 1 tab PO Q4H PRN #12 tab 02/13/22 [Rx] HYDROcodone/APAP 5-325MG [[place] 5-325] 1 tab PO Q6HR PRN 3 Days #12 tab 02/13/22 [Rx] Follow up Appointment(s)/Referral(s): Christiano Roberson PAC [PHYSICIAN TOOL ADJUSTER] - 2 Weeks (Patient may follow-up with Christiano Roberson PA-C or Dr. Abiodun Jackman at [facility] in 2-3 weeks following discharge. ) Tyra lynn [facility] [place], [NON-STAFF] - As Needed Leonela Marcelino MD [Primary Care Provider] - 1 Week (After discharge from subacute rehab) Activity/Diet/Wound Care/Special Instructions: Tyra BRITTON, BMP in 3 days 1. Patient may weight-bear as tolerated on the bilateral lower extremities 2. Patient is encouraged to work with physical therapy to increase her mobility and ambulation 3. Patient may utilize her walker to aid in ambulation as needed; she uses a walker in the outpatient setting and currently has it present at the bedside Discharge Disposition: TRANSFER TO SNF/ECF
== END 2022-02-13 17:16 | disposition home or self-care (01) ==
LOC: EC 20:35 → 4SSUR 23:24
PROVIDERS: ADMIT Family Medicine; ATTEND Family Medicine
DX: S39.013A Strain of muscle, fascia and tendon of pelvis, initial encounter (principal); M48.56XA Collapsed vertebra, not elsewhere classified, lumbar region, initial encounter for fracture; R53.1 Weakness; D64.9 Anemia, unspecified; E86.0 Dehydration; R29.6 Repeated falls; M53.3 Sacrococcygeal disorders, not elsewhere classified; M51.36 Other intervertebral disc degeneration, lumbar region; M41.9 Scoliosis, unspecified; M54.12 Radiculopathy, cervical region; I25.10 Atherosclerotic heart disease of native coronary artery without angina pectoris; R20.0 Anesthesia of skin; R20.2 Paresthesia of skin; E03.9 Hypothyroidism, unspecified; W18.30XA Fall on same level, unspecified, initial encounter; Y92.009 Unspecified place in unspecified non-institutional (private) residence as the place of occurrence of the external cause; I11.0 Hypertensive heart disease with heart failure; W19.XXXA Unspecified fall, initial encounter; F32.A Depression, unspecified; M19.90 Unspecified osteoarthritis, unspecified site; F41.9 Anxiety disorder, unspecified; J45.909 Unspecified asthma, uncomplicated; K21.9 Gastro-esophageal reflux disease without esophagitis; G89.29 Other chronic pain; I44.7 Left bundle-branch block, unspecified; K22.70 Barrett's esophagus without dysplasia; E87.1 Hypo-osmolality and hyponatremia; K44.9 Diaphragmatic hernia without obstruction or gangrene; D25.9 Leiomyoma of uterus, unspecified; K31.5 Obstruction of duodenum; Z79.890 Hormone replacement therapy; Z79.899 Other long term (current) drug therapy; Z88.5 Allergy status to narcotic agent; Z88.1 Allergy status to other antibiotic agents; Z88.6 Allergy status to analgesic agent; Z88.8 Allergy status to other drugs, medicaments and biological substances; Z86.14 Personal history of Methicillin resistant Staphylococcus aureus infection; Z87.01 Personal history of pneumonia (recurrent); Z87.440 Personal history of urinary (tract) infections; Z90.49 Acquired absence of other specified parts of digestive tract; Z87.11 Personal history of peptic ulcer disease; Z87.891 Personal history of nicotine dependence; Z91.51 Personal history of suicidal behavior; Z82.49 Family history of ischemic heart disease and other diseases of the circulatory system; Z80.52 Family history of malignant neoplasm of bladder
CPT/HCPCS: 96376 ×3; 96361 ×4; 96372 ×4; 96375 ×2; 96374; 99283; 99285; 36415; 93005; 97116; 97162; 97166; 36410; 76937; 80053; 80048 ×2; 83605; 83735; 84484; 85025 ×3; 85610; 85730; 81001; 87086; 72110; 73562; 71046; 72192; 72195; G0378 ×4; J2060; J2360; J3010; J1170 ×3; J1644 ×3

== ENCOUNTER 2022-02-22 21:11 | Emergency (ER) | payer MEDICARE, OTHER ==
[2022-02-22 21:21] VITALS: TEMP 98
[2022-02-22] MEDS ORDERED: ACET/COD 300 MG/30 MG STARTER PACK 6 TAB BTL PO STA (21:28)
[2022-02-22] MEDS ORDERED: ONDANSETRON 4 MG ODT STARTER PACK 2 TAB BTL PO STA (21:28)
[2022-02-22] MEDS ORDERED: HYDROmorphone 1 MG/ML 1 ML SYRINGE IM STA (21:28)
--- NOTE | 2022-02-22 21:33 | ED ---
Back Pain HPI - General Chief Complaint: Back Pain/Injury Stated Complaint: Back Pain Time Seen by Provider: 02/22/22 21:15 Source: EMS, RN notes reviewed, old records reviewed Mode of arrival: EMS Limitations: no limitations - History of Present Illness Initial Comments: This is a 66-year-old female to the ER for evaluation. Patient presents today for evaluation regards to back pain. His acute on chronic back pain for this patient. She did slip off a couch today. No new trauma. No loss of bowel or bladder. Patient is not on any pain medications at home she is still nauseous. No new complaints his CHRONIC PAIN. MD Complaint: back pain, back injury -: hour(s) Similar Symptoms Previously: Yes Place: home Radiation: none Severity: moderate Severity scale (1-10): 4 Quality: sharp Consistency: constant Improves With: none Worsens With: none Context: fall Associated Symptoms: denies other symptoms Treatments Prior to Arrival: NSAIDS, acetaminophen - Related Data Home Medications Medication Instructions Recorded Confirmed Cyclobenzaprine [Flexeril] 10 mg PO DAILY 10/17/21 02/10/22 DULoxetine HCL [Cymbalta] 60 mg PO DAILY 10/17/21 02/10/22 Levothyroxine Sodium [Synthroid] 112 mcg PO DAILY 10/17/21 02/10/22 QUEtiapine [SEROquel] 50 mg PO HS 10/17/21 02/10/22 Metoprolol Tartrate [Lopressor] 25 mg PO BID 02/10/22 02/10/22 diphenhydrAMINE [Benadryl] 50 mg PO HS PRN 02/10/22 02/10/22 traZODone HCL [Desyrel] 50 mg PO HS 02/10/22 02/10/22 Previous Rx's Medication Instructions Recorded Acetaminophen Tab [Tylenol] 650 mg PO Q6HR PRN tab 02/13/22 Butalb/APAP/Caff 50-325-40Mg 1 each PO Q4H PRN tab 02/13/22 [Fioricet 50-325-40] HYDROcodone/APAP 5-325MG [[place] 1 each PO Q6HR PRN 3 Days #12 tab 02/13/22 5-325] Allergies Allergy/AdvReac Type Severity Reaction Status Date / Time azithromycin [From Zithromax] Allergy Rash/Hives Verified 02/22/22 21:20 ketorolac tromethamine Allergy Rash/Hives Verified 02/22/22 21:20 [From Toradol] morphine Allergy Rash/Hives Verified 02/22/22 21:20 prochlorperazine edisylate Allergy Rash/Hives Verified 02/22/22 21:20 [From Compazine] prochlorperazine maleate Allergy Rash/Hives Verified 02/22/22 21:20 [From Compazine] sumatriptan [From Imitrex] Allergy Rash/Hives Verified 02/22/22 21:20 sumatriptan succinate Allergy Rash/Hives Verified 02/22/22 21:20 [From Imitrex] levofloxacin [From Levaquin] AdvReac caused Verified 02/22/22 21:20 abnormal EKG Review of Systems ROS Statement: Those systems with pertinent positive or pertinent negative responses have been documented in the HPI. ROS Other: All systems not noted in ROS Statement are negative. Past Medical History Past Medical History: Asthma, Blood Disorder, Coronary Artery Disease (CAD), Chest Pain / Angina, Heart Failure, GERD/Reflux, Hypertension, Osteoarthritis (OA), Pneumonia, Thyroid Disorder Additional Past Medical History / Comment(s): Chronic gastritis, intermittent recurrent pancreatitis, duodenal stricture, short segment of Ifnch's esophagus, PUD, hiatal hernia, colitis, lower GI bleed, anemia, bronchitis, seasonal allergies, LBBB, arthritis multiple joints, cervical radiculopathy/cervical compression fractures, chronic back pain, scoliosis, past bilateral foot fractures and L hand fracures, uterine fibroids, UTI, hypothyroid, sacral fracture 12/2021 History of Any Multi-Drug Resistant Organisms: MRSA Date of last positivie culture/infection: 2008 MDRO Source:: lt axilla Past Surgical History: Appendectomy, Breast Surgery, Cholecystectomy, Tonsillectomy Additional Past Surgical History / Comment(s): Exploratory lap with cholecystectomy, LEFT TEMPORAL ARTERY BIOPSY, EGD/colonoscopy, L breast bx benign, Past Anesthesia/Blood Transfusion Reactions: Motion Sickness Additional Past Anesthesia/Blood Transfusion Reaction / Comment(s): no prior problems with blood transfusion Past Psychological History: Anxiety, Depression Smoking Status: Never smoker Past Alcohol Use History: None Reported Past Drug Use History: Marijuana - Past Family History Father Family Medical History: Cancer Additional Family Medical History / Comment(s): Father of bladder cancer at age 66yrs. Mother Family Medical History: Congestive Heart Failure (CHF), Rheumatoid Arthritis (RA) Additional Family Medical History / Comment(s): Mother had ASHD and of this at age 68yrs. General Exam General appearance: alert, in no apparent distress Head exam: Present: atraumatic, normocephalic, normal inspection Eye exam: Present: normal appearance, PERRL, EOMI. Absent: scleral icterus, conjunctival injection, periorbital swelling ENT exam: Present: normal exam, mucous membranes moist Neck exam: Present: normal inspection. Absent: tenderness, meningismus, lymphadenopathy Respiratory exam: Present: normal lung sounds bilaterally. Absent: respiratory distress, wheezes, rales, rhonchi, stridor Cardiovascular Exam: Present: regular rate, normal rhythm, normal heart sounds. Absent: systolic murmur, diastolic murmur, rubs, gallop, clicks GI/Abdominal exam: Present: soft, normal bowel sounds. Absent: distended, tenderness, guarding, rebound, rigid Extremities exam: Present: normal inspection, full ROM, normal capillary refill. Absent: tenderness, pedal edema, joint swelling, calf tenderness Back exam: Present: tenderness Neurological exam: Present: alert, oriented X3, CN II-XII intact Psychiatric exam: Present: normal affect, normal mood Skin exam: Present: warm, dry, intact, normal color. Absent: rash Course Vital Signs 02/22/22 21:17 Temperature 98 F Pulse Rate 90 Respiratory 19 Rate Blood Pressure 100/77 O2 Sat by Pulse 98 Oximetry - Reevaluation(s) Reevaluation #1: 02/22/22 21:32 Medical record is reviewed Reevaluation #2: 02/22/22 21:32 Patient symptoms are improved Reevaluation #3: 02/22/22 21:32 Patient is informed of results here in the ER, questions answered Medical Decision Making - Medical Decision Making 66 female to the emergency department for evaluation of acute on chronic back pain. Mild pain here in the ER with nausea. Pain is improved patient feels improved and can be discharged home Disposition Clinical Impression: Chronic lower back pain, Fall, Nausea & vomiting Disposition: HOME SELF-CARE Condition: Good Instructions (If sedation given, give patient instructions): Acute Low Back Pain (ED) Is patient prescribed a controlled substance at d/c from ED?: No Referrals: Leonela Marcelino MD [Primary Care Provider] - 1-2 days
[2022-02-23] MEDS ORDERED: HYDROmorphone 1 MG/ML 1 ML SYRINGE IM STA (00:20)
[2022-02-23 00:58] VITALS: BP 102/74; PULSE 92; RESP 18
== END 2022-02-23 00:35 | disposition home or self-care (01) ==
LOC: EC 21:11
DX: M54.50 Low back pain, unspecified (principal); G89.29 Other chronic pain; F41.9 Anxiety disorder, unspecified; F32.A Depression, unspecified; K21.9 Gastro-esophageal reflux disease without esophagitis; J45.909 Unspecified asthma, uncomplicated; F12.90 Cannabis use, unspecified, uncomplicated
CPT/HCPCS: 96372 ×4; 99283; 99284; J1170 ×2; S0119; J1790

== ENCOUNTER 2022-03-24 18:15 | Emergency (ER) | payer MEDICARE, OTHER ==
[2022-03-24 18:22] VITALS: TEMP 98.2
[2022-03-24] MEDS ORDERED: HYDROmorphone 0.5 MG/0.5 ML SYRINGE IVP STA (18:34)
--- NOTE | 2022-03-24 18:36 | ED ---
General Adult HPI - General Chief complaint: Fall Stated complaint: Fall Time Seen by Provider: 03/24/22 18:16 Source: patient, EMS Mode of arrival: EMS Limitations: no limitations - History of Present Illness Initial comments: Dictation was produced using [employer] dictation software. please excuse any grammatical, word or spelling errors. Chief Complaint: 66-year-old male presents to the emergency department for back pain after fall History of Present Illness: Patient is a 66-year-old female she has past medical history of lumbar and sacral fractures. Patient states one hour prior to arrival she was sitting on the toilet. She tried to get up and slid off the toilet. She landed on her bottom. It then occurred proximal to 1 hour prior to arrival. Patient states that the fall caused her to have lower back pain. Patient states she has chronic lower back pain at approximately the L4-L5 level. Today's fall she states that the pain was slightly higher and midline. Denies any saddle anesthesia. She has no known neurologic issues to the lower extremities. Patient was told to stand up. She called EMS and was brought to the emergency room. The ROS documented in this emergency department record has been reviewed and confirmed by me. Those systems with pertinent positive or negative responses have been documented in the HPI. All other systems are other negative and/or noncontributory. PHYSICAL EXAM: General Impression: Alert and oriented x3, not in acute distress HEENT: Normocephalic atraumatic, extra-ocular movements intact, pupils equal and reactive to light bilaterally, mucous membranes moist. Cardiovascular: Heart regular rate and rhythm Chest: Able to complete full sentences, no retractions, no tachypnea Abdomen: abdomen soft, non-tender, non-distended, no organomegaly Musculoskeletal: Pulses present and equal in all extremities, no peripheral edema Motor: no focal deficits noted Neurological: CN II-XII grossly intact, no focal motor or sensory deficits noted Skin: Intact with no visualized rashes Psych: Normal affect and mood ED course: 66-year-old well-appearing female presents to the emergency department for back pain after fall. Vital signs Upon arrival are within acceptable limits. CT of the lumbar spine shows old compression fracture of L1 and L2. There is a new mild 5% compression fracture of L3. Patient reevaluated bedside at 8:10 PM found to be stable medical condition. She does not appear to be in any acute distress. Patient agreeable with discharge and to follow up with spine surgeon. She is given by mouth oral analgesics prescription. Patient is agreeable with discharge. - Related Data Home Medications Medication Instructions Recorded Confirmed Cyclobenzaprine [Flexeril] 10 mg PO DAILY 10/17/21 02/10/22 DULoxetine HCL [Cymbalta] 60 mg PO DAILY 10/17/21 02/10/22 Levothyroxine Sodium [Synthroid] 112 mcg PO DAILY 10/17/21 02/10/22 QUEtiapine [SEROquel] 50 mg PO HS 10/17/21 02/10/22 Metoprolol Tartrate [Lopressor] 25 mg PO BID 02/10/22 02/10/22 diphenhydrAMINE [Benadryl] 50 mg PO HS PRN 02/10/22 02/10/22 traZODone HCL [Desyrel] 50 mg PO HS 02/10/22 02/10/22 Previous Rx's Medication Instructions Recorded Acetaminophen Tab [Tylenol] 650 mg PO Q6HR PRN tab 02/13/22 Butalb/APAP/Caff 50-325-40Mg 1 each PO Q4H PRN tab 02/13/22 [Fioricet 50-325-40] HYDROcodone/APAP 5-325MG [[place] 1 each PO Q6HR PRN 3 Days #12 tab 02/13/22 5-325] HYDROcodone/APAP 5-325MG [[place] 1 tab PO Q6HR PRN 3 Days #12 tab 03/24/22 5-325] Allergies Allergy/AdvReac Type Severity Reaction Status Date / Time azithromycin [From Zithromax] Allergy Rash/Hives Verified 03/24/22 18:20 ketorolac tromethamine Allergy Rash/Hives Verified 03/24/22 18:20 [From Toradol] morphine Allergy Rash/Hives Verified 03/24/22 18:20 prochlorperazine edisylate Allergy Rash/Hives Verified 03/24/22 18:20 [From Compazine] prochlorperazine maleate Allergy Rash/Hives Verified 03/24/22 18:20 [From Compazine] sumatriptan [From Imitrex] Allergy Rash/Hives Verified 05/28/22 18:20 sumatriptan succinate Allergy Rash/Hives Verified 03/24/22 18:20 [From Imitrex] levofloxacin [From Levaquin] AdvReac caused Verified 03/24/22 18:20 abnormal EKG Review of Systems ROS Statement: Those systems with pertinent positive or pertinent negative responses have been documented in the HPI. ROS Other: All systems not noted in ROS Statement are negative. Past Medical History Past Medical History: Asthma, Blood Disorder, Coronary Artery Disease (CAD), Chest Pain / Angina, Heart Failure, GERD/Reflux, Hypertension, Osteoarthritis (OA), Pneumonia, Thyroid Disorder Additional Past Medical History / Comment(s): Chronic gastritis, intermittent recurrent pancreatitis, duodenal stricture, short segment of Finch's esophagus, PUD, hiatal hernia, colitis, lower GI bleed, anemia, bronchitis, seasonal allergies, LBBB, arthritis multiple joints, cervical radiculopathy/cervical compression fractures, chronic back pain, scoliosis, past bilateral foot fractures and L hand fracures, uterine fibroids, UTI, hypothyroid, sacral fracture 12/2021 History of Any Multi-Drug Resistant Organisms: MRSA Date of last positivie culture/infection: 2008 MDRO Source:: lt axilla Past Surgical History: Appendectomy, Breast Surgery, Cholecystectomy, Tonsillectomy Additional Past Surgical History / Comment(s): Exploratory lap with cholecystectomy, LEFT TEMPORAL ARTERY BIOPSY, EGD/colonoscopy, L breast bx benign, Past Anesthesia/Blood Transfusion Reactions: Motion Sickness Additional Past Anesthesia/Blood Transfusion Reaction / Comment(s): no prior problems with blood transfusion Past Psychological History: Anxiety, Depression Smoking Status: Never smoker Past Alcohol Use History: None Reported Past Drug Use History: Marijuana - Past Family History Father Family Medical History: Cancer Additional Family Medical History / Comment(s): Father of bladder cancer at age 66yrs. Mother Family Medical History: Congestive Heart Failure (CHF), Rheumatoid Arthritis (RA) Additional Family Medical History / Comment(s): Mother had ASHD and of this at age 68yrs. General Exam Limitations: no limitations Course Vital Signs 03/24/22 03/24/22 18:15 19:39 Temperature 98.2 F Pulse Rate 101 H 97 Respiratory 16 16 Rate Blood Pressure 108/49 117/65 O2 Sat by Pulse 97 98 Oximetry Disposition Clinical Impression: Compression fracture Disposition: HOME SELF-CARE Condition: Fair Instructions (If sedation given, give patient instructions): Fall Prevention for Older Adults (ED), Vertebral Compression Fracture (ED) Prescriptions: HYDROcodone/APAP 5-325MG [[place] 5-325] 1 tab PO Q6HR PRN 3 Days #12 tab PRN Reason: Severe Pain Is patient prescribed a controlled substance at d/c from ED?: Yes If prescribed controlled substance>3 days was MAPS reviewed?: Prescribed <3 Days Referrals: Leonela Marcelino MD [Primary Care Provider] - 1-2 days Wander Jackman DO [Doctor of Osteopathic Medicine] - 1-2 days
[2022-03-24] MEDS ORDERED: HYDROmorphone 0.5 MG/0.5 ML SYRINGE IM STA ×2 (18:47→20:14)
[2022-03-24] MEDS ORDERED: ONDANSETRON ODT 4 MG TAB PO STA (18:47)
--- NOTE | 2022-03-24 19:16 | CT ---
EXAMINATION TYPE: CT lumbar spine wo con DATE OF EXAM: 03/24/2022 COMPARISON: 10/17/2021 HISTORY: Fall, back pain CT DLP: 1157.2 mGycm Automated exposure control for dose reduction was used. Images obtained from T12 to S1 one vertebra without contrast. Normal alignment. There is moderate compression deformity of L1 and L2 vertebral bodies up to 75%. Th ere is osteopenia. There is L3-4 disc space narrowing. There is also slight depression of the superio r endplate of L3 vertebra 5%. There is no lumbar paraspinal mass. I see no focal bone destruction. IMPRESSION: Old compression fractures of L1 and L2. There is a new mild 5% compression fracture of L3 compared to the old exam.
--- NOTE | 2022-03-24 19:19 | CT ---
EXAMINATION TYPE: CT pelvis wo con DATE OF EXAM: 03/24/2022 COMPARISON: 02/11/2022 HISTORY: Fall, back pain CT DLP: 733.1 mGycm Automated exposure control for dose reduction was used. Images obtained from the iliac crest to the subtrochanteric femurs without contrast. The pelvic ring is intact. Proximal femurs and hip joints are intact. There is osteopenia. Hip joint spaces are fairly normal. Sacroiliac joints are intact. There are multiple sigmoid diverticula. No sign of diverticulitis. No free fluid in the pelvis. The b ladder distends smoothly. Uterus is anteverted. IMPRESSION: There is some sigmoid diverticulosis. No diverticulitis. No fracture seen. No adverse change compared to old exam.
[2022-03-24 21:25] VITALS: BP 134/69; PULSE 78; RESP 18
== END 2022-03-24 21:24 | disposition home or self-care (01) ==
LOC: EC 18:15
DX: M48.56XA Collapsed vertebra, not elsewhere classified, lumbar region, initial encounter for fracture (principal); J45.909 Unspecified asthma, uncomplicated; I10 Essential (primary) hypertension; E07.9 Disorder of thyroid, unspecified; Z79.1 Long term (current) use of non-steroidal anti-inflammatories (NSAID); Z88.1 Allergy status to other antibiotic agents; Z88.6 Allergy status to analgesic agent; Z88.9 Allergy status to unspecified drugs, medicaments and biological substances; W19.XXXA Unspecified fall, initial encounter
CPT/HCPCS: 72192; 72131; 99284; 96372; J1170

== ENCOUNTER 2022-03-25 15:36 | Emergency (ER) | payer MEDICARE, OTHER ==
[2022-03-25 16:36] VITALS: BP 92/54; PULSE 97; RESP 18; TEMP 98
[2022-03-25] MEDS ORDERED: ONDANSETRON ODT 4 MG TAB PO STA (18:48)
[2022-03-25] MEDS ORDERED: HYDROmorphone 1 MG/ML 1 ML SYRINGE IM STA (18:48)
[2022-03-25 19:16] LABS: Appearance,Urine Cloudy (Clear); Bacteria,Urine Rare /hpf; Bilirubin,Urine Negative (Negative); Blood,Urine Negative (Negative); Color,Urine Yellow; Glucose,Urine (UA) Negative (Negative); Ketones,Urine 1+ (Negative); Leukocyte Esterase,Urine Large (Negative); Mucus,Urine Few /hpf; Nitrite,Urine Positive (Negative); PH, Urine 6.5 (5.0-8.0); Protein,Urine Trace (Negative); RBC,Urine 1 /hpf (0-5); Specific Gravity,Urine 1.022 (1.001-1.035); Squamous Epithelial Cell,Urine 1 /hpf (0-4); Urobilinogen,Urine <2.0 mg/dL (<2.0); WBC,Urine 14 /hpf (0-5)
--- NOTE | 2022-03-25 19:19 | XR ---
EXAMINATION TYPE: XR lumbar spine 2 or 3V DATE OF EXAM: 03/25/2022 COMPARISON: 02/10/2022 HISTORY: Fall. Pain TECHNIQUE: 3 views FINDINGS: Normal alignment. There is 80% compression deformity of L1 vertebral body. There is 50% wedging of L2 vertebral body. Posterior elements appear intact. Sacroiliac joints are intact. IMPRESSION: Compression fractures of L1 and L2 which do not show significant change compared to old e xam.
--- NOTE | 2022-03-25 20:02 | ED ---
General Adult HPI - General Chief complaint: Back Pain/Injury Stated complaint: Back Pain Time Seen by Provider: 03/25/22 18:34 Source: patient, EMS, RN notes reviewed Mode of arrival: EMS Limitations: no limitations - History of Present Illness Initial comments: 66-year-old female presents to the emergency department. EMS for evaluation of low back pain status post fall this morning. Patient states she had an episode of vomiting then slipped in the emesis and fell onto her backside. States she did not hit her head or experience loss of consciousness. EMS did assist her to standing and transported her to the hospital. Patient was able to ambulate with her wheeled walker. Denies any other injuries. States she has had 3 episodes of vomiting today along with urinary frequency. Denies fever, chills, chest pain, shortness of breath, abdominal pain, diarrhea, or hematuria. - Related Data Home Medications Medication Instructions Recorded Confirmed Cyclobenzaprine [Flexeril] 10 mg PO DAILY 10/17/21 02/10/22 DULoxetine HCL [Cymbalta] 60 mg PO DAILY 10/17/21 02/10/22 Levothyroxine Sodium [Synthroid] 112 mcg PO DAILY 10/17/21 02/10/22 QUEtiapine [SEROquel] 50 mg PO HS 10/17/21 02/10/22 Metoprolol Tartrate [Lopressor] 25 mg PO BID 02/10/22 02/10/22 diphenhydrAMINE [Benadryl] 50 mg PO HS PRN 02/10/22 02/10/22 traZODone HCL [Desyrel] 50 mg PO HS 02/10/22 02/10/22 Previous Rx's Medication Instructions Recorded Acetaminophen Tab [Tylenol] 650 mg PO Q6HR PRN tab 02/13/22 Butalb/APAP/Caff 50-325-40Mg 1 each PO Q4H PRN tab 02/13/22 [Fioricet 50-325-40] HYDROcodone/APAP 5-325MG [[place] 1 each PO Q6HR PRN 3 Days #12 tab 02/13/22 5-325] HYDROcodone/APAP 5-325MG [[place] 1 tab PO Q6HR PRN 3 Days #12 tab 03/24/22 5-325] Cephalexin [Keflex] 500 mg PO BID 5 Days #10 cap 03/25/22 Allergies Allergy/AdvReac Type Severity Reaction Status Date / Time azithromycin [From Zithromax] Allergy Rash/Hives Verified 03/25/22 16:35 ketorolac tromethamine Allergy Rash/Hives Verified 03/25/22 16:35 [From Toradol] morphine Allergy Rash/Hives Verified 03/25/22 16:35 prochlorperazine edisylate Allergy Rash/Hives Verified 03/25/22 16:35 [From Compazine] prochlorperazine maleate Allergy Rash/Hives Verified 03/25/22 16:35 [From Compazine] sumatriptan [From Imitrex] Allergy Rash/Hives Verified 03/25/22 16:35 sumatriptan succinate Allergy Rash/Hives Verified 03/25/22 16:35 [From Imitrex] levofloxacin [From Levaquin] AdvReac caused Verified 03/25/22 16:35 abnormal EKG Review of Systems ROS Statement: Those systems with pertinent positive or pertinent negative responses have been documented in the HPI. ROS Other: All systems not noted in ROS Statement are negative. Past Medical History Past Medical History: Asthma, Blood Disorder, Coronary Artery Disease (CAD), Chest Pain / Angina, Heart Failure, GERD/Reflux, Hypertension, Osteoarthritis (OA), Pneumonia, Thyroid Disorder Additional Past Medical History / Comment(s): Chronic gastritis, intermittent recurrent pancreatitis, duodenal stricture, short segment of Finch's esophagus, PUD, hiatal hernia, colitis, lower GI bleed, anemia, bronchitis, seasonal allergies, LBBB, arthritis multiple joints, cervical radiculopathy/cervical compression fractures, chronic back pain, scoliosis, past bilateral foot fractures and L hand fracures, uterine fibroids, UTI, hypothyroid, sacral fracture 12/2021 History of Any Multi-Drug Resistant Organisms: MRSA Date of last positivie culture/infection: 2008 MDRO Source:: lt axilla Past Surgical History: Appendectomy, Breast Surgery, Cholecystectomy, Tonsillectomy Additional Past Surgical History / Comment(s): Exploratory lap with cholecystectomy, LEFT TEMPORAL ARTERY BIOPSY, EGD/colonoscopy, L breast bx benign, Past Anesthesia/Blood Transfusion Reactions: Motion Sickness Additional Past Anesthesia/Blood Transfusion Reaction / Comment(s): no prior problems with blood transfusion Past Psychological History: Anxiety, Depression Smoking Status: Never smoker Past Alcohol Use History: None Reported Past Drug Use History: Marijuana - Past Family History Father Family Medical History: Cancer Additional Family Medical History / Comment(s): Father of bladder cancer at age 66yrs. Mother Family Medical History: Congestive Heart Failure (CHF), Rheumatoid Arthritis (RA) Additional Family Medical History / Comment(s): Mother had ASHD and of this at age 68yrs. General Exam Limitations: physical limitation (uses a wheeled walker at home) General appearance: alert, in no apparent distress (This is a well-developed, well-nourished female in no acute distress. Initial temperature 98.0, pulse 97, respirations 18, blood pressure 92/54, pulse ox 96% on room air.) Head exam: Present: atraumatic, normocephalic, normal inspection Eye exam: Present: normal appearance. Absent: scleral icterus, conjunctival injection, periorbital swelling, periorbital tenderness ENT exam: Present: normal exam, mucous membranes moist Neck exam: Present: normal inspection, full ROM. Absent: tenderness, meningismus Respiratory exam: Present: normal lung sounds bilaterally. Absent: respiratory distress, wheezes, rales, rhonchi, stridor, chest wall tenderness Cardiovascular Exam: Present: regular rate, normal rhythm, normal heart sounds. Absent: systolic murmur, diastolic murmur, rubs, gallop, clicks GI/Abdominal exam: Present: soft, normal bowel sounds. Absent: distended, tende rness, guarding, rebound, rigid Extremities exam: Present: normal capillary refill. Absent: pedal edema Back exam: Present: normal inspection, paraspinal tenderness (Paraspinal tenderness upon palpation of the lumbar spine), vertebral tenderness (Lumbar vertebral tenderness upon palpation. No step-off or deformity palpable.). Absent: full ROM (Decreased range of motion baseline for patient) Expanded Back exam: Absent: saddle anesthesia Back exam: Negative Straight Leg Raising: Left, Right Neurological exam: Present: alert, oriented X3 Psychiatric exam: Present: normal affect, normal mood Skin exam: Present: warm, dry, intact, normal color. Absent: rash Course Vital Signs 03/25/22 16:33 Temperature 98.0 F Pulse Rate 97 Respiratory 18 Rate Blood Pressure 92/54 O2 Sat by Pulse 96 Oximetry - Reevaluation(s) Reevaluation #1: 03/25/22 20:00 Upon reevaluation, patient is resting more comfortably. She is able to get from the bed to the commode without difficulty. States she was unable to get pain medication filled that was prescribed to her yesterday because it was sent to her mail order pharmacy and they do not fill narcotics. Patient is requesting a paper prescription for the same medication in order to take it to [facility] tomorrow to get filled. I do feel that this is a reasonable request and will prescribe a limited supply of [place]. Also informed her that she does have a UTI for which Keflex will be prescribed as well. Medical Decision Making - Medical Decision Making This is a 66-year-old female with chronic back pain, CAD, hypertension, and osteoarthritis presents to the emergency department via EMS for evaluation of low back pain status post fall. Upon exam, patient is well-appearing and in no acute distress. She is able to move freely. During exam she reports that her fall occurred secondary to slipping and emesis. Patient has had 4 episodes of vomiting today. Urinalysis is nitrite positive therefore she will be treated for UTI. X-ray of the lumbar spine was unchanged from previous exam. Given that patient was unable to fill her pain medications due to an issue with the pharmacy, patient will be given a paper prescription for [place] in a limited supply. Lidocaine patch was applied. Patient was given first dose of Keflex while present in the emergency department. She is instructed to follow up with her PCP for a recheck this week. Return parameters were discussed in detail. Patient verbalizes understanding and agrees with this plan. Attending: Anyi. - Lab Data Lab Results 03/25/22 Range/Units 19:10 Urine Color Yellow Urine Appearance Cloudy H (Clear) Urine pH 6.5 (5.0-8.0) Ur Specific [place] 1.022 (1.001-1.035) Urine Protein Trace H (Negative) Urine Glucose (UA) Negative (Negative) Urine Ketones 1+ H (Negative) Urine Blood Negative (Negative) Urine Nitrite Positive H (Negative) Urine Bilirubin Negative (Negative) Urine Urobilinogen <2.0 (<2.0) mg/dL Ur Leukocyte Esterase Large H (Negative) Urine RBC 1 (0-5) /hpf Urine WBC 14 H (0-5) /hpf Ur Squamous Epith Cells 1 (0-4) /hpf Urine Bacteria Rare H (None) /hpf Urine Mucus Few H (None) /hpf - Radiology Data Radiology results: report reviewed, image reviewed X-ray of the lumbar spine was obtained. Report was reviewed in its entirety. Impression per Dr. Barajas is compression fractures of L1 and L2 which did not show significant change compared to old exam. Disposition Clinical Impression: Lumbar back pain, UTI (urinary tract infection) Disposition: HOME SELF-CARE Condition: Stable Instructions (If sedation given, give patient instructions): Urinary Tract Infection in Women (ED), Back Pain (ED) Additional Instructions: Take antibiotic as directed. Increase intake of water. Remove lidocaine patches the morning. Take [place] for more severe pain. Follow-up with your PCP for a recheck in 1-2 days. Return to the emergency department with any new, worsening, or concerning symptoms. Prescriptions: Cephalexin [Keflex] 500 mg PO BID 5 Days #10 cap Is patient prescribed a controlled substance at d/c from ED?: Yes When asked, does pt state using other controlled substances?: No If prescribed controlled substance>3 days was MAPS reviewed?: Prescribed <3 Days If opioid is for acute pain is fill amount 7 days or less?: Yes If Rx opioid, was Start Talking consent form obtained?: Yes Referrals: Leonela Marcelino MD [Primary Care Provider] - 1-2 days Time of Disposition: 20:24
[2022-03-25] MEDS ORDERED: CEPHALEXIN 500 MG CAP PO STA (20:17)
[2022-03-25] MEDS ORDERED: LIDOCAINE 5% PATCH TOPICAL STA (20:17)
== END 2022-03-25 20:45 | disposition home or self-care (01) ==
LOC: EC 15:36
DX: N39.0 Urinary tract infection, site not specified (principal); M54.50 Low back pain, unspecified; I11.0 Hypertensive heart disease with heart failure; I50.9 Heart failure, unspecified; J45.909 Unspecified asthma, uncomplicated; E03.9 Hypothyroidism, unspecified; Z88.1 Allergy status to other antibiotic agents; Z88.8 Allergy status to other drugs, medicaments and biological substances; Z88.5 Allergy status to narcotic agent; Z88.6 Allergy status to analgesic agent; Z79.899 Other long term (current) drug therapy; Z79.890 Hormone replacement therapy; W01.0XXA Fall on same level from slipping, tripping and stumbling without subsequent striking against object, initial encounter
CPT/HCPCS: 81001; 87086; 72100; 99284; 96372; J1170

== ENCOUNTER 2022-07-26 06:22 | Emergency (ER) | payer MEDICARE, OTHER ==
[2022-07-26] MEDS ORDERED: SODIUM CHLORIDE 0.9% 500 ML 500 ML IV STA (06:48)
[2022-07-26] MEDS ORDERED: HYDROmorphone 0.5 MG/0.5 ML SYRINGE IVP STA (06:48)
[2022-07-26] MEDS ORDERED: ONDANSETRON 4 MG/2 ML VIAL IVP STA (06:48)
--- NOTE | 2022-07-26 06:54 | ED ---
Abdominal Pain HPI - General Chief Complaint: Abdominal Pain Stated Complaint: ABD PAIN,NVD Time Seen by Provider: 07/26/22 06:38 Source: patient, EMS, RN notes reviewed, old records reviewed Mode of arrival: EMS - History of Present Illness Initial Comments: Nontoxic-appearing 67-year-old female presents to the emergency room with mid upper and left upper quadrant abdominal pain for the past 2 weeks. Patient states that 3 days ago she had 11 episodes of diarrhea in 1 day, prior to that she had constipation. She describes stool as yellow/green in color, no blood. She denies any further diarrhea however she is concerned for pancreatitis. She denies any fevers, chest pain or difficulty breathing. She has history of hiatal hernia, chronic gastritis; surgical history of appendectomy and cholecystectomy. MD Complaint: abdominal pain -: week(s) (2) Location: LUQ, epigastric Radiation: none Quality: sharp Consistency: constant Improves With: nothing Associated Symptoms: nausea, diarrhea - Related Data Home Medications Medication Instructions Recorded Confirmed Cyclobenzaprine [Flexeril] 10 mg PO DAILY PRN 10/17/21 07/26/22 DULoxetine HCL [Cymbalta] 30 mg PO BID 10/17/21 07/26/22 Levothyroxine Sodium [Synthroid] 112 mcg PO DAILY 10/17/21 07/26/22 QUEtiapine [SEROquel] 50 mg PO HS 10/17/21 07/26/22 traZODone HCL [Desyrel] 100 mg PO HS 02/10/22 07/26/22 Alendronate Sodium [Fosamax] 10 mg PO DAILY 07/26/22 07/26/22 Calcium Carbonate [Calcium] 600 mg PO DAILY 07/26/22 07/26/22 Magnesium Oxide 400 mg PO DAILY 07/26/22 07/26/22 Meloxicam 7.5 mg PO BID 07/26/22 07/26/22 Topiramate [Topamax] 25 mg PO HS 07/26/22 07/26/22 Previous Rx's Medication Instructions Recorded Cephalexin [Keflex] 500 mg PO Q12HR 7 Days #14 cap 07/26/22 Allergies Allergy/AdvReac Type Severity Reaction Status Date / Time azithromycin [From Zithromax] Allergy Rash/Hives Verified 07/26/22 11:01 ketorolac tromethamine Allergy Rash/Hives Verified 07/26/22 11:01 [From Toradol] morphine Allergy Rash/Hives Verified 07/26/22 11:01 prochlorperazine edisylate Allergy Rash/Hives Verified 07/26/22 11:01 [From Compazine] prochlorperazine maleate Allergy Rash/Hives Verified 07/26/22 11:01 [From Compazine] sumatriptan [From Imitrex] Allergy Rash/Hives Verified 07/26/22 11:01 sumatriptan succinate Allergy Rash/Hives Verified 07/26/22 11:01 [From Imitrex] levofloxacin [From Levaquin] AdvReac caused Verified 07/26/22 11:01 abnormal EKG Review of Systems ROS Statement: Those systems with pertinent positive or pertinent negative responses have been documented in the HPI. ROS Other: All systems not noted in ROS Statement are negative. Past Medical History Past Medical History: Asthma, Blood Disorder, Coronary Artery Disease (CAD), Chest Pain / Angina, Heart Failure, GERD/Reflux, Hypertension, Osteoarthritis (OA), Pneumonia, Thyroid Disorder Additional Past Medical History / Comment(s): Chronic gastritis, intermittent recurrent pancreatitis, duodenal stricture, short segment of Finch's esophagus, PUD, hiatal hernia, colitis, lower GI bleed, anemia, bronchitis, seasonal allergies, LBBB, arthritis multiple joints, cervical radiculopathy/cervical compression fractures, chronic back pain, scoliosis, past bilateral foot fractures and L hand fracures, uterine fibroids, UTI, hypothyroid, sacral fracture 12/2021 History of Any Multi-Drug Resistant Organisms: MRSA Date of last positivie culture/infection: 2008 MDRO Source:: lt axilla Past Surgical History: Appendectomy, Breast Surgery, Cholecystectomy, Tonsillectomy Additional Past Surgical History / Comment(s): Exploratory lap with cholecystectomy, LEFT TEMPORAL ARTERY BIOPSY, EGD/colonoscopy, L breast bx benign, Past Anesthesia/Blood Transfusion Reactions: Motion Sickness Additional Past Anesthesia/Blood Transfusion Reaction / Comment(s): no prior problems with blood transfusion Past Psychological History: Anxiety, Depression Smoking Status: Never smoker Past Alcohol Use History: None Reported Past Drug Use History: Marijuana - Past Family History Father Family Medical History: Cancer Additional Family Medical History / Comment(s): Father of bladder cancer at age 66yrs. Mother Family Medical History: Congestive Heart Failure (CHF), Rheumatoid Arthritis (RA) Additional Family Medical History / Comment(s): Mother had ASHD and of this at age 68yrs. General Exam Limitations: no limitations General appearance: alert, in no apparent distress ENT exam: Present: mucous membranes moist Respiratory exam: Present: normal lung sounds bilaterally. Absent: respiratory distress, wheezes, rales, rhonchi, stridor, chest wall tenderness, accessory muscle use Cardiovascular Exam: Present: regular rate GI/Abdominal exam: Present: soft, tenderness (Left upper quadrant and epigastric). Absent: distended, guarding, rebound, rigid Extremities exam: Present: normal capillary refill. Absent: pedal edema Back exam: Present: normal inspection, full ROM. Absent: tenderness, CVA tenderness (R), CVA tenderness (L), rash noted Neurological exam: Present: alert, oriented X3, normal gait Psychiatric exam: Present: normal affect, normal mood Skin exam: Present: warm, dry, normal color. Absent: cyanosis, diaphoretic, petechiae, pallor Course Vital Signs 07/26/22 07/26/22 06:33 11:29 Temperature 98.8 F 98.1 F Pulse Rate 77 95 Respiratory 15 18 Rate Blood Pressure 133/74 121/92 O2 Sat by Pulse 99 96 Oximetry Medical Decision Making - Medical Decision Making CT shows urinary bladder cystitis suspected. Increasing intra-and extrahepatic biliary duct dilatation. Wall thickening right hemicolon could reflect adherent debris versus nonspecific colitis. No evidence of diverticulitis. Physical exam patient's abdomen is soft and minimally tender. Vital signs are stable, she is afebrile. Patient's urinalysis shows urinary tract infection with nitrates and bacteria. She'll be treated for UTI. Given 1 g of Rocephin in the emergency room. She was directed to follow-up with her primary care doctor this week. Return to emergency room if any new or concerning symptoms. She is agreeable to this plan of care. Case discussed with Dr. Pepper. - Lab Data Result diagrams: 07/26/22 07:24 07/26/22 07:24 Lab Results 07/26/22 07/26/22 07/26/22 Range/Units 07:24 07:24 07:24 WBC 11.1 H (3.8-10.6) k/uL RBC 3.77 L (3.80-5.40) m/uL Hgb 11.8 (11.4-16.0) gm/dL Hct 35.4 (34.0-46.0) % MCV 93.8 (80.0-100.0) fL MCH 31.4 (25.0-35.0) pg MCHC 33.5 (31.0-37.0) g/dL RDW 14.1 (11.5-15.5) % Plt Count 275 (150-450) k/uL MPV 7.3 Neutrophils % 78 % Lymphocytes % 11 % Monocytes % 6 % Eosinophils % 3 % Basophils % 1 % Neutrophils # 8.6 H (1.3-7.7) k/uL Lymphocytes # 1.3 (1.0-4.8) k/uL Monocytes # 0.6 (0-1.0) k/uL Eosinophils # 0.4 (0-0.7) k/uL Basophils # 0.1 (0-0.2) k/uL Sodium 139 (137-145) mmol/L Potassium 3.9 (3.5-5.1) mmol/L Chloride 102 (98-107) mmol/L Carbon Dioxide 25 (22-30) mmol/L Anion Gap 12 mmol/L BUN 12 (7-17) mg/dL Creatinine 0.87 (0.52-1.04) mg/dL Est GFR (CKD-EPI)AfAm 80 (>60 ml/min/1.73 sqM) Est GFR (CKD-EPI)NonAf 69 (>60 ml/min/1.73 sqM) Glucose 107 H (74-99) mg/dL Plasma Lactic Acid Senthil (0.7-2.0) mmol/L Calcium 11.8 H (8.4-10.2) mg/dL Total Bilirubin 0.7 (0.2-1.3) mg/dL AST 22 (14-36) U/L ALT 10 (4-34) U/L Alkaline Phosphatase 105 (38-126) U/L Troponin I <0.012 (0.000-0.034) ng/mL Total Protein 6.6 (6.3-8.2) g/dL Albumin 4.1 (3.5-5.0) g/dL Amylase 47 (30-110) U/L Lipase 26 (23-300) U/L Urine Color Urine Appearance (Clear) Urine pH (5.0-8.0) Ur Specific [place] (1.001-1.035) Urine Protein (Negative) Urine Glucose (UA) (Negative) Urine Ketones (Negative) Urine Blood (Negative) Urine Nitrite (Negative) Urine Bilirubin (Negative) Urine Urobilinogen (<2.0) mg/dL Ur Leukocyte Esterase (Negative) Urine RBC (0-5) /hpf Urine WBC (0-5) /hpf Ur Squamous Epith Cells (0-4) /hpf Urine Bacteria (None) /hpf 07/26/22 07/26/22 Range/Units 08:46 09:39 WBC (3.8-10.6) k/uL RBC (3.80-5.40) m/uL Hgb (11.4-16.0) gm/dL Hct (34.0-46.0) % MCV (80.0-100.0) fL MCH (25.0-35.0) pg MCHC (31.0-37.0) g/dL RDW (11.5-15.5) % Plt Count (150-450) k/uL MPV Neutrophils % % Lymphocytes % % Monocytes % % Eosinophils % % Basophils % % Neutrophils # (1.3-7.7) k/uL Lymphocytes # (1.0-4.8) k/uL Monocytes # (0-1.0) k/uL Eosinophils # (0-0.7) k/uL Basophils # (0-0.2) k/uL Sodium (137-145) mmol/L Potassium (3.5-5.1) mmol/L Chloride (98-107) mmol/L Carbon Dioxide (22-30) mmol/L Anion Gap mmol/L BUN (7-17) mg/dL Creatinine (0.52-1.04) mg/dL Est GFR (CKD-EPI)AfAm (>60 ml/min/1.73 sqM) Est GFR (CKD-EPI)NonAf (>60 ml/min/1.73 sqM) Glucose (74-99) mg/dL Plasma Lactic Acid Senthil 1.1 (0.7-2.0) mmol/L Calcium (8.4-10.2) mg/dL Total Bilirubin (0.2-1.3) mg/dL AST (14-36) U/L ALT (4-34) U/L Alkaline Phosphatase (38-126) U/L Troponin I (0.000-0.034) ng/mL Total Protein (6.3-8.2) g/dL Albumin (3.5-5.0) g/dL Amylase (30-110) U/L Lipase (23-300) U/L Urine Color Light Yellow Urine Appearance Clear (Clear) Urine pH 6.5 (5.0-8.0) Ur Specific [place] >1.050 H (1.001-1.035) Urine Protein Trace H (Negative) Urine Glucose (UA) Negative (Negative) Urine Ketones 1+ H (Negative) Urine Blood Negative (Negative) Urine Nitrite Positive H (Negative) Urine Bilirubin Negative (Negative) Urine Urobilinogen <2.0 (<2.0) mg/dL Ur Leukocyte Esterase Large H (Negative) Urine RBC 18 H (0-5) /hpf Urine WBC 42 H (0-5) /hpf Ur Squamous Epith Cells <1 (0-4) /hpf Urine Bacteria Occasional H (None) /hpf - EKG Data EKG shows normal: sinus rhythm, axis (Indeterminant), intervals (Ventricular rate 98, CO interval 0.175, QRS 0.87, QTC 0.418) When compared to previous EKG there are: no significant change (Compared to Old 02/10/2022) Disposition Clinical Impression: UTI (urinary tract infection) Disposition: HOME SELF-CARE Condition: Good Instructions (If sedation given, give patient instructions): Urinary Tract Infection in Women (ED) Additional Instructions: Increase your fluid intake. Try to urinate every couple of hours. Take antibiotics as prescribed. Return to the emergency room with any new or concerning symptoms including persistent nausea vomiting or fevers Prescriptions: Cephalexin [Keflex] 500 mg PO Q12HR 7 Days #14 cap Is patient prescribed a controlled substance at d/c from ED?: No Referrals: Leonela Marcelino MD [Primary Care Provider] - 1-2 days Time of Disposition: 11:26
[2022-07-26 07:46] LABS: Basophils # (A) 0.1 k/uL (0-0.2); Basophils % (A) 1 %; Eosinophils # (A) 0.4 k/uL (0-0.7); Eosinophils % (A) 3 %; HCT 35.4 % (34.0-46.0); HGB 11.8 gm/dL (11.4-16.0); Lymphocytes # (A) 1.3 k/uL (1.0-4.8); Lymphocytes % (A) 11 %; MCH 31.4 pg (25.0-35.0); MCHC 33.5 g/dL (31.0-37.0); MCV 93.8 fL (80.0-100.0); Mean Platelet Volume 7.3; Monocytes # (A) 0.6 k/uL (0-1.0); Monocytes % (A) 6 %; Neutrophils # (A) 8.6 k/uL (1.3-7.7); Neutrophils % (A) 78 %; Platelet Count 275 k/uL (150-450); RBC 3.77 m/uL (3.80-5.40); RDW 14.1 % (11.5-15.5); WBC 11.1 k/uL (3.8-10.6)
[2022-07-26 08:00] LABS: Albumin 4.1 g/dL (3.5-5.0); Calcium 11.8 mg/dL (8.4-10.2); Potassium 3.9 mmol/L (3.5-5.1); Total Bilirubin 0.7 mg/dL (0.2-1.3); Total Protein 6.6 g/dL (6.3-8.2)
--- NOTE | 2022-07-26 08:44 | CT ---
EXAMINATION TYPE: CT abdomen pelvis w con DATE OF EXAM: 07/26/2022 COMPARISON: 06/06/2022 HISTORY: Abdominal pain, NVD CT DLP: 975.6 mGycm CONTRAST: CT scan of the abdomen and pelvis is performed without Oral Contrast and with IV Contrast, patient in jected with 100ml mL of Isovue 370. FINDINGS: LUNG BASES-: No visible nodule. No infiltrate. LIVER/GB: Cholecystectomy changes with intra and extrahepatic biliary ductal prominence. No space-occ upying hepatic lesions are seen. PANCREAS: No inflammation. No distinct mass. SPLEEN: No splenic enlargement. No lesion seen. ADRENALS: No nodule. No thickening. KIDNEYS/BLADDER: No hydronephrosis. No nephrolithiasis. No distinct renal mass. Wall thickening of the urinary bladder may reflect underlying cystitis. Correlate clinically. BOWEL: There is wall thickening of the right hemicolon which could reflect underlying nonspecific col itis. Findings could also be related to adherent debris. GENITAL ORGANS: No gross abnormality. LYMPH NODES: No greater than 1cm abdominal or pelvic lymph nodes are appreciated. AORTA: No significant abnormality. OSSEOUS STRUCTURES: Redemonstrated are severe compression fractures of L1 and L2 as well as associate d degenerative changes. OTHER: No significant additional abnormality is seen. IMPRESSION: 1. Urinary bladder cystitis suspected. 2. Increasing intra and extrahepatic biliary ductal dilatation. 3. Wall thickening right hemicolon could reflect adherent debris versus nonspecific colitis.
[2022-07-26 11:03] LABS: Appearance,Urine Clear (Clear); Bacteria,Urine Occasional /hpf; Bilirubin,Urine Negative (Negative); Blood,Urine Negative (Negative); Color,Urine Light Yellow; Glucose,Urine (UA) Negative (Negative); Ketones,Urine 1+ (Negative); Leukocyte Esterase,Urine Large (Negative); Nitrite,Urine Positive (Negative); PH, Urine 6.5 (5.0-8.0); Protein,Urine Trace (Negative); RBC,Urine 18 /hpf (0-5); Squamous Epithelial Cell,Urine <1 /hpf (0-4); Urobilinogen,Urine <2.0 mg/dL (<2.0); WBC,Urine 42 /hpf (0-5)
[2022-07-26 11:05] LABS: Specific Gravity,Urine >1.050 (1.001-1.035)
[2022-07-26] MEDS ORDERED: cefTRIAXone IN SWFI 1,000 MG/10 ML SYRINGE IVP STA (11:06)
[2022-07-26 11:37] VITALS: BP 121/92; PULSE 95; RESP 18; TEMP 98.1
== END 2022-07-26 11:44 | disposition home or self-care (01) ==
LOC: EC 06:22
DX: N39.0 Urinary tract infection, site not specified (principal); J45.909 Unspecified asthma, uncomplicated; I25.10 Atherosclerotic heart disease of native coronary artery without angina pectoris; K21.9 Gastro-esophageal reflux disease without esophagitis; I11.0 Hypertensive heart disease with heart failure; I50.9 Heart failure, unspecified; M19.90 Unspecified osteoarthritis, unspecified site; E07.9 Disorder of thyroid, unspecified; F41.9 Anxiety disorder, unspecified; F32.A Depression, unspecified; F12.90 Cannabis use, unspecified, uncomplicated; Z88.1 Allergy status to other antibiotic agents; Z88.6 Allergy status to analgesic agent; Z88.8 Allergy status to other drugs, medicaments and biological substances; Z79.890 Hormone replacement therapy
CPT/HCPCS: 36415; 93005; 80053; 82150; 83605; 83690; 84484; 85025; 81001; 87086; 74177; 99284; 96374; 96375 ×2; 96361 ×3; J2405; J0696; J1170; Q9967

== ENCOUNTER 2022-09-07 06:20 | Emergency (ER) | payer MEDICARE, OTHER ==
[2022-09-07] MEDS ORDERED: ONDANSETRON 4 MG/2 ML VIAL IVP STA (06:29)
[2022-09-07] MEDS ORDERED: HYDROmorphone 0.5 MG/0.5 ML SYRINGE IVP STA ×2 (06:29→10:02)
[2022-09-07] MEDS ORDERED: SODIUM CHLORIDE 0.9% 1,000 ML IV STA (06:33)
--- NOTE | 2022-09-07 06:39 | ED ---
Abdominal Pain HPI - General Chief Complaint: Abdominal Pain Stated Complaint: Abd Pain Time Seen by Provider: 09/07/22 06:21 Source: patient, EMS, RN notes reviewed - History of Present Illness Initial Comments: Patient is a 67-year-old female presenting to the emergency room with complaints of abdominal pain along with nausea and 2 episodes of vomiting early this morning with bile-like contents. She denies any bloody or coffee-ground emesis. She is complaining of mid upper and left upper abdominal pain. She reports 3 episodes of claylike stool in the last 24 hours however she denies any blood or tarry-like stool consistency. She denies any diarrhea and typically reports constipation. She is complaining of generalized malaise but denies any altered mental status, lethargy fevers or chills. She states that she has been following with a clear liquid diet as directed by her primary care provider recently for generalized malaise and mild abdominal pain ongoing for approximately 3 weeks however this pain intensified over the last 24 hours. She denies chest pain, shortness of breath, unintentional weight changes, urinary frequency or dysuria. She has a past medical history significant for multiple gastroenterologic problems including chronic gastritis recurrent pancreatitis, duodenal strictures, Finch's esophagitis, peptic ulcer disease along with previous GI bleeds and colitis. Additional past medical history includes asthma, coronary artery disease, congestive heart failure, GERD, hypertension, arthritis, hypothyroidism, chronic back pain and multiple cervical fractures with back brace. - Related Data Home Medications Medication Instructions Recorded Confirmed Cyclobenzaprine [Flexeril] 10 mg PO DAILY PRN 10/17/21 07/26/22 DULoxetine HCL [Cymbalta] 30 mg PO BID 10/17/21 07/26/22 Levothyroxine Sodium [Synthroid] 112 mcg PO DAILY 10/17/21 07/26/22 QUEtiapine [SEROquel] 50 mg PO HS 10/17/21 07/26/22 traZODone HCL [Desyrel] 100 mg PO HS 02/10/22 07/26/22 Alendronate Sodium [Fosamax] 10 mg PO DAILY 07/26/22 07/26/22 Calcium Carbonate [Calcium] 600 mg PO DAILY 07/26/22 07/26/22 Magnesium Oxide 400 mg PO DAILY 07/26/22 07/26/22 Meloxicam 7.5 mg PO BID 07/26/22 07/26/22 Topiramate [Topamax] 25 mg PO HS 07/26/22 07/26/22 Previous Rx's Medication Instructions Recorded Cephalexin [Keflex] 500 mg PO Q12HR 7 Days #14 cap 07/26/22 Dicyclomine [Bentyl] 10 mg PO TID 7 Days #21 capsule 09/07/22 Allergies Allergy/AdvReac Type Severity Reaction Status Date / Time azithromycin [From Zithromax] Allergy Rash/Hives Verified 07/26/22 11:01 ketorolac tromethamine Allergy Rash/Hives Verified 07/26/22 11:01 [From Toradol] morphine Allergy Rash/Hives Verified 07/26/22 11:01 prochlorperazine edisylate Allergy Rash/Hives Verified 07/26/22 11:01 [From Compazine] prochlorperazine maleate Allergy Rash/Hives Verified 07/26/22 11:01 [From Compazine] sumatriptan [From Imitrex] Allergy Rash/Hives Verified 07/26/22 11:01 sumatriptan succinate Allergy Rash/Hives Verified 07/26/22 11:01 [From Imitrex] levofloxacin [From Levaquin] AdvReac caused Verified 07/26/22 11:01 abnormal EKG Review of Systems ROS Statement: Those systems with pertinent positive or pertinent negative responses have been documented in the HPI. ROS Other: All systems not noted in ROS Statement are negative. Past Medical History Past Medical History: Asthma, Blood Disorder, Coronary Artery Disease (CAD), Chest Pain / Angina, Heart Failure, GERD/Reflux, Hypertension, Osteoarthritis (OA), Pneumonia, Thyroid Disorder Additional Past Medical History / Comment(s): Chronic gastritis, intermittent recurrent pancreatitis, duodenal stricture, short segment of Finch's esophagus, PUD, hiatal hernia, colitis, lower GI bleed, anemia, bronchitis, seasonal allergies, LBBB, arthritis multiple joints, cervical radiculopathy/cervical compression fractures, chronic back pain, scoliosis, past bilateral foot fractures and L hand fracures, uterine fibroids, UTI, hypothyroid, sacral fracture 12/2021 History of Any Multi-Drug Resistant Organisms: MRSA Date of last positivie culture/infection: 2008 MDRO Source:: lt axilla Past Surgical History: Appendectomy, Breast Surgery, Cholecystectomy, Ton sillectomy Additional Past Surgical History / Comment(s): Exploratory lap with cholecystectomy, LEFT TEMPORAL ARTERY BIOPSY, EGD/colonoscopy, L breast bx benign, Past Anesthesia/Blood Transfusion Reactions: Motion Sickness Additional Past Anesthesia/Blood Transfusion Reaction / Comment(s): no prior problems with blood transfusion Past Psychological History: Anxiety, Depression Smoking Status: Never smoker Past Alcohol Use History: None Reported Past Drug Use History: Marijuana - Past Family History Father Family Medical History: Cancer Additional Family Medical History / Comment(s): Father of bladder cancer at age 66yrs. Mother Family Medical History: Congestive Heart Failure (CHF), Rheumatoid Arthritis (RA) Additional Family Medical History / Comment(s): Mother had ASHD and of this at age 68yrs. General Exam General appearance: alert, in no apparent distress Head exam: Present: atraumatic, normocephalic, normal inspection Eye exam: Present: normal appearance, PERRL, EOMI. Absent: scleral icterus, conjunctival injection ENT exam: Present: normal exam, mucous membranes moist Neck exam: Present: normal inspection, full ROM Respiratory exam: Present: normal lung sounds bilaterally. Absent: respiratory distress, wheezes, rales, rhonchi, stridor Cardiovascular Exam: Present: regular rate, normal rhythm, normal heart sounds. Absent: systolic murmur, diastolic murmur, rubs, gallop, clicks GI/Abdominal exam: Present: soft, tenderness (mid upper and left upper quadrants), normal bowel sounds. Absent: distended, guarding, rebound, rigid Rectal exam: Present: deferred Extremities exam: Present: normal inspection. Absent: pedal edema, joint swelling Back exam: Present: other (back brace removed) Neurological exam: Present: alert, oriented X3, CN II-XII intact Psychiatric exam: Present: normal affect, normal mood Skin exam: Present: warm, dry, intact, normal color. Absent: rash Course Vital Signs 09/07/22 09/07/22 09/07/22 06:20 07:39 09:24 Pulse Rate 96 89 88 Respiratory 16 16 16 Rate Blood Pressure 111/68 108/57 95/59 O2 Sat by Pulse 98 95 95 Oximetry 09/07/22 09/07/22 09/07/22 10:06 11:33 11:40 Pulse Rate 82 83 83 Respiratory 16 18 18 Rate Blood Pressure 104/62 102/79 102/79 O2 Sat by Pulse 99 95 95 Oximetry Medical Decision Making - Medical Decision Making 63-year-old female presenting to the emergency room with upper abdominal pain primarily to left upper quadrant along with mid-upper nausea and vomiting. Given significant gastroenterological history will obtain CT of the abdomen and pelvis. Will also obtain CBC, CMP, amylase, lipase, troponin, lactic acid along with urinalysis. Will give Dilaudid for pain, Zofran for nausea along with cautious IV hydration. CBC shows mild chronic anemia, no leukocytosis, CMP reveals dehydration with a BUN of 30 creatinine normal at 0.08 no other significant anomalies including normal amylase and lipase. COVID and influenza swabs negative, and urinalysis negative. CT of the abdomen image reviewed by myself showing no evidence of obstruction or mass, radiologist impression shows no discrete abnormalities. Continued pain after Dilaudid. No further episodes of emesis after Zofran. Tolerating IV hydration well. Will give Bentyl along with second dose of Dilaudid for pain and monitor response. Pain stable. Case management set up appointment with primary care provider and spray operator for outpatient follow-up. Will give prescription for Bentyl. Will discharge home in stable condition with return parameters reviewed. Case discussed with Dr. Pepper. - Lab Data Result diagrams: 09/07/22 06:32 09/07/22 06:32 Lab Results 09/07/22 09/07/22 09/07/22 Range/Units 06:32 06:32 06:32 WBC 7.3 (3.8-10.6) k/uL RBC 3.54 L (3.80-5.40) m/uL Hgb 11.1 L (11.4-16.0) gm/dL Hct 32.7 L (34.0-46.0) % MCV 92.3 (80.0-100.0) fL MCH 31.2 (25.0-35.0) pg MCHC 33.8 (31.0-37.0) g/dL RDW 13.4 (11.5-15.5) % Plt Count 387 (150-450) k/uL MPV 7.3 Neutrophils % 50 % Lymphocytes % 26 % Monocytes % 7 % Eosinophils % 13 % Basophils % 1 % Neutrophils # 3.7 (1.3-7.7) k/uL Lymphocytes # 1.9 (1.0-4.8) k/uL Monocytes # 0.5 (0-1.0) k/uL Eosinophils # 0.9 H (0-0.7) k/uL Basophils # 0.1 (0-0.2) k/uL Sodium 134 L (137-145) mmol/L Potassium 4.9 (3.5-5.1) mmol/L Chloride 107 (98-107) mmol/L Carbon Dioxide 21 L (22-30) mmol/L Anion Gap 6 mmol/L BUN 30 H (7-17) mg/dL Creatinine 0.80 (0.52-1.04) mg/dL Est GFR (CKD-EPI)AfAm 88 (>60 ml/min/1.73 sqM) Est GFR (CKD-EPI)NonAf 77 (>60 ml/min/1.73 sqM) Glucose 89 (74-99) mg/dL Plasma Lactic Acid Senthil 0.7 (0.7-2.0) mmol/L Calcium 9.0 (8.4-10.2) mg/dL Total Bilirubin 0.5 (0.2-1.3) mg/dL AST 29 (14-36) U/L ALT 14 (4-34) U/L Alkaline Phosphatase 56 (38-126) U/L Troponin I (0.000-0.034) ng/mL Total Protein 6.5 (6.3-8.2) g/dL Albumin 4.0 (3.5-5.0) g/dL Amylase 61 (30-110) U/L Lipase 85 (23-300) U/L Urine Color Urine Appearance (Clear) Urine pH (5.0-8.0) Ur Specific Kathryn (1.001-1.035) Urine Protein (Negative) Urine Glucose (UA) (Negative) Urine Ketones (Negative) Urine Blood (Negative) Urine Nitrite (Negative) Urine Bilirubin (Negative) Urine Urobilinogen (<2.0) mg/dL Ur Leukocyte Esterase (Negative) Coronavirus (PCR) (Not Detectd) Influenza Type A RNA (Not Detectd) Influenza Type B (PCR) (Not Detectd) 09/07/22 09/07/22 09/07/22 Range/Units 06:32 07:36 07:36 WBC (3.8-10.6) k/uL RBC (3.80-5.40) m/uL Hgb (11.4-16.0) gm/dL Hct (34.0-46.0) % MCV (80.0-100.0) fL MCH (25.0-35.0) pg MCHC (31.0-37.0) g/dL RDW (11.5-15.5) % Plt Count (150-450) k/uL MPV Neutrophils % % Lymphocytes % % Monocytes % % Eosinophils % % Basophils % % Neutrophils # (1.3-7.7) k/uL Lymphocytes # (1.0-4.8) k/uL Monocytes # (0-1.0) k/uL Eosinophils # (0-0.7) k/uL Basophils # (0-0.2) k/uL Sodium (137-145) mmol/L Potassium (3.5-5.1) mmol/L Chloride (98-107) mmol/L Carbon Dioxide (22-30) mmol/L Anion Gap mmol/L BUN (7-17) mg/dL Creatinine (0.52-1.04) mg/dL Est GFR (CKD-EPI)AfAm (>60 ml/min/1.73 sqM) Est GFR (CKD-EPI)NonAf (>60 ml/min/1.73 sqM) Glucose (74-99) mg/dL Plasma Lactic Acid Senthil (0.7-2.0) mmol/L Calcium (8.4-10.2) mg/dL Total Bilirubin (0.2-1.3) mg/dL AST (14-36) U/L ALT (4-34) U/L Alkaline Phosphatase (38-126) U/L Troponin I <0.012 (0.000-0.034) ng/mL Total Protein (6.3-8.2) g/dL Albumin (3.5-5.0) g/dL Amylase (30-110) U/L Lipase (23-300) U/L Urine Color Yellow Urine Appearance Clear (Clear) Urine pH 6.0 (5.0-8.0) Ur Specific Kathryn 1.025 (1.001-1.035) Urine Protein Trace H (Negative) Urine Glucose (UA) Negative (Negative) Urine Ketones Negative (Negative) Urine Blood Negative (Negative) Urine Nitrite Negative (Negative) Urine Bilirubin Negative (Negative) Urine Urobilinogen <2.0 (<2.0) mg/dL Ur Leukocyte Esterase Negative (Negative) Coronavirus (PCR) (Not Detectd) Influenza Type A RNA Not Detected (Not Detectd) Influenza Type B (PCR) Not Detected (Not Detectd) 09/07/22 Range/Units 07:36 WBC (3.8-10.6) k/uL RBC (3.80-5.40) m/uL Hgb (11.4-16.0) gm/dL Hct (34.0-46.0) % MCV (80.0-100.0) fL MCH (25.0-35.0) pg MCHC (31.0-37.0) g/dL RDW (11.5-15.5) % Plt Count (150-450) k/uL MPV Neutrophils % % Lymphocytes % % Monocytes % % Eosinophils % % Basophils % % Neutrophils # (1.3-7.7) k/uL Lymphocytes # (1.0-4.8) k/uL Monocytes # (0-1.0) k/uL Eosinophils # (0-0.7) k/uL Basophils # (0-0.2) k/uL Sodium (137-145) mmol/L Potassium (3.5-5.1) mmol/L Chloride (98-107) mmol/L Carbon Dioxide (22-30) mmol/L Anion Gap mmol/L BUN (7-17) mg/dL Creatinine (0.52-1.04) mg/dL Est GFR (CKD-EPI)AfAm (>60 ml/min/1.73 sqM) Est GFR (CKD-EPI)NonAf (>60 ml/min/1.73 sqM) Glucose (74-99) mg/dL Plasma Lactic Acid Senthil (0.7-2.0) mmol/L Calcium (8.4-10.2) mg/dL Total Bilirubin (0.2-1.3) mg/dL AST (14-36) U/L ALT (4-34) U/L Alkaline Phosphatase (38-126) U/L Troponin I (0.000-0.034) ng/mL Total Protein (6.3-8.2) g/dL Albumin (3.5-5.0) g/dL Amylase (30-110) U/L Lipase (23-300) U/L Urine Color Urine Appearance (Clear) Urine pH (5.0-8.0) Ur Specific Kathryn (1.001-1.035) Urine Protein (Negative) Urine Glucose (UA) (Negative) Urine Ketones (Negative) Urine Blood (Negative) Urine Nitrite (Negative) Urine Bilirubin (Negative) Urine Urobilinogen (<2.0) mg/dL Ur Leukocyte Esterase (Negative) Coronavirus (PCR) Not Detected (Not Detectd) Influenza Type A RNA (Not Detectd) Influenza Type B (PCR) (Not Detectd) - Radiology Data Radiology results: report reviewed, image reviewed CT the abdomen and pelvis without contrast impression by radiologist shows no discrete abnormalities. Loops of bowel within the abdomen and pelvis are normal. Disposition Clinical Impression: Abdominal pain Disposition: HOME SELF-CARE Condition: Stable Instructions (If sedation given, give patient instructions): Abdominal Pain (ED) Additional Instructions: Please continue dietary restrictions per your spray operator and primary care's recommendations. Utilize Bentyl as needed for abdominal pain. Please follow-up with your primary care provider and spray operator as scheduled. Please return to the Emergency Department if symptoms worsen or any other concerns. Prescriptions: Dicyclomine [Bentyl] 10 mg PO TID 7 Days #21 capsule Is patient prescribed a controlled substance at d/c from ED?: No Referrals: Tammi Simmons MD [Family Provider] - 10/17/22 4:00 pm (You have been added to the office cancellation list also.) Leonela Marcelino MD [Primary Care Provider] - 09/11/22 9:45 am (Appointment in [place] at [address] [place] [address]. ) Time of Disposition: 11:06
[2022-09-07 06:43] LABS: Basophils # (A) 0.1 k/uL (0-0.2); Basophils % (A) 1 %; Eosinophils # (A) 0.9 k/uL (0-0.7); Eosinophils % (A) 13 %; HCT 32.7 % (34.0-46.0); HGB 11.1 gm/dL (11.4-16.0); Lymphocytes # (A) 1.9 k/uL (1.0-4.8); Lymphocytes % (A) 26 %; MCH 31.2 pg (25.0-35.0); MCHC 33.8 g/dL (31.0-37.0); MCV 92.3 fL (80.0-100.0); Mean Platelet Volume 7.3; Monocytes # (A) 0.5 k/uL (0-1.0); Monocytes % (A) 7 %; Neutrophils # (A) 3.7 k/uL (1.3-7.7); Neutrophils % (A) 50 %; Platelet Count 387 k/uL (150-450); RBC 3.54 m/uL (3.80-5.40); RDW 13.4 % (11.5-15.5); WBC 7.3 k/uL (3.8-10.6)
[2022-09-07 06:52] LABS: Total Bilirubin 0.5 mg/dL (0.2-1.3); Total Protein 6.5 g/dL (6.3-8.2)
[2022-09-07 06:55] LABS: Potassium 4.9 mmol/L (3.5-5.1)
--- NOTE | 2022-09-07 09:09 | CT ---
EXAMINATION TYPE: CT abdomen pelvis wo con DATE OF EXAM: 09/07/2022 COMPARISON: 07/26/2022 INDICATION: Pain, diarrhea,UTI DLP: 652.3 mGycm, Automated exposure control for dose reduction was used. CONTRAST: Oral mL of Isovue 300. Study performed without Oral Contrast TECHNIQUE: Axial images were obtained from above the diaphragm to the pubic rami in the axial plane a t 5 mm thick sections. Reconstructed images are reviewed on the computer in the coronal plane. FINDINGS: Limited CT sections are obtained the lung bases. The lung bases are clear. CT ABDOMEN: Liver: Normal Spleen: Normal Pancreas: Mild fatty infiltration is present diffusely. Adrenal glands: The adrenal glands are normal. Gallbladder: Surgically absent. Kidneys: No masses are evident. No hydronephrosis is present. No cysts are present. No renal stone s are present. Aorta: Vascular calcification is within the aorta. Inferior vena cava: Normal. CT PELVIS: Loops of bowel within the abdomen and pelvis are normal. This study is without oral contrast limi ting evaluation. Appendix: Not identified. No suspicious dilated tubular structure or inflammatory change is evident. Urinary bladder: Normal. Urinary bladder wall thickening has diminished. Genitourinary structures: Uterus and ovaries as visualized appear normal. No free fluid is within the pelvis. Osseous structures: No suspicious lytic or sclerotic lesions. IMPRESSIONS: 1. No discrete abnormality
[2022-09-07 09:13] LABS: Appearance,Urine Clear (Clear); Bilirubin,Urine Negative (Negative); Blood,Urine Negative (Negative); Color,Urine Yellow; Glucose,Urine (UA) Negative (Negative); Ketones,Urine Negative (Negative); Leukocyte Esterase,Urine Negative (Negative); Nitrite,Urine Negative (Negative); Protein,Urine Trace (Negative); Specific Gravity,Urine 1.025 (1.001-1.035); Urobilinogen,Urine <2.0 mg/dL (<2.0)
[2022-09-07] MEDS ORDERED: DICYCLOMINE 20 MG TAB PO STA (10:02)
[2022-09-07 11:33] VITALS: BP 102/79; PULSE 83; RESP 18
== END 2022-09-07 11:41 | disposition home or self-care (01) ==
LOC: EC 06:20
DX: R10.12 Left upper quadrant pain (principal); J45.909 Unspecified asthma, uncomplicated; I25.10 Atherosclerotic heart disease of native coronary artery without angina pectoris; K21.9 Gastro-esophageal reflux disease without esophagitis; M19.90 Unspecified osteoarthritis, unspecified site; E07.9 Disorder of thyroid, unspecified; I11.0 Hypertensive heart disease with heart failure; I50.9 Heart failure, unspecified; F41.9 Anxiety disorder, unspecified; F32.A Depression, unspecified; F12.90 Cannabis use, unspecified, uncomplicated; Z88.0 Allergy status to penicillin; Z88.2 Allergy status to sulfonamides; Z88.1 Allergy status to other antibiotic agents; Z79.890 Hormone replacement therapy; Z79.899 Other long term (current) drug therapy; Z20.822 Contact with and (suspected) exposure to COVID-19
CPT/HCPCS: 36415; 80053; 82150; 83605; 83690; 84484; 85025; 81003; 87502; 87635; 74176; 99284; 96374; 96375 ×2; 96361; J2405; J1170

== ENCOUNTER 2023-01-09 19:59 | Observation (INO) | payer MEDICARE, OTHER ==
[2023-01-09] MEDS ORDERED: ONDANSETRON 4 MG/2 ML VIAL IVP STA (20:42)
[2023-01-09] MEDS ORDERED: HYDROmorphone 1 MG/ML 1 ML SYRINGE IVP STA ×2 (20:42→22:11)
--- NOTE | 2023-01-09 21:31 | CT ---
EXAMINATION TYPE: CT pelvis wo con DATE OF EXAM: 01/09/2023 COMPARISON: 09/07/2022 HISTORY: FALL LUMBAR1-[address] DLP: 547.1 mGycm Automated exposure control for dose reduction was used. Images obtained from the iliac crests to the subtrochanteric femurs without contrast. The sacroiliac joints appear intact. The sacral segments have normal alignment. There is narrowing of L5-S1 disc space. The pelvic ring is intact. Pubic symphysis appears normal. Hip joints appear intact. The proximal fem urs are intact. No evidence of hip fracture. No free fluid in the pelvis. Bladder distends smoothly. No sign of a pelvic mass. There are a few sigmoid diverticula. IMPRESSION: No acute abnormality of the pelvis. No fracture seen. No adverse change compared to old exam.
--- NOTE | 2023-01-09 21:35 | CT ---
EXAMINATION TYPE: CT lumbar spine wo con DATE OF EXAM: 01/09/2023 COMPARISON: 09/07/2022 HISTORY: FALL L1-[address] DLP: 1328.6 mGycm Automated exposure control for dose reduction was used. Images obtained from T12 to S3 vertebra without contrast. The lumbar vertebrae have normal alignment. There is compression deformities of L1 and L2 vertebral b odies up to 75% related to old fractures. There is minimal spurring and posterior fragment extension in the spinal canal. There is developmentally adequate canal and no significant spinal stenosis. The posterior elements are intact. The sacroiliac joints are intact. There is no lumbar paraspinal mass. IMPRESSION: Compression fractures of L1 and L2 without change compared to old exam. No evidence of an acute fract ure. Degenerative disc narrowing at L3-4 and L5-S1 without change. There is also T9 mild compression fracture also present on the old exam.
[2023-01-09] MEDS ORDERED: NALOXONE 0.4 MG/ML 1 ML VIAL IV PRN (23:54)
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
[2023-01-10 00:15] LABS: Basophils # (A) 0.1 k/uL (0-0.2); Basophils % (A) 1 %; Eosinophils # (A) 0.8 k/uL (0-0.7); Eosinophils % (A) 13 %; HCT 32.3 % (34.0-46.0); HGB 10.2 gm/dL (11.4-16.0); Hypochromasia Slight; Lymphocytes # (A) 1.5 k/uL (1.0-4.8); Lymphocytes % (A) 23 %; MCH 27.5 pg (25.0-35.0); MCHC 31.6 g/dL (31.0-37.0); MCV 86.8 fL (80.0-100.0); Mean Platelet Volume 7.7; Monocytes # (A) 0.5 k/uL (0-1.0); Monocytes % (A) 8 %; Neutrophils # (A) 3.4 k/uL (1.3-7.7); Neutrophils % (A) 53 %; Platelet Count 306 k/uL (150-450); RBC 3.72 m/uL (3.80-5.40); RDW 15.3 % (11.5-15.5); WBC 6.5 k/uL (3.8-10.6)
[2023-01-10 00:32] LABS: ALT 15 U/L (4-34); AST 24 U/L (14-36); African American GFR (CKD) >90 (>60 ml/min/1.73 sqM); Albumin 3.8 g/dL (3.5-5.0); Alkaline Phosphatase 66 U/L (38-126); Anion Gap 7 mmol/L; Blood Urea Nitrogen 20 mg/dL (7-17); Carbon Dioxide 26 mmol/L (22-30); Chloride 106 mmol/L (98-107); Glucose 89 mg/dL (74-99); Non-African American GFR(CKD) >90 (>60 ml/min/1.73 sqM); Potassium 4.8 mmol/L (3.5-5.1); Sodium 139 mmol/L (137-145); Total Bilirubin 0.2 mg/dL (0.2-1.3); Total Protein 6.4 g/dL (6.3-8.2)
[2023-01-10] MEDS: HYDROmorphone 1 MG/ML 1 ML SYRINGE IVP PRN ×5 (01:24→15:25)
[2023-01-10] MEDS ORDERED: LEVOTHYROXINE 125 MCG TAB PO SCH (09:00)
[2023-01-10] MEDS ORDERED: PANTOPRAZOLE 40 MG TABLET PO SCH (09:00)
[2023-01-10] MEDS ORDERED: QUEtiapine 50 MG TAB PO PRN (09:00)
[2023-01-10] MEDS ORDERED: IBUPROFEN 600 MG TAB PO PRN (09:55)
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
--- NOTE | 2023-01-10 14:16 | P.HPIM ---
History of Present Illness H&P Date: 01/10/23 Chief Complaint: Status post fall, chronic compression fractures History and Physical and Discharge Summary This is a 67-year-old female admitted status post fall with significant left lower back and tailbone pain. Yesterday while attempting to sit, patient missed her sofa and landed on the carpeted floor. 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 Patient follows with Dr. Jackman.Denies chest pain, palpitations or shortness of breath. Denies syncope. Denies incontinence of bowel or bladder.Denies lightheadedness, dizziness or focal deficits. Pelvis and lumbar spine CT reported no acute fractures. Afebrile, normal WBC. Hemoglobin 10.2, BUN 28/creatinine 0.67, otherwise hematology and chemistry panels unremarkable .PT/Orthopedic spine consult in place, recommendations pending. Pain management with NSAIDs. Review of Systems ROS Statement: Those systems with pertinent positive or pertinent negative responses have been documented in the HPI. ROS Other: All systems not noted in ROS Statement are negative. Past Medical History Past Medical History: Asthma, Blood Disorder, Coronary Artery Disease (CAD), Chest Pain / Angina, Heart Failure, GERD/Reflux, Hypertension, Osteoarthritis (OA), Pneumonia, Thyroid Disorder Additional Past Medical History / Comment(s): Chronic gastritis, intermittent recurrent pancreatitis, duodenal stricture, short segment of Finch's esophagus, PUD, hiatal hernia, colitis, lower GI bleed, anemia, bronchitis, seasonal allergies, LBBB, arthritis multiple joints, cervical radi culopathy/cervical compression fractures, chronic back pain, scoliosis, past bilateral foot fractures and L hand fracures, uterine fibroids, UTI, hypothyroid, sacral fracture 12/2021 History of Any Multi-Drug Resistant Organisms: MRSA Date of last positivie culture/infection: 2008 MDRO Source:: lt axilla Past Surgical History: Appendectomy, Breast Surgery, Cholecystectomy, Tonsillectomy Additional Past Surgical History / Comment(s): Exploratory lap with cholecystectomy, LEFT TEMPORAL ARTERY BIOPSY, EGD/colonoscopy, L breast bx benign, Past Anesthesia/Blood Transfusion Reactions: Motion Sickness Additional Past Anesthesia/Blood Transfusion Reaction / Comment(s): no prior problems with blood transfusion Past Psychological History: Anxiety, Depression Additional Psychological History / Comment(s): . Smoking Status: Never smoker Past Alcohol Use History: None Reported Past Drug Use History: None Reported Additional Drug Use History / Comment(s): Pt states she smoked alittle marijuana in the 1970s. She denies any hx of PDA - Past Family History Father Family Medical History: Cancer Additional Family Medical History / Comment(s): Father of bladder cancer at age 66yrs. Mother Family Medical History: Congestive Heart Failure (CHF), Rheumatoid Arthritis (RA) Additional Family Medical History / Comment(s): Mother had ASHD and of this at age 68yrs. Medications and Allergies Home Medications Medication Instructions Recorded Confirmed Type DULoxetine HCL [Cymbalta] 60 mg PO HS 10/17/21 01/10/23 History QUEtiapine [SEROquel] 50 mg PO HS PRN 10/17/21 01/10/23 History traZODone HCL [Desyrel] 100 mg PO HS 02/10/22 01/10/23 History Ibuprofen [Motrin] 600 mg PO TID PRN #21 tab 01/10/23 Rx Levothyroxine Sodium [Synthroid] 125 mcg PO DAILY 01/10/23 01/10/23 History Omeprazole [PriLOSEC] 40 mg PO DAILY 01/10/23 01/10/23 History Allergies Allergy/AdvReac Type Severity Reaction Status Date / Time azithromycin [From Zithromax] Allergy Rash/Hives Verified 01/10/23 07:59 ketorolac tromethamine Allergy Rash/Hives/ Verified 01/10/23 07:59 [From Toradol] vomiting morphine Allergy Rash/Hives/ Verified 01/10/23 07:59 vomiting prochlorperazine edisylate Allergy Rash/Hives/ Verified 01/10/23 07:59 [From Compazine] vomiting prochlorperazine maleate Allergy Rash/Hives/ Verified 01/10/23 07:59 [From Compazine] vomiting sumatriptan [From Imitrex] Allergy Rash/Hives Verified 01/10/23 07:59 sumatriptan succinate Allergy Rash/Hives Verified 01/10/23 07:59 [From Imitrex] levofloxacin [From Levaquin] AdvReac caused Verified 01/10/23 07:59 abnormal EKG Physical Exam Vitals: Vital Signs Temp Pulse Pulse Resp BP BP Pulse Ox 01/10/23 11:04 98.8 F 91 17 110/73 01/10/23 06:00 127/86 92 L 01/10/23 05:00 112/80 92 L 01/10/23 04:00 123/87 92 L 01/10/23 03:00 110/77 92 L 01/10/23 02:00 104/75 91 L 01/10/23 01:10 105/73 93 L 01/10/23 01:00 91/76 93 L 01/10/23 00:54 91/76 96 01/09/23 23:55 97.7 F 103 H 17 99/67 95 01/09/23 22:40 106 H 16 104/80 95 01/09/23 21:53 98.0 F 110 H 17 120/67 96 01/09/23 20:50 100 16 122/68 97 01/09/23 20:02 98.2 F 115 H 16 123/70 95 Intake and Output 01/09/23 01/10/23 01/10/23 22:59 06:59 14:59 Other: Voiding Method Toilet Weight 81.647 kg 81.647 kg PHYSICAL EXAMINATION: Patient is sitting up in the chair comfortably, no acute distress, awake alert and orientedX3. HEENT: Normocephalic. Neck is supple. Pupils reactive. Oral cavity is moist. Neck: supple, no JVD or thyromegaly. CHEST EXAMINATION: Trachea is central. Symmetrical expansion. Lung chávez clear to auscultation and percussion. CARDIAC: Normal S1, S2 with no gallops. No murmurs ABDOMEN: Soft. Bowel sounds normal. No organomegaly. No abdominal bruits. Extremities: no edema. No clubbing or cyanosis Neurologically awake, alert, oriented x3 with well-coordinated movements. No focal deficits noted Skin: Warm and dry, No rash. Results CBC & Chem 7: 01/09/23 23:55 01/09/23 23:55 Labs: Abnormal Lab Results - Last 24 Hours (Table) 01/09/23 01/09/23 Range/Units 23:55 23:55 RBC 3.72 L (3.80-5.40) m/uL Hgb 10.2 L (11.4-16.0) gm/dL Hct 32.3 L (34.0-46.0) % Eosinophils # 0.8 H (0-0.7) k/uL BUN 20 H (7-17) mg/dL Thrombosis Risk Factor Assmnt - Choose All That Apply Any of the Below Risk Factors Present?: Yes Each Risk Factor Represents 2 Points: Age 61-74 years Other congenital or acquired thrombophilia - If yes, enter type in comment: No Thrombosis Risk Factor Assessment Total Risk Factor Score: 2 Thrombosis Risk Factor Assessment Level: Low Risk Assessment and Plan Assessment: Fall L1 and L2 chronic compression fracture deformities Degenerative disc disease CAD Hypothyroidism Plan: Continue on current medication regime ,monitoring and symptomatic treatment. Pain management. Increase ambulation as tolerated. Incentive spirometer ordered for aggressive pulmonary toileting. Patient will be discharged home ,possibly later today in stable condition with guarded prognosis pending evaluation, final DC recommendations and clearance as per orthopedic spine. Patient requesting new back brace, reporting fabric wearing off. Case management to assist.Evaluated by physical therapy and home/home with home care recommended at discharge. Patient reports she did have a bone scan last year, reporting osteoporosis-further medical management to be addressed in clinic. Discharge Medication List DULoxetine HCL [Cymbalta] 60 mg PO HS 10/17/21 [History] QUEtiapine [SEROquel] 50 mg PO HS PRN 10/17/21 [History] traZODone HCL [Desyrel] 100 mg PO HS 02/10/22 [History] Ibuprofen [Motrin] 600 mg PO TID PRN #21 tab 01/10/23 [Rx] Levothyroxine Sodium [Synthroid] 125 mcg PO DAILY 01/10/23 [History] Omeprazole [PriLOSEC] 40 mg PO DAILY 01/10/23 [History] The impression and plan of care has been dictated as directed. : I performed a history and examination of this patient, discussed the same with the dictator. I agree with the dictator's note ,documented as a scribe. Any additional findings or plans will be noted.
[2023-01-10 15:11] VITALS: BP 94/57; PULSE 88; RESP 18; TEMP 98
[2023-01-10] MEDS ORDERED: traZODone HCL 100 MG TAB PO SCH (21:00)
[2023-01-10] MEDS ORDERED: DULoxetine HCL 60 MG CAPSULE.DR PO SCH (21:00)
== END 2023-01-10 17:48 | disposition home or self-care (01) ==
LOC: EC 19:59 → 4SSUR 01-10 00:08 → 6NMEDSUR 01-10 08:26
PROVIDERS: ADMIT Family Medicine; ATTEND Family Medicine
DX: S32.019A Unspecified fracture of first lumbar vertebra, initial encounter for closed fracture (principal); W01.0XXA Fall on same level from slipping, tripping and stumbling without subsequent striking against object, initial encounter; M51.36 Other intervertebral disc degeneration, lumbar region; I25.10 Atherosclerotic heart disease of native coronary artery without angina pectoris; E03.9 Hypothyroidism, unspecified; I11.0 Hypertensive heart disease with heart failure; I50.9 Heart failure, unspecified; J45.909 Unspecified asthma, uncomplicated; K21.9 Gastro-esophageal reflux disease without esophagitis; M19.90 Unspecified osteoarthritis, unspecified site; Z87.01 Personal history of pneumonia (recurrent); K29.50 Unspecified chronic gastritis without bleeding; K85.90 Acute pancreatitis without necrosis or infection, unspecified; Z87.11 Personal history of peptic ulcer disease; K44.9 Diaphragmatic hernia without obstruction or gangrene; Z87.19 Personal history of other diseases of the digestive system; D64.9 Anemia, unspecified; I44.7 Left bundle-branch block, unspecified; Z87.440 Personal history of urinary (tract) infections; Z86.14 Personal history of Methicillin resistant Staphylococcus aureus infection; Z90.49 Acquired absence of other specified parts of digestive tract; Z98.890 Other specified postprocedural states; F41.9 Anxiety disorder, unspecified; F32.A Depression, unspecified; Z80.52 Family history of malignant neoplasm of bladder; Z82.61 Family history of arthritis; Z82.49 Family history of ischemic heart disease and other diseases of the circulatory system; Z79.890 Hormone replacement therapy; Z79.1 Long term (current) use of non-steroidal anti-inflammatories (NSAID); Z79.899 Other long term (current) drug therapy; Z88.6 Allergy status to analgesic agent; Z88.1 Allergy status to other antibiotic agents; Z88.5 Allergy status to narcotic agent; Z88.8 Allergy status to other drugs, medicaments and biological substances
CPT/HCPCS: 96376 ×3; 96374; 96375; 99284; 36415; 97162; 97165; 80053; 85025; 72192; 72131; G0378 ×2; J2405; J1170 ×2

== ENCOUNTER 2023-04-24 16:56 | Emergency (ER) | payer MEDICARE, OTHER ==
[2023-04-24 17:00] VITALS: RESP 18
[2023-04-24] MEDS ORDERED: AMOXIC-POT CLAV 875-125MG 1 EACH TAB PO STA (18:03)
[2023-04-24] MEDS ORDERED: DIPH,PERTUS(ACELL)TETVAC-LF 0.5 ML VIAL IM ONE (18:06)
[2023-04-24] MEDS ORDERED: ACETAMINOPHEN TAB 500 MG TAB PO STA (18:07)
--- NOTE | 2023-04-24 18:44 | XR ---
EXAMINATION TYPE: XR finger LT DATE OF EXAM: 04/24/2023 CLINICAL HISTORY: pain TECHNIQUE: 3 views of the left 2nd digit are submitted. COMPARISON: None FINDINGS: No displaced fracture is seen with certainty. Joint spaces are well-preserved. Soft tissue edema noted dorsal to the PIP joint. Correlate for underlying cellulitis and infection. No radiopaqu e foreign body seen. IMPRESSION: No acute displaced fracture or dislocation.
--- NOTE | 2023-04-24 18:59 | ED ---
Animal Bite HPI - General Chief Complaint: Animal Bite Stated Complaint: left finger-cat bite Time Seen by Provider: 04/24/23 17:58 Source: patient Mode of arrival: ambulatory - History of Present Illness Initial Comments: Patient is a 68-year-old female presents to the emergency department for Right. Patient's cat bit her left pointer finger this morning. The cat up-to-date on vaccinations. No concern for rabies. Patient has swelling in her finger and pain with flexion. She denies fever, chills, nausea, vomiting. Tetanus is not up-to-date. - Related Data Home Medications Medication Instructions Recorded Confirmed DULoxetine HCL [Cymbalta] 60 mg PO HS 10/17/21 01/10/23 QUEtiapine [SEROquel] 50 mg PO HS PRN 10/17/21 01/10/23 traZODone HCL [Desyrel] 100 mg PO HS 02/10/22 01/10/23 Levothyroxine Sodium [Synthroid] 125 mcg PO DAILY 01/10/23 01/10/23 Omeprazole [PriLOSEC] 40 mg PO DAILY 01/10/23 01/10/23 Previous Rx's Medication Instructions Recorded Ibuprofen [Motrin] 600 mg PO TID PRN #21 tab 01/10/23 Amoxic-Pot Clav 875-125Mg 1 tab PO BID 7 Days #14 tab 04/24/23 [Augmentin 875-125] Ibuprofen [Motrin] 800 mg PO Q8H PRN #30 tab 04/24/23 Allergies Allergy/AdvReac Type Severity Reaction Status Date / Time azithromycin [From Zithromax] Allergy Rash/Hives Verified 04/24/23 16:59 ketorolac tromethamine Allergy Rash/Hives/ Verified 04/24/23 16:59 [From Toradol] vomiting morphine Allergy Rash/Hives/ Verified 04/24/23 16:59 vomiting prochlorperazine edisylate Allergy Rash/Hives/ Verified 04/24/23 16:59 [From Compazine] vomiting prochlorperazine maleate Allergy Rash/Hives/ Verified 04/24/23 16:59 [From Compazine] vomiting sumatriptan [From Imitrex] Allergy Rash/Hives Verified 04/24/23 16:59 sumatriptan succinate Allergy Rash/Hives Verified 04/24/23 16:59 [From Imitrex] levofloxacin [From Levaquin] AdvReac caused Verified 04/24/23 16:59 abnormal EKG Review of Systems ROS Statement: Those systems with pertinent positive or pertinent negative responses have been documented in the HPI. ROS Other: All systems not noted in ROS Statement are negative. Past Medical History Past Medical History: Asthma, Blood Disorder, Coronary Artery Disease (CAD), Chest Pain / Angina, Heart Failure, GERD/Reflux, Hypertension, Osteoarthritis (OA), Pneumonia, Thyroid Disorder Additional Past Medical History / Comment(s): Chronic gastritis, intermittent recurrent pancreatitis, duodenal stricture, short segment of Finch's esophagus, PUD, hiatal hernia, colitis, lower GI bleed, anemia, bronchitis, seasonal allergies, LBBB, arthritis multiple joints, cervical radiculopathy/cervical compression fractures, chronic back pain, scoliosis, past bilateral foot fractures and L hand fracures, uterine fibroids, UTI, hypothyroid, sacral fracture 12/2021 History of Any Multi-Drug Resistant Organisms: MRSA Date of last positivie culture/infection: 2008 MDRO Source:: lt axilla Past Surgical History: Appendectomy, Breast Surgery, Cholecystectomy, Tonsillectomy Additional Past Surgical History / Comment(s): Exploratory lap with cholecystectomy, LEFT TEMPORAL ARTERY BIOPSY, EGD/colonoscopy, L breast bx benign, Past Anesthesia/Blood Transfusion Reactions: Motion Sickness Additional Past Anesthesia/Blood Transfusion Reaction / Comment(s): no prior problems with blood transfusion Past Psychological History: Anxiety, Depression Smoking Status: Never smoker Past Alcohol Use History: None Reported Past Drug Use History: None Reported - Past Family History Father Family Medical History: Cancer Additional Family Medical History / Comment(s): Father of bladder cancer at age 66yrs. Mother Family Medical History: Congestive Heart Failure (CHF), Rheumatoid Arthritis ( RA) Additional Family Medical History / Comment(s): Mother had ASHD and of this at age 68yrs. General Exam General appearance: alert, in no apparent distress Respiratory exam: Present: normal lung sounds bilaterally. Absent: respiratory distress, wheezes, rales, rhonchi, stridor Cardiovascular Exam: Present: regular rate, normal rhythm, normal heart sounds. Absent: systolic murmur, diastolic murmur, rubs, gallop, clicks Extremities exam: Present: other (2 puncture wounds left pointer finger with mild swelling proximally no erythema warmth fluctuance ) Neurological exam: Present: alert, oriented X3, CN II-XII intact Psychiatric exam: Present: normal affect, normal mood Skin exam: Present: warm, dry, intact, normal color. Absent: rash Course Vital Signs 04/24/23 04/24/23 16:57 19:01 Temperature 99.3 F 99 F Pulse Rate 118 H 90 Respiratory 18 18 Rate Blood Pressure 116/65 137/73 O2 Sat by Pulse 96 99 Oximetry Medical Decision Making - Medical Decision Making Was pt. sent in by a medical professional or institution (, [facility], [facility], urgent care, hospital, or prison...) When possible be specific @ -No Did you speak to anyone other than the patient for history (EMS, parent, family, police, friend...)? What history was obtained from this source @ -No Did you review nursing and triage notes (agree or disagree)? Why? @ -I reviewed and agree with nursing and triage notes Were old charts reviewed (outside hosp., previous admission, EMS record, old EKG, old radiological studies, urgent care reports/EKG's, prison records)? Report findings @ -No old charts were reviewed Differential Diagnosis (chest pain, altered mental status, abdominal pain women, abdominal pain men, vaginal bleeding, weakness, fever, dyspnea, syncope, headache, dizziness, GI bleed, back pain, seizure, CVA, palpatations, mental health)? @ -Laceration, abrasion, puncture EKG interpreted by me (3pts min.). @ -As above X-rays interpreted by me (1pt min.). @ -No fracture or dislocation of the finger CT interpreted by me (1pt min.). @ -None done U/S interpreted by me (1pt. min.). @ -None done What testing was considered but not performed or refused? (CT, X-rays, U/S, labs)? Why? @ -None What meds were considered but not given or refused? Why? @ -None Did you discuss the management of the patient with other professionals (professionals i.e. [facility], [facility], lab, RT, psych nurse, social work professor, shingle sawyer, teacher, purchasing officer, field nurse case manager)? Give summary @ -No Was smoking cessation discussed for >3mins.? @ -No Was critical care preformed (if so, how long)? @ -No Were there social determinants of health that impacted care today? How? (Homelessness, low income, unemployed, alcoholism, drug addiction, transportation, low edu. Level, literacy, decrease access to med. care, skilled nursing, rehab)? @ -No Was there de-escalation of care discussed even if they declined (Discuss DNR or withdrawal of care, Hospice)? DNR status @ -No What co-morbidities impacted this encounter? (DM, HTN, Smoking, COPD, CAD, Cancer, CVA, ARF, Chemo, Hep., AIDS, mental health diagnosis, sleep apnea, morbid obesity)? @ -None Was patient admitted / discharged? Hospital course, mention meds given and route, prescriptions, significant lab abnormalities, going to OR and other pertinent info. @ -Discharged. Tetanus updated patient placed on augmentin prophylactically we discussed return parameters Undiagnosed new problem with uncertain prognosis? @ -No Drug Therapy requiring intensive monitoring for toxicity (Heparin, Nitro, Insulin, Cardizem)? @ -No Were any procedures done? @ -No Diagnosis/symptom? @ cat bite Acute, or Chronic, or Acute on Chronic? @ -acute Uncomplicated (without systemic symptoms) or Complicated (systemic symptoms)? @ -uncomplicated Side effects of treatment? @ -No Exacerbation, Progression, or Severe Exacerbation? @ -No Poses a threat to life or bodily function? How? (Chest pain, [place], [place], pneumonia, PE, COPD, DKA, ARF, appy, cholecystitis, CVA, Diverticulitis, Homicidal, Suicidal, threat to staff... and all critical care pts) @ -No Dr. Stapleton is my attending Disposition Clinical Impression: Cat bite Disposition: HOME SELF-CARE Condition: Good Instructions (If sedation given, give patient instructions): Animal Bite (ED) Additional Instructions: Take medication as directed. Please follow-up with your primary care provider in 1-2 days. Return to the emergency department if you experience new, concerning, or worsening symptoms, including but not limited to, increased pain, swelling, redness, drainage, fever, nausea, vomiting Prescriptions: Amoxic-Pot Clav 875-125Mg [Augmentin 875-125] 1 tab PO BID 7 Days #14 tab Ibuprofen [Motrin] 800 mg PO Q8H PRN #30 tab PRN Reason: Pain Is patient prescribed a controlled substance at d/c from ED?: No Referrals: Leonela Marcelino MD [Primary Care Provider] - 1-2 days Time of Disposition: 18:59
[2023-04-24 19:03] VITALS: BP 137/73; PULSE 90; TEMP 99
== END 2023-04-24 19:08 | disposition home or self-care (01) ==
LOC: EC 16:56
DX: S61.251A Open bite of left index finger without damage to nail, initial encounter (principal); J45.909 Unspecified asthma, uncomplicated; I25.10 Atherosclerotic heart disease of native coronary artery without angina pectoris; E03.9 Hypothyroidism, unspecified; I11.0 Hypertensive heart disease with heart failure; I50.9 Heart failure, unspecified; F41.9 Anxiety disorder, unspecified; F31.9 Bipolar disorder, unspecified; K21.9 Gastro-esophageal reflux disease without esophagitis; Z79.899 Other long term (current) drug therapy; Z79.890 Hormone replacement therapy; Z88.6 Allergy status to analgesic agent; Z88.1 Allergy status to other antibiotic agents; Z88.8 Allergy status to other drugs, medicaments and biological substances; Z88.5 Allergy status to narcotic agent; W55.01XA Bitten by cat, initial encounter; Z23 Encounter for immunization
CPT/HCPCS: 90471; 90715; 99283

== ENCOUNTER 2024-01-23 23:10 | Observation (INO) | payer MEDICARE, OTHER ==
--- NOTE | 2024-01-23 23:52 | ED ---
Fall HPI - General Source: EMS Mode of arrival: EMS <Ioana Heaton - Last Filed: 01/23/24 23:51> <Melissa Kelly - Last Filed: 01/26/24 05:16> - General Chief Complaint: Fall Stated Complaint: Back Pain Time Seen by Provider: 01/23/24 23:51 - History of Present Illness Initial Comments: 68-year-old female presenting with chief complaint of lower back pain. Patient states that earlier this evening she lost her balance and fell onto her knees. She is now complaining of lower back pain. No loss of bowel or bladder control or saddle paresthesia. (Ioana Heaton) 68-year-old female with past medical history of asthma, coronary artery disease, heart failure who presents emergency department reporting back pain. Patient states that she was at home when she lost her balance and fell forward onto her knees. She is reporting to low back pain. Patient does have previous history of compression fractures. She was hospitalized 1 year ago for this. States that she saw Dr. Jackman at that time. She has not had the need to follow-up with him over the past year as her pain has been controlled. She does wear a back brace. She denies any bowel or bladder incontinence or retention. No saddle anesthesia. She denies hitting her head. EMS had to come to the house to pick the patient up. She was not provided with anything for her pain yet. No other alleviating, precipitating modifying factors (Melissa Kelly) - Related Data Home Medications Medication Instructions Recorded Confirmed DULoxetine HCL [Cymbalta] 30 mg PO BID 10/17/21 01/24/24 traZODone HCL [Desyrel] 100 mg PO HS 02/10/22 01/24/24 Levothyroxine Sodium [Synthroid] 125 mcg PO DAILY 01/10/23 01/24/24 Celecoxib [CeleBREX] 200 mg PO HS 01/24/24 01/24/24 Melatonin 20 mg PO HS 01/24/24 01/24/24 diphenhydrAMINE [Benadryl] 50 mg PO HS 01/24/24 01/24/24 Allergies Allergy/AdvReac Type Severity Reaction Status Date / Time azithromycin [From Zithromax] Allergy Rash/Hives Verified 01/24/24 08:29 ketorolac tromethamine Allergy Rash/Hives/ Verified 01/24/24 08:29 [From Toradol] vomiting morphine Allergy Rash/Hives/ Verified 01/24/24 08:29 vomiting prochlorperazine edisylate Allergy Rash/Hives/ Verified 01/24/24 08:29 [From Compazine] vomiting prochlorperazine maleate Allergy Rash/Hives/ Verified 01/24/24 08:29 [From Compazine] vomiting sumatriptan [From Imitrex] Allergy Rash/Hives Verified 01/24/24 08:29 sumatriptan succinate Allergy Rash/Hives Verified 01/24/24 08:29 [From Imitrex] levofloxacin [From Levaquin] AdvReac caused Verified 01/24/24 08:29 abnormal EKG Review of Systems ROS Other: All systems not noted in ROS Statement are negative. <Ioana Heaton - Last Filed: 01/23/24 23:51> ROS Other: All systems not noted in ROS Statement are negative. <Melissa Kelly - Last Filed: 01/26/24 05:16> ROS Statement: Those systems with pertinent positive or pertinent negative responses have been documented in the HPI. Past Medical History Past Medical History: Asthma, Blood Disorder, Coronary Artery Disease (CAD), Chest Pain / Angina, Heart Failure, GERD/Reflux, Hypertension, Osteoarthritis (OA), Pneumonia, Thyroid Disorder Additional Past Medical History / Comment(s): Chronic gastritis, intermittent recurrent pancreatitis, duodenal stricture, short segment of Finch's esophag us, PUD, hiatal hernia, colitis, lower GI bleed, anemia, bronchitis, seasonal allergies, LBBB, arthritis multiple joints, cervical radiculopathy/cervical compression fractures, chronic back pain, scoliosis, past bilateral foot fractures and L hand fracures, uterine fibroids, UTI, hypothyroid, sacral fracture 12/2021 History of Any Multi-Drug Resistant Organisms: MRSA Date of last positivie culture/infection: 2008 MDRO Source:: lt axilla Past Surgical History: Appendectomy, Breast Surgery, Cholecystectomy, Tonsillectomy Additional Past Surgical History / Comment(s): Exploratory lap with cholecystectomy, LEFT TEMPORAL ARTERY BIOPSY, EGD/colonoscopy, L breast bx benign, Past Anesthesia/Blood Transfusion Reactions: Motion Sickness Additional Past Anesthesia/Blood Transfusion Reaction / Comment(s): no prior problems with blood transfusion Past Psychological History: Anxiety, Depression Smoking Status: Never smoker Past Alcohol Use History: None Reported Past Drug Use History: None Reported - Past Family History Father Family Medical History: Cancer Additional Family Medical History / Comment(s): Father of bladder cancer at age 66yrs. Mother Family Medical History: Congestive Heart Failure (CHF), Rheumatoid Arthritis (RA) Additional Family Medical History / Comment(s): Mother had ASHD and of this at age 68yrs. <Ioana Heaton - Last Filed: 01/23/24 23:51> General Exam Limitations: no limitations <Ioana Heaton - Last Filed: 01/23/24 23:51> General appearance: alert, in no apparent distress Head exam: Present: atraumatic, normocephalic, normal inspection Eye exam: Present: normal appearance, PERRL, EOMI. Absent: scleral icterus, conjunctival injection, periorbital swelling ENT exam: Present: normal exam, mucous membranes moist Neck exam: Present: normal inspection. Absent: tenderness, meningismus, lymphadenopathy Respiratory exam: Present: normal lung sounds bilaterally. Absent: respiratory distress, wheezes, rales, rhonchi, stridor Cardiovascular Exam: Present: regular rate, normal rhythm, normal heart sounds. Absent: systolic murmur, diastolic murmur, rubs, gallop, clicks GI/Abdominal exam: Present: soft, normal bowel sounds. Absent: distended, tenderness, guarding, rebound, rigid Extremities exam: Present: normal inspection, full ROM, normal capillary refill. Absent: tenderness, pedal edema, joint swelling, calf tenderness Back exam: Present: vertebral tenderness (Midline, T12 and L2. No gross defor mity) Neurological exam: Present: alert, oriented X3, CN II-XII intact Psychiatric exam: Present: normal affect, normal mood Skin exam: Present: warm, dry, intact, normal color. Absent: rash <Melissa Kelly - Last Filed: 01/26/24 05:16> - General Exam Comments Initial Comments: Visual Physical Exam Vital signs reviewed General: Well-appearing, nontoxic, no acute distress. Head: Normocephalic, atraumatic Eyes: PERRLA, EOMI ENT: Airway patent Chest: Nonlabored breathing Skin: No visual rash, normal skin tone Neuro: Alert and oriented 3 Musculoskeletal: No gross abnormalities (Ioana Heaton) Course Vital Signs 01/23/24 01/24/24 01/24/24 23:24 04:00 06:00 Temperature 97.9 F Pulse Rate 97 88 89 Respiratory 18 18 18 Rate Blood Pressure 149/83 144/88 138/86 O2 Sat by Pulse 96 96 95 Oximetry 01/24/24 01/24/24 01/24/24 09:00 13:00 17:27 Temperature Pulse Rate 93 88 82 Respiratory 17 18 18 Rate Blood Pressure 137/79 116/84 137/88 O2 Sat by Pulse 96 97 96 Oximetry 01/24/24 19:32 Temperature Pulse Rate 83 Respiratory 16 Rate Blood Pressure 143/81 O2 Sat by Pulse 98 Oximetry Medical Decision Making <Ioana Heaton - Last Filed: 01/23/24 23:51> - Lab Data Result diagrams: 01/25/24 06:16 01/25/24 06:16 <Melissa Kelly - Last Filed: 01/26/24 05:16> - Medical Decision Making I performed the quick note portion of this visit, electronically signed Ioana Heaton PA-C (Ioana Heaton) Was pt. sent in by a medical professional or institution ([facility], MANAGER [employer]ENT[employer], urgent care, hospital, or senior living...) When possible be specific @ -No Did you speak to anyone other than the patient for history (EMS, parent, family, police, friend...)? What history was obtained from this source @ -Spoke with EMS for history Did you review nursing and triage notes (agree or disagree)? Why? @ -I reviewed and agree with nursing and triage notes Were old charts reviewed (outside hosp., previous admission, EMS record, old EKG, old radiological studies, urgent care reports/EKG's, senior living records)? Report findings @ -I reviewed the patient's surgical consult from 1 year ago for her compression fractures Differential Diagnosis (chest pain, altered mental status, abdominal pain women, abdominal pain men, vaginal bleeding, weakness, fever, dyspnea, syncope, headache, dizziness, GI bleed, back pain, seizure, CVA, palpatations, mental health, musculoskeletal)? @ -Differential Back Pain: Strain, zoster, cauda equina syndrome, epidural abscess, vertebral osteomyelitis, discitis, fracture, subluxation, disc herniation, DJD, spinal stenosis, dissection, AAA, pancreatitis, peptic ulcer disease, pyelonephritis, kidney stone, this is not meant to be an all-inclusive list. EKG interpreted by me (3pts min.). @ -Not done X-rays interpreted by me (1pt min.). @ -Yes and demonstrates wedge fractures of L2-L3 CT interpreted by me (1pt min.). @ -None done U/S interpreted by me (1pt. min.). @ -None done What testing was considered but not performed or refused? (CT, X-rays, U/S, labs)? Why? @ -None What meds were considered but not given or refused? Why? @ -None Did you discuss the management of the patient with other professionals (pr ofessionals i.e. , PA, MANAGER [employer]ENTION, lab, RT, psych nurse, criminal justice social worker, survey statistician, teacher, senior escrow officer, adult protective caseworker)? Give summary @ -Spoke with Dr. Washington. Patient has received pain medications. Still feels uncomfortable from the pain. Unable to ambulate. Lives alone. Called and spoke with Dr. Canales who was agreeable to keeping the patient Was smoking cessation discussed for >3mins.? @ -No Was critical care preformed (if so, how long)? @ -No Were there social determinants of health that impacted care today? How? (Homelessness, low income, unemployed, alcoholism, drug addiction, trans portation, low edu. Level, literacy, decrease access to med. care, penitentiary, rehab)? @ -No Was there de-escalation of care discussed even if they declined (Discuss DNR or withdrawal of care, Hospice)? DNR status @ -No What co-morbidities impacted this encounter? (DM, HTN, Smoking, COPD, CAD, Cancer, CVA, ARF, Chemo, Hep., AIDS, mental health diagnosis, sleep apnea, morbid obesity)? @ -Previous lumbar compression fractures Was patient admitted / discharged? Hospital course, mention meds given and route, prescriptions, significant lab abnormalities, going to OR and other pertinent info. @ -Upon arrival patient was seen and evaluated in room 24. Thorough history and physical exam was performed. X-ray was performed which demonstrates wedge compression fractures. Patient was given pain medications. Laboratory studies were conducted. Upon return the results they are discussed with the patient. We do attempt to ambulate the patient however we are unable. She is given additional pain medications. Called and spoke with Dr. Washington was agreeable to admit the patient for PT, OT and orthopedic consult. Undiagnosed new problem with uncertain prognosis? @ -Yes Drug Therapy requiring intensive monitoring for toxicity (Heparin, Nitro, Insulin, Cardizem)? @ -No Were any procedures done? @ -No Diagnosis/symptom? @ -Acute fall, acute back pain, history of lumbar compression fractures Acute, or Chronic, or Acute on Chronic? @ -Acute Uncomplicated (without systemic symptoms) or Complicated (systemic symptoms)? @ -Complicated Side effects of treatment? @ -No Exacerbation, Progression, or Severe Exacerbation? @ -No Poses a threat to life or bodily function? How? (Chest pain, USA, MT, pneumonia, PE, COPD, DKA, ARF, appy, cholecystitis, CVA, Diverticulitis, Homicidal, Suicidal, threat to staff... and all critical care pts) @ -No (Melissa Kelly) - Lab Data Lab Results 01/24/24 01/24/24 01/24/24 Range/Units 04:09 06:15 06:15 WBC 7.8 (3.8-10.6) k/uL RBC 3.44 L (3.80-5.40) m/uL Hgb 10.5 L (11.4-16.0) gm/dL Hct 32.2 L (34.0-46.0) % MCV 93.6 (80.0-100.0) fL MCH 30.5 (25.0-35.0) pg MCHC 32.6 (31.0-37.0) g/dL RDW 17.4 H (11.5-15.5) % Plt Count 290 (150-450) k/uL MPV 7.2 Neutrophils % 61 % Lymphocytes % 18 % Monocytes % 7 % Eosinophils % 10 % Basophils % 1 % Neutrophils # 4.8 (1.3-7.7) k/uL Lymphocytes # 1.4 (1.0-4.8) k/uL Monocytes # 0.5 (0-1.0) k/uL Eosinophils # 0.8 H (0-0.7) k/uL Basophils # 0.1 (0-0.2) k/uL Anisocytosis Slight Sodium 136 L (137-145) mmol/L Potassium 4.2 (3.5-5.1) mmol/L Chloride 107 (98-107) mmol/L Carbon Dioxide 23 (22-30) mmol/L Anion Gap 6 mmol/L BUN 15 (7-17) mg/dL Creatinine 0.58 (0.52-1.04) mg/dL Est GFR (CKD-EPI)AfAm >90 (>60 ml/min/1.73 sqM) Est GFR (CKD-EPI)NonAf >90 (>60 ml/min/1.73 sqM) Glucose 88 (74-99) mg/dL Calcium 9.0 (8.4-10.2) mg/dL Total Bilirubin 0.6 (0.2-1.3) mg/dL AST 42 H (14-36) U/L ALT 30 (4-34) U/L Alkaline Phosphatase 85 (38-126) U/L Total Protein 6.7 (6.3-8.2) g/dL Albumin 3.9 (3.5-5.0) g/dL TSH >100.000 H (0.465-4.680) mIU/L Free T4 0.43 L (0.78-2.19) ng/dL Urine Color Colorless Urine Appearance Cloudy H (Clear) Urine pH 7.0 (5.0-8.0) Ur Specific Festus 1.011 (1.001-1.035) Urine Protein Negative (Negative) Urine Glucose (UA) Negative (Negative) Urine Ketones Negative (Negative) Urine Blood Negative (Negative) Urine Nitrite Negative (Negative) Urine Bilirubin Negative (Negative) Urine Urobilinogen <2.0 (<2.0) mg/dL Ur Leukocyte Esterase Large H (Negative) Urine RBC 3 (0-5) /hpf Urine WBC 75 H (0-5) /hpf Urine WBC Clumps Rare H (None) /hpf Ur Squamous Epith Cells <1 (0-4) /hpf Urine Bacteria Rare H (None) /hpf Disposition <Ioana Heaton - Last Filed: 01/23/24 23:51> Is patient prescribed a controlled substance at d/c from ED?: No Time of Disposition: 08:24 Decision to Admit Reason: Admit from EC Decision Date: 01/24/24 Decision Time: 08:24 <Melissa Kelly - Last Filed: 01/26/24 05:16> Clinical Impression: Fall, Acute back pain, Compression fracture, Intractable low back pain Disposition: ADMITTED IP TO THIS [facility] Condition: Stable
--- NOTE | 2024-01-24 01:21 | XR ---
EXAM: XR Lumbosacral Spine, 2 or 3 Views CLINICAL HISTORY: ITS.REASON XR Reason: fall, pain TECHNIQUE: Frontal and lateral views of the lumbar spine and sacrum. COMPARISON: 01/09/2023 FINDINGS: Vertebrae: Age-indeterminate severe wedging deformity of L2 and L3 with slight retropulsion. Disc spaces: Degenerative changes. Soft tissues: Unremarkable. IMPRESSION: Age-indeterminate severe wedging deformity of L2 and L3 with slight retropulsion.
[2024-01-24 05:13] LABS: Appearance,Urine Cloudy (Clear); Bacteria,Urine Rare /hpf; Bilirubin,Urine Negative (Negative); Blood,Urine Negative (Negative); Color,Urine Colorless; Glucose,Urine (UA) Negative (Negative); Ketones,Urine Negative (Negative); Leukocyte Esterase,Urine Large (Negative); Nitrite,Urine Negative (Negative); Protein,Urine Negative (Negative); RBC,Urine 3 /hpf (0-5); Specific Gravity,Urine 1.011 (1.001-1.035); Squamous Epithelial Cell,Urine <1 /hpf (0-4); Urobilinogen,Urine <2.0 mg/dL (<2.0); WBC,Urine 75 /hpf (0-5)
[2024-01-24] MEDS: HYDROmorphone 1 MG/ML 1 ML SYRINGE IVP STA (06:39)
[2024-01-24 06:48] LABS: Anisocytosis Slight; Basophils # (A) 0.1 k/uL (0-0.2); Basophils % (A) 1 %; Eosinophils # (A) 0.8 k/uL (0-0.7); Eosinophils % (A) 10 %; HCT 32.2 % (34.0-46.0); HGB 10.5 gm/dL (11.4-16.0); Lymphocytes # (A) 1.4 k/uL (1.0-4.8); Lymphocytes % (A) 18 %; MCH 30.5 pg (25.0-35.0); MCHC 32.6 g/dL (31.0-37.0); MCV 93.6 fL (80.0-100.0); Mean Platelet Volume 7.2; Monocytes # (A) 0.5 k/uL (0-1.0); Monocytes % (A) 7 %; Neutrophils # (A) 4.8 k/uL (1.3-7.7); Neutrophils % (A) 61 %; Platelet Count 290 k/uL (150-450); RBC 3.44 m/uL (3.80-5.40); RDW 17.4 % (11.5-15.5); WBC 7.8 k/uL (3.8-10.6)
[2024-01-24 07:43] LABS: ALT 30 U/L (4-34); AST 42 U/L (14-36); African American GFR (CKD) >90 (>60 ml/min/1.73 sqM); Albumin 3.9 g/dL (3.5-5.0); Alkaline Phosphatase 85 U/L (38-126); Anion Gap 6 mmol/L; Blood Urea Nitrogen 15 mg/dL (7-17); Carbon Dioxide 23 mmol/L (22-30); Chloride 107 mmol/L (98-107); Glucose 88 mg/dL (74-99); Non-African American GFR(CKD) >90 (>60 ml/min/1.73 sqM); Potassium 4.2 mmol/L (3.5-5.1); Sodium 136 mmol/L (137-145); Total Bilirubin 0.6 mg/dL (0.2-1.3); Total Protein 6.7 g/dL (6.3-8.2)
[2024-01-24] MEDS ORDERED: NALOXONE 0.4 MG/ML 1 ML VIAL IV PRN (08:24)
[2024-01-24] MEDS: HYDROmorphone 1 MG/ML 1 ML SYRINGE IVP PRN (09:08)
[2024-01-24 10:44] LABS: T4, Free (Free Thyroxine) 0.43 ng/dL (0.78-2.19)
--- NOTE | 2024-01-24 15:22 | P.CNOR ---
History of Present Illness - [facility] Consult date: 01/24/24 Consult reason: low back pain ( lumbar compression fractures) History of present illness: patient is a 68-year-old female who presented to [facility] on 01/23/2024 for worsening low back pain after sustaining a fall at home. Patient apparently was attempting to ambulate when she became dizzy and fell to her knees. Since the fall, she has had worsening low back pain that has made it very difficult to ambulate. Patient was brought to the hospital for further evaluation, x-rays were ordered. Patient was admitted under internal medicine, our orthopedic team was then consulted. Patient was evaluated in the emergency room setting, she is resting comfortably in her hospital bed. Patient states that she has been dealing with her low back for the last 5 years, she was initially diagnosed 5 years ago after a fall with a compression fracture. A LSO brace was ordered at that time, she has continued to utilize that same brace. Patient did fall in December 2022, she was evaluated by the other orthopedic group at that time and diagnosed with a compression fracture in the lumbar spine. No surgical intervention had been done. Patient normally ambulates with the assistance of a walker or cane. Patient does not drive currently. Patient notes most of the discomfort in the center of the low back, any type of movement exacerbates this. Currently she has no numbness or tingling to the bilateral lower extremities. She denies any numbness or tingling to the genital or perineal region. She denies any loss of bowel or bladder function at this time. She denies any numbness or tingling to the bilateral upper extremities. Review of Systems Constitutional: Reports as per HPI Past Medical History Past Medical History: Asthma, Blood Disorder, Coronary Artery Disease (CAD), Chest Pain / Angina, Heart Failure, GERD/Reflux, Hypertension, Osteoarthritis (OA), Pneumonia, Thyroid Disorder Additional Past Medical History / Comment(s): Chronic gastritis, intermittent recurrent pancreatitis, duodenal stricture, short segment of Finch's esophagus, PUD, hiatal hernia, colitis, lower GI bleed, anemia, bronchitis, seasonal allergies, LBBB, arthritis multiple joints, cervical ra diculopathy/cervical compression fractures, chronic back pain, scoliosis, past bilateral foot fractures and L hand fracures, uterine fibroids, UTI, hypothyroid, sacral fracture 12/2021 History of Any Multi-Drug Resistant Organisms: MRSA Year Discovered:: 2008 MDRO Source:: lt axilla Past Surgical History: Appendectomy, Breast Surgery, Cholecystectomy, Tonsillectomy Additional Past Surgical History / Comment(s): Exploratory lap with cholecystectomy, LEFT TEMPORAL ARTERY BIOPSY, EGD/colonoscopy, L breast bx benign, Past Anesthesia/Blood Transfusion Reactions: Motion Sickness Additional Past Anesthesia/Blood Transfusion Reaction / Comm: no prior problems with blood transfusion Past Psychological History: Anxiety, Depression Smoking Status: Never smoker Past Alcohol Use History: None Reported Past Drug Use History: None Reported - Past Family History Father Family Medical History: Cancer Additional Family Medical History / Comment(s): Father of bladder cancer at age 66yrs. Mother Family Medical History: Congestive Heart Failure (CHF), Rheumatoid Arthritis (RA) Additional Family Medical History / Comment(s): Mother had ASHD and of this at age 68yrs. Medications and Allergies Home Medications Medication Instructions Recorded Confirmed Type DULoxetine HCL [Cymbalta] 30 mg PO BID 10/17/21 01/24/24 History traZODone HCL [Desyrel] 100 mg PO HS 02/10/22 01/24/24 History Levothyroxine Sodium [Synthroid] 125 mcg PO DAILY 01/10/23 01/24/24 History Celecoxib [CeleBREX] 200 mg PO HS 01/24/24 01/24/24 History Melatonin 20 mg PO HS 01/24/24 01/24/24 History diphenhydrAMINE [Benadryl] 50 mg PO HS 01/24/24 01/24/24 History Allergies Allergy/AdvReac Type Severity Reaction Status Date / Time azithromycin [From Zithromax] Allergy Rash/Hives Verified 01/24/24 08:29 ketorolac tromethamine Allergy Rash/Hives/ Verified 01/24/24 08:29 [From Toradol] vomiting morphine Allergy Rash/Hives/ Verified 01/24/24 08:29 vomiting prochlorperazine edisylate Allergy Rash/Hives/ Verified 01/24/24 08:29 [From Compazine] vomiting prochlorperazine maleate Allergy Rash/Hives/ Verified 01/24/24 08:29 [From Compazine] vomiting sumatriptan [From Imitrex] Allergy Rash/Hives Verified 01/24/24 08:29 sumatriptan succinate Allergy Rash/Hives Verified 01/24/24 08:29 [From Imitrex] levofloxacin [From Levaquin] AdvReac caused Verified 01/24/24 08:29 abnormal EKG Physical Examination Gen: AOx3, NAD VSS stable at this time Integument: No open lesions, sores or areas of erythema are appreciated throughout the lumbar spine Palpation: tenderness with palpation appreciated in the midline area of the lumbar spine ROM: full range of motion in all major muscle groups of the bilateral upper and lower extremities, no focal deficits appreciated Sensory Exam: Senory exam to light touch is intact C5-T1 Senosry exam to light touch is intact L2-S1 Motor: 5/5 strength appreciated in the bilateral upper extremities with shoulder elevation, shoulder abduction, wrist extension, wrist flexion, elbow extension, elbow flexion, engineering group leader 4+/5 strength appreciated the bilateral lower extremities with hip flexion, knee extension, knee flexion, dorsiflexion, plantarflexion, EHL, FHL Reflexes: 2/4 in all UE and LE negative clonus, Babinski bilaterally Special Test: negative straight leg raise bilaterally Results - Labs Labs: Abnormal Lab Results - Last 24 Hours (Table) 01/24/24 01/24/24 01/24/24 Range/Units 04:09 06:15 06:15 RBC 3.44 L (3.80-5.40) m/uL Hgb 10.5 L (11.4-16.0) gm/dL Hct 32.2 L (34.0-46.0) % RDW 17.4 H (11.5-15.5) % Eosinophils # 0.8 H (0-0.7) k/uL Sodium 136 L (137-145) mmol/L AST 42 H (14-36) U/L TSH >100.000 H (0.465-4.680) mIU/L Free T4 0.43 L (0.78-2.19) ng/dL Urine Appearance Cloudy H (Clear) Ur Leukocyte Esterase Large H (Negative) Urine WBC 75 H (0-5) /hpf Urine WBC Clumps Rare H (None) /hpf Urine Bacteria Rare H (None) /hpf H & H 01/24/24 Range/Units 06:15 Hgb 10.5 L (11.4-16.0) gm/dL Hct 32.2 L (34.0-46.0) % Result Diagrams: 01/24/24 06:15 01/24/24 06:15 - Diagnostic results Lumbar AP/lateral x-ray: report reviewed, image reviewed ( report and images were reviewed of the lumbar spine films. Images demonstrate compressive deformities at L1 and L2) Assessment and Plan Assessment: Low back pain L1 vertebral body compression fracture L2 vertebral body compression fracture Status post fall from standing Difficulty with ambulation Other medical comorbidities Plan: I was able to discuss the case, this to include both physical exam findings and imaging studies and my attending Dr. Forman. No emergent orthopedic surgical intervention is recommended at this time. Patient is demonstrating no acute neuropathic signs. CT scan of the lumbar spine without contrast has been ordered to evaluate for burst fracture components We will begin with conservative measures, this to include the use of an LSO brace. A prescription will be placed in chart to hopefully be fitted for a new brace. Pain control, recommending the use of Tylenol, NSAIDs, muscle relaxers and low- dose oral narcotic as needed weight-bear as tolerated, utilize walker at all times DVT prophylaxis per primary medical service PT/OT evaluation Further recommendations to follow Time with Patient: Less than 30
--- NOTE | 2024-01-24 15:45 | CT ---
EXAMINATION TYPE: CT lumbar spine wo con DATE OF EXAM: 01/24/2024 3:35 PM COMPARISON: 01/09/2023 HISTORY: chronic low back pain CT DLP: 1141.6 mGycm Automated exposure control for dose reduction was used. Unenhanced CT of the lumbar spine was performed. Bone and soft tissue window settings are submitted as well as coronal and sagittal reconstructions. Findings: There are stable severe compression fractures of L1 and L2 with mild retropulsion. There is a new mild superior endplate compression fracture of T12 without retropulsion. The osseous structures are diffusely osteopenic. There is severe degenerative disease at the L3-4 and L5-S1 levels where there is severe disc space na rrowing ends some scattered vacuum phenomena. There is mild osteoarthritic change of the SI joints and facet joints at the L5-S1 level. There is mild spinal stenosis at the L1-2 level secondary to retropulsion of the fracture. Although limited by this technique no large disc herniations are seen. IMPRESSION: 1. New mild superior endplate compression fracture of T12 without retropulsion. 2. Stable severe compression fractures with mild retropulsion of L1 and L2. 3. Degenerative disc disease and osteoarthritic changes as described above.
[2024-01-24] MEDS: CYCLOBENZAPRINE 5 MG TAB PO PRN (19:03)
[2024-01-25 09:24] LABS: Basophils # (A) 0.11 X 10*3/uL (0.00-0.10); Basophils % (A) 1.3 %; Eosinophils # (A) 0.83 X 10*3/uL (0.04-0.35); Eosinophils % (A) 9.8 %; HCT 34.1 % (37.2-46.3); HGB 10.1 g/dL (12.0-15.0); Lymphocytes % (A) 16.6 %; MCH 29.9 pg (27.0-32.0); MCHC 29.6 g/dL (32.0-37.0); MCV 100.9 FL (80.0-97.0); Mean Platelet Volume 8.9 FL (9.5-12.2); Monocytes # (A) 0.76 X 10*3/uL (0.20-1.00); NRBC Per 100 WBC 0 X 10*3/uL (0.00-0.01); Neutrophils # (A) 5.28 X 10*3/uL (1.80-7.70); Neutrophils % (A) 62.7 %; Platelet Count 289 X 10*3/uL (140-440); RBC 3.38 X 10*6/uL (4.10-5.20); RDW 17.9 % (11.5-14.5); WBC 8.43 X 10*3/uL (4.50-10.00)
[2024-01-25 09:48] LABS: BUN/Creat Ratio 16.75 Ratio (12.00-20.00); Blood Urea Nitrogen 13.4 mg/dL (9.0-27.0); Calcium 9.4 mg/dL (8.7-10.3); Carbon Dioxide 21.2 mmol/L (21.6-31.8); Chloride 102 mmol/L (96-109); Glucose 87 mg/dL (70-110); Sodium 135 mmol/L (135-145)
[2024-01-25] MEDS: LEVOTHYROXINE 75 MCG TAB PO SCH (14:06)
[2024-01-25] MEDS: DULoxetine HCL 30 MG CAPSULE.DR PO SCH (14:07)
--- NOTE | 2024-01-25 14:10 | P.PN ---
Subjective Progress Note Date: 01/25/24 Principal diagnosis: T12 vertebral body compression fracture, old L1 and L2 vertebral compression fracture, multilevel lumbar spondylosis Patient was examined today at bedside, she is resting in her hospital bed. Patient's pain level remains about the same. There are concerns for urinary tract infection at this time. Patient has not been out of bed and worked with therapy at this time. She currently denies headaches, lightheadedness, chest pain or shortness of breath Objective - Vital Signs Vital signs: Vital Signs Temp 98.6 F 01/25/24 12:28 Pulse 87 01/25/24 12:28 Resp 20 01/25/24 12:28 BP 121/76 01/25/24 12:28 Pulse Ox 94 L 01/25/24 12:28 FiO2 Intake & Output 01/24/24 01/25/24 01/25/24 18:59 06:59 18:59 Output Total 700 Balance -700 Weight 90.718 kg Output: Urine 700 Other: Voiding Method Diaper Diaper External Catheter External Catheter - Exam Gen: AOx3, NAD VSS stable at this time Integument: No open lesions, sores or areas of erythema are appreciated throughout the lumbar spine Palpation: tenderness with palpation appreciated in the midline area of the lumbar spine ROM: full range of motion in all major muscle groups of the bilateral upper and lower extremities, no focal deficits appreciated Sensory Exam: Senory exam to light touch is intact C5-T1 Senosry exam to light touch is intact L2-S1 Motor: 5/5 strength appreciated in the bilateral upper extremities with shoulder elevation, shoulder abduction, wrist extension, wrist flexion, elbow extension, elbow flexion, business project analyst 4+/5 strength appreciated the bilateral lower extremities with hip flexion, knee extension, knee flexion, dorsiflexion, plantarflexion, EHL, FHL Reflexes: 2/4 in all UE and LE negative clonus, Babinski bilaterally Special Test: negative straight leg raise bilaterally - Labs CBC & Chem 7: 01/25/24 06:16 01/25/24 06:16 Labs: Abnormal Lab Results - Last 24 Hours (Table) 01/25/24 01/25/24 Range/Units 06:16 06:16 RBC 3.38 L (4.10-5.20) X 10*6/uL Hgb 10.1 L (12.0-15.0) g/dL Hct 34.1 L (37.2-46.3) % MCV 100.9 H (80.0-97.0) FL MCHC 29.6 L (32.0-37.0) g/dL RDW 17.9 H (11.5-14.5) % MPV 8.9 L (9.5-12.2) FL Immature Gran # 0.05 H (0.00-0.04) X 10*3/uL Eosinophils # 0.83 H (0.04-0.35) X 10*3/uL Basophils # 0.11 H (0.00-0.10) X 10*3/uL Carbon Dioxide 21.2 L (21.6-31.8) mmol/L Assessment and Plan Assessment: Low back pain T12 vertebral body compression fracture, acute L1 vertebral body compression fracture, severe collapse ,old L2 vertebral body compression fracture, severe collapse, old Multilevel lumbar spondylosis Status post fall from standing Difficulty with ambulation Other medical comorbidities Plan: CT scan results were reviewed, was able to discuss these with my attending Dr. Forman. New compression deformities involving superior endplate were noted at T12, L1 and L2 vertebral body compression fractures are old, there is severe collapse noted. Results also demonstrated severe spondylitic changes throughout the remaining lumbar spine. Continue conservative measures, this to include the use of an LSO brace. Anticipate patient being fitted for a brace on 01/27/2024 Pain control, recommending the use of Tylenol, NSAIDs, muscle relaxers and low- dose oral narcotic as needed Weight-bear as tolerated, utilize walker at all times DVT prophylaxis per primary medical service PT/OT evaluation Pending how patient progresses with physical therapy and use of the brace, we may be discussing surgical fixation versus continuation of conservative measures and follow-up in the outpatient setting Time with Patient: Less than 30
--- NOTE | 2024-01-25 15:01 | P.HPIM ---
History of Present Illness H&P Date: 01/25/24 History of present illness; patient 68-year-old lady with past medical history significant for hypothyroidism, depression presented to the ER for a fall. Patient stated she was all right this morning when she. Lost her balance and fell on her knees, following that she started having severe low back pain. Denied any complaint of bowel or urine incontinence. No complaint of saddle anesthesia. Patient has history of back pain and was diagnosed with having compression fracture and was told to wear a back brace. Because of the back pain, patient presented to the ER Initial lab work done in the ER showed WBC 9.8, hemoglobin 10.5, platelet count 290, sodium 130, potassium 4.2, BUN 15, creatinine 0.58, TSH greater than 100 UA done showed large amount of leukocyte Estrace, urine WBC 75 X-ray lumbar spine done showed age-indeterminate severe wedge deformity of L2 and L3 with slight retropulsion Patient admitted to internal medicine service REVIEW OF SYSTEMS: CONSTITUTIONAL: No fever, no malaise, no fatigue. HEENT: No recent visual problems or hearing problems. Denied any sore throat. CARDIOVASCULAR: No chest pain, orthopnea, PND, no palpitations, no syncope. PULMONARY: No shortness of breath, no cough, no hemoptysis. GASTROINTESTINAL: No diarrhea, no nausea, no vomiting, no abdominal pain. NEUROLOGICAL: No headaches, no weakness, no numbness. HEMATOLOGICAL: Denies any bleeding or petechiae. GENITOURINARY: Denies any burning micturition, frequency, or urgency. MUSCULOSKELETAL/RHEUMATOLOGICAL: As mentioned above ENDOCRINE: Denies any polyuria or polydipsia. The rest of the 14-point review of systems is negative. PHYSICAL EXAMINATION: GENERAL: The patient is alert and oriented x3, not in any acute distress. Well developed, well nourished. HEENT: Pupils are round and equally reacting to light. EOMI. No scleral icterus. No conjunctival pallor. Normocephalic, atraumatic. No pharyngeal erythema. No thyromegaly. CARDIOVASCULAR: S1 and S2 present. No murmurs, rubs, or gallops. PULMONARY: Chest is clear to auscultation, no wheezing or crackles. ABDOMEN: Soft, nontender, nondistended, normoactive bowel sounds. No palpable organomegaly. MUSCULOSKELETAL: No joint swelling or deformity. EXTREMITIES: No cyanosis, clubbing, or pedal edema. NEUROLOGICAL: Gross neurological examination did not reveal any focal deficits. SKIN: No rashes. Assessment and plan Fall Acute on chronic back pain Hypothyroidism UTI Monitor vital signs Monitor CBC Monitor CMP Fall precautions Continue pain management TSH was elevated, will increase dose of Synthroid to 150. Start patient on IV Rocephin. Continue IV fluids Orthopedic consulted PT and OT consulted Labs and medication were reviewed.. Continue same treatment. Continue with symptomatic treatment. Resume home medication. Monitor labs and vitals. DVT and GI prophylaxis. Further recommendations as per clinical course of the patient Dictation was produced using [employer] dictation software. please excuse any grammatical, word or spelling errors. Past Medical History Past Medical History: Asthma, Blood Disorder, Coronary Artery Disease (CAD), Chest Pain / Angina, Heart Failure, GERD/Reflux, Hypertension, Osteoarthritis (OA), Pneumonia, Thyroid Disorder Additional Past Medical History / Comment(s): Chronic gastritis, intermittent recurrent pancreatitis, duodenal stricture, short segment of Finch's esophagus, PUD, hiatal hernia, colitis, lower GI bleed, anemia, bronchitis, seasonal allergies, LBBB, arthritis multiple joints, cervical radiculopathy/cervical compression fractures, chronic back pain, scoliosis, past bilateral foot fractures and L hand fracures, uterine fibroids, UTI, hypothyroid, sacral fracture 12/2021 History of Any Multi-Drug Resistant Organisms: MRSA Date of last positivie culture/infection: 2008 MDRO Source:: lt axilla Past Surgical History: Appendectomy, Breast Surgery, Cholecystectomy, Tonsillectomy Additional Past Surgical History / Comment(s): Exploratory lap with cholecyste ctomy, LEFT TEMPORAL ARTERY BIOPSY, EGD/colonoscopy, L breast bx benign, Past Anesthesia/Blood Transfusion Reactions: Motion Sickness Additional Past Anesthesia/Blood Transfusion Reaction / Comment(s): no prior problems with blood transfusion Past Psychological History: Anxiety, Depression Additional Psychological History / Comment(s): . Smoking Status: Never smoker Past Alcohol Use History: None Reported Past Drug Use History: None Reported Additional Drug Use History / Comment(s): Pt states she smoked alittle marijuana in the 1970s. She denies any hx of PDA - Past Family History Father Family Medical History: Cancer Additional Family Medical History / Comment(s): Father of bladder cancer at age 66yrs. Mother Family Medical History: Congestive Heart Failure (CHF), Rheumatoid Arthritis (RA) Additional Family Medical History / Comment(s): Mother had ASHD and of this at age 68yrs. Medications and Allergies Home Medications Medication Instructions Recorded Confirmed Type DULoxetine HCL [Cymbalta] 30 mg PO BID 10/17/21 01/24/24 History traZODone HCL [Desyrel] 100 mg PO HS 02/10/22 01/24/24 History Levothyroxine Sodium [Synthroid] 125 mcg PO DAILY 01/10/23 01/24/24 History Celecoxib [CeleBREX] 200 mg PO HS 01/24/24 01/24/24 History Melatonin 20 mg PO HS 01/24/24 01/24/24 History diphenhydrAMINE [Benadryl] 50 mg PO HS 01/24/24 01/24/24 History Allergies Allergy/AdvReac Type Severity Reaction Status Date / Time azithromycin [From Zithromax] Allergy Rash/Hives Verified 01/24/24 08:29 ketorolac tromethamine Allergy Rash/Hives/ Verified 01/24/24 08:29 [From Toradol] vomiting morphine Allergy Rash/Hives/ Verified 01/24/24 08:29 vomiting prochlorperazine edisylate Allergy Rash/Hives/ Verified 01/24/24 08:29 [From Compazine] vomiting prochlorperazine maleate Allergy Rash/Hives/ Verified 01/24/24 08:29 [From Compazine] vomiting sumatriptan [From Imitrex] Allergy Rash/Hives Verified 01/24/24 08:29 sumatriptan succinate Allergy Rash/Hives Verified 01/24/24 08:29 [From Imitrex] levofloxacin [From Levaquin] AdvReac caused Verified 01/24/24 08:29 abnormal EKG Physical Exam Vitals: Vital Signs Temp Pulse Pulse Resp BP BP BP 01/25/24 07:47 98.0 F 90 16 113/81 01/25/24 02:00 98.1 F 96 16 104/60 01/24/24 20:00 98.4 F 97 16 119/79 01/24/24 19:57 97 16 01/24/24 19:32 83 16 143/81 01/24/24 17:27 82 18 137/88 01/24/24 13:00 88 18 116/84 Pulse Ox 01/25/24 07:47 98 01/25/24 02:00 94 L 01/24/24 20:00 94 L 01/24/24 19:57 01/24/24 19:32 98 01/24/24 17:27 96 01/24/24 13:00 97 Intake and Output 01/24/24 01/25/24 01/25/24 22:59 06:59 14:59 Output Total 700 Balance -700 Output: Urine 700 Other: Voiding Method Diaper Diaper External Catheter External Catheter Weight 90.718 kg Results CBC & Chem 7: 01/25/24 06:16 01/25/24 06:16 Labs: Abnormal Lab Results - Last 24 Hours (Table) 01/25/24 01/25/24 Range/Units 06:16 06:16 RBC 3.38 L (4.10-5.20) X 10*6/uL Hgb 10.1 L (12.0-15.0) g/dL Hct 34.1 L (37.2-46.3) % MCV 100.9 H (80.0-97.0) FL MCHC 29.6 L (32.0-37.0) g/dL RDW 17.9 H (11.5-14.5) % MPV 8.9 L (9.5-12.2) FL Immature Gran # 0.05 H (0.00-0.04) X 10*3/uL Eosinophils # 0.83 H (0.04-0.35) X 10*3/uL Basophils # 0.11 H (0.00-0.10) X 10*3/uL Carbon Dioxide 21.2 L (21.6-31.8) mmol/L Thrombosis Risk Factor Assmnt - Choose All That Apply Any of the Below Risk Factors Present?: No Other Risk Factors: Yes Each Risk Factor Represents 2 Points: Age 61-74 years Other congenital or acquired thrombophilia - If yes, enter type in comment: No Thrombosis Risk Factor Assessment Total Risk Factor Score: 2 Thrombosis Risk Factor Assessment Level: Low Risk
[2024-01-25] MEDS: NYSTATIN 100,000UNIT/GM CREAM 30 GM TUBE TOPICAL SCH (17:16)
[2024-01-25] MEDS: MELATONIN 5 MG TABLET PO SCH (21:18)
[2024-01-25] MEDS: traZODone HCL 100 MG TAB PO SCH (21:18)
--- NOTE | 2024-01-26 11:57 | P.PN ---
Subjective Progress Note Date: 01/26/24 Principal diagnosis: T12 vertebral body compression fracture, old L1 and L2 vertebral compression fracture, multilevel lumbar spondylosis Patient was examined today at bedside, she is resting in her hospital bed. patient has not been out of bed since being in the hospital. Prescription was placed for LSO brace in chart, anticipate being fitted for that tomorrow. She has continued to utilize Dilaudid.. She currently denies headaches, lightheadedness, chest pain or shortness of breath Objective - Vital Signs Vital signs: Vital Signs Temp 97.9 F 01/26/24 07:20 Pulse 88 01/26/24 07:20 Resp 20 01/26/24 07:20 BP 102/72 01/26/24 07:20 Pulse Ox 93 L 01/26/24 07:20 FiO2 Intake & Output 01/25/24 01/26/24 01/26/24 18:59 06:59 18:59 Output Total 1000 250 Balance -1000 -250 Output: Urine 1000 250 Other: Voiding Method Diaper Diaper External Catheter External Catheter External Catheter - Exam Gen: AOx3, NAD VSS stable at this time Integument: No open lesions, sores or areas of erythema are appreciated throughout the lumbar spine Palpation: tenderness with palpation appreciated in the midline area of the lumbar spine ROM: full range of motion in all major muscle groups of the bilateral upper and lo wer extremities, no focal deficits appreciated Sensory Exam: Senory exam to light touch is intact C5-T1 Senosry exam to light touch is intact L2-S1 Motor: 5/5 strength appreciated in the bilateral upper extremities with shoulder elevation, shoulder abduction, wrist extension, wrist flexion, elbow extension, elbow flexion, foundry engineer 4+/5 strength appreciated the bilateral lower extremities with hip flexion, knee extension, knee flexion, dorsiflexion, plantarflexion, EHL, FHL Reflexes: 2/4 in all UE and LE negative clonus, Babinski bilaterally Special Test: negative straight leg raise bilaterally - Labs CBC & Chem 7: 01/25/24 06:16 01/25/24 06:16 Assessment and Plan Assessment: Low back pain T12 vertebral body compression fracture, acute L1 vertebral body compression fracture, severe collapse ,old L2 vertebral body compression fracture, severe collapse, old Multilevel lumbar spondylosis Status post fall from standing Difficulty with ambulation Other medical comorbidities Plan: Had a long discussion with the patient today regarding her lumbar spine and op tions for continuation of treatment. I would like to order an MRI without contrast of the lumbar spine for to evaluate for both foraminal and central canal stenosis. CT scan does demonstrate severe collapse of both L1 and L2 vertebral bodies along with severe degenerative changes throughout the remaining lumbar spine. Discussed with patient the possibility of surgical intervention in the future if patient's symptoms do not improve with conservative measures. I would like to discontinue use of the Dilaudid at this time, she was made aware that this is for severe pain. I did add Tylenol 3, she also has Flexeril available. Discussion was both had with nursing and the patient that she can get up to ambulate small distances along with getting to the chair. Weight-bear as tolerated, utilize walker at all times DVT prophylaxis per primary medical service PT/OT evaluation Will continue to follow patient during hospital stay Time with Patient: Less than 30
--- NOTE | 2024-01-26 13:32 | P.PN ---
Subjective Progress Note Date: 01/26/24 patient 68-year-old lady with past medical history significant for hypothyroidism, depression presented to the ER for a fall. Patient stated she was all right this morning when she. Lost her balance and fell on her knees, following that she started having severe low back pain. Denied any complaint of bowel or urine incontinence. No complaint of saddle anesthesia. Patient has history of back pain and was diagnosed with having compression fracture and was told to wear a back brace. Because of the back pain, patient presented to the ER Initial lab work done in the ER showed WBC 9.8, hemoglobin 10.5, platelet count 290, sodium 130, potassium 4.2, BUN 15, creatinine 0.58, TSH greater than 100 UA done showed large amount of leukocyte Estrace, urine WBC 75 X-ray lumbar spine done showed age-indeterminate severe wedge deformity of L2 and L3 with slight retropulsion Patient admitted to internal medicine service 01/25. Patient seen and examined. States back pain has improved. Has any acute issues overnight REVIEW OF SYSTEMS: CONSTITUTIONAL: No fever, no malaise,. CARDIOVASCULAR: No chest pain, no palpitations, no syncope. PULMONARY: No shortness of breath, no cough, GASTROINTESTINAL: No diarrhea, no nausea, no vomiting, no abdominal pain. NEUROLOGICAL: No headaches, no weakness, PHYSICAL EXAMINATION: GENERAL: The patient is alert and oriented x3, not in any acute distress. Well developed, well nourished. HEENT: Pupils are round and equally reacting to light. EOMI. No scleral icterus. No conjunctival pallor. Normocephalic, atraumatic. No pharyngeal erythema. No thyromegaly. CARDIOVASCULAR: S1 and S2 present. No murmurs, rubs, or gallops. PULMONARY: Chest is clear to auscultation, no wheezing or crackles. ABDOMEN: Soft, nontender, nondistended, normoactive bowel sounds. No palpable organomegaly. MUSCULOSKELETAL: No joint swelling or deformity. EXTREMITIES: No cyanosis, clubbing, or pedal edema. NEUROLOGICAL: Gross neurological examination did not reveal any focal deficits. SKIN: No rashes. Assessment and plan Fall Acute on chronic back pain Hypothyroidism UTI Monitor vital signs Monitor CBC Monitor CMP Fall precautions Continue pain management TSH was elevated, dose of Synthroid was increased to achieve 150. Continue IV Rocephin. Continue IV fluids Orthopedic following PT and OT consulted Labs and medication were reviewed.. Continue same treatment. Continue with symptomatic treatment. Resume home medication. Monitor labs and vitals. DVT and GI prophylaxis. Further recommendations as per clinical course of the patient Dictation was produced using [employer] dictation software. please excuse any grammatical, word or spelling errors. Objective - Vital Signs Vital signs: Vital Signs Temp 97.9 F 01/26/24 07:20 Pulse 88 01/26/24 07:20 Resp 20 01/26/24 07:20 BP 102/72 01/26/24 07:20 Pulse Ox 93 L 01/26/24 07:20 FiO2 Intake & Output 01/25/24 01/26/24 01/26/24 18:59 06:59 18:59 Output Total 1000 250 Balance -1000 -250 Output: Urine 1000 250 Other: Voiding Method Diaper Diaper External Catheter External Catheter External Catheter - Labs CBC & Chem 7: 01/25/24 06:16 01/25/24 06:16
[2024-01-26] MEDS: Acetaminophen-Codeine 300-30mg TAB PO PRN (15:05)
[2024-01-26] MEDS: HYDROmorphone 0.5 MG/0.5 ML SYRINGE IVP PRN (18:10)
[2024-01-27] MEDS: LORazepam 0.5 MG TAB PO STA (09:20)
--- NOTE | 2024-01-27 14:50 | P.PN ---
Subjective Progress Note Date: 01/27/24 Principal diagnosis: T12 vertebral body compression fracture, old L1 and L2 vertebral compression fracture, multilevel lumbar spondylosis Patient was examined today at bedside, she is resting in her hospital chair. Patient was fitted with her LSO brace today. She was actually able to ambulate the halls. She is feeling a lot better since receiving the brace. She is hoping to be discharged home. She did have the lumbar MRI earlier this morning also. She currently denies headaches, lightheadedness, chest pain or shortness of breath Objective - Vital Signs Vital signs: Vital Signs Temp 99 F 01/27/24 11:48 Pulse 99 01/27/24 11:48 Resp 17 01/27/24 11:48 BP 94/68 01/27/24 11:48 Pulse Ox 93 L 01/27/24 11:48 FiO2 Intake & Output 01/26/24 01/27/24 01/27/24 18:59 06:59 18:59 Other: Voiding Method External Catheter Toilet Toilet # Voids 1 1 1 - Exam Gen: AOx3, NAD VSS stable at this time Integument: No open lesions, sores or areas of erythema are appreciated throughout the lumbar spine Palpation: tenderness with palpation appreciated in the midline area of the lumbar spine ROM: full range of motion in all major muscle groups of the bilateral upper and lower extremities, no focal deficits appreciated Sensory Exam: Senory exam to light touch is intact C5-T1 Senosry exam to light touch is intact L2-S1 Motor: 5/5 strength appreciated in the bilateral upper extremities with shoulder elevation, shoulder abduction, wrist extension, wrist flexion, elbow extension, elbow flexion, equity research analyst 4+/5 strength appreciated the bilateral lower extremities with hip flexion, knee extension, knee flexion, dorsiflexion, plantarflexion, EHL, FHL Reflexes: 2/4 in all UE and LE negative clonus, Babinski bilaterally Special Test: negative straight leg raise bilaterally - Labs CBC & Chem 7: 01/25/24 06:16 01/25/24 06:16 Assessment and Plan Assessment: Low back pain T12 vertebral body compression fracture, acute L1 vertebral body compression fracture, severe collapse ,old L2 vertebral body compression fracture, severe collapse, old Multilevel lumbar spondylosis with varying degrees of both foraminal stenosis and central canal stenosis Status post fall from standing Difficulty with ambulation Other medical comorbidities Plan: MRI report pending, images confirmed suspicion of multilevel lumbar spondylosis and varying degrees of central canal and foraminal stenosis. Patient's symptoms seem to be very stable at this time, she has done very well with her ambulatory status with the use of the LSO brace. Patient would like to hold off on surgical intervention at this time. She continues to demonstrate no acute neuropathic signs. Weight-bear as tolerated, utilize walker at all times DVT prophylaxis per primary medical service PT/OT evaluation Discharge planning: On orthopedic standpoint I feel patient is stable for discharge to home. Recommending follow-up with Dr. Sarkar's in the next 2 weeks for recheck Time with Patient: Less than 30
--- NOTE | 2024-01-27 18:30 | MR ---
EXAMINATION TYPE: MR lumbar spine wo con DATE OF EXAM: 01/27/2024 11:10 AM CLINICAL INDICATION:Female, 68 years old with history of lumbar compression fractures, back pain; PHH , Lumbar compression FX, back pain COMPARISON: 01/24/2024 TECHNIQUE: Multi planar, multi sequence imaging was performed utilizing: T1-weighted, T2-weighted, a nd turbo inversion recovery imaging of the lumbar spine. IV Contrast: cc . (None if empty) FINDINGS: Alignment: The lumbar vertebral bodies have preserved heights and alignment. Cord: The conus medullaris and the distal spinal cord appear unremarkable with regards to their signa l intensity and morphology. Bones/Discs: Compression deformities to the T12-L1 and L2 vertebral bodies. There is bony edema withi n the T12 vertebral body. Curvilinear low T1/T2 signal seen within the superior end plate of the T12 vertebral body. There is 25% height loss. The L1-L2 vertebral bodies demonstrate near complete height loss centrally. T12-L1: No evidence of significant spinal canal stenosis or neural foraminal stenosis. L1-L2: Compression deformity of the L2 vertebral body with minimal retropulsion without significant s martha canal stenosis. There is moderate bilateral neural foraminal stenosis. L2-L3: Compression deformity of the L2 vertebral body with minimal retropulsion without significant s martha canal stenosis. There is moderate bilateral neural foraminal stenosis. L3-L4: No evidence of significant spinal canal stenosis. Facet joint arthropathy moderate bilateral n eural foraminal stenosis. L4-L5: No evidence of significant spinal canal stenosis. Facet joint arthropathy mild bilateral neura l foraminal stenosis. L5-S1: No evidence of significant spinal canal stenosis. Facet joint arthropathy mild bilateral neura l foraminal stenosis. No significant spinal canal or neural foraminal stenosis in the remainder of the visualized levels. Other findings: None. IMPRESSION: 1. Bony edema within the T12 vertebral body suspicious for acute/subacute compression deformity with up to 25% height loss. No significant retropulsion. 2. Chronic appearing deformities to the T1-T2 vertebral bodies. 3. No evidence for significant spinal canal stenosis. Multilevel facet joint arthropathy with neural foraminal stenosis worse at L2-L3 and L3-L4 with moderate bilateral neural foraminal stenosis.
--- NOTE | 2024-01-27 20:20 | P.PN ---
Subjective patient 68-year-old lady with past medical history significant for hypothyroidism, depression presented to the ER for a fall. Patient stated she was all right this morning when she. Lost her balance and fell on her knees, following that she started having severe low back pain. Denied any complaint of bowel or urine incontinence. No complaint of saddle anesthesia. Patient has history of back pain and was diagnosed with having compression fracture and was told to wear a back brace. Because of the back pain, patient presented to the ER Initial lab work done in the ER showed WBC 9.8, hemoglobin 10.5, platelet count 290, sodium 130, potassium 4.2, BUN 15, creatinine 0.58, TSH greater than 100 UA done showed large amount of leukocyte Estrace, urine WBC 75 X-ray lumbar spine done showed age-indeterminate severe wedge deformity of L2 and L3 with slight retropulsion Patient admitted to internal medicine service 01/25. Patient seen and examined. States back pain has improved. Has any acute issues overnight Patient is a pleasant 68 years old female who presents with acute back pain secondary to fall at home. MRI of the brain today showing bony edema secondary to T12 acute/subacute compression fraction with no significant spinal stenosis, Hemodynamically stable Patient has brace at bed side and she is able to ambulate. She denies urinary symptoms She remains on ceftriaxone Bladder scan 76 to 100% Abnormal thyroid scan patient on levothyroxine 150 mcg recommend repeat thyroid function test in 4 to 6 weeks. Patient informed with the plan and she is agreeable Objective - Vital Signs Vital signs: Vital Signs Temp 99 F 01/27/24 11:48 Pulse 99 01/27/24 11:48 Resp 17 01/27/24 11:48 BP 94/68 01/27/24 11:48 Pulse Ox 93 L 01/27/24 11:48 FiO2 Intake & Output 01/26/24 01/27/24 01/27/24 18:59 06:59 18:59 Other: Voiding Method External Catheter Toilet Toilet # Voids 1 1 1 - Exam GENERAL: The patient is alert and oriented x3, not in any acute distress. Well developed, well nourished. HEENT: Pupils are round and equally reacting to light. EOMI. No scleral icterus. No conjunctival pallor. Normocephalic, atraumatic. No pharyngeal erythema. No thyromegaly. CARDIOVASCULAR: S1 and S2 present. No murmurs, rubs, or gallops. PULMONARY: Chest is clear to auscultation, no wheezing , no crackles. ABDOMEN: Soft, nontender, nondistended, normoactive bowel sounds. No palpable organomegaly. MUSCULOSKELETAL: No joint swelling or deformity. EXTREMITIES: No cyanosis, clubbing, or pedal edema. NEUROLOGICAL: Gross neurological examination did not reveal any focal deficits. SKIN: No rashes. no petechiae. - Labs CBC & Chem 7: 01/25/24 06:16 01/25/24 06:16 Assessment and Plan Assessment: Fall at home without syncope Acute on chronic back pain, secondary to compression fraction of T12, acute/subacute on MRI of the spine with no significant spinal stenosis Anemia Hypothyroidism UTI Plan: Continue with ceftriaxone Continue with pain management Continue with levothyroxine and repeat thyroid function test in 4 to 6 weeks after discharge Orthopedic team following the case closely, patient has a brace at baseline, recommended no surgical intervention Continue GI DVT prophylaxis
[2024-01-28 08:43] VITALS: BP 118/80; PULSE 95; RESP 17; TEMP 98.2
--- NOTE | 2024-01-28 12:14 | P.DS ---
Providers Date of admission: 01/24/24 08:24 Expected date of discharge: 01/28/24 Attending physician: Darian Canales MD Consults: 01/24/24 12:46 Consult Physician Stat Consulting Provider: Seven Forman Consult Reason/Comments: chronic low back pain Do you want consulting provider notified?: Yes Primary care physician: Physician Nonstaff Hospital Course: Final Diagnoses: Fall, acute T12 vertebral body compression fracture, old L1 and L2 vertebral compression fracture, multilevel lumbar spondylosis with varying degrees of both foraminal stenosis and central canal stenosis; LSO brace Gait dysfunction Degenerative disc disease CAD Hypothyroidism This is a 68-year-old female with history of falls, status post fall sustaining acute T12 vertebral body compression fracture, known L1 and L2 vertebral compression fractures, multilevel lumbar spondylosis with varying degrees of both foraminal stenosis and central canal stenosis reported per MRI. LSO brace recommended as per orthopedic spine, symptoms improved reports her back pain is back to baseline. Denies chest pain, palpitations or shortness of breath. Denies lightheadedness, dizziness or focal deficits. Cleared by orthopedic surgery for discharge.Hemodynamically stable. Patient will be discharged home today with home care in a stable condition with guarded prognosis. The impression and plan of care has been dictated as directed. : I performed a history and examination of this patient, discussed the same with the dictator. I agree with the dictator's note ,documented as a scribe. Any additional findings or plans will be noted. Patient Condition at Discharge: Stable Plan - Discharge Summary Discharge Rx Participant: No New Discharge Prescriptions: New Levothyroxine Sodium [Synthroid] 150 mcg PO DAILY@0630 #30 tab traMADol HCl [Ultram] 50 mg PO Q6HR PRN 3 Days #12 tab PRN Reason: Pain Continue diphenhydrAMINE [Benadryl] 50 mg PO HS Melatonin 20 mg PO HS Celecoxib [CeleBREX] 200 mg PO HS DULoxetine HCL [Cymbalta] 30 mg PO BID traZODone HCL [Desyrel] 100 mg PO HS Discontinued Levothyroxine Sodium [Synthroid] 125 mcg PO DAILY Discharge Medication List DULoxetine HCL [Cymbalta] 30 mg PO BID 10/17/21 [History] traZODone HCL [Desyrel] 100 mg PO HS 02/10/22 [History] Celecoxib [CeleBREX] 200 mg PO HS 01/24/24 [History] Melatonin 20 mg PO HS 01/24/24 [History] diphenhydrAMINE [Benadryl] 50 mg PO HS 01/24/24 [History] Levothyroxine Sodium [Synthroid] 150 mcg PO DAILY@0630 #30 tab 01/28/24 [Rx] traMADol HCl [Ultram] 50 mg PO Q6HR PRN 3 Days #12 tab 01/28/24 [Rx] Follow up Appointment(s)/Referral(s): Darian Canales MD [STAFF PHYSICIAN] - 01/30/24 10:45 am (You will see Sarah at the [place] office .) Jonah Evans MD [REFERRING] - 2 Weeks (Endocrniologist,Please call and schedule this appointment. ) [facility], [NON-STAFF] - 1 Week Seven Forman DO [Doctor of Osteopathic Medicine] - 02/11/24 9:50 am Chung Berrios [NON-STAFF] - 1 Week Patient Instructions/Handouts: Levothyroxine (By mouth), Tramadol (By mouth), Back Pain (GEN) Activity/Diet/Wound Care/Special Instructions: We recommend to repeat your thyroid function test with your doctor in 4-6 weeks Discharge Disposition: HOME SELF-CARE
== END 2024-01-28 12:32 | disposition home or self-care (01) ==
LOC: EC 23:10 → 5NMEDONC 01-24 08:24
PROVIDERS: ADMIT Family Medicine; ATTEND Family Medicine
DX: M48.56XA Collapsed vertebra, not elsewhere classified, lumbar region, initial encounter for fracture (principal); M48.54XA Collapsed vertebra, not elsewhere classified, thoracic region, initial encounter for fracture; M48.00 Spinal stenosis, site unspecified; M47.816 Spondylosis without myelopathy or radiculopathy, lumbar region; M46.40 Discitis, unspecified, site unspecified; I25.10 Atherosclerotic heart disease of native coronary artery without angina pectoris; E03.9 Hypothyroidism, unspecified; Z91.81 History of falling; N39.0 Urinary tract infection, site not specified; I10 Essential (primary) hypertension; K21.9 Gastro-esophageal reflux disease without esophagitis; I11.0 Hypertensive heart disease with heart failure; I50.9 Heart failure, unspecified; K29.50 Unspecified chronic gastritis without bleeding; Z86.14 Personal history of Methicillin resistant Staphylococcus aureus infection; Z82.61 Family history of arthritis; Z79.899 Other long term (current) drug therapy; Z79.890 Hormone replacement therapy; Z88.1 Allergy status to other antibiotic agents; Z88.8 Allergy status to other drugs, medicaments and biological substances; Z88.5 Allergy status to narcotic agent
CPT/HCPCS: 96365; 96366 ×5; 96367; 99285; 36415; 97162; 84439; 80053; 80048; 84443; 85025 ×2; 81001; 72100; 72131; 72148; G0378 ×5; J0696 ×4; J1170 ×6

== ENCOUNTER 2024-10-27 23:48 | Emergency (ER) | payer MEDICARE, OTHER ==
[2024-10-27 23:55] VITALS: TEMP 99.6
--- NOTE | 2024-10-28 00:20 | ED ---
General Adult HPI - General Chief complaint: Back Pain/Injury Stated complaint: Fall Time Seen by Provider: 10/27/24 23:50 Source: patient, EMS, RN notes reviewed Mode of arrival: EMS Limitations: no limitations - History of Present Illness Initial comments: 69-year-old female presents to the emergency department for evaluation of neck pain and back pain. Patient states that she took a fall today when she tripped on her pajamas. She states that she fell onto her buttocks. Patient notes pain in her mid back and in her neck mostly on the right side of her neck. She reports a history of compression fractures in her back from prior falls. She denies loss of bowel or bladder function, saddle anesthesia. She denies head injury. Denies blood thinners. - Related Data Home Medications Medication Instructions Recorded Confirmed DULoxetine HCL [Cymbalta] 30 mg PO BID 10/17/21 01/24/24 traZODone HCL [Desyrel] 100 mg PO HS 02/10/22 01/24/24 Celecoxib [CeleBREX] 200 mg PO HS 01/24/24 01/24/24 Melatonin 20 mg PO HS 01/24/24 01/24/24 diphenhydrAMINE [Benadryl] 50 mg PO HS 01/24/24 01/24/24 Previous Rx's Medication Instructions Recorded Levothyroxine Sodium [Synthroid] 150 mcg PO DAILY@0630 #30 tab 01/28/24 traMADol HCl [Ultram] 50 mg PO Q6HR PRN 3 Days #12 tab 01/28/24 Allergies Allergy/AdvReac Type Severity Reaction Status Date / Time azithromycin [From Zithromax] Allergy Rash/Hives Verified 10/27/24 23:55 ketorolac tromethamine Allergy Rash/Hives/ Verified 10/27/24 23:55 [From Toradol] vomiting morphine Allergy Rash/Hives/ Verified 10/27/24 23:55 vomiting prochlorperazine edisylate Allergy Rash/Hives/ Verified 10/27/24 23:55 [From Compazine] vomiting prochlorperazine maleate Allergy Rash/Hives/ Verified 10/27/24 23:55 [From Compazine] vomiting sumatriptan [From Imitrex] Allergy Rash/Hives Verified 10/27/24 23:55 sumatriptan succinate Allergy Rash/Hives Verified 10/27/24 23:55 [From Imitrex] levofloxacin [From Levaquin] AdvReac caused Verified 10/27/24 23:55 abnormal EKG Review of Systems ROS Statement: Those systems with pertinent positive or pertinent negative responses have been documented in the HPI. ROS Other: All systems not noted in ROS Statement are negative. Past Medical History Past Medical History: Asthma, Blood Disorder, Coronary Artery Disease (CAD), Chest Pain / Angina, Heart Failure, GERD/Reflux, Hypertension, Osteoarthritis (OA), Pneumonia, Thyroid Disorder Additional Past Medical History / Comment(s): Chronic gastritis, intermittent recurrent pancreatitis, duodenal stricture, short segment of Finch's esophagus, PUD, hiatal hernia, colitis, lower GI bleed, anemia, bronchitis, seasonal allergies, LBBB, arthritis multiple joints, cervical radiculopathy/cervical compression fractures, chronic back pain, scoliosis, past bilateral foot fractures and L hand fracures, uterine fibroids, UTI, hypothyroid, sacral fracture 12/2021 History of Any Multi-Drug Resistant Organisms: MRSA Date of last positivie culture/infection: 2008 MDRO Source:: lt axilla Past Surgical History: Appendectomy, Breast Surgery, Cholecystectomy, Tonsillectomy Additional Past Surgical History / Comment(s): Exploratory lap with cholecystectomy, LEFT TEMPORAL ARTERY BIOPSY, EGD/colonoscopy, L breast bx benign, Past Anesthesia/Blood Transfusion Reactions: Motion Sickness Additional Past Anesthesia/Blood Transfusion Reaction / Comment(s): no prior problems with blood transfusion Past Psychological History: Anxiety, Depression Smoking Status: Never smoker Past Alcohol Use History: None Reported Past Drug Use History: None Reported - Past Family History Father Family Medical History: Cancer Additional Family Medical History / Comment(s): Father of bladder cancer at age 66yrs. Mother Family Medical History: Congestive Heart Failure (CHF), Rheumatoid Arthritis (RA) Additional Family Medical History / Comment(s): Mother had ASHD and of this at age 68yrs. General Exam Limitations: no limitations General appearance: alert, in no apparent distress Head exam: Present: atraumatic, normocephalic, normal inspection Eye exam: Present: normal appearance, PERRL, EOMI. Absent: scleral icterus, conjunctival injection, periorbital swelling ENT exam: Present: normal exam, mucous membranes moist Respiratory exam: Present: normal lung sounds bilaterally. Absent: respiratory distress, wheezes, rales, rhonchi, stridor Cardiovascular Exam: Present: regular rate, normal rhythm, normal heart sounds. Absent: systolic murmur, diastolic murmur, rubs, gallop, clicks Extremities exam: Present: normal inspection, full ROM, normal capillary refill. Absent: tenderness, pedal edema, joint swelling, calf tenderness Back exam: Present: tenderness. Absent: CVA tenderness (R), CVA tenderness (L) Neurological exam: Present: alert, oriented X3 Psychiatric exam: Present: normal affect, normal mood Skin exam: Present: warm, dry, intact, normal color. Absent: rash Course Vital Signs 10/27/24 10/28/24 23:52 01:03 Temperature 99.6 F Pulse Rate 114 H 95 Respiratory 18 16 Rate Blood Pressure 119/85 138/73 O2 Sat by Pulse 96 97 Oximetry Medical Decision Making - Medical Decision Making Was pt. sent in by a medical professional or institution (, PA, YARD OPERATOR, urgent care, hospital, or longterm...) When possible be specific @ -[No] Did you speak to anyone other than the patient for history (EMS, parent, family, police, friend...)? What history was obtained from this source @ -[No] Did you review nursing and triage notes (agree or disagree)? Why? @ -[I reviewed and agree with nursing and triage notes] Were old charts reviewed (outside hosp., previous admission, EMS record, old EKG, old radiological studies, urgent care reports/EKG's, longterm records)? Report findings @ -[No old charts were reviewed] Differential Diagnosis (chest pain, altered mental status, abdominal pain women, abdominal pain men, vaginal bleeding, weakness, fever, dyspnea, syncope, headache, dizziness, GI bleed, back pain, seizure, CVA, palpatations, mental health, musculoskeletal)? @ -[Differential Back Pain: Strain, zoster, cauda equina syndrome, epidural abscess, vertebral osteomyelitis, discitis, fracture, subluxation, disc herniation, DJD, spinal stenosis, dissection, AAA, pancreatitis, peptic ulcer disease, pyelonephritis, kidney stone, this is not meant to be an all-inclusive list. ] EKG interpreted by me (3pts min.). @ -None X-rays interpreted by me (1pt min.). @ -[None done] CT interpreted by me (1pt min.). @ -[CT cervical, thoracic, lumbar spine obtained] U/S interpreted by me (1pt. min.). @ -[None done] What testing was considered but not performed or refused? (CT, X-rays, U/S, labs)? Why? @ -[None] What meds were considered but not given or refused? Why? @ -[None] Did you discuss the management of the patient with other professionals (professionals i.e. DrDaniel, PA, YARD OPERATOR, lab, RT, psych nurse, social security specialist, search developer, teacher, customer service security officer, leather case finisher)? Give summary @ -[No] Was smoking cessation discussed for >3mins.? @ -[No] Was critical care preformed (if so, how long)? @ -[No] Were there social determinants of health that impacted care today? How? (Homelessness, low income, unemployed, alcoholism, drug addiction, transp ortation, low edu. Level, literacy, decrease access to med. care, prison, rehab)? @ -[No] Was there de-escalation of care discussed even if they declined (Discuss DNR or withdrawal of care, Hospice)? DNR status @ -[No] What co-morbidities impacted this encounter? (DM, HTN, Smoking, COPD, CAD, Cancer, CVA, ARF, Chemo, Hep., AIDS, mental health diagnosis, sleep apnea, morbid obesity)? @ -[Osteoporosis] Was patient admitted / discharged? Hospital course, mention meds given and route, prescriptions, significant lab abnormalities, going to OR and other pertinent info. @ -[Patient presented to the emergency department for evaluation of fall with back pain and neck pain. Patient denies head injury. Denies blood thinners. She was placed in a c-collar. Patient has a history of multiple compression fractures. CT of the cervical, thoracic, lumbar spine obtained. ] Undiagnosed new problem with uncertain prognosis? @ -[No] Drug Therapy requiring intensive monitoring for toxicity (Heparin, Nitro, Insulin, Cardizem)? @ -[No] Were any procedures done? @ -[No] Diagnosis/symptom? @ -[default] Acute, or Chronic, or Acute on Chronic? @ -[default] Uncomplicated (without systemic symptoms) or Complicated (systemic symptoms)? @ -[default] Side effects of treatment? @ -[No] Exacerbation, Progression, or Severe Exacerbation? @ -[No] Poses a threat to life or bodily function? How? (Chest pain, USA, SC, pneumonia, PE, COPD, DKA, ARF, appy, cholecystitis, CVA, Diverticulitis, Homicidal, Suicidal, threat to staff... and all critical care pts) @ -[No] Disposition Clinical Impression: Compression fracture of T12 vertebra Disposition: HOME SELF-CARE Condition: Stable Instructions (If sedation given, give patient instructions): Acute Low Back Pain (ED) Additional Instructions: Please follow up with orthopedics. Return to the emergency department for new or worsening symptoms. Is patient prescribed a controlled substance at d/c from ED?: No Referrals: Faiza Tariq DO [Primary Care Provider] - 1-2 days Wander Jackman DO [Doctor of Osteopathic Medicine] - 1-2 days
[2024-10-28] MEDS: ONDANSETRON 4 MG/2 ML VIAL IVP STA (00:38)
[2024-10-28] MEDS: HYDROmorphone 0.5 MG/0.5 ML SYRINGE IVP STA ×2 (00:39→03:28)
[2024-10-28 01:03] VITALS: RESP 16
--- NOTE | 2024-10-28 03:13 | CT ---
EXAM: CT Cervical Spine Without Intravenous Contrast CLINICAL HISTORY: tripped over her pant leg approximately 3 hours ago and fell onto buttocks. Denies LOC. Denies thinners. Pt. C/o low back pain and neck pain - reports hx of compression fractures. TECHNIQUE: Axial computed tomography images of the cervical spine without intravenous contrast. CTDI is 10.16 mGy and DLP is 682.6 mGy-cm. This CT exam was performed using one or more of the following dose reduction techniques: automated exposure control, adjustment of the mA and/or kV according to patient size, and/or use of iterative reconstruction technique. Coronal and sagittal reconstructions are performed. COMPARISON: No relevant prior studies available. FINDINGS: Bones: Moderate degenerative disc disease. Osteopenia. Soft tissues: Unremarkable. Thyroid: Diffusely atrophic IMPRESSION: No acute findings in the cervical spine. EXAM: CT Thoracic Spine Without Intravenous Contrast CLINICAL HISTORY: tripped over her pant leg approximately 3 hours ago and fell onto buttocks. Denies LOC. Denies thinners. Pt. C/o low back pain and neck pain - reports hx of compression fractures. TECHNIQUE: Axial computed tomography images of the thoracic spine without intravenous contrast. CTDI is 10.16 mGy and DLP is 682.6 mGy-cm. This CT exam was performed using one or more of the following dose reduction techniques: automated exposure control, adjustment of the mA and/or kV according to patient size, and/or use of iterative reconstruction technique. Coronal and sagittal reconstructions are performed. COMPARISON: No relevant prior studies available. FINDINGS: Bones: Severe compression defect at T7, with about 70% loss in height. Severe compression defect at T9 with about 70-80% loss in height. Moderate compression defect of inferior endplate of T10 with about 30 % loss in height. No retropulsion in the compression fracture/defects. Moderate acute fracture of superior endplate of T12 with about 60% loss in height. Osteopenia. Moderate degenerative disc disease. Soft tissues: Small right Bochdalek hernia containing mesenteric fat best seen on series 205 image 13, unchanged. Vasculature: Moderate amount of atherosclerotic calcifications. Gallbladder and bile ducts: Cholecystectomy clips. Visualized lungs: Clear IMPRESSION: Moderate acute fracture of superior endplate of T12 with about 60% loss in height. Chronic compression defect at T7, T9, T10. EXAM: CT Lumbar Spine Without Intravenous Contrast CLINICAL HISTORY: tripped over her pant leg approximately 3 hours ago and fell onto buttocks. Denies LOC. Denies thinners. Pt. C/o low back pain and neck pain - reports hx of compression fractures. TECHNIQUE: Axial computed tomography images of the lumbar spine without intravenous contrast. CTDI is 10.16 mGy and DLP is 682.6 mGy-cm. This CT exam was performed using one or more of the following dose reduction techniques: automated exposure control, adjustment of the mA and/or kV according to patient size, and/or use of iterative reconstruction technique. Coronal and sagittal reconstructions are performed. COMPARISON: Lumbar CT from FINDINGS: Bones: Severe compression defect at L1 with about 90% loss in height, with associated mild retropulsion, unchanged. Severe compression defect at L2 with about 90% loss in height, with associated mild retropulsion, unchanged. Discs/spinal canal/neural foramina: Moderate degenerative disc disease. Soft tissues: Unremarkable. Kidneys and ureters: Nonobstructing stone in the 2 mm nonobstructing mid pole left kidney. Stomach and bowel: Mild colonic diverticulosis. IMPRESSION: No subluxation or acute fracture.
[2024-10-28] MEDS: CYCLOBENZAPRINE 10MG STARTER 3 TAB BTL PO STA (04:12)
[2024-10-28] MEDS: ACET/COD 300 MG/30 MG STARTER PACK 6 TAB BTL PO STA (04:12)
[2024-10-28 04:15] VITALS: BP 132/80; PULSE 69
== END 2024-10-28 04:15 | disposition home or self-care (01) ==
LOC: EC 23:48
DX: S22.080A Wedge compression fracture of T11-T12 vertebra, initial encounter for closed fracture (principal); M81.0 Age-related osteoporosis without current pathological fracture; Z88.1 Allergy status to other antibiotic agents; Z88.6 Allergy status to analgesic agent; Z88.8 Allergy status to other drugs, medicaments and biological substances; W01.0XXA Fall on same level from slipping, tripping and stumbling without subsequent striking against object, initial encounter
CPT/HCPCS: 72128; 72125; 72131; 99284; 96374; 96375; 96376; J2405; J1171